=== PATIENT | female | born 1955 | race Caucasian/White ===

== ENCOUNTER 2017-08-28 15:24 | Inpatient (IN) | payer OTHER ==
[~2017-08-28] VITALS: Ht 152.4 cm; Wt 85.5 kg
[~2017-08-28 15:24] MED LIST: ADVIN50/60 INH; ALBUAER19 INH; ALUMSUS2 PO; ATOR-24 PO; B-COTAB83 PO; CALC500C3 PO; CHOLCAP5 PO; CINA60TA PO; DILT120C67 PO; DIPH1TAB87 PO; DOCU100C31 PO; EPP3/2 IM; FLUO40CA8 PO; FLUT0.0529 NAE; IPRASOL4 INH; LCTX PO; METH500T PO; MONT1TAB3 PO; NYST100098 TOP; ONDA4TAB65 PO; OXGN; PANT40TA PO; RANI300T2 PO; SEVE1TAB PO; TRAM-10 PO; VNCS125 PO; WARF5TAB90 PO
[2017-08-28] MEDS ORDERED: NITROGLYCERIN 0.4 MG SL PER TAB CHARGE SL PRN ×2 (16:00→19:00)
[2017-08-28 16:12] LABS: BASO % 0.2 %; BASO ABS # 0.02 K/uL (0-0.2); COMPLETE YES; EOS % 4.4 %; HEMATOCRIT 37.2 % (37-47); IG% 0.2 %; LYMPH % 7.7 %; LYMPH ABS # 0.72 K/uL (1.2-3.4); MEAN CELL VOLUME 97.4 fL (80-100); MEAN CORPUSCULAR HEMOGLOBIN 29.6 pg (25-34); MEAN CORPUSCULAR HGB CONC 30.4 g/dl (32-36); MEAN PLATELET VOLUME 10.3 fL (7.4-10.4); MONO % 6.7 %; NEUT % 80.8 %; PLATELET COUNT 146 K/uL (130-400); RED BLOOD COUNT 3.82 M/uL (4.2-5.4); WHITE BLOOD COUNT 9.37 K/uL (4.8-10.8)
--- NOTE | 2017-08-28 16:19 | DIAGNOSTIC IMAGING REPORT ---
CHEST ONE VIEW PORTABLE CLINICAL HISTORY: 62 years-old Female presenting with cp. TECHNIQUE: Portable upright AP view of the chest was obtained. COMPARISON: 05/25/2015. FINDINGS: Tunneled left internal jugular catheter terminates in the left brachiocephalic vein. A second portion of the catheter projects over the right hemithorax likely with an intervening radiolucent portion. Vascular stent noted in the region of the right brachiocephalic vein best appreciated on CT from 05/20/2015. Additional vascular stent projects over the region of the left brachial vein. Cardiac silhouette enlarged, new from prior. Lungs and pleural spaces clear. Osseous structures normal. Upper abdomen normal. IMPRESSION: 1. Interval development of cardiomegaly. No other evidence of acute cardiopulmonary disease. Electronically signed by: Joshua Kendrick M.D. 08/28/2017 4:17 PM Dictated Date/Time: 08/28/2017 4:14 PM
[2017-08-28] MEDS ORDERED: [UNRECOGNIZED DRUG - CODE] TOP (16:40)
[2017-08-28] MEDS ORDERED: VNTHFA/IN INH (16:40)
[2017-08-28] MEDS ORDERED: FLUT0.15 NAE (16:40)
[2017-08-28] MEDS ORDERED: BCTCR/30 EXT (16:40)
[2017-08-28] MEDS ORDERED: CLOP1TAB15 PO (16:40)
[2017-08-28] MEDS ORDERED: SENN1TAB77 PO (16:40)
[2017-08-28] MEDS ORDERED: CHOL100041 PO (16:40)
[2017-08-28] MEDS ORDERED: POLY335019 PO (16:40)
[2017-08-28] MEDS ORDERED: ACET-1311 PO (16:40)
[2017-08-28] MEDS ORDERED: WARF5TAB90 PO (16:40)
[2017-08-28] MEDS ORDERED: CALC667C4 PO (16:41)
[2017-08-28] MEDS ORDERED: CYCL5TAB PO (16:41)
[2017-08-28] MEDS ORDERED: LANS15CA6 PO (16:41)
[2017-08-28 17:11] LABS: ALKALINE PHOSPHATASE 85 U/L (45-117); ALT/SGPT 15 U/L (12-78); AST/SGOT 15 U/L (15-37); BLOOD UREA NITROGEN 19 mg/dl (7-18); CALCIUM 9.3 mg/dl (8.5-10.1); CARBON DIOXIDE 27 mmol/L (21-32); CHLORIDE 95 mmol/L (98-107); CREATININE 4.76 mg/dl (0.60-1.20); GLUCOSE 107 mg/dl (70-99); POTASSIUM 4.3 mmol/L (3.5-5.1); SODIUM 132 mmol/L (136-145)
[2017-08-28] MEDS ORDERED: CEFTRIAXONE SOD INJ 1 GM ADDVIAL IV STA (18:05)
[2017-08-28 18:16] LABS: PROTHROMBIN TIME (PATIENT) 78.7 SECONDS (9.0-12.0)
[2017-08-28 18:27] LABS: INR 6.8 (0.9-1.1)
[2017-08-28] MEDS ORDERED: ONDANSETRON INJ 2 MG/ML 2 ML VIAL IV PRN (19:00)
[2017-08-28] MEDS ORDERED: LEVALBUTEROL/IPRATROPIUM NEB INH PRN (19:15)
[2017-08-28 20:52] VITALS: BP 165/87; PULSE 78; TEMP 36.8; O2SAT 100; Ht 152.4 cm; Wt 85.5 kg
--- NOTE | 2017-08-28 21:10 | EMERGENCY ROOM VISIT NOTE ---
History Report prepared by Gagan: Hilario Kohler Under the Supervision of: Dr. Andre Porras D.O. First contact with patient: 15:43 Chief Complaint: SHORTNESS OF BREATH Stated Complaint: SOB Nursing Triage Summary: Pt from dialysis (completed treatment) and reports N/V/HINTON that started during. Audible wheezes, cough. Pain all over. History of Present Illness The patient is a 62 year old female who presents to the Emergency Room by EMS with complaints of persistent generalized weakness beginning 1.5 hours ago. She is on dialysis and receives treatment on Thursday, Thursday and Thursday. She finished her dialysis treatment today, and states that her symptoms began shortly afterwards. The patient currently complains of nausea. She states that she has had some left sided chest pain and shortness of breath for the last few days as well. She denies abdominal pain, or headaches. The patient's chest pain and SOB worsened today. She has been on dialysis for 18 years. Source of History: patient Onset: 1.5 hours ago Position: other (generalized) Quality: other (weakness) Timing: other (persistent) Associated Symptoms: + chest pain (beginning a few days ago), + SOB ( beginning a few days ago), + nausea, No headache, No abdominal pain Review of Systems See HPI for pertinent positives & negatives. A total of 10 systems reviewed and were otherwise negative. Past Medical & Surgical Medical Problems: (1) Allergic rhinitis (2) Anemia secondary to renal failure (3) ANTICOAGULANTS,LT,CURRENT USE (4) ANXIETY STATE NOS (5) Asthma (6) Asthma exacerbation (7) Benign hypertension (8) C. difficile diarrhea (9) Chronic constipation (10) Chronic kidney disease (CKD), stage V (11) COPD (chronic obstructive pulmonary disease) (12) Depressive disorder (13) DIVERTICULOSIS COLON (W/O MENT OF HEMORRHAGE) (14) Dyslipidemia (15) ESRD (end stage renal disease) on dialysis (16) Gastroesophageal reflux disease (17) History of atrial fibrillation (18) History of GI bleed (19) History of pancreatitis (20) Obstructive sleep apnea on CPAP (21) Pancreatitis (22) Pulmonary emboli (23) S/p arteriovenous anastomosis (24) Solitary Kidney (25) SUPPLEMENTAL OXYGEN Surgical Problems: (1) Hernia repair (2) History of - section (3) History of appendectomy (4) History of cholecystectomy (5) History of total hysterectomy (6) S/P dialysis catheter insertion (7) Thromboectomy Left Brachiobasilic ateriovenous graft Family History FH: breast cancer MOTHER FH: colon cancer FATHER FH: kidney cancer FATHER FH: lung cancer FATHER Social History Smoking Status: Unknown if Ever Smoked Alcohol Use: none Drug Use: none Marital Status: Housing Status: lives with family Occupation Status: disabled Current/Historical Medications Scheduled Atorvastatin (Lipitor), 40 MG PO DAILY B-Complex W/ C & Folic Acid (Nephro-Jamaal Rx), 1 TAB PO DAILY Calcium Acetate (Phoslo 667 Mg), 3 CAPSULES PO WM Calcium Carbonate (Tums), 500 MG PO AC Cholecalciferol (D 1000), 1,000 UNITS PO DAILY Cinecalcet (Sensipar), 60 MG PO QDD Clopidogrel (Plavix), 75 MG PO DAILY Cyclobenzaprine Hcl (Flexeril), 5 MG PO TID Fluoxetine (Prozac), 40 MG PO DAILY Fluticasone Prop/Salmeterol (Advair Diskus 500/50 60 Dose), 1 PUFF INH BID Fluticasone Propionate (Nasal) (Flonase Allergy Relief), 2 SPRAYS CORTEZ DAILY Home O2 Therapy (Oxygen), 2 LITERS NA HS Lansoprazole (Prevacid), 15 MG PO QAM Montelukast Sodium (Singulair), 10 MG PO DAILY Mupirocin 2% (Bactroban 2%), 1 APPLN EXT TID Polyethylene Glycol 3350 (Miralax), 17 GM PO DAILY Ranitidine (Zantac), 300 MG PO QAM Sennosides (Senokot), 8.6 MG PO DAILY Warfarin Sodium (Coumadin), 10 MG PO 6XWK Warfarin Sodium (Coumadin), 7.5 MG PO DAILY Zinc Oxide (Topical) (Triple Paste), 1 APPLN TOP PRN Scheduled PRN Acetaminophen (Tylenol), 650 MG PO Q4H PRN for Pain or Fever Albuterol Hfa (Ventolin Hfa), 2 PUFFS INH Q4H PRN for SOB/Wheezing Docusate Sodium (Docusate Sodium), 100 MG PO BID PRN for Constipation Epinephrine (Epipen), 0.3 MG IM UD PRN for ALLERGIC REACTION Ipratropium-Albuterol (Duoneb), 1 TREATMENT INH QID PRN for SOB/Wheezing Ondansetron Hcl (Zofran), 4 MG PO TID PRN for Nausea Allergies Coded Allergies: Hydromorphone (Verified Allergy, Intermediate, SHORTNESS OF BREATH, ) Aspirin (Verified Allergy, Mild, BLOODY NOSES, 08/28/17) Ciprofloxacin (Verified Allergy, Mild, HIVES, 08/28/17) Metronidazole (Verified Allergy, Mild, HIVES, 08/28/17) Penicillins (Verified Allergy, Mild, HIVES, 08/28/17) Chocolate (Verified Allergy, Unknown, HIVES, 08/28/17) Peanut Butter Flavor (Verified Allergy, Unknown, HIVES, 08/28/17) Tomato (Verified Allergy, Unknown, HIVES, 08/28/17) White Potato (Verified Allergy, Unknown, HIVES, 08/28/17) Uncoded Allergies: CEREAL COLOR DYES (Allergy, Severe, SOB, THROAT SWELLS, 08/28/17) TRIX CEREAL (Allergy, Unknown, SHORTNESS OF BREATH, SWELLING OF THROAT, ) Physical Exam Vital Signs Date Time Temp Pulse Resp B/P (MAP) Pulse Ox O2 Delivery O2 Flow Rate FiO2 08/28/17 18:00 81 24 137/70 08/28/17 16:38 89 24 114/56 97 Nasal Cannula 08/28/17 16:21 103 08/28/17 15:31 98 Nasal Cannula 3.0 08/28/17 15:31 Nasal Cannula 3.0 98 08/28/17 15:31 37.0 113 23 106/75 97 Nasal Cannula 3.0 Physical Exam GENERAL: Chronically ill appearing, sitting up in bed, non-toxic, lethargic. EYE EXAM: normal conjunctiva. OROPHARYNX: no exudate, no erythema, lips, buccal mucosa, and tongue normal and mucous membranes are moist NECK: supple, no nuchal rigidity, no adenopathy, non-tender LUNGS: Crackles at bilateral bases. Normal chest wall mechanics HEART: no murmurs, S1 normal and S2 normal ABDOMEN: abdomen soft, non-tender, normo-active bowel sounds, no masses, no rebound or guarding. BACK: Back is symmetrical on inspection and there is no deformity, no midline tenderness, no CVA tenderness. Catheter in right lower flank without surrounding erythema. SKIN: no rashes and no bruising UPPER EXTREMITIES: upper extremities are grossly normal. LOWER EXTREMITIES: No pitting edema. Mild erythema on the left proximal thigh. NEURO EXAM: Normal sensorium, cranial nerves II-XII grossly intact, normal speech, no gross weakness of arms, no gross weakness of legs. Medical Decision & Procedures ER Provider Diagnostic Interpretation: Radiology results as stated below per my review and the radiologist's interpretation: CHEST ONE VIEW PORTABLE FINDINGS: Tunneled left internal jugular catheter terminates in the left brachiocephalic vein. A second portion of the catheter projects over the right hemithorax likely with an intervening radiolucent portion. Vascular stent noted in the region of the right brachiocephalic vein best appreciated on CT from 05/20/2015. Additional vascular stent projects over the region of the left brachial vein. Cardiac silhouette enlarged, new from prior. Lungs and pleural spaces clear. Osseous structures normal. Upper abdomen normal. IMPRESSION: 1. Interval development of cardiomegaly. No other evidence of acute cardiopulmonary disease. Electronically signed by: Joshua Kendrick M.D. 08/28/2017 4:17 PM Laboratory Results 08/28/17 16:03 Red Blood Count 3.82, Mean Corpuscular Volume 97.4, Mean Corpuscular Hemoglobin 29.6, Mean Corpuscular Hemoglobin Concent 30.4, Mean Platelet Volume 10.3, Neutrophils (%) (Auto) 80.8, Lymphocytes (%) (Auto) 7.7, Monocytes (%) (Auto) 6.7, Eosinophils (%) (Auto) 4.4, Basophils (%) (Auto) 0.2, Neutrophils # (Auto) 7.57, Lymphocytes # (Auto) 0.72, Monocytes # (Auto) 0.63, Eosinophils # (Auto) 0.41, Basophils # (Auto) 0.02 08/28/17 16:03 Test 08/28/17 16:03 08/28/17 17:35 White Blood Count 9.37 K/uL (4.8-10.8) Red Blood Count 3.82 M/uL (4.2-5.4) Hemoglobin 11.3 g/dL (12.0-16.0) Hematocrit 37.2 % (37-47) Mean Corpuscular Volume 97.4 fL (80-100) Mean Corpuscular Hemoglobin 29.6 pg (25-34) Mean Corpuscular Hemoglobin Concent 30.4 g/dl (32-36) Platelet Count 146 K/uL (130-400) Mean Platelet Volume 10.3 fL (7.4-10.4) Neutrophils (%) (Auto) 80.8 % Lymphocytes (%) (Auto) 7.7 % Monocytes (%) (Auto) 6.7 % Eosinophils (%) (Auto) 4.4 % Basophils (%) (Auto) 0.2 % Neutrophils # (Auto) 7.57 K/uL (1.4-6.5) Lymphocytes # (Auto) 0.72 K/uL (1.2-3.4) Monocytes # (Auto) 0.63 K/uL (0.11-0.59) Eosinophils # (Auto) 0.41 K/uL (0-0.5) Basophils # (Auto) 0.02 K/uL (0-0.2) RDW Standard Deviation 65.6 fL (36.4-46.3) RDW Coefficient of Variation 18.5 % (11.5-14.5) Immature Granulocyte % (Auto) 0.2 % Immature Granulocyte # (Auto) 0.02 K/uL (0.00-0.02) Anion Gap 10.0 mmol/L (3-11) Est Creatinine Clear Calc Drug Dose 11.7 ml/min Estimated GFR () 10.6 Estimated GFR (Non- 9.1 BUN/Creatinine Ratio 4.0 (10-20) Calcium Level 9.3 mg/dl (8.5-10.1) Total Bilirubin 0.3 mg/dl (0.2-1) Direct Bilirubin < 0.1 mg/dl (0-0.2) Aspartate Amino Transf (AST/SGOT) 15 U/L (15-37) Alanine Aminotransferase (ALT/SGPT) 15 U/L (12-78) Alkaline Phosphatase 85 U/L (45-117) Troponin I < 0.015 ng/ml (0-0.045) Pro-B-Type Natriuretic Peptide 10500 pg/ml (0-900) Total Protein 8.2 gm/dl (6.4-8.2) Albumin 3.7 gm/dl (3.4-5.0) Lipase 104 U/L (73-393) Prothrombin Time 78.7 SECONDS (9.0-12.0) Prothromb Time International Ratio 6.8 (0.9-1.1) Laboratory results per my review. Medications Administered Medications (Trade) Dose Ordered Sig/Deidre Route Start Time Stop Time Status Last Admin Dose Admin Nitroglycerin (Nitrostat Tab) 0.4 mg Q5M PRN SL 08/28/17 16:00 09/27/17 15:59 08/28/17 18:59 0.4 MG Ceftriaxone Sodium (Rocephin Inj) 1 gm NOW STAT IV 08/28/17 18:05 08/28/17 18:07 DC 08/28/17 18:59 1 GM ECG Indication: chest pain Rate (beats per minute): 112 Rhythm: sinus tachycardia Findings: ST elevation (V4), other (Poor baseline in the hilateral leads. ) Change: Repeat ECG reveals a sinus tachycardia with a rate of 108 bpm. Normal axis. No ectopy seen. T-wave flattening noted in the hilateral leads. ED Course ED COURSE: Vital signs were reviewed and showed tachycardia The patients medical record was reviewed The above diagnostic studies were performed and reviewed. ED treatments and interventions as stated above. 1547: The patient was evaluated in room A3. A complete history and physical examination was performed. 1600: Ordered Nitrostat Tab 0.4 mg SL. 1805: Ordered Rocephin Inj 1 gm IV. Upon reevaluation, the patient is resting comfortably. I discussed my findings with the patient and she understands and agrees with the treatment plan. Based on the patients age, coexisting illnesses, exam and lab findings the decision to treat as an inpatient was made. The patient remained stable while under my care. The patient will be evaluated for further management. Medical Decision Differential diagnoses includes but is not limited to pneumonia, bronchitis, COPD/Asthma exacerbation, pneumothorax, pulmonary embolism, congestive heart failure, acute coronary syndrome. Patient is a 62-year-old female who presents to ER for chest pain associated with shortness of breath nausea and diffuse weakness. Receives dialysis Thursday. She received 4 hours of dialysis today. She notes 2 hours prior to arrival all these symptoms started. CBC was unremarkable. Creatinine was 4.6 and expected with dialysis. Troponin was negative. BMP was elevated at 20,000. INR was supratherapeutic at 6.8. Chest x-ray shows mild cardiomegaly. Discussed with patient and was given aspirin. She was given Rocephin with cellulitis on her left lower extremity upper extremity. Patient was updated bedside. She was admitted to internal medicine with precordial chest pain and cellulitis. Medication Reconcilliation Current Medication List: was personally reviewed by me Blood Pressure Screening Patient's blood pressure: Normal blood pressure Blood pressure disposition: Did not require urgent referral Consults Time Called: 1800 Consulting Physician: Rafaela Ledesma Returned Call: [phone] I reviewed the patient's case with Rafaela Swanson will evaluate the patient for further management. Impression Primary Impression: Precordial chest pain Additional Impression: Cellulitis Scribe Attestation The scribe's documentation has been prepared under my direction and personally reviewed by me in its entirety. I confirm that the note above accurately reflects all work, treatment, procedures, and medical decision making performed by me. Departure Information Dispostion Being Evaluated By Hospitalist Referrals Alejandra Landeros D.O. (PCP) Patient Instructions My [facility] Problem Qualifiers Additional Impression: Cellulitis Site of cellulitis: unspecified site Qualified Codes: L03.90 - Cellulitis, unspecified
[2017-08-28] MEDS ORDERED: VANCOMYCIN INJ 1,500 MG in SODIUM CHLORIDE 0.9% 500ML 500 ML IV STA (21:47)
[2017-08-28] MEDS ORDERED: VANCOMYCIN CONSULT ACTIVE PRN (22:02)
[2017-08-28] MEDS: OXYCODONE/ACETAMINOPHEN 10/325MG TAB PO PRN (22:25)
[2017-08-28] MEDS: METHYLPREDNISOLONE IV 40 MG in SYRINGE 0 ML IV SCH (22:26)
[2017-08-28] MEDS ORDERED: EPINEPHRINE ADULT AUTO-INJECT 0.3 MG SYR IM PRN (23:15)
[2017-08-28] MEDS ORDERED: DOCUSATE SODIUM 100 MG CAP PO PRN (23:15)
[2017-08-28] MEDS ORDERED: ALBUTEROL HFA 8 GM INHALER INH PRN (23:15)
[2017-08-28 23:23] VITALS: BP 127/74; PULSE 78; TEMP 37; O2SAT 98
[2017-08-28 23:38] VITALS: PULSE 78; O2SAT 96
[2017-08-29] VITALS (23 sets, daily range): BP systolic 82–156; BP diastolic 33–90; PULSE 62–89; TEMP 36.1–37; O2SAT 93–97
--- NOTE | 2017-08-29 01:24 | History and Physical ---
History & Physical Date & Time of Service: Aug 29, 2017 at 1900 Chief Complaint: Asthma Exacerbation; Chest Pain Primary Care Physician: Karlie Mullins D.O. History of Present Illness Source: patient, clinic records, hospital records This is a 62yo F with a PMH of ESRD on HD, atrial fibrillation (on Coumadin), asthma, sleep apnea on CPAP and home oxygen at 2L HS and other medical problems listed below who presents with worsening SOB since dialysis today. Patient has been under a lot of stress this week while moving in with her granddaughter and feels like she "overdid it" with packing. Started to experience a runny nose, subjective fever and chills a few days ago. [place] fatigued and short of breath prior to dialysis today but symptoms worsened afterwards. Associated symptoms include wheezing and pleuritic CP that is worse on the L side. Has a history of asthma and COPD 2/2 secondhand smoke. Is on 2L NC O2 at home. Reports taking all medications, including inhaler and neb treatment. In addition to her SOB, patient has also noticed worsening pain in her L groin near her dialysis fistula site. Patient's current dialysis access is on R flank , but reports that this fistula was placed within the last year with plans to switch to L groin. States that this site has been painful ever since placement, but that pain is getting progressively worse and the overlying area has become red and warm to touch. Has had a historically difficult time with dialysis access sites and has received dialysis for almost 18 years. Denies fever, chills, lightheadedness, palpitations, abdominal pain, nausea/ vomiting, dysuria, diarrhea, LE swelling. Past Medical/Surgical History Medical Problems: (1) Allergic rhinitis Status: Chronic (2) Anemia secondary to renal failure Status: Chronic (3) ANTICOAGULANTS,LT,CURRENT USE Status: Chronic (4) ANXIETY STATE NOS Status: Chronic (5) Asthma Status: Chronic (6) Benign hypertension Status: Chronic (7) C. difficile diarrhea Status: Resolved (8) Chronic constipation Status: Chronic (9) Chronic kidney disease (CKD), stage V Status: Chronic (10) COPD (chronic obstructive pulmonary disease) Permanent Comment: on home O2 Status: Chronic (11) Depressive disorder Status: Chronic (12) DIVERTICULOSIS COLON (W/O MENT OF HEMORRHAGE) Status: Chronic (13) Dyslipidemia Status: Chronic (14) ESRD (end stage renal disease) on dialysis Status: Chronic (15) Gastroesophageal reflux disease Status: Chronic (16) History of atrial fibrillation Permanent Comment: on coumadin Status: Chronic (17) History of GI bleed Status: Chronic (18) History of pancreatitis Permanent Comment: secondary to biliary stenosis, s/p ERCP and biliary sphincterotomy Status: Chronic (19) Obstructive sleep apnea on CPAP Status: Chronic (20) Pancreatitis Status: Chronic (21) Pulmonary emboli Status: Resolved (22) S/p arteriovenous anastomosis Status: Chronic (23) Solitary Kidney Status: Chronic (24) SUPPLEMENTAL OXYGEN Status: Chronic Surgical Problems: (1) Hernia repair Status: Chronic (2) History of - section Status: Chronic (3) History of appendectomy Status: Chronic (4) History of cholecystectomy Status: Chronic (5) History of total hysterectomy Status: Chronic (6) S/P dialysis catheter insertion Status: Chronic (7) Thromboectomy Left Brachiobasilic ateriovenous graft Status: Chronic Family History FH: breast cancer MOTHER FH: colon cancer FATHER FH: kidney cancer FATHER FH: lung cancer FATHER Social History Smoking Status: Never Smoker Drug Use: none Marital Status: Housing status: lives with family Occupational Status: disabled Immunizations History of Influenza Vaccine: Yes Influenza Vaccine Date: Jul 03, 2014 History of Tetanus Vaccine?: Yes History of Pneumococcal: Yes Pneumococcal Date: Jul 18, 2013 History of Hepatitis B Vaccine: Yes Allergies Coded Allergies: Hydromorphone (Verified Allergy, Intermediate, SHORTNESS OF BREATH, ) Aspirin (Verified Allergy, Mild, BLOODY NOSES, 08/28/17) Ciprofloxacin (Verified Allergy, Mild, HIVES, 08/28/17) Metronidazole (Verified Allergy, Mild, HIVES, 08/28/17) Penicillins (Verified Allergy, Mild, HIVES, 08/28/17) Chocolate (Verified Allergy, Unknown, HIVES, 08/28/17) Peanut Butter Flavor (Verified Allergy, Unknown, HIVES, 08/28/17) Tomato (Verified Allergy, Unknown, HIVES, 08/28/17) White Potato (Verified Allergy, Unknown, HIVES, 08/28/17) Uncoded Allergies: CEREAL COLOR DYES (Allergy, Severe, SOB, THROAT SWELLS, 08/28/17) TRIX CEREAL (Allergy, Unknown, SHORTNESS OF BREATH, SWELLING OF THROAT, ) Home Medications Scheduled Atorvastatin (Lipitor), 40 MG PO DAILY B-Complex W/ C & Folic Acid (Nephro-Jamaal Rx), 1 TAB PO DAILY Calcium Acetate (Phoslo 667 Mg), 3 CAPSULES PO WM Calcium Carbonate (Tums), 500 MG PO AC Cholecalciferol (D 1000), 1,000 UNITS PO DAILY Cinecalcet (Sensipar), 60 MG PO QDD Clopidogrel (Plavix), 75 MG PO DAILY Cyclobenzaprine Hcl (Flexeril), 5 MG PO TID Fluoxetine (Prozac), 40 MG PO DAILY Fluticasone Prop/Salmeterol (Advair Diskus 500/50 60 Dose), 1 PUFF INH BID Fluticasone Propionate (Nasal) (Flonase Allergy Relief), 2 SPRAYS CORTEZ DAILY Home O2 Therapy (Oxygen), 2 LITERS NA HS Lansoprazole (Prevacid), 15 MG PO QAM Montelukast Sodium (Singulair), 10 MG PO DAILY Mupirocin 2% (Bactroban 2%), 1 APPLN EXT TID Polyethylene Glycol 3350 (Miralax), 17 GM PO DAILY Ranitidine (Zantac), 300 MG PO QAM Sennosides (Senokot), 8.6 MG PO DAILY Warfarin Sodium (Coumadin), 10 MG PO 6XWK Warfarin Sodium (Coumadin), 7.5 MG PO DAILY Zinc Oxide (Topical) (Triple Paste), 1 APPLN TOP PRN Scheduled PRN Acetaminophen (Tylenol), 650 MG PO Q4H PRN for Pain or Fever Albuterol Hfa (Ventolin Hfa), 2 PUFFS INH Q4H PRN for SOB/Wheezing Docusate Sodium (Docusate Sodium), 100 MG PO BID PRN for Constipation Epinephrine (Epipen), 0.3 MG IM UD PRN for ALLERGIC REACTION Ipratropium-Albuterol (Duoneb), 1 TREATMENT INH QID PRN for SOB/Wheezing Ondansetron Hcl (Zofran), 4 MG PO TID PRN for Nausea Review of Systems Ten systems reviewed and negative except as noted in the HPI. Physical Exam Vital Signs Date Time Temp Pulse Resp B/P (MAP) Pulse Ox O2 Delivery O2 Flow Rate FiO2 08/28/17 23:59 Nasal Cannula 08/28/17 23:38 78 96 3.0 08/28/17 23:23 37.0 78 22 127/74 (91) 98 Nasal Cannula 3.0 08/28/17 20:52 36.8 78 22 165/87 100 Nasal Cannula 3.0 08/28/17 20:49 88 24 110/60 96 08/28/17 20:38 89 20 110/86 96 Nasal Cannula 2.0 08/28/17 19:40 82 23 108/59 98 Nasal Cannula 2.0 08/28/17 19:01 85 24 131/70 98 Nasal Cannula 2.0 08/28/17 18:00 81 24 137/70 08/28/17 16:38 89 24 114/56 97 Nasal Cannula 08/28/17 16:21 103 08/28/17 15:31 98 Nasal Cannula 3.0 08/28/17 15:31 Nasal Cannula 3.0 98 08/28/17 15:31 37.0 113 23 106/75 97 Nasal Cannula 3.0 General Appearance: + mild distress, + pertinent finding (Chronically ill appearing ) Head: normocephalic, atraumatic Eyes: normal inspection, PERRL, sclerae normal (conjunctiva normal ) ENT: normal ENT inspection, hearing grossly normal, pharynx normal, + nasal congestion Neck: supple, thyroid normal, trachea midline Respiratory/Chest: chest non-tender, no respiratory distress, no accessory muscle use, + wheezing (Diffuse wheezing in bilateral lung drew ) Cardiovascular: no murmur, + tachycardia Abdomen/GI: normal bowel sounds, non tender, soft, no organomegaly Back: + pertinent finding (Dialysis access site on R flank. Bandaged. No surrounding erythema. ) Extremities/Musculoskelatal: no calf tenderness, no pedal edema, + pertinent finding (Patent fistula palpated on L proximal thigh/groin. Mild erythema surrounding site. Warm to touch.) Neurologic/Psych: no motor/sensory deficits, alert, normal mood/affect, oriented x 3 Skin: normal color, warm/dry Diagnostics Laboratory Results Results Past 24 Hours Test 08/28/17 16:03 08/28/17 17:35 08/28/17 23:45 Range/Units White Blood Count 9.37 4.8-10.8 K/uL Red Blood Count 3.82 4.2-5.4 M/uL Hemoglobin 11.3 12.0-16.0 g/dL Hematocrit 37.2 37-47 % Mean Corpuscular Volume 97.4 80-100 fL Mean Corpuscular Hemoglobin 29.6 25-34 pg Mean Corpuscular Hemoglobin Concent 30.4 32-36 g/dl Platelet Count 146 130-400 K/uL Mean Platelet Volume 10.3 7.4-10.4 fL Neutrophils (%) (Auto) 80.8 % Lymphocytes (%) (Auto) 7.7 % Monocytes (%) (Auto) 6.7 % Eosinophils (%) (Auto) 4.4 % Basophils (%) (Auto) 0.2 % Neutrophils # (Auto) 7.57 1.4-6.5 K/uL Lymphocytes # (Auto) 0.72 1.2-3.4 K/uL Monocytes # (Auto) 0.63 0.11-0.59 K/uL Eosinophils # (Auto) 0.41 0-0.5 K/uL Basophils # (Auto) 0.02 0-0.2 K/uL RDW Standard Deviation 65.6 36.4-46.3 fL RDW Coefficient of Variation 18.5 11.5-14.5 % Immature Granulocyte % (Auto) 0.2 % Immature Granulocyte # (Auto) 0.02 0.00-0.02 K/uL Sodium Level 132 136-145 mmol/L Potassium Level 4.3 3.5-5.1 mmol/L Chloride Level 95 98-107 mmol/L Carbon Dioxide Level 27 21-32 mmol/L Anion Gap 10.0 3-11 mmol/L Blood Urea Nitrogen 19 7-18 mg/dl Creatinine 4.76 0.60-1.20 mg/dl Est Creatinine Clear Calc Drug Dose 11.7 ml/min Estimated GFR () 10.6 Estimated GFR (Non- 9.1 BUN/Creatinine Ratio 4.0 10-20 Random Glucose 107 70-99 mg/dl Calcium Level 9.3 8.5-10.1 mg/dl Total Bilirubin 0.3 0.2-1 mg/dl Direct Bilirubin < 0.1 0-0.2 mg/dl Aspartate Amino Transf (AST/SGOT) 15 15-37 U/L Alanine Aminotransferase (ALT/SGPT) 15 12-78 U/L Alkaline Phosphatase 85 45-117 U/L Troponin I < 0.015 < 0.015 0-0.045 ng/ml Pro-B-Type Natriuretic Peptide 99010 0-900 pg/ml Total Protein 8.2 6.4-8.2 gm/dl Albumin 3.7 3.4-5.0 gm/dl Lipase 104 73-393 U/L Prothrombin Time 78.7 9.0-12.0 SECONDS Prothromb Time International Ratio 6.8 0.9-1.1 Microbiology Results 08/28/17 MRSA DNA Surveillance Screen - Final, Complete Specimen Negative for MRSA by DNA Probe Diagnostic Radiology CXR: IMPRESSION: 1. Interval development of cardiomegaly. No other evidence of acute cardiopulmonary disease. EKG Sinus tachycardia with PACs at 108 bpm. Impression Assessment and Plan This is a 62yo F with a PMH of ESRD on HD, atrial fibrillation (on Coumadin), asthma, sleep apnea on CPAP and home oxygen at 2L HS and other medical problems listed below who presents with worsening SOB since dialysis today. Asthma exacerbation: -2/2 URI -Solu-medrol 40mg Q8, taper as appropriate -Xopenex/atrovent nebs PRN -Continue supplemental O2. Satting well in high 90s. -Home meds Cellulitis of L groin: -Overlying fistula site -Vanc initiated -Monitor CBC ESRD on HD: -Dialysis MWF -Cr of 4.76, GFR 9.1 -Continue renal vitamins, renal diet -Nephro consult Chest pain: -Pleuritic in nature -EKG without ischemic changes -Initial trop negative -Trend enzymes for completeness Supratherapeutic INR: -INR elevatred to 6.8 -Denies bleeding -Hold warfarin -Recheck INR in AM H/o A Fib: -Currently in a sinus rhythm -Not currently on any medication for rate control -Warfarin held until INR therapeutic Sleep apnea: -CPAP qHS Chronic pain: -Continue home dose flexeril and percocet -Bowel regimen DVT Ppx: On warfarin Code status: DNR PCP: Susanna Dispo: SW consulted to help with discharge placement Patient seen in collaboration with . Please see addendum. This is a 62 year old female with a PMH of second hand tobacco exposure, COPD and asthma, chronic respiratory failure on 2L of O2 at all times, ESRD on HD, A. Fib on Coumadin presented with worsening shortness of breath. EXT: +warm to touch at the L upper thigh/groin; site of fistula CVS: +S1, S2, RRR LUNGS: +wheezing diffusely Plan is to give some solu-medrol, nebs PRN for asthma exacerbation Give antibiotics for possible cellulitis of the LLE hold Coumadin for supratherapeutic INR Level of Care Telemetry Advanced Directives Existing Living Will: No Existing Power of Guard Entrance Registrar: No Resuscitation Status DO NOT RESUSCITATE VTE Prophylaxis VTE Risk Assessment Done? Y/N: Yes Risk Level: Moderate Given or contraindicated: Warfarin (Coumadin)
[2017-08-29] MEDS ORDERED: CALCIUM ACETATE 667MG GELCAP PO PRN (01:45)
[2017-08-29] MEDS: METHYLPREDNISOLONE IV 40 MG in SYRINGE 0 ML IV SCH ×3 (05:32→21:00)
[2017-08-29 05:55] LABS: HEMATOCRIT 37.8 % (37-47); MEAN CELL VOLUME 99.2 fL (80-100); MEAN CORPUSCULAR HEMOGLOBIN 29.1 pg (25-34); MEAN CORPUSCULAR HGB CONC 29.4 g/dl (32-36); MEAN PLATELET VOLUME 11.2 fL (7.4-10.4); PLATELET COUNT 124 K/uL (130-400); RED BLOOD COUNT 3.81 M/uL (4.2-5.4); WHITE BLOOD COUNT 5.52 K/uL (4.8-10.8)
[2017-08-29 06:14] LABS: INR 6.2 (0.9-1.1)
[2017-08-29 06:49] LABS: BLOOD UREA NITROGEN 28 mg/dl (7-18); BUN/CREATININE RATIO 4.5 (10-20); CARBON DIOXIDE 26 mmol/L (21-32); CHLORIDE 99 mmol/L (98-107); CREATININE 6.13 mg/dl (0.60-1.20); GLUCOSE 131 mg/dl (70-99); POTASSIUM 6.7 mmol/L (3.5-5.1); SODIUM 132 mmol/L (136-145)
--- NOTE | 2017-08-29 07:54 | NEPHROLOGY CONSULTATION ---
DATE OF CONSULTATION: 08/29/2017 ATTENDING OF RECORD: Zhang Mackey MD. REASON FOR CONSULTATION: End-stage renal disease . HISTORY OF PRESENT ILLNESS: This is a 62-year-old female with significant history of end-stage renal disease, COPD, anxiety, atrial fibrillation, history of PE in the past who was moving houses for the past couple weeks and on Thursday did not feel well prior to dialysis, had an upset stomach along with nausea and vomiting and after dialysis, became short of breath with worsening wheezing and chest pain and brought in from dialysis to the Emergency Room. The patient also has a fistula in the left groin that did require long-term antibiotics for a superficial cellulitis and has been off the vancomycin now for several weeks. The patient though has noticed that area is more tender now. The patient this morning is starting to feel better, although still has wheezing. The patient admits that she was not eating like she normally does and she came in with an INR of 6.8 and this morning her potassium level was up to 6.7. Troponins are negative x3. ProBNP is 20,000, hemoglobin levels are stable at 11.1. REVIEW OF SYSTEMS: Positive anxiety. Positive shortness of breath. Positive upset stomach. Positive nausea and vomiting yesterday. Positive fevers, chills, a couple of days ago. No headaches. No rash. No itching. All other review of systems otherwise negative. PAST MEDICAL HISTORY: End-stage renal disease, AFib, asthma, COPD, obstructive sleep apnea, hyperlipidemia, hypertension, history of PE in the past. PAST SURGICAL HISTORY: Hysterectomy, cholecystectomy, appendectomy, , multiple dialysis accesses, hernia repair. FAMILY HISTORY: Significant for colon cancer and kidney cancer. CURRENT MEDICATIONS: Lipitor 40 mg daily, Plavix 75 mg daily, Flexeril 5 mg p.o. t.i.d., Prozac 40 mg daily, Advair inhaler twice a day, Flonase daily, Singulair 10 mg daily, Nephrocaps daily, vitamin D 1000 units daily, Prevacid 15 mg daily, Zantac 300 mg daily, PhosLo 3 p.o. t.i.d. with meals, Tums 500 with meals, Solu-Medrol 40 mg IV q 8, did receive 1 loading dose 1,500 mg of vancomycin. PHYSICAL EXAMINATION: VITAL SIGNS: Temperature 36.4, pulse 64, respiratory rate is 23, blood pressure is 123/76, satting 97% on CPAP. GENERAL: Awake, alert, oriented x3. EYES: No scleral icterus. ENT: Moist mucous membranes. NECK: Supple. PULMONARY: Positive end expiratory wheezes. CARDIAC: Regular rate and rhythm. ABDOMEN: Bowel sounds positive, soft, nontender. EXTREMITIES: No significant edema. Does have tenderness over her left leg fistula. NEUROLOGICALLY: Nonfocal. DERM: No rash or ulcers noted. LABORATORIES: White count is 5. H&H 11 and 37, platelet count is 124. INR 6.2. Sodium level is 132, potassium 6.7, chloride is 99, bicarbonate is 26, BUN is 28, creatinine 6.13, glucose 131, calcium is 9. Troponin is negative x3 ProBNP is 20,000. Chest x-ray showed interval development of cardiomegaly, no other evidence of acute cardiopulmonary disease. ASSESSMENT AND PLAN: 1. End-stage renal disease. The patient with significant hyperkalemia that worsened since admission last night. The patient did just finish dialysis. When she came into the Emergency Room potassium level was lower and expected to go up this morning, however Went up higher than expected and now up to 6.7. Labs shows no evidence of hemolysis. Arranging for dialysis now to help lower the potassium levels. Perhaps the Solu-Medrol may have caused the potassium levels to worsen more and will follow the potassium levels and recheck them after dialysis. 2. Anemia of renal failure. Hemoglobin levels are in the 11s so we will hold off on Procrit. 3. Renal osteodystrophy. We will continue patient's phosphate binders and check phosphorus levels throughout the hospitalization. 4. Asthma exacerbation/chronic obstructive pulmonary disease exacerbation with end expiratory wheeze, currently on steroids 5. Infectious disease. The patient was on long-term vancomycin for a superficial cellulitis of the left lower leg. The patient notices more tenderness to that area and has been restarted on the vancomycin, although unclear at this point if that is a true cellulitis or not. Defer to primary hospitalist. JEFFERY
[2017-08-29] MEDS: FLUTICASONE PROPIONATE NA SPR 16 GM BTL NAE SCH (08:10)
[2017-08-29] MEDS: MUPIROCIN 2% OINT 22 GM TUBE EXT SCH ×3 (08:11→21:00)
[2017-08-29] MEDS: CYCLOBENZAPRINE HCL 5 MG TAB PO SCH ×3 (08:11→21:00)
[2017-08-29] MEDS: RANITIDINE HCL 150 MG TAB PO SCH (08:12)
[2017-08-29] MEDS: CHOLECALCIFEROL 1000 INTER.UNIT TAB PO SCH (08:12)
[2017-08-29] MEDS: LANSOPRAZOLE SOLUTAB 15 MG PO SCH (08:12)
[2017-08-29] MEDS: CALCIUM CARBONATE 500 MG CHEWABLE PO SCH ×3 (08:13→16:06)
[2017-08-29] MEDS: NEPHROCAPS PO SCH (08:13)
[2017-08-29] MEDS: FLUOXETINE HCL 20 MG CAP PO SCH (08:15)
[2017-08-29] MEDS: CALCIUM ACETATE 667MG GELCAP PO SCH ×3 (08:15→16:06)
[2017-08-29] MEDS: ATORVASTATIN 40 MG TAB PO SCH (08:15)
[2017-08-29] MEDS: FLUTICASONE/SALMETEROL (ADVAIR) 500/50 INH 14 PUFF INH SCH ×2 (08:16→21:00)
[2017-08-29] MEDS: MONTELUKAST SOD 10 MG TAB PO SCH (08:16)
[2017-08-29] MEDS: POLYETHYLENE (MIRALAX) 17 GM PACK PO PRN (08:29)
[2017-08-29] MEDS: OXYCODONE/ACETAMINOPHEN 10/325MG TAB PO PRN ×3 (08:29→21:07)
[2017-08-29] MEDS: CLOPIDOGREL BISULFATE 75 MG TAB PO SCH (08:29)
[2017-08-29] MEDS: IPRATROPIUM BROMIDE NEB SOLN 0.02% 2.5 ML VIAL INH PRN (08:44)
[2017-08-29] MEDS: LEVALBUTEROL 1.25MG/0.5ML NEB INH PRN (08:44)
[2017-08-29 10:45] LABS: HEPATITIS B AB POS
--- NOTE | 2017-08-29 13:54 | Pharmacy Progress Note ---
Pharmacy Abx Initial Consult Date of Service Aug 29, 2017. Pharmacy Dosing Scope Date of Consult: 08/28/17 Consultation requested by: Rafaela Sanchez PA-C Pharmacy is consulted to initiate Vancomycin IV dosing therapy, order appropriate labs and adjust drug dose/frequency. Subjective The patient is a 62 year old female admitted on Aug 28, 2017 at 18:58 with cellulitis of left groin. Pt on HD MWF x 18 years, Hx CDiff, COPD, and half-way IV Vancomycin for LLL Cellulitis. Objective Height (Feet): 5 Height (Inches): 0.00 Weight (Kilograms): 82.000 Vital Signs (Past 12Hrs) Vital Signs Past 12 Hours Date Time Temp Pulse Resp B/P (MAP) Pulse Ox O2 Delivery O2 Flow Rate FiO2 08/29/17 13:05 36.5 86 117/42 (67) 08/29/17 12:15 69 130/90 08/29/17 12:00 Room Air 08/29/17 12:00 79 106/51 08/29/17 11:45 81 103/34 08/29/17 11:30 89 110/33 08/29/17 11:15 86 127/55 08/29/17 11:00 87 135/46 08/29/17 10:45 79 82/34 08/29/17 10:30 83 96/43 08/29/17 10:15 84 93/49 08/29/17 10:00 83 93/39 08/29/17 09:45 77 96/54 08/29/17 09:30 74 113/42 08/29/17 09:21 36.8 81 117/55 (75) 08/29/17 08:44 75 16 95 Room Air 08/29/17 08:00 Room Air 08/29/17 07:06 36.1 62 18 105/69 (81) 96 BiPAP 08/29/17 04:04 36.4 64 23 123/76 (92) 97 CPAP 08/29/17 04:00 CPAP Lab Results (24Hrs) Test 08/28/17 16:03 08/28/17 17:35 08/28/17 23:45 08/29/17 05:39 White Blood Count 9.37 5.52 Red Blood Count 3.82 3.81 Hemoglobin 11.3 11.1 Hematocrit 37.2 37.8 Mean Corpuscular Volume 97.4 99.2 Mean Corpuscular Hemoglobin 29.6 29.1 Mean Corpuscular Hemoglobin Concent 30.4 29.4 Platelet Count 146 124 Mean Platelet Volume 10.3 11.2 Neutrophils (%) (Auto) 80.8 Lymphocytes (%) (Auto) 7.7 Monocytes (%) (Auto) 6.7 Eosinophils (%) (Auto) 4.4 Basophils (%) (Auto) 0.2 Neutrophils # (Auto) 7.57 Lymphocytes # (Auto) 0.72 Monocytes # (Auto) 0.63 Eosinophils # (Auto) 0.41 Basophils # (Auto) 0.02 RDW Standard Deviation 65.6 66.2 RDW Coefficient of Variation 18.5 18.0 Immature Granulocyte % (Auto) 0.2 Immature Granulocyte # (Auto) 0.02 Sodium Level 132 132 Potassium Level 4.3 6.7 Chloride Level 95 99 Carbon Dioxide Level 27 26 Anion Gap 10.0 8.0 Blood Urea Nitrogen 19 28 Creatinine 4.76 6.13 Est Creatinine Clear Calc Drug Dose 11.7 9.0 Estimated GFR () 10.6 7.8 Estimated GFR (Non- 9.1 6.7 BUN/Creatinine Ratio 4.0 4.5 Random Glucose 107 131 Calcium Level 9.3 9.0 Total Bilirubin 0.3 Direct Bilirubin < 0.1 Aspartate Amino Transferase (AST) 15 Alanine Aminotransferase (ALT) 15 Alkaline Phosphatase 85 Pro-B-Type Natriuretic Peptide 25979 Total Protein 8.2 Albumin 3.7 Lipase 104 Prothrombin Time 78.7 72.0 Prothrombin Time INR 6.8 6.2 Troponin I < 0.015 < 0.015 Hepatitis B Surface Antigen NEG Hepatitis B Surface Antibody POS Hepatitis C Antibody Screen NEG Micro Results Date/Time Source Procedure Growth Status 08/28/17 21:30 Nasal MRSA DNA Surveillance Screen - Final Specimen Negative for MRSA by DNA Probe Complete Risk Factors for Resistance * Antimicrobial use within the last 90 days IV Vancomycin for LLL Cellulitis Assessment & Plan Assessment 62 year old female on HD MWF, admitted with Left groin cellulitis. Patient did receive HD today, x 3 hours, time off HD was 12:29pm. Plan Vancomycin IV for treatment of cellulitis Vancomycin IV * Loading dose: 1500 mg (19 mg/kg) x 1 yesterday at 2225 * Goal trough level for cellulitis ~15mcg/mL * Random level ordered for 08/30/17 with AM labs * Empiric dosing based on levels in patient with CKD on HD Pharmacy will continue to follow and will adjust dose/frequency as necessary. Thank you.
[2017-08-29] MEDS ORDERED: VANCOMYCIN INJ 500 MG in SODIUM CHLORIDE 0.9% 250ML 250 ML IV ONE (14:30)
--- NOTE | 2017-08-29 17:41 | Progress Note ---
Internal Med Progress Note Date of Service: Aug 29, 2017. Provider Documentation: SUBJECTIVE: resting comfortably sob better today was nauseous, sob and chest tight yesterday but better today afebrile having dialysis OBJECTIVE: Vital Signs-as noted below Exam: General-alert and oriented. Not in distress ENT-normal hearing Neck-no neck masses Lungs- cta b/l no wheezing or crackles Heart-s1 and s2 heard regular rate and rhythm no murmurs Abdomen-soft bowel sounds present no tenderness present no distension Extremities- no erythema Neuro-alert and oriented moves extremities Lab data as noted below. ASSESSMENT & PLAN: This is a 62yo F with a PMH of ESRD on HD, atrial fibrillation (on Coumadin), asthma, sleep apnea on CPAP and home oxygen at 2L HS and other medical problems listed below who presents with worsening SOB since dialysis today. Asthma exacerbation: on iv steroids and nebs improving will monitor. Cellulitis of L groin: Overlying fistula site Iv -Vancomycin initiated will monitor ESRD on HD: Dialysis MWF dialysis today for hyperkalemia Hyperkalemia k 6.7 today Nephrology doing dialysis today Chest pain: Pleuritic in nature ekg and serial ce negative no complaints today Supratherapeutic INR: INR elevatred to 6.8 Denies bleeding -Holding warfarin will f/u INR in AM H/o A Fib: Currently in a sinus rhythm Not on any medication for rate control Warfarin held until INR therapeutic Sleep apnea: CPAP qHS Chronic pain: to continue home meds Flexeril and Percocet Bowel regimen DVT Ppx: On warfarin DISPOSITION to be determined Vital Signs: Date Time Temp Pulse Resp B/P (MAP) Pulse Ox O2 Delivery O2 Flow Rate FiO2 08/29/17 16:01 37.0 85 20 118/58 (78) 94 Room Air 08/29/17 16:00 93 Room Air 08/29/17 13:05 36.5 86 117/42 (67) 08/29/17 12:15 69 130/90 08/29/17 12:00 Room Air 08/29/17 12:00 79 106/51 08/29/17 12:00 93 Room Air 08/29/17 11:45 81 103/34 08/29/17 11:30 89 110/33 08/29/17 11:15 86 127/55 08/29/17 11:00 87 135/46 08/29/17 10:45 79 82/34 08/29/17 10:30 83 96/43 08/29/17 10:15 84 93/49 08/29/17 10:00 83 93/39 08/29/17 09:45 77 96/54 08/29/17 09:30 74 113/42 08/29/17 09:21 36.8 81 117/55 (75) 08/29/17 08:44 75 16 95 Room Air 08/29/17 08:00 Room Air 08/29/17 07:06 36.1 62 18 105/69 (81) 96 BiPAP 08/29/17 04:04 36.4 64 23 123/76 (92) 97 CPAP 08/29/17 04:00 CPAP 08/28/17 23:59 Nasal Cannula 08/28/17 23:38 78 96 3.0 08/28/17 23:23 37.0 78 22 127/74 (91) 98 Nasal Cannula 3.0 08/28/17 20:52 36.8 78 22 165/87 100 Nasal Cannula 3.0 08/28/17 20:49 88 24 110/60 96 08/28/17 20:38 89 20 110/86 96 Nasal Cannula 2.0 08/28/17 19:40 82 23 108/59 98 Nasal Cannula 2.0 08/28/17 19:01 85 24 131/70 98 Nasal Cannula 2.0 08/28/17 18:00 81 24 137/70 Lab Results: Results Past 24 Hours Test 08/28/17 17:35 08/28/17 23:45 08/29/17 05:39 Range/Units Prothrombin Time 78.7 72.0 9.0-12.0 SECONDS Prothromb Time International Ratio 6.8 6.2 0.9-1.1 Troponin I < 0.015 < 0.015 0-0.045 ng/ml White Blood Count 5.52 4.8-10.8 K/uL Red Blood Count 3.81 4.2-5.4 M/uL Hemoglobin 11.1 12.0-16.0 g/dL Hematocrit 37.8 37-47 % Mean Corpuscular Volume 99.2 80-100 fL Mean Corpuscular Hemoglobin 29.1 25-34 pg Mean Corpuscular Hemoglobin Concent 29.4 32-36 g/dl RDW Standard Deviation 66.2 36.4-46.3 fL RDW Coefficient of Variation 18.0 11.5-14.5 % Platelet Count 124 130-400 K/uL Mean Platelet Volume 11.2 7.4-10.4 fL Sodium Level 132 136-145 mmol/L Potassium Level 6.7 3.5-5.1 mmol/L Chloride Level 99 98-107 mmol/L Carbon Dioxide Level 26 21-32 mmol/L Anion Gap 8.0 3-11 mmol/L Blood Urea Nitrogen 28 7-18 mg/dl Creatinine 6.13 0.60-1.20 mg/dl Est Creatinine Clear Calc Drug Dose 9.0 ml/min Estimated GFR () 7.8 Estimated GFR (Non- 6.7 BUN/Creatinine Ratio 4.5 10-20 Random Glucose 131 70-99 mg/dl Calcium Level 9.0 8.5-10.1 mg/dl Hepatitis B Surface Antigen NEG NEG Hepatitis B Surface Antibody POS Hepatitis C Antibody Screen NEG NEG Microbiology Results 08/28/17 MRSA DNA Surveillance Screen - Final, Complete Specimen Negative for MRSA by DNA Probe
[2017-08-30] VITALS (24 sets, daily range): BP systolic 96–150; BP diastolic 34–84; PULSE 65–81; TEMP 35.9–37.1; O2SAT 91–96
[2017-08-30] MEDS: OXYCODONE/ACETAMINOPHEN 10/325MG TAB PO PRN ×2 (02:10→20:30)
[2017-08-30] MEDS: METHYLPREDNISOLONE IV 40 MG in SYRINGE 0 ML IV SCH ×3 (06:02→22:14)
[2017-08-30] MEDS: MONTELUKAST SOD 10 MG TAB PO SCH (07:42)
[2017-08-30] MEDS: RANITIDINE HCL 150 MG TAB PO SCH (07:42)
[2017-08-30] MEDS: FLUOXETINE HCL 20 MG CAP PO SCH (07:42)
[2017-08-30] MEDS: CALCIUM ACETATE 667MG GELCAP PO SCH ×3 (07:43→18:33)
[2017-08-30] MEDS: FLUTICASONE/SALMETEROL (ADVAIR) 500/50 INH 14 PUFF INH SCH ×2 (07:43→20:11)
[2017-08-30] MEDS: NEPHROCAPS PO SCH (07:43)
[2017-08-30] MEDS: ATORVASTATIN 40 MG TAB PO SCH (07:43)
[2017-08-30] MEDS: FLUTICASONE PROPIONATE NA SPR 16 GM BTL NAE SCH (07:43)
[2017-08-30] MEDS: CLOPIDOGREL BISULFATE 75 MG TAB PO SCH (07:43)
[2017-08-30] MEDS: LANSOPRAZOLE SOLUTAB 15 MG PO SCH (07:43)
[2017-08-30] MEDS: CYCLOBENZAPRINE HCL 5 MG TAB PO SCH ×3 (07:43→20:11)
[2017-08-30] MEDS: CALCIUM CARBONATE 500 MG CHEWABLE PO SCH ×3 (07:43→18:33)
[2017-08-30] MEDS: CHOLECALCIFEROL 1000 INTER.UNIT TAB PO SCH (07:43)
[2017-08-30] MEDS: MUPIROCIN 2% OINT 22 GM TUBE EXT SCH ×3 (07:44→20:10)
[2017-08-30] MEDS: POLYETHYLENE (MIRALAX) 17 GM PACK PO PRN (07:46)
[2017-08-30 08:30] LABS: CALCIUM 9.9 mg/dl (8.5-10.1); CREATININE 4.8 mg/dl (0.60-1.20); POTASSIUM 5.5 mmol/L (3.5-5.1)
--- NOTE | 2017-08-30 11:45 | Nephrology Progress Note ---
Nephrology Progress Note Date of Service: Aug 30, 2017. Subjective 62 yo female with ESRD with hyperkalemia and elevated inr. had dialysis on thursday and thursday. pt breathing much better and overall much more comfortable. Objective Date Time Temp Pulse Resp B/P (MAP) Pulse Ox O2 Delivery O2 Flow Rate FiO2 08/30/17 09:00 Room Air 08/30/17 07:46 36.7 75 20 129/76 (93) 94 Room Air 08/30/17 04:00 94 CPAP 08/30/17 03:35 35.9 71 18 134/76 (95) 94 Mask 1.0 08/30/17 00:00 96 Room Air 08/29/17 23:52 36.6 72 17 129/76 (93) 96 Mask 1.0 08/29/17 22:29 77 95 3.0 08/29/17 20:00 94 Room Air 08/29/17 19:48 36.5 79 20 156/72 (100) 94 Room Air 08/29/17 16:01 37.0 85 20 118/58 (78) 94 Room Air 08/29/17 16:00 93 Room Air 08/29/17 13:05 36.5 86 117/42 (67) 08/29/17 12:15 69 130/90 08/29/17 12:00 Room Air 08/29/17 12:00 79 106/51 08/29/17 12:00 93 Room Air 08/29/17 11:45 81 103/34 Physical Exam: General-aaox3 Eyes-no scleral icterus ENT-mmm Neck-supple Lungs-cta Heart-regular with ectopy Abdomen-bs+ s/nt/nd Extremities-no c/c/e, mild tenderness over the fistula Neuro-nonfocal Current Inpatient Medications Medications (Trade) Dose Ordered Sig/Deidre Route Start Time Stop Time Status Last Admin Dose Admin Ondansetron HCl (Zofran Inj) 4 mg Q6H PRN IV 08/28/17 19:00 09/27/17 18:59 Nitroglycerin (Nitrostat Tab) 0.4 mg UD PRN SL 08/28/17 19:00 09/27/17 18:59 Methylprednisolone Sodium Succinate 40 mg/Syringe 0.64 ml @ 1.5 mls/min Q8 IV 08/28/17 22:00 09/27/17 21:59 08/30/17 06:02 1.5 MLS/MIN Vancomycin HCl (Consult) 1 ea UD PRN N/A 08/28/17 22:02 09/27/17 22:01 Oxycodone/ Acetaminophen (Percocet 10-325MG Tab) 1 tab Q4H PRN PO 08/28/17 21:45 09/11/17 21:44 08/30/17 02:10 1 TAB Ipratropium [place] (Atrovent 0.02% 0.5MG/2.5ML Neb) 0.5 mg Q4H PRN INH 08/28/17 22:15 09/27/17 22:14 08/29/17 08:44 0.5 MG Levalbuterol (Xopenex 1.25MG/ 0.5ML Neb) 1.25 mg Q4H PRN INH 08/28/17 22:15 09/27/17 22:14 08/29/17 08:44 1.25 MG Albuterol (Ventolin Hfa Inhaler) 2 puffs Q4H PRN INH 08/28/17 23:15 09/27/17 23:14 Atorvastatin Calcium (Lipitor Tab) 40 mg DAILY PO 08/29/17 09:00 09/28/17 08:59 08/30/17 07:43 40 MG Calcium Acetate (Phoslo Cap) 2,001 mg TIDM PO 08/29/17 07:30 09/28/17 07:29 08/30/17 07:43 2,001 MG Calcium Carbonate (Tums Chew Tab) 500 mg AC PO 08/29/17 07:00 09/28/17 06:59 08/30/17 07:43 500 MG Clopidogrel Bisulfate (plAVix TAB) 75 mg DAILY PO 08/29/17 09:00 09/28/17 08:59 08/30/17 07:43 75 MG Cyclobenzaprine HCl (Flexeril Tab) 5 mg TID PO 08/29/17 09:00 09/28/17 08:59 08/30/17 07:43 5 MG Docusate Sodium (coLACE CAP) 100 mg BID PRN PO 08/28/17 23:15 09/27/17 23:14 Epinephrine (Epipen) 0.3 mg UD PRN IM 08/28/17 23:15 09/27/17 23:14 Fluoxetine HCl (Prozac Cap) 40 mg DAILY PO 08/29/17 09:00 09/28/17 08:59 08/30/17 07:42 40 MG Salmeterol Xinafoate/ Fluticasone (Advair Diskus 500/50 Inh) 1 puff BID INH 08/29/17 09:00 09/28/17 08:59 08/30/17 07:43 1 PUFF Fluticasone Propionate (Flonase Nasal [place]) 2 sprays DAILY CORTEZ 08/29/17 09:00 09/28/17 08:59 08/30/17 07:43 2 SPRAYS Montelukast Sodium (Singulair Tab) 10 mg DAILY PO 08/29/17 09:00 09/28/17 08:59 08/30/17 07:42 10 MG Vitamin B Complex/ Vit C/Folic Acid (Nephrocaps) 1 cap DAILY PO 08/29/17 09:00 09/28/17 08:59 08/30/17 07:43 1 CAP Cholecalciferol (Vitamin D Tab) 1,000 inter.unit DAILY PO 08/29/17 09:00 09/28/17 08:59 08/30/17 07:43 1,000 INTER.UNIT Miscellaneous Information (Order Awaiting Action) 1 ea QS N/A 08/29/17 08:00 09/28/17 07:59 Lansoprazole (Prevacid Solutab) 15 mg QAM PO 08/29/17 09:00 09/28/17 08:59 08/30/17 07:43 15 MG Mupirocin (Bactroban 2% Oint) 1 appln TID EXT 08/29/17 09:00 09/28/17 08:59 08/30/17 07:44 1 APPLN Ranitidine HCl (zANTac TAB) 300 mg QAM PO 08/29/17 09:00 09/28/17 08:59 08/30/17 07:42 300 MG Calcium Acetate (Phoslo Cap) 1,334 mg UD PRN PO 08/29/17 01:45 09/28/17 01:44 Polyethylene (Miralax Powder Packet) 17 gm DAILY PRN PO 08/29/17 01:45 09/28/17 01:44 08/30/17 07:46 17 GM Last 24 Hours Test 08/30/17 06:02 Sodium Level 133 mmol/L Potassium Level 5.5 mmol/L Chloride Level 98 mmol/L Carbon Dioxide Level 27 mmol/L Anion Gap 8.0 mmol/L Blood Urea Nitrogen 38 mg/dl Creatinine 4.80 mg/dl Est Creatinine Clear Calc Drug Dose 11.6 ml/min Estimated GFR () 10.5 Estimated GFR (Non- 9.1 BUN/Creatinine Ratio 8.0 Random Glucose 157 mg/dl Calcium Level 9.9 mg/dl Random Vancomycin Level 23.6 mcg/ml Assessment & Plan ESRD-volume status much improved. k though still elevated at 5.5. will discuss further with dialysis nurse about doing another treatment today possibly. otherwise, plan on dialysis again tomorrow. Anemia of Renal Failure-hg in the and will hold procrit for now. IVA-on binders and to recheck phos levels today. elevated inr-to repeat inr again today to see if its improved. ID: pt started on vancomycin again for possible cellulitis above the fistula. cultures not done. pt symptomatically improving. unclear if there is a cellulitis. may not necessarily need the antibiotic as an outpt. will draw cultures on dialysis.
--- NOTE | 2017-08-30 11:56 | Pharmacy Progress Note ---
Pharmacy Abx Dose Short Note Date of Service Aug 30, 2017. Assessment & Plan Item Value Date Time Random Vancomycin Level 23.6 mcg/ml 08/30/17 0602 Date/Time Source Procedure Growth Status 08/30/17 11:46 Blood Blood Culture Pending Ordered 08/30/17 11:46 Blood Blood Culture Pending Ordered 08/28/17 21:30 Nasal MRSA DNA Surveillance Screen - Final Specimen Negative for MRSA by DNA Probe Complete Assessment 62 year old female receiving IV Vancomycin for treatment of Cellulitis of L groin. Day # 3 of antimicrobial therapy. Pt also on HD for ESRD, next session tomorrow. Dr Mackey aware MRSA swab negative for MRSA, blood cultures drawn today. Plan Vancomycin * Random level of 23.6 mcg/mL is supratherapeutic. * No further dosing until patient after has another HD session tomorrow * Goal trough level for cellulitis ~15 mcg/mL Pharmacy will continue to follow and will adjust dose/frequency as necessary. Thank you.
[2017-08-30 12:31] LABS: INR 3.9 (0.9-1.1); PROTHROMBIN TIME (PATIENT) 43.6 SECONDS (9.0-12.0)
--- NOTE | 2017-08-30 17:46 | Progress Note ---
Internal Med Progress Note Date of Service: Aug 30, 2017. Provider Documentation: SUBJECTIVE: resting comfortably feeling better no chest pain or sob has some cough afebrile likes to go home tomorrow if possible OBJECTIVE: Vital Signs-as noted below Exam: General-alert and oriented. Not in distress ENT-normal hearing Neck-no neck masses Lungs- cta b/l no wheezing or crackles Heart-s1 and s2 heard regular rate and rhythm no murmurs Abdomen-soft bowel sounds present no tenderness present no distension Extremities- no erythema Neuro-alert and oriented moves extremities Lab data as noted below. ASSESSMENT & PLAN: This is a 62yo F with a PMH of ESRD on HD, atrial fibrillation (on Coumadin), asthma, sleep apnea on CPAP and home oxygen at 2L HS and other medical problems listed below who presents with worsening SOB since dialysis today.admitted for asthma exacerbation. Improving. Also had hyperkalemia and s/p dialysis on Thursday. possible d/c in 1-2 days Asthma exacerbation: on iv steroids and nebs improving will taper steroid to po in am will monitor. Cellulitis of L groin: Overlying fistula site Iv -Vancomycin initiated will d/c on po abx will monitor ESRD on HD: Dialysis MWF dialysis today for hyperkalemia Hyperkalemia k 6.7 08/29/17 and had dialysis K 5.5 today dialysis as per nephrology Chest pain: Pleuritic in nature ekg and serial ce negative no complaints today Supratherapeutic INR: presented with INR elevated to 6.8 Denies bleeding -Holding warfarin inr 3.9 today f/u inr in am H/o A Fib: Currently in a sinus rhythm Not on any medication for rate control Warfarin held until INR therapeutic Sleep apnea: CPAP qHS Chronic pain: to continue home meds Flexeril and Percocet Bowel regimen DVT Ppx: On warfarin DISPOSITION pt/ot possible d/c in 1-2 days Vital Signs: Date Time Temp Pulse Resp B/P (MAP) Pulse Ox O2 Delivery O2 Flow Rate FiO2 08/30/17 18:13 76 16 94 Room Air 08/30/17 17:58 36.6 72 121/49 (73) 08/30/17 17:30 65 115/35 08/30/17 17:15 69 116/46 08/30/17 17:00 73 121/40 08/30/17 16:45 71 135/54 08/30/17 16:30 76 113/41 08/30/17 16:15 76 133/54 08/30/17 16:00 Room Air 08/30/17 16:00 76 118/56 08/30/17 15:45 69 119/48 08/30/17 15:30 70 96/38 08/30/17 15:15 72 112/44 08/30/17 15:00 81 124/34 08/30/17 15:00 72 112/44 08/30/17 14:45 75 129/34 08/30/17 14:34 65 111/36 08/30/17 14:24 37.1 81 134/50 (78) 08/30/17 12:00 Room Air 08/30/17 10:58 36.9 78 20 150/81 (104) 94 Room Air 08/30/17 09:00 Room Air 08/30/17 07:46 36.7 75 20 129/76 (93) 94 Room Air 08/30/17 04:00 94 CPAP 08/30/17 03:35 35.9 71 18 134/76 (95) 94 Mask 1.0 08/30/17 00:00 96 Room Air 08/29/17 23:52 36.6 72 17 129/76 (93) 96 Mask 1.0 08/29/17 22:29 77 95 3.0 08/29/17 20:00 94 Room Air 08/29/17 19:48 36.5 79 20 156/72 (100) 94 Room Air Lab Results: Results Past 24 Hours Test 08/30/17 06:02 08/30/17 11:46 Range/Units Sodium Level 133 136-145 mmol/L Potassium Level 5.5 3.5-5.1 mmol/L Chloride Level 98 98-107 mmol/L Carbon Dioxide Level 27 21-32 mmol/L Anion Gap 8.0 3-11 mmol/L Blood Urea Nitrogen 38 7-18 mg/dl Creatinine 4.80 0.60-1.20 mg/dl Est Creatinine Clear Calc Drug Dose 11.6 ml/min Estimated GFR () 10.5 Estimated GFR (Non- 9.1 BUN/Creatinine Ratio 8.0 10-20 Random Glucose 157 70-99 mg/dl Calcium Level 9.9 8.5-10.1 mg/dl Random Vancomycin Level 23.6 mcg/ml Prothrombin Time 43.6 9.0-12.0 SECONDS Prothromb Time International Ratio 3.9 0.9-1.1 Phosphorus Level 4.9 2.5-4.9 mg/dl Microbiology Results 08/30/17 Blood Culture, Received Pending 08/30/17 Blood Culture, Received Pending
[2017-08-30] MEDS: IPRATROPIUM BROMIDE NEB SOLN 0.02% 2.5 ML VIAL INH PRN (18:12)
[2017-08-30] MEDS: LEVALBUTEROL 1.25MG/0.5ML NEB INH PRN (18:13)
[2017-08-31] VITALS (21 sets, daily range): BP systolic 102–172; BP diastolic 30–83; PULSE 65–87; TEMP 36.4–37.2; O2SAT 92–98
[2017-08-31 06:23] LABS: COMPLETE YES; HEMATOCRIT 34.1 % (37-47); IG% 0.4 %; LYMPH ABS # 0.62 K/uL (1.2-3.4); MEAN CELL VOLUME 98.8 fL (80-100); MEAN CORPUSCULAR HEMOGLOBIN 28.7 pg (25-34); MEAN PLATELET VOLUME 11.4 fL (7.4-10.4); MONO % 3.9 %; NEUT % 86.7 %; PLATELET COUNT 154 K/uL (130-400); RED BLOOD COUNT 3.45 M/uL (4.2-5.4); WHITE BLOOD COUNT 6.91 K/uL (4.8-10.8)
[2017-08-31 06:28] LABS: INR 2.5 (0.9-1.1); PROTHROMBIN TIME (PATIENT) 27.5 SECONDS (9.0-12.0)
--- NOTE | 2017-08-31 06:46 | Nephrology Progress Note ---
Nephrology Progress Note Date of Service: Aug 31, 2017. Subjective 62 yo female with ESRD with hyperkalemia and elevated inr. pt underwent dialysis both thursday and thursday with elevated potassium levels. took off about 600 cc on each dialysis treatment and pt feels much better. inr is trending down nicely. Objective Date Time Temp Pulse Resp B/P (MAP) Pulse Ox O2 Delivery O2 Flow Rate FiO2 08/31/17 04:19 36.5 65 17 111/54 (73) 95 CPAP 2.0 23 08/31/17 04:00 Room Air 08/31/17 00:18 36.4 65 18 121/67 (85) 96 CPAP 2.0 29 08/31/17 00:01 Room Air 08/30/17 22:11 75 96 2.0 08/30/17 20:07 36.6 78 16 123/56 (78) 91 Room Air 08/30/17 20:00 Room Air 08/30/17 18:13 76 16 94 Room Air 08/30/17 17:58 36.6 72 121/49 (73) 08/30/17 17:30 65 115/35 08/30/17 17:15 69 116/46 08/30/17 17:00 73 121/40 08/30/17 16:45 71 135/54 08/30/17 16:30 76 113/41 08/30/17 16:15 76 133/54 08/30/17 16:00 Room Air 08/30/17 16:00 76 118/56 08/30/17 15:45 69 119/48 08/30/17 15:30 70 96/38 08/30/17 15:15 72 112/44 08/30/17 15:00 81 124/34 08/30/17 15:00 72 112/44 08/30/17 14:45 75 129/34 08/30/17 14:34 65 111/36 08/30/17 14:24 37.1 81 134/50 (78) 08/30/17 12:00 Room Air 08/30/17 10:58 36.9 78 20 150/81 (104) 94 Room Air 08/30/17 09:00 Room Air 08/30/17 07:46 36.7 75 20 129/76 (93) 94 Room Air Physical Exam: General-aaox3 Eyes-no scleral icterus ENT-mmm Neck-supple Lungs-clear Heart-regular with ectopy Abdomen-bs+ s/nt/nd Extremities-no c/c/e, mild tenderness over the fistula Neuro-nonfocal Current Inpatient Medications Medications (Trade) Dose Ordered Sig/Deidre Route Start Time Stop Time Status Last Admin Dose Admin Ondansetron HCl (Zofran Inj) 4 mg Q6H PRN IV 08/28/17 19:00 09/27/17 18:59 Nitroglycerin (Nitrostat Tab) 0.4 mg UD PRN SL 08/28/17 19:00 09/27/17 18:59 Vancomycin HCl (Consult) 1 ea UD PRN N/A 08/28/17 22:02 09/27/17 22:01 Oxycodone/ Acetaminophen (Percocet 10-325MG Tab) 1 tab Q4H PRN PO 08/28/17 21:45 09/11/17 21:44 08/30/17 20:30 1 TAB Ipratropium [place] (Atrovent 0.02% 0.5MG/2.5ML Neb) 0.5 mg Q4H PRN INH 08/28/17 22:15 09/27/17 22:14 08/30/17 18:12 0.5 MG Levalbuterol (Xopenex 1.25MG/ 0.5ML Neb) 1.25 mg Q4H PRN INH 08/28/17 22:15 09/27/17 22:14 08/30/17 18:13 1.25 MG Albuterol (Ventolin Hfa Inhaler) 2 puffs Q4H PRN INH 08/28/17 23:15 09/27/17 23:14 Atorvastatin Calcium (Lipitor Tab) 40 mg DAILY PO 08/29/17 09:00 09/28/17 08:59 08/30/17 07:43 40 MG Calcium Acetate (Phoslo Cap) 2,001 mg TIDM PO 08/29/17 07:30 09/28/17 07:29 08/30/17 18:33 2,001 MG Calcium Carbonate (Tums Chew Tab) 500 mg AC PO 08/29/17 07:00 09/28/17 06:59 08/30/17 18:33 500 MG Clopidogrel Bisulfate (plAVix TAB) 75 mg DAILY PO 08/29/17 09:00 09/28/17 08:59 08/30/17 07:43 75 MG Cyclobenzaprine HCl (Flexeril Tab) 5 mg TID PO 08/29/17 09:00 09/28/17 08:59 08/30/17 20:11 5 MG Docusate Sodium (coLACE CAP) 100 mg BID PRN PO 08/28/17 23:15 09/27/17 23:14 Epinephrine (Epipen) 0.3 mg UD PRN IM 08/28/17 23:15 09/27/17 23:14 Fluoxetine HCl (Prozac Cap) 40 mg DAILY PO 08/29/17 09:00 09/28/17 08:59 08/30/17 07:42 40 MG Salmeterol Xinafoate/ Fluticasone (Advair Diskus 500/50 Inh) 1 puff BID INH 08/29/17 09:00 09/28/17 08:59 08/30/17 20:11 1 PUFF Fluticasone Propionate (Flonase Nasal [place]) 2 sprays DAILY CORTEZ 08/29/17 09:00 09/28/17 08:59 08/30/17 07:43 2 SPRAYS Montelukast Sodium (Singulair Tab) 10 mg DAILY PO 08/29/17 09:00 09/28/17 08:59 08/30/17 07:42 10 MG Vitamin B Complex/ Vit C/Folic Acid (Nephrocaps) 1 cap DAILY PO 08/29/17 09:00 09/28/17 08:59 08/30/17 07:43 1 CAP Cholecalciferol (Vitamin D Tab) 1,000 inter.unit DAILY PO 08/29/17 09:00 09/28/17 08:59 08/30/17 07:43 1,000 INTER.UNIT Miscellaneous Information (Order Awaiting Action) 1 ea QS N/A 08/29/17 08:00 09/28/17 07:59 Lansoprazole (Prevacid Solutab) 15 mg QAM PO 08/29/17 09:00 09/28/17 08:59 08/30/17 07:43 15 MG Mupirocin (Bactroban 2% Oint) 1 appln TID EXT 08/29/17 09:00 09/28/17 08:59 08/30/17 20:10 1 APPLN Ranitidine HCl (zANTac TAB) 300 mg QAM PO 08/29/17 09:00 09/28/17 08:59 08/30/17 07:42 300 MG Calcium Acetate (Phoslo Cap) 1,334 mg UD PRN PO 08/29/17 01:45 09/28/17 01:44 Polyethylene (Miralax Powder Packet) 17 gm DAILY PRN PO 08/29/17 01:45 09/28/17 01:44 08/30/17 07:46 17 GM Prednisone (PredniSONE TAB) 40 mg DAILY PO 08/31/17 09:00 09/30/17 08:59 Last 24 Hours Test 08/30/17 11:46 08/31/17 06:02 Prothrombin Time 43.6 SECONDS 27.5 SECONDS Prothromb Time International Ratio 3.9 2.5 Phosphorus Level 4.9 mg/dl White Blood Count 6.91 K/uL Red Blood Count 3.45 M/uL Hemoglobin 9.9 g/dL Hematocrit 34.1 % Mean Corpuscular Volume 98.8 fL Mean Corpuscular Hemoglobin 28.7 pg Mean Corpuscular Hemoglobin Concent 29.0 g/dl Platelet Count 154 K/uL Mean Platelet Volume 11.4 fL Neutrophils (%) (Auto) 86.7 % Lymphocytes (%) (Auto) 9.0 % Monocytes (%) (Auto) 3.9 % Eosinophils (%) (Auto) 0.0 % Basophils (%) (Auto) 0.0 % Neutrophils # (Auto) 5.99 K/uL Lymphocytes # (Auto) 0.62 K/uL Monocytes # (Auto) 0.27 K/uL Eosinophils # (Auto) 0.00 K/uL Basophils # (Auto) 0.00 K/uL RDW Standard Deviation 64.0 fL RDW Coefficient of Variation 17.7 % Immature Granulocyte % (Auto) 0.4 % Immature Granulocyte # (Auto) 0.03 K/uL Date/Time Source Procedure Growth Status 08/30/17 14:30 Blood Blood Culture Pending Received 08/30/17 14:26 Blood Blood Culture Pending Received Assessment & Plan ESRD-had dialysis on thursday and thursday to help with potassium elevation and to do dialysis again today since today is her regular day. Anemia of Renal Failure-hg trending down and will redose procrit today. IVA-on binders and phos is good at 4.9. ID: has some mild tenderness over fistula. on vancomycin. blood cultures drawn yesterday. would not continue the vancomycin unless cultures turn positive.
[2017-08-31 06:54] LABS: BUN/CREATININE RATIO 8.8 (10-20); CALCIUM 9.7 mg/dl (8.5-10.1); CREATININE 4.03 mg/dl (0.60-1.20); MAGNESIUM 2.3 mg/dl (1.8-2.4); POTASSIUM 4.7 mmol/L (3.5-5.1)
[2017-08-31] MEDS ORDERED: EPOETIN ALFA 10,000 UNITS/ML VIAL IV. ONE (07:00)
[2017-08-31] MEDS: POLYETHYLENE (MIRALAX) 17 GM PACK PO PRN (07:29)
[2017-08-31] MEDS: FLUTICASONE/SALMETEROL (ADVAIR) 500/50 INH 14 PUFF INH SCH ×2 (07:32→20:29)
[2017-08-31] MEDS: CYCLOBENZAPRINE HCL 5 MG TAB PO SCH ×3 (07:33→20:28)
[2017-08-31] MEDS: FLUTICASONE PROPIONATE NA SPR 16 GM BTL NAE SCH (07:33)
[2017-08-31] MEDS: FLUOXETINE HCL 20 MG CAP PO SCH (07:33)
[2017-08-31] MEDS: CALCIUM ACETATE 667MG GELCAP PO SCH ×3 (07:34→16:05)
[2017-08-31] MEDS: CALCIUM CARBONATE 500 MG CHEWABLE PO SCH ×3 (07:35→16:05)
[2017-08-31] MEDS: RANITIDINE HCL 150 MG TAB PO SCH (07:35)
[2017-08-31] MEDS: LANSOPRAZOLE SOLUTAB 15 MG PO SCH (07:35)
[2017-08-31] MEDS: ATORVASTATIN 40 MG TAB PO SCH (07:36)
[2017-08-31] MEDS: NEPHROCAPS PO SCH (07:36)
[2017-08-31] MEDS: MONTELUKAST SOD 10 MG TAB PO SCH (07:36)
[2017-08-31] MEDS: CHOLECALCIFEROL 1000 INTER.UNIT TAB PO SCH (07:36)
[2017-08-31] MEDS: CLOPIDOGREL BISULFATE 75 MG TAB PO SCH (07:36)
[2017-08-31] MEDS: MUPIROCIN 2% OINT 22 GM TUBE EXT SCH ×3 (07:39→20:29)
[2017-08-31] MEDS: OXYCODONE/ACETAMINOPHEN 10/325MG TAB PO PRN ×2 (07:44→20:29)
--- NOTE | 2017-08-31 18:29 | Progress Note ---
Internal Med Progress Note Date of Service: Aug 31, 2017. Provider Documentation: SUBJECTIVE: sitting up on chair , family visiting was up earlier walked around the unit twice with walker mentions she would get SOB , but she walked slowly not to tire her self no complain of SOB at present , has non productive cough ,feels something stuck on the back of her throat no fever or chills hoping to go home tomorrow OBJECTIVE: Vital Signs-as noted below Exam: General-pleasant, no apparent distress , conversing Eyes-sclera non icteric , PERRLA/EOMI ENT-normal exam Neck-no thyromegaly , trachea midline Lungs-no rales, or wheeze , good air entry Heart-regular S1/S2 Abdomen-soft non tender Extremities-has mild erythema on left groin and skin folds area, appears to be erasto/fungal infection no evidence of cellulitis Neuro-AAO x3, no focal neurological deficit noted Lab data as noted below. ASSESSMENT & PLAN: Asthma exacerbation: clinically improving ; respiratory status stable started on PO steroid taper no audible wheeze , feels fine , on PRN Neb tx cont home INH LEFT GROIN /SKIN FOLD AREA ERASTO/FUNGAL INFECTION Ordered for Desenex powder no evidence of cellulitis was empirically started on IV Vancomycin blood culture ordered on 08/30/17 -report pending per Nephrology -Vancomycin can be d/alethea if blood culture negative ESRD on HD: Dialysis MWF had Dialysis on Thu and Thursday for hyperkalemia Nephrology following Hyperkalemia K level normalized pt underwent dialysis both Thursday and Thursday for elevated potassium levels. took off about 600 cc on each dialysis treatment and pt feels much better. pt will continue to have scheduled dialysis X3 week ( MWF ) , nephrology following Chest pain: resolved -no discomfort Pleuritic in nature ekg and serial ce negative no complaints today Supratherapeutic INR: -Holding warfarin INR improved to 2.5 today follow daily INR H/o A Fib: Currently in a sinus rhythm Not on any medication for rate control Warfarin held until INR therapeutic Sleep apnea: CPAP qHS Chronic pain: to continue home meds Flexeril and Percocet Bowel regimen DVT Ppx: On warfarin /INR elevated DISPOSITION lives at home with Grand Daughter appreciate PT/OT eval recommend return home -pt is planning to move to her son's house will benefit with home health /home PT possible discharge home tomorrow Vital Signs: Date Time Temp Pulse Resp B/P (MAP) Pulse Ox O2 Delivery O2 Flow Rate FiO2 08/31/17 16:26 79 92 08/31/17 16:00 95 Room Air 08/31/17 15:36 36.9 74 18 130/70 (90) 93 Room Air 08/31/17 12:28 36.5 81 102/39 (60) 08/31/17 12:28 37.2 83 20 125/74 (91) 93 Room Air 08/31/17 12:00 Room Air 08/31/17 11:45 72 113/42 08/31/17 11:30 71 115/40 08/31/17 11:15 75 103/30 08/31/17 11:00 75 136/81 08/31/17 10:45 73 113/46 08/31/17 10:30 74 112/43 08/31/17 10:15 75 111/42 08/31/17 10:00 76 108/41 08/31/17 09:45 80 113/42 08/31/17 09:30 80 117/39 08/31/17 09:15 69 125/40 08/31/17 08:51 37.0 69 126/58 (80) 08/31/17 08:00 Room Air 08/31/17 07:48 36.8 78 18 122/76 (91) 93 Room Air 08/31/17 04:19 36.5 65 17 111/54 (73) 95 CPAP 2.0 23 08/31/17 04:00 Room Air 08/31/17 00:18 36.4 65 18 121/67 (85) 96 CPAP 2.0 29 08/31/17 00:01 Room Air 08/30/17 22:11 75 96 2.0 08/30/17 20:07 36.6 78 16 123/56 (78) 91 Room Air 08/30/17 20:00 Room Air Lab Results: Results Past 24 Hours Test 08/31/17 06:02 Range/Units White Blood Count 6.91 4.8-10.8 K/uL Red Blood Count 3.45 4.2-5.4 M/uL Hemoglobin 9.9 12.0-16.0 g/dL Hematocrit 34.1 37-47 % Mean Corpuscular Volume 98.8 80-100 fL Mean Corpuscular Hemoglobin 28.7 25-34 pg Mean Corpuscular Hemoglobin Concent 29.0 32-36 g/dl Platelet Count 154 130-400 K/uL Mean Platelet Volume 11.4 7.4-10.4 fL Neutrophils (%) (Auto) 86.7 % Lymphocytes (%) (Auto) 9.0 % Monocytes (%) (Auto) 3.9 % Eosinophils (%) (Auto) 0.0 % Basophils (%) (Auto) 0.0 % Neutrophils # (Auto) 5.99 1.4-6.5 K/uL Lymphocytes # (Auto) 0.62 1.2-3.4 K/uL Monocytes # (Auto) 0.27 0.11-0.59 K/uL Eosinophils # (Auto) 0.00 0-0.5 K/uL Basophils # (Auto) 0.00 0-0.2 K/uL RDW Standard Deviation 64.0 36.4-46.3 fL RDW Coefficient of Variation 17.7 11.5-14.5 % Immature Granulocyte % (Auto) 0.4 % Immature Granulocyte # (Auto) 0.03 0.00-0.02 K/uL Prothrombin Time 27.5 9.0-12.0 SECONDS Prothromb Time International Ratio 2.5 0.9-1.1 Sodium Level 136 136-145 mmol/L Potassium Level 4.7 3.5-5.1 mmol/L Chloride Level 98 98-107 mmol/L Carbon Dioxide Level 28 21-32 mmol/L Anion Gap 10.0 3-11 mmol/L Blood Urea Nitrogen 35 7-18 mg/dl Creatinine 4.03 0.60-1.20 mg/dl Est Creatinine Clear Calc Drug Dose 14.1 ml/min Estimated GFR () 13.0 Estimated GFR (Non- 11.2 BUN/Creatinine Ratio 8.8 10-20 Random Glucose 138 70-99 mg/dl Calcium Level 9.7 8.5-10.1 mg/dl Magnesium Level 2.3 1.8-2.4 mg/dl
[2017-08-31] MEDS ORDERED: WARF5TAB90 PO (18:37)
--- NOTE | 2017-08-31 18:39 | Discharge Instructions ---
Discharge Instructions Date of Service Aug 31, 2017. Admission Reason for Admission: Asthma Exacerbation; Chest Pain Discharge Discharge Diagnosis / Problem: HYPERKALEMIA /ASTHMA EXACERBATION /ELEVATED INR Discharge Goals Goal(s): Decrease discomfort, Improve function, Increase independence, Improve disease control, Diagnostic testing, Therapeutic intervention Activity Recommendations Activity Limitations: as noted below ( TOLERATED ) . Instructions / Follow-Up Instructions / Follow-Up HOSPITAL FOLLOW UP 09/07/2017 11:00 AM Karlie Mullins DO General Internal Medicine [facility] LAB WORK : BASIC METABOLIC PANEL AND INR ON Thursday09/03/17 COUMADIN DOSE REDUCED TO 5 MG DAILY NEED CLOSE FOLLOW UP WITH [facility]ATION [facility]IC FOR MONITORING OF PT /INR Current Hospital Diet Patient's current hospital diet: Renal Diet Discharge Diet Recommended Diet: Renal Diet Pending Studies Studies pending at discharge: no Medical Emergencies . Who to Call and When: Medical Emergencies: If at any time you feel your situation is an emergency, please call 911 immediately. . Non-Emergent Contact Non-Emergency issues call your: Primary Care Provider . . "Provider Documentation" section prepared by Tamara Latham. . VTE Core Measure Inpt VTE Proph given/why not?: Warfarin (Coumadin)
[2017-08-31] MEDS: MICONAZOLE NITRATE POWDER 43 GM EXT SCH ×2 (21:52→23:35)
[2017-09-01 00:25] VITALS: BP 152/79; PULSE 71; TEMP 36.9; O2SAT 96
[2017-09-01 03:38] VITALS: BP 112/72; PULSE 65; TEMP 36.4; O2SAT 95
[2017-09-01 06:58] LABS: BASO % 0.1 %; BASO ABS # 0.01 K/uL (0-0.2); COMPLETE YES; HEMATOCRIT 36.7 % (37-47); IG% 0.9 %; LYMPH % 12.7 %; MEAN CORPUSCULAR HEMOGLOBIN 29.4 pg (25-34); MEAN CORPUSCULAR HGB CONC 29.4 g/dl (32-36); MEAN PLATELET VOLUME 9.9 fL (7.4-10.4); MONO % 5.9 %; NEUT % 80.4 %; PLATELET COUNT 144 K/uL (130-400); RED BLOOD COUNT 3.67 M/uL (4.2-5.4); WHITE BLOOD COUNT 9.48 K/uL (4.8-10.8)
[2017-09-01 07:15] LABS: INR 1.5 (0.9-1.1); PROTHROMBIN TIME (PATIENT) 15.9 SECONDS (9.0-12.0)
[2017-09-01 07:31] LABS: BUN/CREATININE RATIO 10.6 (10-20); CALCIUM 9.3 mg/dl (8.5-10.1); CREATININE 3.88 mg/dl (0.60-1.20); MAGNESIUM 2.1 mg/dl (1.8-2.4); POTASSIUM 4.4 mmol/L (3.5-5.1)
[2017-09-01 08:02] VITALS: BP 130/72; PULSE 66; TEMP 36.5; O2SAT 98
--- NOTE | 2017-09-01 08:02 | Nephrology Progress Note ---
Nephrology Progress Note Date of Service: Sep 01, 2017. Subjective 62 yo female with ESRD who underwent daily dialysis thursday through thursday. labs are much better and pt is feeling much better as well. breathing well. good appetite. no more tenderness over the fistula site in her leg. Objective Date Time Temp Pulse Resp B/P (MAP) Pulse Ox O2 Delivery O2 Flow Rate FiO2 09/01/17 04:00 Room Air CPAP 09/01/17 03:38 36.4 65 17 112/72 (85) 95 CPAP 2.0 27 09/01/17 00:25 36.9 71 19 152/79 (103) 96 CPAP 2.0 27 09/01/17 00:01 Room Air 08/31/17 22:43 78 98 2.0 08/31/17 20:04 37.0 87 20 172/83 (112) 92 Room Air 08/31/17 20:00 Room Air 08/31/17 16:26 79 92 08/31/17 16:00 95 Room Air 08/31/17 15:36 36.9 74 18 130/70 (90) 93 Room Air 08/31/17 12:28 36.5 81 102/39 (60) 08/31/17 12:28 37.2 83 20 125/74 (91) 93 Room Air 08/31/17 12:00 Room Air 08/31/17 11:45 72 113/42 08/31/17 11:30 71 115/40 08/31/17 11:15 75 103/30 08/31/17 11:00 75 136/81 08/31/17 10:45 73 113/46 08/31/17 10:30 74 112/43 08/31/17 10:15 75 111/42 08/31/17 10:00 76 108/41 08/31/17 09:45 80 113/42 08/31/17 09:30 80 117/39 08/31/17 09:15 69 125/40 08/31/17 08:51 37.0 69 126/58 (80) 08/31/17 08:00 Room Air Physical Exam: General-aaox3 Eyes-no scleral icterus ENT-mmm Neck-supple Lungs-cta Heart-regular Abdomen-bs+ s/nt/nd Extremities-no c/c/e Neuro-nonfocal Current Inpatient Medications Medications (Trade) Dose Ordered Sig/Deidre Route Start Time Stop Time Status Last Admin Dose Admin Ondansetron HCl (Zofran Inj) 4 mg Q6H PRN IV 08/28/17 19:00 09/27/17 18:59 Nitroglycerin (Nitrostat Tab) 0.4 mg UD PRN SL 08/28/17 19:00 09/27/17 18:59 Vancomycin HCl (Consult) 1 ea UD PRN N/A 08/28/17 22:02 09/27/17 22:01 Oxycodone/ Acetaminophen (Percocet 10-325MG Tab) 1 tab Q4H PRN PO 08/28/17 21:45 09/11/17 21:44 08/31/17 20:29 1 TAB Ipratropium [place] (Atrovent 0.02% 0.5MG/2.5ML Neb) 0.5 mg Q4H PRN INH 08/28/17 22:15 09/27/17 22:14 08/30/17 18:12 0.5 MG Levalbuterol (Xopenex 1.25MG/ 0.5ML Neb) 1.25 mg Q4H PRN INH 08/28/17 22:15 09/27/17 22:14 08/30/17 18:13 1.25 MG Albuterol (Ventolin Hfa Inhaler) 2 puffs Q4H PRN INH 08/28/17 23:15 09/27/17 23:14 Atorvastatin Calcium (Lipitor Tab) 40 mg DAILY PO 08/29/17 09:00 09/28/17 08:59 08/31/17 07:36 40 MG Calcium Acetate (Phoslo Cap) 2,001 mg TIDM PO 08/29/17 07:30 09/28/17 07:29 08/31/17 16:05 2,001 MG Calcium Carbonate (Tums Chew Tab) 500 mg AC PO 08/29/17 07:00 09/28/17 06:59 08/31/17 16:05 500 MG Clopidogrel Bisulfate (plAVix TAB) 75 mg DAILY PO 08/29/17 09:00 09/28/17 08:59 08/31/17 07:36 75 MG Cyclobenzaprine HCl (Flexeril Tab) 5 mg TID PO 08/29/17 09:00 09/28/17 08:59 08/31/17 20:28 5 MG Docusate Sodium (coLACE CAP) 100 mg BID PRN PO 08/28/17 23:15 09/27/17 23:14 08/31/17 14:38 100 MG Epinephrine (Epipen) 0.3 mg UD PRN IM 08/28/17 23:15 09/27/17 23:14 Fluoxetine HCl (Prozac Cap) 40 mg DAILY PO 08/29/17 09:00 09/28/17 08:59 08/31/17 07:33 40 MG Salmeterol Xinafoate/ Fluticasone (Advair Diskus 500/50 Inh) 1 puff BID INH 08/29/17 09:00 09/28/17 08:59 08/31/17 20:29 1 PUFF Fluticasone Propionate (Flonase Nasal [place]) 2 sprays DAILY CORTEZ 08/29/17 09:00 09/28/17 08:59 08/31/17 07:33 2 SPRAYS Montelukast Sodium (Singulair Tab) 10 mg DAILY PO 08/29/17 09:00 09/28/17 08:59 08/31/17 07:36 10 MG Vitamin B Complex/ Vit C/Folic Acid (Nephrocaps) 1 cap DAILY PO 08/29/17 09:00 09/28/17 08:59 08/31/17 07:36 1 CAP Cholecalciferol (Vitamin D Tab) 1,000 inter.unit DAILY PO 08/29/17 09:00 09/28/17 08:59 08/31/17 07:36 1,000 INTER.UNIT Miscellaneous Information (Order Awaiting Action) 1 ea QS N/A 08/29/17 08:00 09/28/17 07:59 Lansoprazole (Prevacid Solutab) 15 mg QAM PO 08/29/17 09:00 09/28/17 08:59 08/31/17 07:35 15 MG Mupirocin (Bactroban 2% Oint) 1 appln TID EXT 08/29/17 09:00 09/28/17 08:59 08/31/17 14:37 1 APPLN Ranitidine HCl (zANTac TAB) 300 mg QAM PO 08/29/17 09:00 09/28/17 08:59 08/31/17 07:35 300 MG Calcium Acetate (Phoslo Cap) 1,334 mg UD PRN PO 08/29/17 01:45 09/28/17 01:44 Polyethylene (Miralax Powder Packet) 17 gm DAILY PRN PO 08/29/17 01:45 09/28/17 01:44 08/31/17 07:29 17 GM Prednisone (PredniSONE TAB) 40 mg DAILY PO 08/31/17 09:00 09/30/17 08:59 08/31/17 07:34 40 MG Miconazole Nitrate (Desenex Powder) 1 appln QID EXT 08/31/17 19:15 09/30/17 19:14 08/31/17 23:35 1 APPLN Last 24 Hours Test 09/01/17 06:14 White Blood Count 9.48 K/uL Red Blood Count 3.67 M/uL Hemoglobin 10.8 g/dL Hematocrit 36.7 % Mean Corpuscular Volume 100.0 fL Mean Corpuscular Hemoglobin 29.4 pg Mean Corpuscular Hemoglobin Concent 29.4 g/dl Platelet Count 144 K/uL Mean Platelet Volume 9.9 fL Neutrophils (%) (Auto) 80.4 % Lymphocytes (%) (Auto) 12.7 % Monocytes (%) (Auto) 5.9 % Eosinophils (%) (Auto) 0.0 % Basophils (%) (Auto) 0.1 % Neutrophils # (Auto) 7.62 K/uL Lymphocytes # (Auto) 1.20 K/uL Monocytes # (Auto) 0.56 K/uL Eosinophils # (Auto) 0.00 K/uL Basophils # (Auto) 0.01 K/uL RDW Standard Deviation 67.1 fL RDW Coefficient of Variation 18.2 % Immature Granulocyte % (Auto) 0.9 % Immature Granulocyte # (Auto) 0.09 K/uL Nucleated RBC Absolute Count (auto) 0.05 K/uL Nucleated Red Blood Cells % 0.5 % Prothrombin Time 15.9 SECONDS Prothromb Time International Ratio 1.5 Sodium Level 137 mmol/L Potassium Level 4.4 mmol/L Chloride Level 100 mmol/L Carbon Dioxide Level 27 mmol/L Anion Gap 10.0 mmol/L Blood Urea Nitrogen 41 mg/dl Creatinine 3.88 mg/dl Est Creatinine Clear Calc Drug Dose 14.6 ml/min Estimated GFR () 13.6 Estimated GFR (Non- 11.7 BUN/Creatinine Ratio 10.6 Random Glucose 80 mg/dl Calcium Level 9.3 mg/dl Magnesium Level 2.1 mg/dl Random Vancomycin Level 12.4 mcg/ml Assessment & Plan ESRD-continue -w- dialysis as an outpt. my recommendation is to hold vancomycin and will follow her as an outpatient. blood cultures negative. Anemia of Renal Failure-hg levels are stable and will continue procrit as an outpatient. Hyperkalemia-required daily dialysis however k is much better now. may have been from the steroids and currently on a prednisone taper. ok from renal perspective to go home today.
[2017-09-01] MEDS: MUPIROCIN 2% OINT 22 GM TUBE EXT SCH ×2 (08:22→12:51)
[2017-09-01] MEDS: POLYETHYLENE (MIRALAX) 17 GM PACK PO PRN (08:32)
[2017-09-01] MEDS: CLOPIDOGREL BISULFATE 75 MG TAB PO SCH (08:33)
[2017-09-01] MEDS: FLUTICASONE PROPIONATE NA SPR 16 GM BTL NAE SCH (08:33)
[2017-09-01] MEDS: LANSOPRAZOLE SOLUTAB 15 MG PO SCH (08:33)
[2017-09-01] MEDS: CHOLECALCIFEROL 1000 INTER.UNIT TAB PO SCH (08:33)
[2017-09-01] MEDS: FLUOXETINE HCL 20 MG CAP PO SCH (08:33)
[2017-09-01] MEDS: MONTELUKAST SOD 10 MG TAB PO SCH (08:33)
[2017-09-01] MEDS: RANITIDINE HCL 150 MG TAB PO SCH (08:33)
[2017-09-01] MEDS: FLUTICASONE/SALMETEROL (ADVAIR) 500/50 INH 14 PUFF INH SCH (08:33)
[2017-09-01] MEDS: NEPHROCAPS PO SCH (08:33)
[2017-09-01] MEDS: CALCIUM CARBONATE 500 MG CHEWABLE PO SCH ×3 (08:34→16:07)
[2017-09-01] MEDS: ATORVASTATIN 40 MG TAB PO SCH (08:34)
[2017-09-01] MEDS: CYCLOBENZAPRINE HCL 5 MG TAB PO SCH ×2 (08:34→13:42)
[2017-09-01] MEDS: MICONAZOLE NITRATE POWDER 43 GM EXT SCH ×2 (08:34→13:41)
[2017-09-01] MEDS: CALCIUM ACETATE 667MG GELCAP PO SCH ×2 (08:34→11:40)
[2017-09-01 11:06] VITALS: BP 144/73; PULSE 68; TEMP 36.6; O2SAT 94
[2017-09-01] MEDS ORDERED: WARFARIN SOD 5 MG TAB PO ONE (12:15)
--- NOTE | 2017-09-01 13:15 | Progress Note ---
Internal Med Progress Note Date of Service: Sep 01, 2017. Provider Documentation: SUBJECTIVE: feeling fine , no complain of SOB or any other discomfort K level wnl ready to be discharged home today OBJECTIVE: Vital Signs-as noted below Exam: General-pleasant, no apparent distress , conversing Eyes-sclera non icteric , PERRLA/EOMI ENT-normal exam Neck-no thyromegaly , trachea midline Lungs-no rales, or wheeze , good air entry Heart-regular S1/S2 Abdomen-soft non tender Extremities-improved erythema on left groin and skin folds area, appears to be erasto/fungal infection no evidence of cellulitis Neuro-AAO x3, no focal neurological deficit noted Lab data as noted below. ASSESSMENT & PLAN: Asthma exacerbation: resolved , no complain of SOB or wheeze no hypoxia , no TRAORE stable to be discharged home LEFT GROIN /SKIN FOLD AREA ERASTO/FUNGAL INFECTION symptom improved after Desenex powder no evidence of cellulitis D/c IV Vancomycin blood culture ordered on 08/30/17 negative growth ESRD on HD: Dialysis MWF had Dialysis on Thu and Thursday for hyperkalemia Nephrology following stable to be discharged home today will continue scheduled dialysis on Thursday /Thursday /Thursday Hyperkalemia K level normalized pt underwent dialysis both Thursday and Thursday for elevated potassium levels. took off about 600 cc on each dialysis treatment and pt feels much better. pt will continue to have scheduled dialysis X3 week ( MWF ) , nephrology following K level wnl today discharged home repeat BMP in next 1-2 days Supratherapeutic INR: Coumadin was on hold INR 1.5 today started on Coumadin 5 mg daily pt will be discharged on Coumadin 5 mg daily will be [facility] closely for monitoring of PT/INR Afib : Currently in a sinus rhythm Not on any medication for rate control on Coumadin for anticoagulation Sleep apnea: CPAP qHS Chronic pain: to continue home meds Flexeril and Percocet Bowel regimen DVT Ppx: Coumadin DISPOSITION Stable to be discharged home today Vital Signs: Date Time Temp Pulse Resp B/P (MAP) Pulse Ox O2 Delivery O2 Flow Rate FiO2 09/01/17 12:24 36.6 68 20 94 Room Air 09/01/17 12:00 Room Air 09/01/17 11:06 36.6 68 20 144/73 (96) 94 Room Air 09/01/17 08:02 36.5 66 18 130/72 (91) 98 66 09/01/17 08:00 Room Air 09/01/17 04:00 Room Air CPAP 09/01/17 03:38 36.4 65 17 112/72 (85) 95 CPAP 2.0 27 09/01/17 00:25 36.9 71 19 152/79 (103) 96 CPAP 2.0 27 09/01/17 00:01 Room Air 08/31/17 22:43 78 98 2.0 08/31/17 20:04 37.0 87 20 172/83 (112) 92 Room Air 08/31/17 20:00 Room Air 08/31/17 16:26 79 92 08/31/17 16:00 95 Room Air 08/31/17 15:36 36.9 74 18 130/70 (90) 93 Room Air Lab Results: Results Past 24 Hours Test 09/01/17 06:14 Range/Units White Blood Count 9.48 4.8-10.8 K/uL Red Blood Count 3.67 4.2-5.4 M/uL Hemoglobin 10.8 12.0-16.0 g/dL Hematocrit 36.7 37-47 % Mean Corpuscular Volume 100.0 80-100 fL Mean Corpuscular Hemoglobin 29.4 25-34 pg Mean Corpuscular Hemoglobin Concent 29.4 32-36 g/dl Platelet Count 144 130-400 K/uL Mean Platelet Volume 9.9 7.4-10.4 fL Neutrophils (%) (Auto) 80.4 % Lymphocytes (%) (Auto) 12.7 % Monocytes (%) (Auto) 5.9 % Eosinophils (%) (Auto) 0.0 % Basophils (%) (Auto) 0.1 % Neutrophils # (Auto) 7.62 1.4-6.5 K/uL Lymphocytes # (Auto) 1.20 1.2-3.4 K/uL Monocytes # (Auto) 0.56 0.11-0.59 K/uL Eosinophils # (Auto) 0.00 0-0.5 K/uL Basophils # (Auto) 0.01 0-0.2 K/uL RDW Standard Deviation 67.1 36.4-46.3 fL RDW Coefficient of Variation 18.2 11.5-14.5 % Immature Granulocyte % (Auto) 0.9 % Immature Granulocyte # (Auto) 0.09 0.00-0.02 K/uL Nucleated RBC Absolute Count (auto) 0.05 0-0 K/uL Nucleated Red Blood Cells % 0.5 % Prothrombin Time 15.9 9.0-12.0 SECONDS Prothromb Time International Ratio 1.5 0.9-1.1 Sodium Level 137 136-145 mmol/L Potassium Level 4.4 3.5-5.1 mmol/L Chloride Level 100 98-107 mmol/L Carbon Dioxide Level 27 21-32 mmol/L Anion Gap 10.0 3-11 mmol/L Blood Urea Nitrogen 41 7-18 mg/dl Creatinine 3.88 0.60-1.20 mg/dl Est Creatinine Clear Calc Drug Dose 14.6 ml/min Estimated GFR () 13.6 Estimated GFR (Non- 11.7 BUN/Creatinine Ratio 10.6 10-20 Random Glucose 80 70-99 mg/dl Calcium Level 9.3 8.5-10.1 mg/dl Magnesium Level 2.1 1.8-2.4 mg/dl Random Vancomycin Level 12.4 mcg/ml
--- NOTE | 2017-09-01 13:18 | Discharge Summary ---
Discharge Summary Date of Service Sep 01, 2017. Discharge Summary Admission Date: Aug 28, 2017 at 18:58 Discharge Date: Sep 01, 2017 Discharge Disposition: Home Principal Diagnosis: HYPERKALEMIA /ASTHMA EXACERBATION /ELEVATED INR Procedures: DIALYSIS Consultations: NEPHROLOGY DR WERNER Medication Reconciliation New Medications: Miconazole Nitrate (Desenex Shake Powder) 43 Appln/43 Gm Powd 1 APPLN EX TID for 30 Days, #1 BTL Warfarin Sodium (Coumadin) 5 Mg Tab 1 TAB PO DAILY for 90 Days, #90 TAB 1 Refill Continued Medications: Acetaminophen (Tylenol) 325 Mg Tab 650 MG PO Q4H PRN for Pain or Fever, TAB Albuterol Hfa (Ventolin Hfa) 200 Puffs/34043 Mcg Aers 2 PUFFS INH Q4H PRN for SOB/Wheezing, #1 INHALER Atorvastatin (Lipitor) 40 Mg Tab 40 MG PO DAILY, TAB B-Complex W/ C & Folic Acid (Nephro-Jamaal Rx) 1 Tab Tab 1 TAB PO DAILY Calcium Acetate (Phoslo 667 Mg) 667 Mg Cap 3 CAPSULES PO WM, CAP 2 CAPS WITH SNACKS. Calcium Carbonate (Tums) 500 Mg Chew 500 MG PO AC 2 TABS WITH MEALS, 1 TAB WITH SNACKS Cholecalciferol (D 1000) 1,000 Unit Cap 1000 UNITS PO DAILY Cinecalcet (Sensipar) 60 Mg Tab 60 MG PO QDD, TAB TAKE THIS MEDICATION DAILY WITH EVENING MEAL. Clopidogrel (Plavix) 75 Mg Tab 75 MG PO DAILY, TAB Cyclobenzaprine Hcl (Flexeril) 5 Mg Tab 5 MG PO TID, TAB Docusate Sodium (Docusate Sodium) 100 Mg Cap 100 MG PO BID PRN for Constipation Epinephrine (Epipen) 0.3 Mg/0.3 Ml Inj 0.3 MG IM UD PRN for ALLERGIC REACTION Fluoxetine (Prozac) 40 Mg Cap 40 MG PO DAILY, 0 Refills Fluticasone Prop/Salmeterol (Advair Diskus 500/50 60 Dose) 1 Ea Aerp 1 PUFF INH BID, INHALER Fluticasone Propionate (Nasal) (Flonase Allergy Relief) 50 Mcg/Act Spr 2 SPRAYS CORTEZ DAILY Home O2 Therapy (Oxygen) Gas 2 LITERS NA HS Ipratropium-Albuterol (Duoneb) 3 Ml Nebu 1 TREATMENT INH QID PRN for SOB/Wheezing, INHA Lansoprazole (Prevacid) 15 Mg Capcr 15 MG PO QAM, CAP 30 MINUTES PRIOR TO BREAKFAST. Montelukast Sodium (Singulair) 10 Mg Tab 10 MG PO DAILY, TAB Mupirocin 2% (Bactroban 2%) 30 Gm Cr 1 APPLN EXT TID, TUBE APPLY TO LEFT THIGH Ondansetron Hcl (Zofran) 4 Mg Tab 4 MG PO TID PRN for Nausea, TAB Polyethylene Glycol 3350 (Miralax) 1 Pow Pow 17 GM PO DAILY, #527 GM Ranitidine (Zantac) 300 Mg Tab 300 MG PO QAM, TAB Sennosides (Senokot) 8.6 Mg Tab 8.6 MG PO DAILY, TAB Zinc Oxide (Topical) (Triple Paste) 12.8 % Oin 1 APPLN TOP PRN KEEP A LAYER ON ERODED AREA UNDER PANNUS. Discontinued Medications: Warfarin Sodium (Coumadin) 5 Mg Tab 10 MG PO 6XWK, TAB TAKES EVERY DAY EXCEPT MONDAYS. Warfarin Sodium (Coumadin) 5 Mg Tab 7.5 MG PO DAILY, TAB TAKES MONDAYS ONLY. Referrals At Discharge Follow up Referrals: Physician Referral - 09/07/17 with Karlie Mullins D.O. Admission Information HPI (per Admitting provider): This is a 62yo F with a PMH of ESRD on HD, atrial fibrillation (on Coumadin), asthma, sleep apnea on CPAP and home oxygen at 2L HS and other medical problems listed below who presents with worsening SOB since dialysis today. Patient has been under a lot of stress this week while moving in with her granddaughter and feels like she "overdid it" with packing. Started to experience a runny nose, subjective fever and chills a few days ago. Yancey fatigued and short of breath prior to dialysis today but symptoms worsened afterwards. Associated symptoms include wheezing and pleuritic CP that is worse on the L side. Has a history of asthma and COPD 2/2 secondhand smoke. Is on 2L [place] O2 at home. Reports taking all medications, including inhaler and neb treatment. In addition to her SOB, patient has also noticed worsening pain in her L groin near her dialysis fistula site. Patient's current dialysis access is on R flank , but reports that this fistula was placed within the last year with plans to switch to L groin. States that this site has been painful ever since placement, but that pain is getting progressively worse and the overlying area has become red and warm to touch. Has had a historically difficult time with dialysis access sites and has received dialysis for almost 18 years. Denies fever, chills, lightheadedness, palpitations, abdominal pain, nausea/ vomiting, dysuria, diarrhea, LE swelling. Physical Exam (per Admitting): General Appearance: + mild distress, + pertinent finding (Chronically ill appearing ) Head: normocephalic, atraumatic Eyes: normal inspection, PERRL, sclerae normal (conjunctiva normal ) ENT: normal ENT inspection, hearing grossly normal, pharynx normal, + nasal congestion Neck: supple, thyroid normal, trachea midline Respiratory/Chest: chest non-tender, no respiratory distress, no accessory muscle use, + wheezing (Diffuse wheezing in bilateral lung drew ) Cardiovascular: no murmur, + tachycardia Abdomen/GI: normal bowel sounds, non tender, soft, no organomegaly Back: + pertinent finding (Dialysis access site on R flank. Bandaged. No surrounding erythema. ) Extremities/Musculoskelatal: no calf tenderness, no pedal edema, + pertinent finding (Patent fistula palpated on L proximal thigh/groin. Mild erythema surrounding site. Warm to touch.) Neurologic/Psych: no motor/sensory deficits, alert, normal mood/affect, oriented x 3 Skin: normal color, warm/dry Hospital Course Asthma exacerbation: resolved , no complain of SOB or wheeze no hypoxia , no TRAORE stable to be discharged home LEFT GROIN /SKIN FOLD AREA ERASTO/FUNGAL INFECTION symptom improved after Desenex powder no evidence of cellulitis D/c IV Vancomycin blood culture ordered on 08/30/17 negative growth ESRD on HD: Dialysis MWF had Dialysis on Thu and Thursday for hyperkalemia Nephrology following stable to be discharged home today will continue scheduled dialysis on Thursday /Thursday /Thursday Hyperkalemia K level normalized pt underwent dialysis both Thursday and Thursday for elevated potassium levels. took off about 600 cc on each dialysis treatment and pt feels much better. pt will continue to have scheduled dialysis X3 week ( MWF ) , nephrology following K level wnl today discharged home repeat BMP in next 1-2 days Supratherapeutic INR: Coumadin was on hold INR 1.5 today started on Coumadin 5 mg daily pt will be discharged on Coumadin 5 mg daily will be followed at [facility] closely for monitoring of PT/INR Afib : Currently in a sinus rhythm Not on any medication for rate control on Coumadin for anticoagulation Sleep apnea: CPAP qHS Chronic pain: to continue home meds Flexeril and Percocet Bowel regimen DVT Ppx: Coumadin DISPOSITION Stable to be discharged home today Total time spent on discharge = 40 mins This includes examination of the patient, discharge planning, medication reconciliation, and communication with other providers. Discharge Instructions Discharge Instructions Date of Service Aug 31, 2017. Admission Reason for Admission: Asthma Exacerbation; Chest Pain Discharge Discharge Diagnosis / Problem: HYPERKALEMIA /ASTHMA EXACERBATION /ELEVATED INR Discharge Goals Goal(s): Decrease discomfort, Improve function, Increase independence, Improve disease control, Diagnostic testing, Therapeutic intervention Activity Recommendations Activity Limitations: as noted below ( TOLERATED ) . Instructions / Follow-Up Instructions / Follow-Up HOSPITAL FOLLOW UP 09/07/2017 11:00 AM Karlie Mullins DO General Internal Medicine [facility] LAB WORK : BASIC METABOLIC PANEL AND INR ON Thursday09/03/17 COUMADIN DOSE REDUCED TO 5 MG DAILY NEED CLOSE FOLLOW UP WITH [facility]IC FOR MONITORING OF PT /INR Current Hospital Diet Patient's current hospital diet: Renal Diet Discharge Diet Recommended Diet: Renal Diet Pending Studies Studies pending at discharge: no Medical Emergencies . Who to Call and When: Medical Emergencies: If at any time you feel your situation is an emergency, please call 911 immediately. . Non-Emergent Contact Non-Emergency issues call your: Primary Care Provider . . "Provider Documentation" section prepared by Tamara Latham. . VTE Core Measure Inpt VTE Proph given/why not?: Warfarin (Coumadin) Additional Copies To Karlie Mullins D.O. Oncu, Kerim I., DO
[2017-09-01] MEDS ORDERED: MCTP EX (13:20)
[2017-09-01 15:42] VITALS: BP 150/84; PULSE 72; TEMP 36.8; O2SAT 98
== END 2017-09-01 17:00 | disposition home health service (06) | DRG 202 ==
LOC: EDBD 15:24 → C.EDA 15:25 → C.2T 18:58 → CANRESERV 19:24 → ENRESERV 19:24 → EDBEDREQ 20:05 → ENRESERV 20:07
PROVIDERS: ADMIT Family Medicine; ATTEND Hospitalist
DX: J45.901 Unspecified asthma with (acute) exacerbation (principal); N18.6 End stage renal disease; J44.1 Chronic obstructive pulmonary disease with (acute) exacerbation; L03.90 Cellulitis, unspecified; I12.0 Hypertensive chronic kidney disease with stage 5 chronic kidney disease or end stage renal disease; Z66 Do not resuscitate; J06.9 Acute upper respiratory infection, unspecified; F41.9 Anxiety disorder, unspecified; K59.09 Other constipation; E87.5 Hyperkalemia; G89.29 Other chronic pain; N25.0 Renal osteodystrophy; F32.9 Major depressive disorder, single episode, unspecified; D63.1 Anemia in chronic kidney disease; K21.9 Gastro-esophageal reflux disease without esophagitis; G47.33 Obstructive sleep apnea (adult) (pediatric); Z86.711 Personal history of pulmonary embolism; Z99.2 Dependence on renal dialysis; Z99.81 Dependence on supplemental oxygen; Z88.0 Allergy status to penicillin; Z90.49 Acquired absence of other specified parts of digestive tract; Z90.710 Acquired absence of both cervix and uterus; Z79.01 Long term (current) use of anticoagulants; Z80.3 Family history of malignant neoplasm of breast; Z80.51 Family history of malignant neoplasm of kidney; Z80.1 Family history of malignant neoplasm of trachea, bronchus and lung

== ENCOUNTER 2017-10-22 20:56 | Emergency (ER) | payer OTHER ==
[~2017-10-22] VITALS: Ht 147.3 cm; Wt 85.6 kg
[~2017-10-22 20:56] MED LIST changes: +ACET-1311 PO; -ALBUAER19 INH; -ALUMSUS2 PO; +BCTCR/30 EXT; +CALC667C4 PO; +CHOL100041 PO; -CHOLCAP5 PO; +CLOP1TAB15 PO; +CYCL5TAB PO; -DILT120C67 PO; -DIPH1TAB87 PO; -FLUT0.0529 NAE; +FLUT0.15 NAE; +LANS15CA6 PO; -LCTX PO; +MCTP EX; -METH500T PO; -NYST100098 TOP; -PANT40TA PO; +POLY335019 PO; +SENN1TAB77 PO; -SEVE1TAB PO; -TRAM-10 PO; -VNCS125 PO; +VNTHFA/IN INH; +[UNRECOGNIZED DRUG - CODE] TOP
[2017-10-22 21:04] VITALS: TEMP 37.3; Ht 147.3 cm; Wt 85.6 kg
--- NOTE | 2017-10-22 21:05 | EMERGENCY ROOM VISIT NOTE ---
History Report prepared by Gagan: Félix Sweeney Under the Supervision of: Dr. Víctor Barnes M.D. First contact with patient: 21:00 Stated Complaint: L GROIN AND LEG PAIN History of Present Illness The patient is a 62 year old female who presents to the Emergency Room with complaints of worsening left groin and leg pain that began a couple days ago. Patient states the pain radiates down to her left ankle. Patient states she had dialysis done yesterday. She adds that she was unable to get her whole dialysis treatment yesterday. She states she gets her dialysis done on Thursday, Thursday , and Thursday. She states she takes Coumadin and Septra. She denies taking any pain medication. Patient states that she walks with a cane. Source of History: patient Onset: Couple days ago Position: pelvis (Left), leg (left) Timing: worsening Note: Patient has ankle pain. Review of Systems See HPI for pertinent positives & negatives. A total of 10 systems reviewed and were otherwise negative. Past Medical & Surgical Medical Problems: (1) Allergic rhinitis (2) Anemia secondary to renal failure (3) ANTICOAGULANTS,LT,CURRENT USE (4) ANXIETY STATE NOS (5) Asthma (6) Asthma exacerbation (7) Benign hypertension (8) C. difficile diarrhea (9) Chronic constipation (10) Chronic kidney disease (CKD), stage V (11) COPD (chronic obstructive pulmonary disease) (12) Depressive disorder (13) DIVERTICULOSIS COLON (W/O MENT OF HEMORRHAGE) (14) Dyslipidemia (15) ESRD (end stage renal disease) on dialysis (16) Gastroesophageal reflux disease (17) History of atrial fibrillation (18) History of GI bleed (19) History of pancreatitis (20) Obstructive sleep apnea on CPAP (21) Pancreatitis (22) Pulmonary emboli (23) S/p arteriovenous anastomosis (24) Solitary Kidney (25) SUPPLEMENTAL OXYGEN Surgical Problems: (1) Hernia repair (2) History of - section (3) History of appendectomy (4) History of cholecystectomy (5) History of total hysterectomy (6) S/P dialysis catheter insertion (7) Thromboectomy Left Brachiobasilic ateriovenous graft Family History FH: breast cancer MOTHER FH: colon cancer FATHER FH: kidney cancer FATHER FH: lung cancer FATHER Social History Smoking Status: Never Smoker Alcohol Use: none Drug Use: none Marital Status: Housing Status: lives with family Occupation Status: disabled Current/Historical Medications Scheduled Atorvastatin (Lipitor), 40 MG PO DAILY B-Complex W/ C & Folic Acid (Nephro-Jamaal Rx), 1 TAB PO DAILY Calcium Acetate (Phoslo 667 Mg), 3 CAPSULES PO WM Calcium Carbonate (Tums), 500 MG PO AC Cholecalciferol (D 1000), 1,000 UNITS PO DAILY Cinecalcet (Sensipar), 60 MG PO QDD Clopidogrel (Plavix), 75 MG PO DAILY Cyclobenzaprine Hcl (Flexeril), 5 MG PO TID Docusate Sodium (Colace), 1 CAP PO BID Fluoxetine (Prozac), 40 MG PO DAILY Fluticasone Prop/Salmeterol (Advair Diskus 500/50 60 Dose), 1 PUFF INH BID Fluticasone Propionate (Nasal) (Flonase Allergy Relief), 2 SPRAYS CORTEZ DAILY Home O2 Therapy (Oxygen), 2 LITERS NA HS Lansoprazole (Prevacid), 15 MG PO QAM Miconazole Nitrate (Desenex Shake Powder), 1 APPLN EX TID Montelukast Sodium (Singulair), 10 MG PO DAILY Mupirocin 2% (Bactroban 2%), 1 APPLN EXT TID Polyethylene Glycol 3350 (Miralax), 17 GM PO DAILY Ranitidine (Zantac), 300 MG PO QAM Sennosides (Senokot), 8.6 MG PO DAILY Sennosides (Senokot), 8.6 MG PO HS Warfarin Sodium (Coumadin), 1 TAB PO DAILY Zinc Oxide (Topical) (Triple Paste), 1 APPLN TOP PRN Scheduled PRN Acetaminophen (Tylenol), 650 MG PO Q4H PRN for Pain or Fever Albuterol Hfa (Ventolin Hfa), 2 PUFFS INH Q4H PRN for SOB/Wheezing Docusate Sodium (Docusate Sodium), 100 MG PO BID PRN for Constipation Epinephrine (Epipen), 0.3 MG IM UD PRN for ALLERGIC REACTION Ipratropium-Albuterol (Duoneb), 1 TREATMENT INH QID PRN for SOB/Wheezing Ondansetron Hcl (Zofran), 4 MG PO TID PRN for Nausea Oxycodone/Acetaminophen 5MG/325MG (Percocet 5MG/325MG), 1-2 TAB PO Q4H PRN for Pain Allergies Coded Allergies: Hydromorphone (Verified Allergy, Intermediate, SHORTNESS OF BREATH, 10/22/17 ) Aspirin (Verified Allergy, Mild, BLOODY NOSES, 10/22/17) Ciprofloxacin (Verified Allergy, Mild, HIVES, 10/22/17) Metronidazole (Verified Allergy, Mild, HIVES, 10/22/17) Penicillins (Verified Allergy, Mild, HIVES, 10/22/17) Chocolate (Verified Allergy, Unknown, HIVES, 10/22/17) Peanut Butter Flavor (Verified Allergy, Unknown, HIVES, 10/22/17) Tomato (Verified Allergy, Unknown, HIVES, 10/22/17) White Potato (Verified Allergy, Unknown, HIVES, 10/22/17) Uncoded Allergies: CEREAL COLOR DYES (Allergy, Severe, SOB, THROAT SWELLS, 08/28/17) TRIX CEREAL (Allergy, Unknown, SHORTNESS OF BREATH, SWELLING OF THROAT, ) Physical Exam Vital Signs Date Time Temp Pulse Resp B/P (MAP) Pulse Ox O2 Delivery O2 Flow Rate FiO2 10/22/17 23:09 90 20 125/67 94 Room Air 10/22/17 22:57 91 18 144/78 97 Room Air 10/22/17 22:25 96 Nasal Cannula 2.0 10/22/17 21:39 85 10/22/17 21:04 37.3 84 20 132/57 96 Room Air Physical Exam GENERAL: Patient is a healthy-appearing well-nourished female HEAD: Normocephalic atraumatic EYES: Ocular movements intact pupils equal and react to light OROPHARYNX mucous membranes are moist no exudates present no erythema or edema present NECK: Supple no nuchal rigidity CHEST: Good equal expansion LUNGS: Clear and equal to auscultation CARDIAC: Normal S1 and S2 ABDOMEN: Soft nontender no guarding BACK: No CVA tenderness SKIN: 2 by 6 hematoma. Superficial to skin. Compartments are intact. EXTREMITIES: Fistula in place. Good bruit. Good range of motion in knee and ankle. No pain upon palpation normal muscle strength in all groups no clubbing cyanosis or edema NEURO: Neurovascularly intact. Patient is following commands and answering questions appropriately. Alert and oriented x3 Cranial Nerves 2-12 grossly intact Medical Decision & Procedures ER Provider Diagnostic Interpretation: Radiology results as stated below per my review and radiologist interpretation: CT L LOWER EXTREMITY WITHOUT CT DOSE: 944.13 mGy.cm CLINICAL HISTORY: Left hip pain TECHNIQUE: Unenhanced images were obtained through the left hip and mid femur. A dose lowering technique was utilized adhering to the principles of ALARA. COMPARISON STUDY: None. FINDINGS: There are no acute fractures. No destructive lesions are visualized. There is anterior soft tissue edema. There are partially visualized anterior subcutaneous masses/hyperdense fluid collections. Vascular grafts are visualized within the anterior soft tissues. There are minor osteoarthritic changes. There is extensive diverticulosis. IMPRESSION: 1. No acute fractures. 2. Mild degenerative change 3. Anterior soft tissue edema, and partially visualized anterior subcutaneous masses/hyperdense fluid collections in the upper thigh region. Electronically signed by: Giacomo Rose M.D. 10/22/2017 10:08 PM Laboratory Results Test 10/22/17 21:45 Prothrombin Time 14.0 SECONDS (9.0-12.0) Prothromb Time International Ratio 1.3 (0.9-1.1) Labs reviewed by ED physician. Medications Administered Medications (Trade) Dose Ordered Sig/Deidre Route Start Time Stop Time Status Last Admin Dose Admin Morphine Sulfate (MoRPHine SULFATE INJ) 10 mg NOW STAT IM 10/22/17 21:06 10/22/17 21:09 DC 10/22/17 21:25 10 MG Promethazine HCl (Phenergan Inj) 25 mg NOW STAT IM 10/22/17 21:06 10/22/17 21:09 DC 10/22/17 21:25 25 MG Oxycodone/ Acetaminophen (Percocet 5/ 325MG Home Pack) 1 homepack UD ONCE PO 10/22/17 23:00 10/22/17 23:01 DC 10/22/17 23:10 1 HOMEPACK ED Course 2104: Past medical records reviewed. The patient was evaluated in room A10. A complete history and physical examination was performed. 2105: Phenergan Inj 25mg IM, Morphine Sulfate 10mg IM 0: Oxycodone/Acetaminophen 1 homepack PO 2330: Upon reexamination the patient is resting comfortably. I discussed results and treatment plan with the patient. She verbalizes agreement and understanding. The patient is ready for discharge. Medical Decision Differential diagnosis: Etiologies such as fracture, dislocation, neurovascular compromise, compartment syndrome, soft tissue injury, as well as others were entertained. This is a 62-year-old female who presents emergency department complaining of hematoma to her left thigh area. I will note that the hematoma does not extend the patient's abdomen and is generally limited around her fistula. Her compartment is soft and there is no evidence of compartment syndrome. She is neurovascularly intact distally. she was sent for a CT of the extremity however the hematoma does not extend far. She was given morphine as well as ice packs for the pain. Repeat examination revealed much improvement the patient's symptoms. I do feel the patient can be safely discharged home for follow-up with her vascular surgeon. Patient was in agreement with the treatment plan. Medication Reconcilliation Current Medication List: was personally reviewed by me Blood Pressure Screening Patient's blood pressure: Normal blood pressure Blood pressure disposition: Did not require urgent referral Impression Primary Impression: Hematoma Scribe Attestation The scribe's documentation has been prepared under my direction and personally reviewed by me in its entirety. I confirm that the note above accurately reflects all work, treatment, procedures, and medical decision making performed by me. Departure Information Dispostion Home / Self-Care Prescriptions Docusate Sodium (COLACE) 100 Mg Cap 1 CAP PO BID for 30 Days, #60 CAP Prov: Víctor Barnes MD 10/22/17 Sennosides (SENOKOT) 8.6 Mg Tab 8.6 MG PO HS for 30 Days, #30 TAB Prov: Víctor Barnes MD 10/22/17 Oxycodone/Acetaminophen 5MG/325MG (PERCOCET 5MG/325MG) Tab 1-2 TAB PO Q4H Y for Pain, #14 TAB Prov: Víctor Barnes MD 10/22/17 Referrals Karlie Mullins D.OYinka (PCP) Forms HOME CARE DOCUMENTATION FORM, IMPORTANT VISIT INFORMATION Patient Instructions ED Hematoma, ED RICE, My [facility] Additional Instructions Apply ice to area You received narcotic or benzodiazepene medication while in the emergency room today. This is an addictive medication that may cause drowziness as well as constipation. Do not drive, operate heavy machinery, or drink alcohol under the influence of this medication. You have been examined and treated today on an emergency basis only. This is not a substitute for, or an effort to provide, complete comprehensive medical care. It is impossible to recognize and treat all injuries or illnesses in a single emergency department visit. It is therefore important that you follow up closely with Dr Torres. Call as soon as possible for an appointment. Thank you for your time and consideration. I look forward to speaking with you again soon. Please don't hesitate to call us if you have any questions.
[2017-10-22] MEDS ORDERED: PROMETHAZINE HCL INJ 25 MG/ML 1 ML VIAL IM STA (21:06)
[2017-10-22] MEDS ORDERED: MoRPHine SULFATE 10 MG/ML CARP/VIAL IM STA (21:06)
--- NOTE | 2017-10-22 22:09 | DIAGNOSTIC IMAGING REPORT ---
CT L LOWER EXTREMITY WITHOUT CT DOSE: 944.13 mGy.cm CLINICAL HISTORY: Left hip pain TECHNIQUE: Unenhanced images were obtained through the left hip and mid femur. A dose lowering technique was utilized adhering to the principles of ALARA. COMPARISON STUDY: None. FINDINGS: There are no acute fractures. No destructive lesions are visualized. There is anterior soft tissue edema. There are partially visualized anterior subcutaneous masses/hyperdense fluid collections. Vascular grafts are visualized within the anterior soft tissues. There are minor osteoarthritic changes. There is extensive diverticulosis. IMPRESSION: 1. No acute fractures. 2. Mild degenerative change 3. Anterior soft tissue edema, and partially visualized anterior subcutaneous masses/hyperdense fluid collections in the upper thigh region. Electronically signed by: Giacomo Rose M.D. 10/22/2017 10:08 PM Dictated Date/Time: 10/22/2017 10:03 PM
[2017-10-22 22:14] LABS: INR 1.3 (0.9-1.1)
[2017-10-22 22:25] VITALS: O2SAT 96
[2017-10-22] MEDS ORDERED: DOCU-94 PO (22:51)
[2017-10-22] MEDS ORDERED: OXYC-57 PO (22:51)
[2017-10-22] MEDS ORDERED: SENN1TAB77 PO (22:51)
[2017-10-22] MEDS ORDERED: PERCOCET HOME PACK PO ONE (23:00)
[2017-10-22 23:09] VITALS: BP 125/67; PULSE 90; O2SAT 94
== END 2017-10-22 23:15 | disposition home or self-care (01) ==
LOC: EDBD 20:56 → C.EDA 20:57
DX: S80.12XA Contusion of left lower leg, initial encounter (principal); X58.XXXA Exposure to other specified factors, initial encounter; I48.91 Unspecified atrial fibrillation; I12.0 Hypertensive chronic kidney disease with stage 5 chronic kidney disease or end stage renal disease; N18.6 End stage renal disease; E78.5 Hyperlipidemia, unspecified; J44.9 Chronic obstructive pulmonary disease, unspecified; G47.33 Obstructive sleep apnea (adult) (pediatric); K86.1 Other chronic pancreatitis; J45.909 Unspecified asthma, uncomplicated; F41.9 Anxiety disorder, unspecified; K57.30 Diverticulosis of large intestine without perforation or abscess without bleeding; K21.9 Gastro-esophageal reflux disease without esophagitis; Z86.711 Personal history of pulmonary embolism; Z87.19 Personal history of other diseases of the digestive system; Z86.19 Personal history of other infectious and parasitic diseases; Z99.81 Dependence on supplemental oxygen; Z79.01 Long term (current) use of anticoagulants; Z79.899 Other long term (current) drug therapy; Z90.710 Acquired absence of both cervix and uterus; Z90.49 Acquired absence of other specified parts of digestive tract; Z88.0 Allergy status to penicillin; Z88.2 Allergy status to sulfonamides; Z88.5 Allergy status to narcotic agent; Z88.6 Allergy status to analgesic agent; Z91.018 Allergy to other foods; Z80.3 Family history of malignant neoplasm of breast; Z80.0 Family history of malignant neoplasm of digestive organs

== ENCOUNTER → 2017-10-23 | Outpatient (CLI) | payer OTHER ==
[~2017-10-23] MED LIST changes: +DOCU-94 PO; +OXYC-57 PO
--- NOTE | 2017-10-23 17:46 | DIAGNOSTIC IMAGING REPORT ---
LEFT LOWER EXTREMITY VENOUS DOPPLER CLINICAL HISTORY: Left leg swelling and pain. History of deep venous thrombus. COMPARISON STUDY: CT of the left lower extremity October 22, 2017. TECHNIQUE: Sonography of the deep venous system of the left lower extremity was performed. Compression and augmentation were evaluated. FINDINGS: Note is made of a patent left groin AV graft. There is no deep venous thrombus within the left lower extremity. Note is made of a complex subcutaneous fluid collection within the anterior left thigh, located inferior and lateral to the graft that measures 10 x 1.4 x 7.7 cm. This collection corresponds to the collection shown on CT of October 22, 2017. IMPRESSION: 1. No evidence of deep venous thrombus within the left lower extremity. 2. Patent left groin AV graft. 3. 10 x 1.4 x 7.7 cm complex subcutaneous fluid collection of the anterolateral left thigh which corresponds to the collection shown on CT of October 22, 2017. This favors a hematoma. Electronically signed by: Rory Pacheco M.D. 10/23/2017 5:45 PM Dictated Date/Time: 10/23/2017 5:36 PM
== END | disposition home or self-care (01) ==
LOC: C.ULTR 16:43
PROVIDERS: ATTEND Internal Medicine
DX: M79.89 Other specified soft tissue disorders (principal)

== ENCOUNTER 2018-01-22 11:23 | Emergency (ER) | payer OTHER ==
[~2018-01-22] VITALS: Ht 144.8 cm; Wt 115.0 kg
[~2018-01-22 11:23] MED LIST changes: -DOCU-94 PO
[2018-01-22 11:32] VITALS: TEMP 37; Ht 144.8 cm; Wt 115.0 kg
[2018-01-22] MEDS ORDERED: SODIUM CHLORIDE 0.9% 500ML 500 ML IV STA (11:40)
[2018-01-22] MEDS ORDERED: ONDANSETRON INJ 2 MG/ML 2 ML VIAL IV STA ×2 (11:40→17:00)
--- NOTE | 2018-01-22 12:05 | EMERGENCY ROOM VISIT NOTE ---
History Report prepared by Gagan: Anupam Son Under the Supervision of: Dr. Servando Padron D.O. First contact with patient: 11:37 Chief Complaint: ILLNESS Stated Complaint: ILLNESS History of Present Illness The patient is a 62 year old female who presents to the Emergency Room with complaints of abdominal pain. The patient was finishing up dialysis. She had approximately 30 minutes left when she started noticing abdominal distention nausea vomiting and diarrhea. She has had multiple episodes of diarrhea. She also has nausea and dry heaves. The patient initially did not wish to come to the emergency department. The patient at this time states her symptoms are mildly improved. She states pain is worsened with any movement. She denies having any rectal bleeding or hematemesis. The patient states that she has had similar episodes in the past. She denies having any fever. She did not see her primary care physician for this. She was brought to the emergency department immediately by ambulance from [facility]. Source of History: patient Onset: Earlier today Position: abdomen Symptom Intensity: with distension Quality: other (pain) Timing: other (persistent) Modifying Factors (Worsening): movement Associated Symptoms: + nausea, + vomiting, + diarrhea, No fevers Note: Denies rectal bleeding or hematemesis. Review of Systems See HPI for pertinent positives & negatives. A total of 10 systems reviewed and were otherwise negative. Past Medical & Surgical Medical Problems: (1) Allergic rhinitis (2) Anemia secondary to renal failure (3) ANTICOAGULANTS,LT,CURRENT USE (4) ANXIETY STATE NOS (5) Asthma (6) Asthma exacerbation (7) Benign hypertension (8) C. difficile diarrhea (9) Chronic constipation (10) Chronic kidney disease (CKD), stage V (11) COPD (chronic obstructive pulmonary disease) (12) Depressive disorder (13) DIVERTICULOSIS COLON (W/O MENT OF HEMORRHAGE) (14) Dyslipidemia (15) ESRD (end stage renal disease) on dialysis (16) Gastroesophageal reflux disease (17) History of atrial fibrillation (18) History of GI bleed (19) History of pancreatitis (20) Obstructive sleep apnea on CPAP (21) Pancreatitis (22) Pulmonary emboli (23) S/p arteriovenous anastomosis (24) Solitary Kidney (25) SUPPLEMENTAL OXYGEN Surgical Problems: (1) Hernia repair (2) History of - section (3) History of appendectomy (4) History of cholecystectomy (5) History of total hysterectomy (6) S/P dialysis catheter insertion (7) Thromboectomy Left Brachiobasilic ateriovenous graft Family History FH: breast cancer MOTHER FH: colon cancer FATHER FH: kidney cancer FATHER FH: lung cancer FATHER Social History Smoking Status: Never Smoker Alcohol Use: none Drug Use: none Marital Status: Housing Status: lives with family Occupation Status: disabled Current/Historical Medications Scheduled Atorvastatin (Lipitor), 40 MG PO DAILY B-Complex W/ C & Folic Acid (Nephro-Jamaal Rx), 1 TAB PO DAILY Calcium Carbonate (Tums), 500 MG PO AC Cholecalciferol (D 1000), 1,000 UNITS PO DAILY Cinecalcet (Sensipar), 60 MG PO QDD Clopidogrel (Plavix), 75 MG PO DAILY Cyclobenzaprine Hcl (Flexeril), 5 MG PO TID Fluticasone Prop/Salmeterol (Advair Diskus 500/50 60 Dose), 1 PUFF INH BID Fluticasone Propionate (Nasal) (Flonase Allergy Relief), 2 SPRAYS CORTEZ DAILY Home O2 Therapy (Oxygen), 2 LITERS NA HS Mirtazapine (Remeron), 15 MG PO HS Montelukast Sodium (Singulair), 10 MG PO DAILY Pantoprazole (Protonix), 40 MG PO DAILY Polyethylene Glycol 3350 (Miralax), 17 GM PO DAILY Ranitidine (Zantac), 300 MG PO QAM Sennosides (Senokot), 8.6 MG PO DAILY Sevelamer Carbonate (Renvela), 2,400 MG PO TIDM Sevelamer Carbonate (Renvela), 800 MG PO snacks Warfarin Sod (Jantoven), 7.5 MG PO MWF Warfarin Sod (Jantoven), 10 MG PO 4XWK Scheduled PRN Acetaminophen (Tylenol), 650 MG PO Q4H PRN for Pain or Fever Albuterol Hfa (Ventolin Hfa), 2 PUFFS INH Q4H PRN for SOB/Wheezing Docusate Sodium (Docusate Sodium), 100 MG PO BID PRN for Constipation Epinephrine (Epipen), 0.3 MG IM UD PRN for ALLERGIC REACTION Ipratropium-Albuterol (Duoneb), 1 TREATMENT INH QID PRN for SOB/Wheezing Ondansetron Hcl (Zofran), 4 MG PO TID PRN for Nausea Oxycodone Ir (Roxicodone Ir), 5 MG PO Q8H PRN for Pain Allergies Coded Allergies: Hydromorphone (Verified Allergy, Intermediate, SHORTNESS OF BREATH, 01/22/18 ) Aspirin (Verified Allergy, Mild, BLOODY NOSES, 01/22/18) Ciprofloxacin (Verified Allergy, Mild, HIVES, 01/22/18) Metronidazole (Verified Allergy, Mild, HIVES, 01/22/18) Penicillins (Verified Allergy, Mild, HIVES, 01/22/18) Chocolate (Verified Allergy, Unknown, HIVES, 01/22/18) Peanut Butter Flavor (Verified Allergy, Unknown, HIVES, 01/22/18) Tomato (Verified Allergy, Unknown, HIVES, 01/22/18) White Potato (Verified Allergy, Unknown, HIVES, 01/22/18) Uncoded Allergies: CEREAL COLOR DYES (Allergy, Severe, SOB, THROAT SWELLS, 08/28/17) TRIX CEREAL (Allergy, Unknown, SHORTNESS OF BREATH, SWELLING OF THROAT, ) Physical Exam Vital Signs Date Time Temp Pulse Resp B/P (MAP) Pulse Ox O2 Delivery O2 Flow Rate FiO2 01/22/18 13:53 76 17 96 01/22/18 13:52 123/63 01/22/18 11:43 77 18 98 01/22/18 11:38 76 15 97 01/22/18 11:32 37.0 77 20 109/74 97 Room Air 01/22/18 11:28 109/74 Physical Exam GENERAL: Patient is awake alert in no acute distress patient is resting comfortably and showing no signs of anxiety EYES: The conjunctivae are clear. The pupils are round and reactive. EARS, NOSE, MOUTH AND THROAT: Mucous members are dry. NECK: The neck is nontender and supple. RESPIRATORY: There are rales at both bases. There is no tachypnea or conversational dyspnea appreciated. CARDIOVASCULAR: Regular rate and rhythm noted there no murmurs rubs or gallops normal S1 normal S2 GASTROINTESTINAL: Abdomen was moderately distended and diffusely tender. There is no guarding or rigidity noted. MUSCULOSKELETAL/EXTREMITIES: There is no evidence of gross deformity full range of motion is noted in the hips and shoulders SKIN: There is no obvious evidence of any rash. Trace pedal edema was noted bilaterally. NEUROLOGIC: Patient is awake alert and oriented x3. Medical Decision & Procedures ER Provider Diagnostic Interpretation: Radiology results as stated below per my review and radiologist interpretation: SINGLE VIEW CHEST CLINICAL HISTORY: Generalized abdominal pain. Vomiting. FINDINGS: An AP, portable, upright chest radiograph is compared to study dated 08/28/2017. The examination is degraded by portable technique and apical lordotic positioning. A left internal jugular central venous catheter is unchanged in position. Stent material projects over the right upper chest and the left upper extremity. The heart is enlarged and there is atherosclerotic calcification of the thoracic aorta. The pulmonary vasculature is noncongested. Chronic interstitial thickening is similar to previous. There is bibasilar atelectasis. No airspace consolidation is seen typical for pneumonia and there is no large pleural effusion. No pneumothorax is seen. The skeletal structures are osteopenic. The bony thorax is grossly intact. Surgical clips are noted in the right upper quadrant. IMPRESSION: Cardiomegaly with no acute cardiopulmonary abnormality. Electronically signed by: Be Rivas M.D. 01/22/2018 12:03 PM Dictated Date/Time: 01/22/2018 12:[address] SCAN OF THE ABDOMEN AND PELVIS WITHOUT IV CONTRAST CLINICAL HISTORY: Vomiting. COMPARISON STUDY: Abdominal CT dated 05/17/2015. TECHNIQUE: CT scan of the abdomen and pelvis is performed from the lung bases to the proximal femora. Images are reviewed in the axial, sagittal, and coronal planes. IV contrast was not administered for this examination as per the referring clinician. Note that the examination was performed in suboptimal fashion without oral and IV contrast. A dose lowering technique was utilized adhering to the principles of ALARA. CT DOSE: 955.17 mGycm FINDINGS: Lung bases: The heart is enlarged and without pericardial effusion. There are coronary artery calcifications. There is elevation of left hemidiaphragm. Foci of scarring/atelectasis are present at both lung bases. A small fat-containing Bochdalek hernia is noted at the right lung base. No airspace consolidation or pleural effusion is identified. There is a small hiatal hernia. Liver: The unenhanced liver is normal in size, contour, and attenuation. There is minimal central intrahepatic biliary ductal dilatation. Gallbladder: Surgically absent noting clips in the gallbladder fossa. Spleen: The spleen is enlarged, measuring 14.7 cm in length. Pancreas: The unenhanced pancreas demonstrates mild glandular atrophy. A coarse calcification is noted in the uncinate process. Adrenal glands: Unremarkable. Kidneys: The kidneys are markedly atrophic, left greater than right. No hydronephrosis is seen. 1.4 cm cyst is noted in the interpolar right kidney. This contains tiny calcifications are seen on September 18 156. Additional nonobstructing calculi are present the lower pole the right kidney and measure up to 4 mm. No left renal calculi are identified. There are renovascular calcifications. A 2.8 cm cystic structure superior to the right kidney is unchanged from previous. A subcentimeter cyst is noted in the upper pole of the left kidney. Abdominal vasculature: The abdominal aorta is normal in course and caliber noting advanced atherosclerotic calcification. Postoperative change with evidence of previous bypass graft is present in left groin. Bowel: There is advanced colonic diverticulosis without CT evidence of acute diverticulitis. No bowel obstruction is identified. The appendix is not identified and reported surgically absent. Peritoneum: There is no intraperitoneal free air or abdominal ascites. There is a fat-containing ventral hernia in the pelvis with evidence of previous mesh repair. Lymphadenopathy: None. Pelvic viscera: The bladder is decompressed and not well evaluated. The uterus is surgically absent. No adnexal lesion is seen. Skeletal structures: The skeletal structures demonstrate heterogeneous patchy sclerosis, likely resenting renal osteodystrophy. Moderate spondylotic changes observed. No lytic or blastic lesions are seen. Soft tissues: There is induration within the ventral abdominal pannus with dermal thickening. Calcified granulomas are noted in the left gluteal fat. IMPRESSION: 1. Suboptimal examination without oral and IV contrast. 2. No acute infectious or inflammatory findings are identified in the abdomen or pelvis. 3. There is induration throughout the ventral abdominal pannus with associated dermal thickening. Correlate clinically for evidence of cellulitis. 4. Nonobstructing right renal calculi. 5. Advanced colonic diverticulosis without CT evidence of acute diverticulitis. 6. Mild splenomegaly. 7. Cardiomegaly and hiatal hernia. 8. The kidneys are markedly atrophic, asymmetrically greater on the left. 9. Additional findings as above. Electronically signed by: Be Rivas M.D. 01/22/2018 2:19 PM Dictated Date/Time: 01/22/2018 2:03 PM Laboratory Results 01/22/18 12:40 Red Blood Count 3.75, Mean Corpuscular Volume 98.7, Mean Corpuscular Hemoglobin 29.3, Mean Corpuscular Hemoglobin Concent 29.7, Mean Platelet Volume 9.7, Neutrophils (%) (Auto) 83.2, Lymphocytes (%) (Auto) 6.1, Monocytes (%) (Auto) 7.1, Eosinophils (%) (Auto) 3.3, Basophils (%) (Auto) 0.1, Neutrophils # (Auto) 7.06, Lymphocytes # (Auto) 0.52, Monocytes # (Auto) 0.60, Eosinophils # (Auto) 0.28, Basophils # (Auto) 0.01 01/22/18 12:40 Test 01/22/18 12:40 White Blood Count 8.49 K/uL (4.8-10.8) Red Blood Count 3.75 M/uL (4.2-5.4) Hemoglobin 11.0 g/dL (12.0-16.0) Hematocrit 37.0 % (37-47) Mean Corpuscular Volume 98.7 fL (80-100) Mean Corpuscular Hemoglobin 29.3 pg (25-34) Mean Corpuscular Hemoglobin Concent 29.7 g/dl (32-36) Platelet Count 116 K/uL (130-400) Mean Platelet Volume 9.7 fL (7.4-10.4) Neutrophils (%) (Auto) 83.2 % Lymphocytes (%) (Auto) 6.1 % Monocytes (%) (Auto) 7.1 % Eosinophils (%) (Auto) 3.3 % Basophils (%) (Auto) 0.1 % Neutrophils # (Auto) 7.06 K/uL (1.4-6.5) Lymphocytes # (Auto) 0.52 K/uL (1.2-3.4) Monocytes # (Auto) 0.60 K/uL (0.11-0.59) Eosinophils # (Auto) 0.28 K/uL (0-0.5) Basophils # (Auto) 0.01 K/uL (0-0.2) RDW Standard Deviation 67.5 fL (36.4-46.3) RDW Coefficient of Variation 18.6 % (11.5-14.5) Immature Granulocyte % (Auto) 0.2 % Immature Granulocyte # (Auto) 0.02 K/uL (0.00-0.02) Prothrombin Time 25.3 SECONDS (9.0-12.0) Prothromb Time International Ratio 2.5 (0.9-1.1) Activated Partial Thromboplast Time 42.2 SECONDS (21.0-31.0) Partial Thromboplastin Ratio 1.6 Anion Gap 4.0 mmol/L (3-11) Est Creatinine Clear Calc Drug Dose 17.2 ml/min Estimated GFR () 14.3 Estimated GFR (Non- 12.4 BUN/Creatinine Ratio 3.2 (10-20) Calcium Level 9.5 mg/dl (8.5-10.1) Total Bilirubin 0.6 mg/dl (0.2-1) Direct Bilirubin 0.1 mg/dl (0-0.2) Aspartate Amino Transf (AST/SGOT) 17 U/L (15-37) Alanine Aminotransferase (ALT/SGPT) 18 U/L (12-78) Alkaline Phosphatase 91 U/L (45-117) Total Protein 7.5 gm/dl (6.4-8.2) Albumin 3.4 gm/dl (3.4-5.0) Lipase 86 U/L (73-393) Laboratory results per my review. Medications Administered Medications (Trade) Dose Ordered Sig/Deidre Route Start Time Stop Time Status Last Admin Dose Admin Ondansetron HCl (Zofran Inj) 4 mg NOW STAT IV 01/22/18 11:40 01/22/18 11:41 DC 01/22/18 13:24 4 MG Sodium Chloride 500 ml @ 999 mls/hr Q31M STAT IV 01/22/18 11:40 01/22/18 12:10 DC 01/22/18 13:20 999 MLS/HR ECG Per My Interpretation Indication: nausea Rate (beats per minute): 75 Rhythm: normal sinus Findings: no ectopy, other (no acute ST segment abnormalities) Change: no significant change (from 08/29/17) ED Course 1138: The patient was evaluated in room C3. A complete history and physical examination were performed. 1140: NSS 500 ml @ 999 mls/hr IV, Zofran Inj 4 mg IV. 1453: Upon reevaluation, the patient is resting comfortably. I discussed the results and treatment plan with her. She verbalized agreement of the treatment plan. She was discharged home. Medical Decision Prior records/ancillary studies reviewed. Triage Nursing notes reviewed. The patient's history was concerning for abdominal pain. Differential diagnosis: Etiologies such as appendicitis, diverticulitis, PUD, biliary pathology, UTI, pancreatitis, obstruction, mesenteric ischemia, aortic pathology, infections, inflammatory bowel disease, renal colic, as well as others were entertained. Medication Reconcilliation Current Medication List: was personally reviewed by me Blood Pressure Screening Patient's blood pressure: Normal blood pressure Impression Primary Impression: Abdominal pain Additional Impression: Nausea vomiting and diarrhea Scribe Attestation The scribe's documentation has been prepared under my direction and personally reviewed by me in its entirety. I confirm that the note above accurately reflects all work, treatment, procedures, and medical decision making performed by me. Departure Information Dispostion Home / Self-Care Referrals Luz Torres M.D. (PCP) Patient Instructions My [facility], Nausea Vomit Control Additional Instructions Continue all medications as prescribed. Drink plenty clear liquids. Continue using Tylenol as directed for pain. Follow-up with your family doctor soon as possible. Return to the emergency department if symptoms change worsen or the need arises. Problem Qualifiers
[2018-01-22 12:50] LABS: MEAN CELL VOLUME 98.7 fL (80-100); MEAN CORPUSCULAR HEMOGLOBIN 29.3 pg (25-34); MEAN CORPUSCULAR HGB CONC 29.7 g/dl (32-36); MEAN PLATELET VOLUME 9.7 fL (7.4-10.4); PLATELET COUNT 116 K/uL (130-400); RED CELL DISTRIBUTION WIDTH CV 18.6 % (11.5-14.5); RED CELL DISTRIBUTION WIDTH SD 67.5 fL (36.4-46.3); WHITE BLOOD COUNT 8.49 K/uL (4.8-10.8)
[2018-01-22 12:59] LABS: INR 2.5 (0.9-1.1); PTT PATIENT 42.2 SECONDS (21.0-31.0)
[2018-01-22 13:06] LABS: ALBUMIN 3.4 gm/dl (3.4-5.0); CALCIUM 9.5 mg/dl (8.5-10.1); CREATININE 3.71 mg/dl (0.60-1.20); POTASSIUM 3.9 mmol/L (3.5-5.1)
[2018-01-22 13:19] LABS: TOTAL PROTEIN 7.5 gm/dl (6.4-8.2)
[2018-01-22 14:15] LABS: BASO % 0.1 %; BASO ABS # 0.01 K/uL (0-0.2); EOS % 3.3 %; EOS ABS # 0.28 K/uL (0-0.5); IG# 0.02 K/uL (0.00-0.02); LYMPH % 6.1 %; LYMPH ABS # 0.52 K/uL (1.2-3.4); MONO % 7.1 %; NEUT % 83.2 %; NEUT ABS # 7.06 K/uL (1.4-6.5)
--- NOTE | 2018-01-22 14:20 | DIAGNOSTIC IMAGING REPORT ---
CT SCAN OF THE ABDOMEN AND PELVIS WITHOUT IV CONTRAST CLINICAL HISTORY: Vomiting. COMPARISON STUDY: Abdominal CT dated 05/17/2015. TECHNIQUE: CT scan of the abdomen and pelvis is performed from the lung bases to the proximal femora. Images are reviewed in the axial, sagittal, and coronal planes. IV contrast was not administered for this examination as per the referring clinician. Note that the examination was performed in suboptimal fashion without oral and IV contrast. A dose lowering technique was utilized adhering to the principles of ALARA. CT DOSE: 955.17 mGycm FINDINGS: Lung bases: The heart is enlarged and without pericardial effusion. There are coronary artery calcifications. There is elevation of left hemidiaphragm. Foci of scarring/atelectasis are present at both lung bases. A small fat-containing Bochdalek hernia is noted at the right lung base. No airspace consolidation or pleural effusion is identified. There is a small hiatal hernia. Liver: The unenhanced liver is normal in size, contour, and attenuation. There is minimal central intrahepatic biliary ductal dilatation. Gallbladder: Surgically absent noting clips in the gallbladder fossa. Spleen: The spleen is enlarged, measuring 14.7 cm in length. Pancreas: The unenhanced pancreas demonstrates mild glandular atrophy. A coarse calcification is noted in the uncinate process. Adrenal glands: Unremarkable. Kidneys: The kidneys are markedly atrophic, left greater than right. No hydronephrosis is seen. 1.4 cm cyst is noted in the interpolar right kidney. This contains tiny calcifications are seen on September 18. Additional nonobstructing calculi are present the lower pole the right kidney and measure up to 4 mm. No left renal calculi are identified. There are renovascular calcifications. A 2.8 cm cystic structure superior to the right kidney is unchanged from previous. A subcentimeter cyst is noted in the upper pole of the left kidney. Abdominal vasculature: The abdominal aorta is normal in course and caliber noting advanced atherosclerotic calcification. Postoperative change with evidence of previous bypass graft is present in left groin. Bowel: There is advanced colonic diverticulosis without CT evidence of acute diverticulitis. No bowel obstruction is identified. The appendix is not identified and reported surgically absent. Peritoneum: There is no intraperitoneal free air or abdominal ascites. There is a fat-containing ventral hernia in the pelvis with evidence of previous mesh repair. Lymphadenopathy: None. Pelvic viscera: The bladder is decompressed and not well evaluated. The uterus is surgically absent. No adnexal lesion is seen. Skeletal structures: The skeletal structures demonstrate heterogeneous patchy sclerosis, likely resenting renal osteodystrophy. Moderate spondylotic changes observed. No lytic or blastic lesions are seen. Soft tissues: There is induration within the ventral abdominal pannus with dermal thickening. Calcified granulomas are noted in the left gluteal fat. IMPRESSION: 1. Suboptimal examination without oral and IV contrast. 2. No acute infectious or inflammatory findings are identified in the abdomen or pelvis. 3. There is induration throughout the ventral abdominal pannus with associated dermal thickening. Correlate clinically for evidence of cellulitis. 4. Nonobstructing right renal calculi. 5. Advanced colonic diverticulosis without CT evidence of acute diverticulitis. 6. Mild splenomegaly. 7. Cardiomegaly and hiatal hernia. 8. The kidneys are markedly atrophic, asymmetrically greater on the left. 9. Additional findings as above. Electronically signed by: Be Rivas M.D. 01/22/2018 2:19 PM Dictated Date/Time: 01/22/2018 2:03 PM
[2018-01-22] MEDS ORDERED: SEVE800T7 PO ×2 (14:22)
[2018-01-22] MEDS ORDERED: WARF5TAB7 PO ×2 (14:22)
[2018-01-22] MEDS ORDERED: MIRT15TA PO (14:23)
[2018-01-22] MEDS ORDERED: OXYC1TAB3 PO (14:23)
[2018-01-22] MEDS ORDERED: PANT40TA PO (14:24)
[2018-01-22 17:11] VITALS: BP 133/86; PULSE 71; O2SAT 96
== END 2018-01-22 17:25 | disposition home or self-care (01) ==
LOC: EDBD 11:23 → C.EDC 11:24
DX: R10.84 Generalized abdominal pain (principal); R11.2 Nausea with vomiting, unspecified; R19.7 Diarrhea, unspecified; I12.9 Hypertensive chronic kidney disease with stage 1 through stage 4 chronic kidney disease, or unspecified chronic kidney disease; N18.4 Chronic kidney disease, stage 4 (severe); J44.9 Chronic obstructive pulmonary disease, unspecified; K21.9 Gastro-esophageal reflux disease without esophagitis; F41.8 Other specified anxiety disorders; E78.5 Hyperlipidemia, unspecified; Z99.2 Dependence on renal dialysis; Z99.81 Dependence on supplemental oxygen; Z79.01 Long term (current) use of anticoagulants; Z86.711 Personal history of pulmonary embolism; Z90.49 Acquired absence of other specified parts of digestive tract; Z88.6 Allergy status to analgesic agent; Z88.0 Allergy status to penicillin; Z88.1 Allergy status to other antibiotic agents; Z91.048 Other nonmedicinal substance allergy status; Z91.018 Allergy to other foods; Z80.3 Family history of malignant neoplasm of breast; Z80.0 Family history of malignant neoplasm of digestive organs; Z80.51 Family history of malignant neoplasm of kidney; Z80.1 Family history of malignant neoplasm of trachea, bronchus and lung

== ENCOUNTER 2018-05-03 06:45 | Inpatient (IN) | payer OTHER ==
[2018-05-03] VITALS (23 sets, daily range): BP systolic 83–145; BP diastolic 48–84; PULSE 69–85; TEMP 36.3–36.9; O2SAT 90–98; BMI 34.9
[~2018-05-03] VITALS: Ht 149.9 cm; Wt 75.5 kg
[~2018-05-03 06:45] MED LIST changes: -BCTCR/30 EXT; -CALC667C4 PO; +CEPH500C PO; +CMD5 PO; +CYM/30 PO; +IPRA-64 INH; -IPRASOL4 INH; -LANS15CA6 PO; -MCTP EX; +MIRT15TA PO; -OXYC-57 PO; +OXYC-737 PO; +OXYC-90 PO; +PANT40TA PO; +SEVE800T7 PO; +WARF5TAB7 PO; -WARF5TAB90 PO; -[UNRECOGNIZED DRUG - CODE] TOP
[2018-05-03] MEDS ORDERED: ONDANSETRON INJ 2 MG/ML 2 ML VIAL ONE (06:50)
[2018-05-03] MEDS ORDERED: FAMOTIDINE 20MG/5ML IV PUSH IV STA (07:00)
[2018-05-03] MEDS ORDERED: METOCLOPRAMIDE HCL INJ 5 MG/ML 2 ML VIAL IV STA (07:00)
--- NOTE | 2018-05-03 07:06 | EMERGENCY ROOM VISIT NOTE ---
History Report prepared by Ysabelibe: Rosetta Hawk Under the Supervision of: Dr. Ray Rangel M.D. First contact with patient: 06:57 Chief Complaint: NAUSEA Stated Complaint: NAUSEA History of Present Illness The patient is a 62 year old female who presents to the Emergency Room with complaints of persistent nausea that started earlier this morning. She states the nausea started while she was waiting for a ride to dialysis, which she gets every Thursday, Thursday and Thursday. She has not actually vomited but has been "spitting up" all morning. 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 She was unable to be dialyzed today because she "felt like I was going to pass out" once she got into the appointment. She notes she was released from [facility] in [place] for "3 hematomas in my stomach" 3 days ago as well. She states she experienced similar symptoms while she was in the hospital last week as well. Her last bowel movement was last night and normal. The patient no longer makes urine. She states she no longer has her gallbladder. She also complains of some chest pain and shortness of breath. She denies any history of previous TX's. She does take daily Coumadin for a history of blood clots. She states shortness of breath is not uncommon for her as she has a history of COPD. The patient denies any alcohol use and states she is a nonsmoker, but there are smokers in her home. 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 A total of ten systems were reviewed and were otherwise negative. Past Medical & Surgical Medical Problems: (1) Allergic rhinitis (2) Anemia secondary to renal failure (3) ANTICOAGULANTS,LT,CURRENT USE (4) ANXIETY STATE NOS (5) Asthma (6) Benign hypertension (7) C. difficile diarrhea (8) Chronic constipation (9) Chronic kidney disease (CKD), stage V (10) Chronic pancreatitis (11) COPD (chronic obstructive pulmonary disease) (12) Depressive disorder (13) DIVERTICULOSIS COLON (W/O MENT OF HEMORRHAGE) (14) Dyslipidemia (15) ESRD (end stage renal disease) on dialysis (16) Gastroesophageal reflux disease (17) History of atrial fibrillation (18) History of GI bleed (19) History of pancreatitis (20) Obstructive sleep apnea on CPAP (21) Pancreatitis (22) Pulmonary emboli (23) S/p arteriovenous anastomosis (24) Solitary Kidney (25) SUPPLEMENTAL OXYGEN Surgical Problems: (1) Hernia repair (2) History of - section (3) History of appendectomy (4) History of cholecystectomy (5) History of total hysterectomy (6) S/P dialysis catheter insertion (7) Thromboectomy Left Brachiobasilic ateriovenous graft Family History FH: breast cancer MOTHER FH: colon cancer FATHER FH: kidney cancer FATHER FH: lung cancer FATHER Social History Smoking Status: Never Smoker Alcohol Use: none Drug Use: none Marital Status: Housing Status: lives with family Occupation Status: disabled Current/Historical Medications Scheduled Atorvastatin (Lipitor), 40 MG PO DAILY B-Complex W/ C & Folic Acid (P[place]estone Caps), 1 CAP PO DAILY Calcium Carbonate (Tums), 750 MG PO AC Cholecalciferol (D 1000), 1,000 UNITS PO DAILY Cinecalcet (Sensipar), 60 MG PO QPM Clopidogrel (Plavix), 75 MG PO DAILY Docusate Sodium (Docusate Sodium), 100 MG PO BID Duloxetine HCl (Duloxetine HCl), 1 TAB PO DAILY Fluticasone Prop/Salmeterol (Advair Diskus 500/50 60 Dose), 1 PUFF INH BID Fluticasone Propionate (Nasal) (Flonase Allergy Relief), 2 SPRAYS CORTEZ DAILY Ipratropium-Albuterol (Duoneb), 1 TREATMENT INH QID Mirtazapine (Remeron), 7.5 MG PO HS Montelukast Sodium (Singulair), 10 MG PO DAILY Pantoprazole (Protonix), 40 MG PO BID Polyethylene Glycol 3350 (Miralax), 17 GM PO DAILY Ranitidine (Zantac), 300 MG PO HS Sennosides (Senokot), 8.6 MG PO UD Sevelamer Carbonate (Renvela), 2,400 MG PO TIDM Sevelamer Carbonate (Renvela), 800 MG PO snacks Tiotropium [place] (Spiriva Handihaler), 1 CAP INH DAILY Warfarin Sod (Coumadin), 2 TABS PO DAILY@1600 Scheduled PRN Acetaminophen (Tylenol), 650 MG PO Q4H PRN for Pain or Fever Albuterol Hfa (Ventolin Hfa), 2 PUFFS INH Q4H PRN for SOB/Wheezing Alum & Mag Hydrox-Simethicone (Maalox Max Susp), 30 ML PO UD PRN for Indigestion Cyclobenzaprine Hcl (Flexeril), 5 MG PO BID PRN for Muscle Spasms Epinephrine (Epipen), 0.3 MG IM UD PRN for ALLERGIC REACTION Guaifenesin/Codeine (Robitussin-Ac Syrup), 5 ML PO Q4 PRN for Cough Ondansetron Hcl (Zofran), 4 MG PO Q8 PRN for Nausea Oxycodone Hcl (Oxycodone Hcl), 1 TAB PO Q6H PRN for Pain Allergies Coded Allergies: Hydromorphone (Verified Allergy, Intermediate, SHORTNESS OF BREATH, ) Aspirin (Verified Allergy, Mild, BLOODY NOSES, 05/03/18) Ciprofloxacin (Verified Allergy, Mild, HIVES, 05/03/18) Metronidazole (Verified Allergy, Mild, HIVES, 05/03/18) Penicillins (Verified Allergy, Mild, HIVES, 05/03/18) Chocolate (Verified Allergy, Unknown, HIVES, 01/22/18) Peanut Butter Flavor (Verified Allergy, Unknown, HIVES, 01/22/18) Tomato (Verified Allergy, Unknown, HIVES, 01/22/18) White Potato (Verified Allergy, Unknown, HIVES, 01/22/18) Uncoded Allergies: CEREAL COLOR DYES (Allergy, Severe, SOB, THROAT SWELLS, 08/28/17) ENVIRONMENTAL (Allergy, Intermediate, ., 05/03/18) TRIX CEREAL (Allergy, Unknown, SHORTNESS OF BREATH, SWELLING OF THROAT, ) Physical Exam Vital Signs Date Time Temp Pulse Resp B/P (MAP) Pulse Ox O2 Delivery O2 Flow Rate FiO2 05/03/18 10:07 95 Room Air 05/03/18 09:45 82 20 157/94 98 Room Air 05/03/18 07:13 87 05/03/18 07:00 96 18 161/102 95 Room Air Physical Exam GENERAL: Awake, alert, uncomfortable-appearing, in no distress HENT: Normocephalic, atraumatic. Oropharynx unremarkable. Dry MM. EYES: Normal conjunctiva. Sclera non-icteric. NECK: Supple. No nuchal rigidity. FROM. No JVD. RESPIRATORY: Diminished breath sounds at the bases with scant intermittent wheezes. CARDIAC: Regular rate, normal rhythm. Extremities warm and well perfused. Pulses equal. Left femoral HD AV fistula site with palpable thrill. ABDOMEN: Soft, non-distended. Mild epigastric discomfort, no discrete tenderness to palpation. No rebound or guarding. No masses. Left lower abdominal wall wound vac in place, no surrounding erythema, warmth or tenderness , minor superficial skin excoriation medial to vac site. RECTAL: Deferred. MUSCULOSKELETAL: Chest examination reveals no tenderness. The back is symmetrical on inspection without obvious abnormality. There is no CVA tenderness to palpation. No joint edema. LOWER EXTREMITIES: Calves are equal size bilaterally and non-tender. No edema. No discoloration. NEURO: Normal sensorium. No sensory or motor deficits noted. SKIN: No rash or jaundice noted. Medical Decision & Procedures ER Provider Diagnostic Interpretation: Radiology results as stated below per my review and radiologist interpretation: ABDOMEN AND PELVIS CT WITHOUT CONTRAST CT DOSE: 575.83 mGy.cm HISTORY: Acute generalized abdominal pain with nausea and vomiting abdominal pain, n/v TECHNIQUE: Multiaxial CT images of the abdomen and pelvis were performed without contrast. A dose lowering technique was utilized adhering to the principles of ALARA. COMPARISON STUDY: CT 01/22/2018. FINDINGS: Linear subsegmental pleural based consolidative and groundglass densities about the lung bases suggest atelectasis/scarring. No pneumatosis or pneumoperitoneum. Imaged inferior cardiac chambers are mildly enlarged. Prior cholecystectomy. Liver appears to be unremarkable. No intrahepatic biliary ductal dilation. The spleen is enlarged, 14 cm. Calcifications are seen near the uncinate process pancreas which otherwise appears unremarkable. Nodular thickening of the left adrenal gland, stable. The right adrenal gland is unremarkable. 2.8 cm cyst of the superior pole right kidney. Markedly atrophic morphology of the bilateral kidneys, left greater than right. Nonobstructing calculi of the inferior pole right kidney measuring up to 4 mm. No ureteral calculi or obstructive uropathy. Urinary bladder is partially decompressed. Uterus is surgically absent. No adnexal mass lesions. Moderate calcification of the aorta without aneurysm. No pathologically enlarged lymph nodes identified. Small sliding-type hiatal hernia. There is no bowel obstruction or focal bowel wall thickening. Colonic diverticulosis without diverticulitis. Mild to moderate volume of formed stool throughout the colon. Appendix is surgically absent. No ascites or mesenteric inflammatory changes. Skin thickening with subcutaneous edema about the lower anterior abdominal wall and subcutaneous pelvis. Prior lower ventral abdominal wall herniorrhaphy with recurrent fat containing anterior abdominal wall hernia, left paracentral with diastases of 1.9 cm. Subcutaneous soft tissue nodularity with scattered foci of subcutaneous emphysema noted anterolateral to the left hip with ill-defined fluid measuring up to 4.8 cm within this distribution. No discrete romero. Heterogeneous patchy sclerosis throughout the bony structures redemonstrated suggesting renal osteodystrophy. Multilevel discogenic degenerative changes and facet arthrosis. Mild levoscoliosis of the lumbar spine. IMPRESSION: 1. No acute intra-abdominal or intrapelvic abnormality identified. 2. Colonic diverticulosis without diverticulitis. 3. Prior cholecystectomy, hysterectomy and appendectomy. 4. Small sliding-type hiatal hernia. 5. Marked atrophy about the bilateral kidneys, left greater than right with suggested renal osteodystrophy. 6. 4 mm nonobstructing calculus of the inferior pole right kidney. 7. Suggested cellulitis of the lower anterior abdominal wall with probable phlegmonous change anterolateral to the left hip with the subcutaneous tissues. Subcutaneous emphysema within this distribution suggest gas-forming organism or recent instrumentation. Correlate with clinical exam. Electronically signed by: Nathan Dubois M.D. 05/03/2018 9:00 AM CHEST ONE VIEW PORTABLE HISTORY: Generalized abdominal pain. COMPARISON: Chest 01/22/2018. FINDINGS: Progressive patchy bibasilar airspace opacities. The upper lung zones are clear. No pneumothorax. No pleural effusions. The heart remains borderline enlarged. Left jugular catheter terminates at the proximal SVC. This remains unchanged. There is a vascular stent in the region of the proximal right subclavian artery. This is also unchanged. IMPRESSION: Interval progression of the bibasilar airspace opacities. This likely represents a pneumonia. Recommend one month follow-up to ensure resolution. Electronically signed by: Florian Kaiser M.D. 05/03/2018 7:26 AM Laboratory Results 05/03/18 08:14 Red Blood Count 3.07, Mean Corpuscular Volume 102.9, Mean Corpuscular Hemoglobin 30.0, Mean Corpuscular Hemoglobin Concent 29.1, Mean Platelet Volume 10.2, Neutrophils (%) (Auto) 69.7, Lymphocytes (%) (Auto) 15.5, Monocytes (%) ( Auto) 8.5, Eosinophils (%) (Auto) 5.6, Basophils (%) (Auto) 0.5, Neutrophils # ( Auto) 4.52, Lymphocytes # (Auto) 1.00, Monocytes # (Auto) 0.55, Eosinophils # ( Auto) 0.36, Basophils # (Auto) 0.03 05/03/18 08:14 Test 05/03/18 08:14 05/03/18 08:19 05/03/18 10:30 White Blood Count 6.47 K/uL (4.8-10.8) Red Blood Count 3.07 M/uL (4.2-5.4) Hemoglobin 9.2 g/dL (12.0-16.0) Hematocrit 31.6 % (37-47) Mean Corpuscular Volume 102.9 fL (80-100) Mean Corpuscular Hemoglobin 30.0 pg (25-34) Mean Corpuscular Hemoglobin Concent 29.1 g/dl (32-36) Platelet Count 174 K/uL (130-400) Mean Platelet Volume 10.2 fL (7.4-10.4) Neutrophils (%) (Auto) 69.7 % Lymphocytes (%) (Auto) 15.5 % Monocytes (%) (Auto) 8.5 % Eosinophils (%) (Auto) 5.6 % Basophils (%) (Auto) 0.5 % Neutrophils # (Auto) 4.52 K/uL (1.4-6.5) Lymphocytes # (Auto) 1.00 K/uL (1.2-3.4) Monocytes # (Auto) 0.55 K/uL (0.11-0.59) Eosinophils # (Auto) 0.36 K/uL (0-0.5) Basophils # (Auto) 0.03 K/uL (0-0.2) RDW Standard Deviation 70.8 fL (36.4-46.3) RDW Coefficient of Variation 18.7 % (11.5-14.5) Immature Granulocyte % (Auto) 0.2 % Immature Granulocyte # (Auto) 0.01 K/uL (0.00-0.02) Prothrombin Time 20.8 SECONDS (9.0-12.0) Prothromb Time International Ratio 2.0 (0.9-1.1) Venous Blood pH 7.26 (7.36-7.41) Venous Blood Partial Pressure CO2 50 mmHg (38.0-50.0) Venous Blood Partial Pressure O2 49 mmHg Venous Blood HCO3 22 mmol/L Venous Blood Oxygen Saturation 77.4 % Venous Blood Base Excess -5.1 mEq/L Estimated GFR () 5.7 Estimated GFR (Non- 4.9 BUN/Creatinine Ratio 5.3 (10-20) Calcium Level 9.2 mg/dl (8.5-10.1) Phosphorus Level 4.9 mg/dl (2.5-4.9) Magnesium Level 2.4 mg/dl (1.8-2.4) Total Bilirubin 0.3 mg/dl (0.2-1) Direct Bilirubin 0.1 mg/dl (0-0.2) Aspartate Amino Transf (AST/SGOT) 15 U/L (15-37) Alanine Aminotransferase (ALT/SGPT) 7 U/L (12-78) Alkaline Phosphatase 118 U/L (45-117) Troponin I 0.050 ng/ml (0-0.045) Total Protein 7.4 gm/dl (6.4-8.2) Albumin 3.6 gm/dl (3.4-5.0) Lipase 81 U/L (73-393) Bedside Hemoglobin 9.9 g/dl (12.0-16.0) Bedside Hematocrit 29 % (37-47) Bedside Sodium 138 mEq/L (135-144) Bedside Potassium 5.7 mEq/L (3.3-5.0) Bedside Chloride 108 mEq/L (101-112) Bedside Total CO2 22 mEq/l (24-31) Anion Gap 14.0 mmol/L (16-25) Bedside Blood Urea Nitrogen 38 mg/dl (7-18) Bedside Creatinine 8.4 mg/dl (0.6-1.3) Bedside Glucose (other) 100 mg/dl (70-99) Bedside Ionized Calcium (Lemuel) 1.16 mmol/l (1.12-1.32) Lactic Acid Level 1.3 mmol/L (0.4-2.0) Laboratory results reviewed by me Medications Administered Medications (Trade) Dose Ordered Sig/Deidre Route Start Time Stop Time Status Last Admin Dose Admin Ondansetron HCl (Zofran Inj) 4 mg STK-MED ONCE .ROUTE 05/03/18 06:50 05/03/18 06:51 DC 05/03/18 06:55 4 MG Metoclopramide HCl (Reglan Inj) 10 mg NOW STAT IV 05/03/18 07:00 05/03/18 07:07 DC 05/03/18 07:22 10 MG Famotidine (Pepcid 20mg Iv Push) 20 mg ONE STAT IV 05/03/18 07:00 05/03/18 07:07 DC 05/03/18 07:22 20 MG Ondansetron HCl (Zofran Inj) 4 mg NOW STAT IV 05/03/18 09:22 05/03/18 09:27 DC 05/03/18 10:39 4 MG Sucralfate (Carafate Susp) 1 gm NOW STAT PO 05/03/18 09:22 05/03/18 09:27 DC 05/03/18 11:17 1 GM Sodium Chloride 250 ml @ 999 mls/hr Q16M STAT IV 05/03/18 09:22 05/03/18 09:37 DC 05/03/18 09:22 999 MLS/HR Vancomycin HCl 1500 mg/Sodium Chloride 530 ml @ 200 mls/hr ONE STAT IV 05/03/18 09:22 05/03/18 12:00 DC 05/03/18 10:38 200 MLS/HR Cefepime HCl 1000 mg/Dextrose 111 ml @ 200 mls/hr NOW STAT IV 05/03/18 09:22 05/03/18 09:55 DC 05/03/18 10:39 200 MLS/HR Methylprednisolone Sodium Succinate (Solu-Medrol IV) 125 mg NOW STAT IV 05/03/18 09:22 05/03/18 09:27 DC 05/03/18 10:39 125 MG Levalbuterol (Xopenex 1.25MG/ 3ML Neb) 1.25 mg NOW STAT INH 05/03/18 09:22 05/03/18 09:27 DC 05/03/18 09:22 1.25 MG ECG Per My Interpretation Indication: nausea Rate (beats per minute): 88 Rhythm: normal sinus Findings: no acute ischemic change, other (normal axis) ED Course 0658: The patient was evaluated in room B4. A complete history and physical exam was performed. 0855: Nursing informed me the patient would like more medication for nausea as she just vomited a large amount. 0914: Nursing informed me the patients Troponin is 0.050. 0930: I reevaluated the patient. She is resting comfortably. I discussed my recommendation she remain in the hospital for further evaluation and management and she verbalized complete understanding and agreement. 0934: I discussed the patients case with Rafaela Sanchez PA-C, [facility]. The patient will be further evaluated. Medical Decision I reviewed the patient's past medical history, medications, and the nursing notes as described above. The patient's presentation and history were concerning for nausea and vomiting. Differential diagnosis: Etiologies such as gastroenteritis, food borne illness, infections, appendicitis , diverticulitis, inflammatory bowel disease, obstruction, GI bleed, biliary pathology, as well as others were entertained. The patient is a 62-year-old woman with a past medical history of end-stage renal disease on HD, MWF, and uric, status post hematoma evacuation her left lower quadrant discharge from [place] on Thursday presents emergency department with persistent nausea/vomiting since this morning on her way to dialysis which she did not begin because of her symptoms. On arrival patient is uncomfortable with persistent retching, AFVSS. EKG unremarkable. WBC within normal limits. Troponin slightly elevated 0.05 which is new. Chest x-ray with question bilateral basilar opacities. CT abdomen pelvis demonstrates question cellulitis /gas however also consistent with recent instrumentation. Considering the patient's recent hematoma evacuation and wound VAC, most likely the latter. However, given the patient's persistent symptoms in the setting of her acidosis with a pH of 7.25 we will treat empirically for pneumonia with cefepime and vancomycin. Given partial respiratory component with PCO2 50, patient was given Solu-Medrol and Xopenex. This was discussed with [facility] Harkins PA-C will evaluate the patient for admission. Medication Reconcilliation Current Medication List: was personally reviewed by me Blood Pressure Screening Patient's blood pressure: Elevated blood pressure Blood pressure disposition: Referred to PCP (The patients elevated blood pressure will be further managed by the inpatient hospital medicine team) Consults Time Called: 930 Consulting Physician: Rafael[facility]-C, [facility] Returned Call: [phone] I discussed the patients case with Rafaela Sanchez PA-C, [facility]. The patient will be further evaluated. Impression Primary Impression: Pneumonia Additional Impressions: Elevated troponin Nausea and vomiting Scribe Attestation The scribe's documentation has been prepared under my direction and personally reviewed by me in its entirety. I confirm that the note above accurately reflects all work, treatment, procedures, and medical decision making performed by me. Departure Information Dispostion Being Evaluated By Hospitalist Referrals Luz Torres M.D. (PCP) Patient Instructions My [facility] Problem Qualifiers
[2018-05-03] MEDS ORDERED: B-COCAP21 PO (07:14)
[2018-05-03] MEDS ORDERED: GUAISYP4 PO (07:14)
[2018-05-03] MEDS ORDERED: SPRIN/30 INH (07:14)
[2018-05-03] MEDS ORDERED: ALUMSUS2 PO (07:15)
--- NOTE | 2018-05-03 07:27 | DIAGNOSTIC IMAGING REPORT ---
CHEST ONE VIEW PORTABLE HISTORY: Generalized abdominal pain. COMPARISON: Chest 01/22/2018. FINDINGS: Progressive patchy bibasilar airspace opacities. The upper lung zones are clear. No pneumothorax. No pleural effusions. The heart remains borderline enlarged. Left jugular catheter terminates at the proximal SVC. This remains unchanged. There is a vascular stent in the region of the proximal right subclavian artery. This is also unchanged. IMPRESSION: Interval progression of the bibasilar airspace opacities. This likely represents a pneumonia. Recommend one month follow-up to ensure resolution. Electronically signed by: Florian Kaiser M.D. 05/03/2018 7:26 AM Dictated Date/Time: 05/03/2018 7:23 AM
[2018-05-03 08:33] LABS: ISTAT CREATININE 8.4 mg/dl (0.6-1.3); ISTAT IONIZED CALCIUM 1.16 mmol/l (1.12-1.32); ISTAT POTASSIUM 5.7 mEq/L (3.3-5.0)
[2018-05-03 08:37] LABS: BASO % 0.5 %; BASO ABS # 0.03 K/uL (0-0.2); EOS % 5.6 %; EOS ABS # 0.36 K/uL (0-0.5); HEMATOCRIT 31.6 % (37-47); HEMOGLOBIN 9.2 g/dL (12.0-16.0); IG# 0.01 K/uL (0.00-0.02); LYMPH % 15.5 %; MEAN CELL VOLUME 102.9 fL (80-100); MEAN CORPUSCULAR HGB CONC 29.1 g/dl (32-36); MEAN PLATELET VOLUME 10.2 fL (7.4-10.4); MONO % 8.5 %; MONO ABS # 0.55 K/uL (0.11-0.59); NEUT % 69.7 %; NEUT ABS # 4.52 K/uL (1.4-6.5); PLATELET COUNT 174 K/uL (130-400); RED CELL DISTRIBUTION WIDTH CV 18.7 % (11.5-14.5); RED CELL DISTRIBUTION WIDTH SD 70.8 fL (36.4-46.3); WHITE BLOOD COUNT 6.47 K/uL (4.8-10.8)
--- NOTE | 2018-05-03 09:01 | DIAGNOSTIC IMAGING REPORT ---
ABDOMEN AND PELVIS CT WITHOUT CONTRAST CT DOSE: 575.83 mGy.cm HISTORY: Acute generalized abdominal pain with nausea and vomiting abdominal pain, n/v TECHNIQUE: Multiaxial CT images of the abdomen and pelvis were performed without contrast. A dose lowering technique was utilized adhering to the principles of ALARA. COMPARISON STUDY: CT 01/22/2018. FINDINGS: Linear subsegmental pleural based consolidative and groundglass densities about the lung bases suggest atelectasis/scarring. No pneumatosis or pneumoperitoneum. Imaged inferior cardiac chambers are mildly enlarged. Prior cholecystectomy. Liver appears to be unremarkable. No intrahepatic biliary ductal dilation. The spleen is enlarged, 14 cm. Calcifications are seen near the uncinate process pancreas which otherwise appears unremarkable. Nodular thickening of the left adrenal gland, stable. The right adrenal gland is unremarkable. 2.8 cm cyst of the superior pole right kidney. Markedly atrophic morphology of the bilateral kidneys, left greater than right. Nonobstructing calculi of the inferior pole right kidney measuring up to 4 mm. No ureteral calculi or obstructive uropathy. Urinary bladder is partially decompressed. Uterus is surgically absent. No adnexal mass lesions. Moderate calcification of the aorta without aneurysm. No pathologically enlarged lymph nodes identified. Small sliding-type hiatal hernia. There is no bowel obstruction or focal bowel wall thickening. Colonic diverticulosis without diverticulitis. Mild to moderate volume of formed stool throughout the colon. Appendix is surgically absent. No ascites or mesenteric inflammatory changes. Skin thickening with subcutaneous edema about the lower anterior abdominal wall and subcutaneous pelvis. Prior lower ventral abdominal wall herniorrhaphy with recurrent fat containing anterior abdominal wall hernia, left paracentral with diastases of 1.9 cm. Subcutaneous soft tissue nodularity with scattered foci of subcutaneous emphysema noted anterolateral to the left hip with ill-defined fluid measuring up to 4.8 cm within this distribution. No discrete romero. Heterogeneous patchy sclerosis throughout the bony structures redemonstrated suggesting renal osteodystrophy. Multilevel discogenic degenerative changes and facet arthrosis. Mild levoscoliosis of the lumbar spine. IMPRESSION: 1. No acute intra-abdominal or intrapelvic abnormality identified. 2. Colonic diverticulosis without diverticulitis. 3. Prior cholecystectomy, hysterectomy and appendectomy. 4. Small sliding-type hiatal hernia. 5. Marked atrophy about the bilateral kidneys, left greater than right with suggested renal osteodystrophy. 6. 4 mm nonobstructing calculus of the inferior pole right kidney. 7. Suggested cellulitis of the lower anterior abdominal wall with probable phlegmonous change anterolateral to the left hip with the subcutaneous tissues. Subcutaneous emphysema within this distribution suggest gas-forming organism or recent instrumentation. Correlate with clinical exam. Electronically signed by: Nathan Dubois M.D. 05/03/2018 9:00 AM Dictated Date/Time: 05/03/2018 8:51 AM
[2018-05-03 09:12] LABS: ALBUMIN 3.6 gm/dl (3.4-5.0); ALKALINE PHOSPHATASE 118 U/L (45-117); ALT/SGPT 7 U/L (12-78); AST/SGOT 15 U/L (15-37); BLOOD UREA NITROGEN 43 mg/dl (7-18); CALCIUM 9.2 mg/dl (8.5-10.1); CARBON DIOXIDE 21 mmol/L (21-32); CREATININE 8.01 mg/dl (0.60-1.20); GLUCOSE 103 mg/dl (70-99); LIPASE 81 U/L (73-393); PHOSPHORUS 4.9 mg/dl (2.5-4.9); POTASSIUM 5.7 mmol/L (3.5-5.1); SODIUM 138 mmol/L (136-145); TOTAL PROTEIN 7.4 gm/dl (6.4-8.2)
[2018-05-03] MEDS ORDERED: LEVALBUTEROL 1.25MG/3ML NEB INH STA (09:22)
[2018-05-03] MEDS ORDERED: ONDANSETRON INJ 2 MG/ML 2 ML VIAL IV STA (09:22)
[2018-05-03] MEDS ORDERED: CEFEPIME IV 1,000 MG in DEXTROSE 5% 100ML 100 ML IV STA (09:22)
[2018-05-03] MEDS ORDERED: METHYLPREDNISOLONE 125 MG VIAL IV STA (09:22)
[2018-05-03] MEDS ORDERED: VANCOMYCIN IV 1,500 MG in SODIUM CHLORIDE 0.9% 500ML 500 ML IV STA (09:22)
[2018-05-03] MEDS ORDERED: SUCRALFATE 1 GM/10 ML UDC PO STA (09:22)
[2018-05-03] MEDS ORDERED: SODIUM CHLORIDE 0.9% 250ML 250 ML IV STA (09:22)
[2018-05-03] MEDS ORDERED: VANCOMYCIN CONSULT ACTIVE PRN (09:30)
[2018-05-03] MEDS ORDERED: ONDANSETRON INJ 2 MG/ML 2 ML VIAL IV PRN (11:15)
[2018-05-03] MEDS ORDERED: CEFEPIME CONSULT ACTIVE PRN (11:34)
--- NOTE | 2018-05-03 12:12 | History and Physical ---
History & Physical Date & Time of Service: May 03, 2018 at 12:12 Chief Complaint: Elevated Troponin, Nausea And Vomiting,Pneumonia Primary Care Physician: Luz Torres M.D. History of Present Illness Source: patient, clinic records, hospital records This is a 62yo F with a PMH of ESRD (on HD MWF), atrial fibrillation (on coumadin), chronic respiratory failure (on 2L home oxygen) 2/2 asthma/COPD and other medical problems listed below who presents with persistent nausea and vomiting beginning this morning. States that she felt fine when she went to bed last night but woke up feeling nauseous and immediately had an episode of green bilious vomiting. Was waiting on porch for ride to dialysis when she vomited again. Grethel weak, lightheaded, itchy and "like I was going to pass out" and came to ED for further evaluation. [place] [facility] for worsening swelling over L thigh vascular access. CT scan of pelvis revealed left anterior thigh hematomas and was taken to OR by vascular surgery where hematoma was evacuated and a wound VAC was placed. Wound cultures were negative for infection. Was discharged home from [facility] on 04/30 with home health nursing, PT and OT services. In addition to nausea, vomiting and fatigue, patient endorses chronic shortness of breath (requires 2L NC at home) for a history of asthma/COPD in setting of second hand smoke. Also endorses diffuse abdominal discomfort, but thinks it may just be from vomiting this morning. Left thigh is tender (area with dialysis access) but states this is chronic. Has had a historically difficult time with dialysis access sites and has received dialysis for almost 18 years. Did not take any medication yesterday, including coumadin. Denies any fever, chills, lightheadedness, cough, wheezing, chest pain, diarrhea, constipation, LE swelling or confusion. The patient no longer makes urine. Is a DNR. Past Medical/Surgical History Medical Problems: (1) Allergic rhinitis Status: Chronic (2) Anemia secondary to renal failure Status: Chronic (3) ANTICOAGULANTS,LT,CURRENT USE Status: Chronic (4) ANXIETY STATE NOS Status: Chronic (5) Asthma Status: Chronic (6) Benign hypertension Status: Chronic (7) C. difficile diarrhea Status: Resolved (8) Chronic constipation Status: Chronic (9) Chronic kidney disease (CKD), stage V Status: Chronic (10) Chronic pancreatitis Status: Chronic (11) COPD (chronic obstructive pulmonary disease) Permanent Comment: on home O2 Status: Chronic (12) Depressive disorder Status: Chronic (13) DIVERTICULOSIS COLON (W/O MENT OF HEMORRHAGE) Status: Chronic (14) Dyslipidemia Status: Chronic (15) ESRD (end stage renal disease) on dialysis Status: Chronic (16) Gastroesophageal reflux disease Status: Chronic (17) History of atrial fibrillation Permanent Comment: on coumadin Status: Chronic (18) History of GI bleed Status: Chronic (19) History of pancreatitis Permanent Comment: secondary to biliary stenosis, s/p ERCP and biliary sphincterotomy Status: Chronic (20) Obstructive sleep apnea on CPAP Status: Chronic (21) Pancreatitis Status: Chronic (22) Pulmonary emboli Status: Resolved (23) S/p arteriovenous anastomosis Status: Chronic (24) Solitary Kidney Status: Chronic (25) SUPPLEMENTAL OXYGEN Status: Chronic Surgical Problems: (1) Hernia repair Status: Chronic (2) History of - section Status: Chronic (3) History of appendectomy Status: Chronic (4) History of cholecystectomy Status: Chronic (5) History of total hysterectomy Status: Chronic (6) S/P dialysis catheter insertion Status: Chronic (7) Thromboectomy Left Brachiobasilic ateriovenous graft Status: Chronic Family History FH: breast cancer MOTHER FH: colon cancer FATHER FH: kidney cancer FATHER FH: lung cancer FATHER Social History Smoking Status: Never Smoker Drug Use: none Marital Status: Housing status: lives with family Occupational Status: disabled Immunizations History of Influenza Vaccine: Yes Influenza Vaccine Date: Jul 03, 2014 History of Tetanus Vaccine?: Yes History of Pneumococcal: Yes Pneumococcal Date: Jul 18, 2013 History of Hepatitis B Vaccine: Yes Allergies Coded Allergies: Hydromorphone (Verified Allergy, Intermediate, SHORTNESS OF BREATH, ) Aspirin (Verified Allergy, Mild, BLOODY NOSES, 05/03/18) Ciprofloxacin (Verified Allergy, Mild, HIVES, 05/03/18) Metronidazole (Verified Allergy, Mild, HIVES, 05/03/18) Penicillins (Verified Allergy, Mild, HIVES, 05/03/18) Chocolate (Verified Allergy, Unknown, HIVES, 01/22/18) Peanut Butter Flavor (Verified Allergy, Unknown, HIVES, 01/22/18) Tomato (Verified Allergy, Unknown, HIVES, 01/22/18) White Potato (Verified Allergy, Unknown, HIVES, 01/22/18) Uncoded Allergies: CEREAL COLOR DYES (Allergy, Severe, SOB, THROAT SWELLS, 08/28/17) ENVIRONMENTAL (Allergy, Intermediate, ., 05/03/18) TRIX CEREAL (Allergy, Unknown, SHORTNESS OF BREATH, SWELLING OF THROAT, ) Home Medications Scheduled Atorvastatin (Lipitor), 40 MG PO DAILY B-Complex W/ C & Folic Acid (Marcell Caps), 1 CAP PO DAILY Calcium Carbonate (Tums), 750 MG PO AC Cholecalciferol (D 1000), 1,000 UNITS PO DAILY Cinecalcet (Sensipar), 60 MG PO QPM Clopidogrel (Plavix), 75 MG PO DAILY Docusate Sodium (Docusate Sodium), 100 MG PO BID Duloxetine HCl (Duloxetine HCl), 1 TAB PO DAILY Fluticasone Prop/Salmeterol (Advair Diskus 500/50 60 Dose), 1 PUFF INH BID Fluticasone Propionate (Nasal) (Flonase Allergy Relief), 2 SPRAYS CORTEZ DAILY Ipratropium-Albuterol (Duoneb), 1 TREATMENT INH QID Mirtazapine (Remeron), 7.5 MG PO HS Montelukast Sodium (Singulair), 10 MG PO DAILY Pantoprazole (Protonix), 40 MG PO BID Polyethylene Glycol 3350 (Miralax), 17 GM PO DAILY Ranitidine (Zantac), 300 MG PO HS Sennosides (Senokot), 8.6 MG PO UD Sevelamer Carbonate (Renvela), 2,400 MG PO TIDM Sevelamer Carbonate (Renvela), 800 MG PO snacks Tiotropium [place] (Spiriva Handihaler), 1 CAP INH DAILY Warfarin Sod (Coumadin), 2 TABS PO DAILY@1600 Scheduled PRN Acetaminophen (Tylenol), 650 MG PO Q4H PRN for Pain or Fever Albuterol Hfa (Ventolin Hfa), 2 PUFFS INH Q4H PRN for SOB/Wheezing Alum & Mag Hydrox-Simethicone (Maalox Max Susp), 30 ML PO UD PRN for Indigestion Cyclobenzaprine Hcl (Flexeril), 5 MG PO BID PRN for Muscle Spasms Epinephrine (Epipen), 0.3 MG IM UD PRN for ALLERGIC REACTION Guaifenesin/Codeine (Robitussin-Ac Syrup), 5 ML PO Q4 PRN for Cough Ondansetron Hcl (Zofran), 4 MG PO Q8 PRN for Nausea Oxycodone Hcl (Oxycodone Hcl), 1 TAB PO Q6H PRN for Pain Review of Systems Ten systems reviewed and negative except as noted in the HPI. Physical Exam Vital Signs Date Time Temp Pulse Resp B/P (MAP) Pulse Ox O2 Delivery O2 Flow Rate FiO2 05/03/18 11:39 82 139/74 100 05/03/18 11:32 83 16 92 Room Air 05/03/18 11:04 86 05/03/18 10:07 95 Room Air 05/03/18 09:45 82 20 157/94 98 Room Air 05/03/18 07:13 87 05/03/18 07:00 96 18 161/102 95 Room Air General Appearance: + mild distress, + pertinent finding (Chronically ill appearing, vomited during exam ) Head: normocephalic, atraumatic Eyes: normal inspection, PERRL, sclerae normal ENT: normal ENT inspection, hearing grossly normal, pharynx normal (dry mucous membranes ) Neck: supple, thyroid normal, no carotid bruits Respiratory/Chest: chest non-tender, no respiratory distress, no accessory muscle use, + wheezing (Scattered inspiratory wheezes bilaterally. No crackles noted. ) Cardiovascular: regular rate, rhythm, normal peripheral pulses Abdomen/GI: soft, no organomegaly, + tenderness (Diffusely TTP. No guarding ) Back: normal inspection Extremities/Musculoskelatal: normal inspection, no calf tenderness, + pertinent finding (L thigh with wound vac in place. Surrounding area tender but no erythema. Left thigh fistula palpated ) Neurologic/Psych: no motor/sensory deficits, alert, normal mood/affect, oriented x 3 Skin: normal color, warm/dry Diagnostics Laboratory Results Results Past 24 Hours Test 05/03/18 08:14 05/03/18 08:19 05/03/18 10:30 Range/Units White Blood Count 6.47 4.8-10.8 K/uL Red Blood Count 3.07 4.2-5.4 M/uL Hemoglobin 9.2 12.0-16.0 g/dL Hematocrit 31.6 37-47 % Mean Corpuscular Volume 102.9 80-100 fL Mean Corpuscular Hemoglobin 30.0 25-34 pg Mean Corpuscular Hemoglobin Concent 29.1 32-36 g/dl Platelet Count 174 130-400 K/uL Mean Platelet Volume 10.2 7.4-10.4 fL Neutrophils (%) (Auto) 69.7 % Lymphocytes (%) (Auto) 15.5 % Monocytes (%) (Auto) 8.5 % Eosinophils (%) (Auto) 5.6 % Basophils (%) (Auto) 0.5 % Neutrophils # (Auto) 4.52 1.4-6.5 K/uL Lymphocytes # (Auto) 1.00 1.2-3.4 K/uL Monocytes # (Auto) 0.55 0.11-0.59 K/uL Eosinophils # (Auto) 0.36 0-0.5 K/uL Basophils # (Auto) 0.03 0-0.2 K/uL RDW Standard Deviation 70.8 36.4-46.3 fL RDW Coefficient of Variation 18.7 11.5-14.5 % Immature Granulocyte % (Auto) 0.2 % Immature Granulocyte # (Auto) 0.01 0.00-0.02 K/uL Prothrombin Time 20.8 9.0-12.0 SECONDS Prothromb Time International Ratio 2.0 0.9-1.1 Venous Blood pH 7.26 7.36-7.41 Venous Blood Partial Pressure CO2 50 38.0-50.0 mmHg Venous Blood Partial Pressure O2 49 mmHg Venous Blood HCO3 22 mmol/L Venous Blood Oxygen Saturation 77.4 % Venous Blood Base Excess -5.1 mEq/L Sodium Level 138 136-145 mmol/L Potassium Level 5.7 3.5-5.1 mmol/L Chloride Level 108 98-107 mmol/L Carbon Dioxide Level 21 21-32 mmol/L Anion Gap 9.0 14.0 16-25 mmol/L Blood Urea Nitrogen 43 7-18 mg/dl Creatinine 8.01 0.60-1.20 mg/dl Estimated GFR () 5.7 Estimated GFR (Non- 4.9 BUN/Creatinine Ratio 5.3 10-20 Random Glucose 103 70-99 mg/dl Calcium Level 9.2 8.5-10.1 mg/dl Phosphorus Level 4.9 2.5-4.9 mg/dl Magnesium Level 2.4 1.8-2.4 mg/dl Total Bilirubin 0.3 0.2-1 mg/dl Direct Bilirubin 0.1 0-0.2 mg/dl Aspartate Amino Transf (AST/SGOT) 15 15-37 U/L Alanine Aminotransferase (ALT/SGPT) 7 12-78 U/L Alkaline Phosphatase 118 45-117 U/L Troponin I 0.050 0-0.045 ng/ml Total Protein 7.4 6.4-8.2 gm/dl Albumin 3.6 3.4-5.0 gm/dl Lipase 81 73-393 U/L Bedside Hemoglobin 9.9 12.0-16.0 g/dl Bedside Hematocrit 29 37-47 % Bedside Sodium 138 135-144 mEq/L Bedside Potassium 5.7 3.3-5.0 mEq/L Bedside Chloride 108 101-112 mEq/L Bedside Total CO2 22 24-31 mEq/l Bedside Blood Urea Nitrogen 38 7-18 mg/dl Bedside Creatinine 8.4 0.6-1.3 mg/dl Bedside Glucose (other) 100 70-99 mg/dl Bedside Ionized Calcium (Lemuel) 1.16 1.12-1.32 mmol/l Lactic Acid Level 1.3 0.4-2.0 mmol/L Microbiology Results 05/03/18 Blood Culture, Received Pending 05/03/18 Blood Culture, Received Pending Diagnostic Radiology CXR: IMPRESSION: Interval progression of the bibasilar airspace opacities. This likely represents a pneumonia. Recommend one month follow-up to ensure resolution. CT abd/pelvis: IMPRESSION: 1. No acute intra-abdominal or intrapelvic abnormality identified. 2. Colonic diverticulosis without diverticulitis. 3. Prior cholecystectomy, hysterectomy and appendectomy. 4. Small sliding-type hiatal hernia. 5. Marked atrophy about the bilateral kidneys, left greater than right with suggested renal osteodystrophy. 6. 4 mm nonobstructing calculus of the inferior pole right kidney. 7. Suggested cellulitis of the lower anterior abdominal wall with probable phlegmonous change anterolateral to the left hip with the subcutaneous tissues. Subcutaneous emphysema within this distribution suggest gas-forming organism or recent instrumentation. Correlate with clinical exam. Impression Assessment and Plan This is a 62yo F with a PMH of ESRD (on HD MWF), atrial fibrillation (on coumadin), chronic respiratory failure (on 2L home oxygen) 2/2 asthma/COPD and other medical problems listed below who presents with persistent nausea and vomiting beginning this morning. Nausea, vomiting -In setting of ESRD on dialysis -Due for treatment today -Likely uremic symptoms, should improve with HD -Antiemetics Hospital acquired PNA -CXR with interval progression of the bibasilar airspace opacities that likely represents a pneumonia -In setting of asthma, COPD -[place] [facility] [place]Denies fever, cough, wheezing -Possible aspiration this AM -Cover with vanc (renally dosed) and cefepime for now -Aspiration precautions -Supplemental O2 -Xopenex neb treatment -Cont home inhalers, Singulair ESRD on HD -Dialysis MWF -Cr of 8.4, potassium of 5.7 -Continue renal vitamins, renal diet -Nephro consult for HD -Plan to dialyze today Elevated troponin -Initially elevated to 0.05 -Denies chest pain, acutely worsened SOB -In setting of ESRD -EKG without ischemic changes -Monitor on telemetry Left thigh hematoma s/p evacuation -[place] [facility] [place] vac -Due to be changed today -Site is tender but no overlying erythema -Wound care consulted H/o A Fib -Currently in sinus rhythm -Continue Coumadin -INR of 2 today -- has been receiving 10mg daily [place] [facility] [place] since discharge but missed yesterday's dose -Giving 10mg today and assessing INR tomorrow for further dosing Sleep apnea -CPAP HS with 2L NS Mood disorder -Cont Cymbalta, Remeron Chronic pain -Continue home dose Flexeril and Percocet -Bowel regimen DVT Ppx: On warfarin Code status: DNR PCP: Melissa Dispo: Admitted to telemetry. Discharge planning ordered. Attending addendum: The patient was seen and examined Was admitted with increasing weakness associated with nausea and vomiting, secondary to chronic renal disease on hemodialysis Has been feeling drowsy and goes to sleep easily On examination Drowsy with weakness Falls asleep easily No apparent distress at rest Chest-decreased breath sounds both sides Heart-regular Abdomen-soft, nontender, bowel sounds present Examination of the local area of left groin and upper thigh-wound VAC is in place No evidence of spreading cellulitis locally Admission labs and imaging studies reviewed End-stage renal disease on hemodialysis She was evaluated by cartography technician and will have hemodialysis as planned Agree with assessment and plan as outlined above Dr. Camacho Moyer Advanced Directives Existing Living Will: No Existing Power of Mason Tender: No Resuscitation Status VTE Prophylaxis Will order VTE Prophylaxis: Yes
[2018-05-03] MEDS ORDERED: CYM30 PO (12:54)
[2018-05-03] MEDS ORDERED: RANI300T2 PO (12:54)
[2018-05-03] MEDS ORDERED: OXYC-164 PO (12:54)
[2018-05-03] MEDS ORDERED: CYCL5TAB PO (12:54)
[2018-05-03] MEDS ORDERED: OXYCODONE HCL IR 5 MG TAB (IMMEDIATE RELEASE) PO PRN (13:00)
[2018-05-03] MEDS ORDERED: GUAIFENESIN/CODEINE 200MG/20MG 10ML UDC PO PRN (13:00)
[2018-05-03] MEDS ORDERED: ALBUTEROL HFA 8 GM INHALER INH PRN (13:00)
[2018-05-03] MEDS ORDERED: EPINEPHRINE ADULT AUTO-INJECT 0.3 MG SYR IM PRN (13:00)
[2018-05-03] MEDS ORDERED: METOCLOPRAMIDE HCL INJ 5 MG/ML 2 ML VIAL IV. PRN (13:00)
[2018-05-03] MEDS ORDERED: ACETAMINOPHEN 325 MG TAB PO PRN (13:00)
[2018-05-03] MEDS ORDERED: ALUMINUM/MAGNESIUM/SIMETH (MAALOX MAX) 30 ML UDC PO PRN (13:00)
[2018-05-03] MEDS ORDERED: CYCLOBENZAPRINE HCL 5 MG TAB PO PRN (13:00)
[2018-05-03] MEDS ORDERED: CMD5 PO (13:52)
[2018-05-03] MEDS: LEVALBUTEROL 1.25MG/3ML NEB INH SCH ×2 (14:20→19:34)
[2018-05-03] MEDS ORDERED: SEVELAMER HYDROCH 800 MG TAB PO PRN (14:30)
--- NOTE | 2018-05-03 14:35 | Pharmacy Progress Note ---
Pharmacy Abx Initial Consult Date of Service May 03, 2018. Pharmacy Dosing Scope Date of Consult: 05/03/18 Consultation requested by: Rafaela Sanchez PA-C Pharmacy is consulted to initiate cefepime and vancomycin IV dosing therapy, order appropriate labs and adjust drug dose/frequency. Subjective The patient is a 62 year old female admitted on May 03, 2018 at 11:01. Objective Height (Feet): 4 Height (Inches): 11.00 Weight (Kilograms): 78.400 Vital Signs (Past 12Hrs) Vital Signs Past 12 Hours Date Time Temp Pulse Resp B/P (MAP) Pulse Ox O2 Delivery O2 Flow Rate FiO2 05/03/18 14:21 71 16 92 Room Air 05/03/18 12:15 36.9 80 16 139/84 (102) 98 Room Air 05/03/18 11:39 82 139/74 100 05/03/18 11:32 83 16 92 Room Air 05/03/18 11:04 86 05/03/18 10:07 95 Room Air 05/03/18 09:45 82 20 157/94 98 Room Air 05/03/18 07:13 87 05/03/18 07:00 96 18 161/102 95 Room Air Lab Results (24Hrs) Laboratory Tests (24 Hours) Test 05/03/18 08:14 05/03/18 10:30 White Blood Count 6.47 K/uL (4.8-10.8) Red Blood Count 3.07 M/uL (4.2-5.4) L Hemoglobin 9.2 g/dL (12.0-16.0) L Hematocrit 31.6 % (37-47) L Mean Corpuscular Volume 102.9 fL (80-100) H Mean Corpuscular Hemoglobin 30.0 pg (25-34) Mean Corpuscular Hemoglobin Concent 29.1 g/dl (32-36) L Platelet Count 174 K/uL (130-400) Mean Platelet Volume 10.2 fL (7.4-10.4) Neutrophils (%) (Auto) 69.7 % Lymphocytes (%) (Auto) 15.5 % Monocytes (%) (Auto) 8.5 % Eosinophils (%) (Auto) 5.6 % Basophils (%) (Auto) 0.5 % Neutrophils # (Auto) 4.52 K/uL (1.4-6.5) Lymphocytes # (Auto) 1.00 K/uL (1.2-3.4) L Monocytes # (Auto) 0.55 K/uL (0.11-0.59) Eosinophils # (Auto) 0.36 K/uL (0-0.5) Basophils # (Auto) 0.03 K/uL (0-0.2) Lactic Acid Level 1.3 mmol/L (0.4-2.0) Micro Results Date/Time Source Procedure Growth Status 05/03/18 10:27 Blood Blood Culture Pending Received 05/03/18 08:22 Blood Blood Culture Pending Received Risk Factors for Resistance * Chronic dialysis within the past 30 days * Hospitalization over 48 hours in the past 90 [place] [facility] Assessment & Plan Assessment 62 year old female admitted with possible pneumonia. Per the patient, she has had n/v since this morning. She also notes that she had SOB (patient has COPD plus asthma). The patient has not had dialysis today. Plan vancomycin/cefepime for treatment of possible pneumonia Vancomycin IV * Loading dose: 1500 mg (19 mg/kg) * Goal trough level for pulmonary indications : 15 to 20 mcg/mL * Random level ordered for tomorrow morning. * if patient receives hemodialysis today, recommend obtaining random level approximately 6 hours after hemodialysis and giving dose of vancomycin based upon this level (see policy) * A less than traditional dose and extended dosing interval has been selected due to likelihood of drug accumulation in patient on hemodialysis. Cefepime * in hemodialysis patients, The recommended dose is 1 g IV/ on day 1 followed by 500 mg IV every 24 hours for the treatment of all infections except febrile neutropenia give dose after hemodialysis. * Patient received 1 gm today already, give 500 mg IV daily starting tomorrow and shift times to evening so that dose is after hemodialysis. Pharmacy will continue to follow and will adjust dose/frequency as necessary. Thank you.
--- NOTE | 2018-05-03 16:52 | Nephrology Consultation ---
Nephrology Consultation Date of Consultation: May 03, 2018. Requesting Physician: Dr. Sanchez Reason for Consultation: ESRD complicated by Pneumonia History of Present Illness Patient is a 62 year old female with history of end-stage renal disease on hemodialysis Thursday using left femoral AV graft. Her last dialysis was on Thursday. Today patient presented to the dialysis unit but was unable to do dialysis due to nausea and vomiting. She was sent to the emergency room for evaluation. In the ER workup was shown possible pneumonia and she is being started on antibiotics. Patient was recently hospitalized at [facility] with left thigh hematoma. She is status post drainage and now has a wound VAC. Patient still complains of nausea and weakness. She has mild shortness of breath. We have been asked to evaluate her for dialysis support. Past Medical/Surgical History Medical Problems: (1) Anemia Status: Acute (2) Cellulitis Status: Acute (3) Elevated troponin Status: Acute (4) Groin hematoma Status: Acute (5) Hematoma Status: Acute (6) Nausea and vomiting Status: Acute (7) Nausea vomiting and diarrhea Status: Acute (8) Pneumonia Status: Acute (9) Precordial chest pain Status: Acute Past medical history includes ESRD on dialysis Thursday, asthma, hypertension, anemia due to renal failure, hyperlipidemia, gastroesophageal reflux disease, COPD, obstructive sleep apnea on CPAP, A. fib. Family History FH: breast cancer MOTHER FH: colon cancer FATHER FH: kidney cancer FATHER FH: lung cancer FATHER Social History Smoking Status: Never Smoker Alcohol Use: none Drug Use: none Marital Status: Housing Status: lives with family Occupation Status: disabled Allergies Coded Allergies: Hydromorphone (Verified Allergy, Intermediate, SHORTNESS OF BREATH, ) Aspirin (Verified Allergy, Mild, BLOODY NOSES, 05/03/18) Ciprofloxacin (Verified Allergy, Mild, HIVES, 05/03/18) Metronidazole (Verified Allergy, Mild, HIVES, 05/03/18) Penicillins (Verified Allergy, Mild, HIVES, 05/03/18) Chocolate (Verified Allergy, Unknown, HIVES, 01/22/18) Peanut Butter Flavor (Verified Allergy, Unknown, HIVES, 01/22/18) Tomato (Verified Allergy, Unknown, HIVES, 01/22/18) White Potato (Verified Allergy, Unknown, HIVES, 01/22/18) Uncoded Allergies: CEREAL COLOR DYES (Allergy, Severe, SOB, THROAT SWELLS, 08/28/17) ENVIRONMENTAL (Allergy, Intermediate, ., 05/03/18) TRIX CEREAL (Allergy, Unknown, SHORTNESS OF BREATH, SWELLING OF THROAT, ) Medications Current Inpatient Medications Medications (Trade) Dose Ordered Sig/Deidre Route Start Time Stop Time Status Last Admin Dose Admin Vancomycin HCl (Consult) 1 ea UD PRN N/A 05/03/18 09:30 06/02/18 09:29 Ondansetron HCl (Zofran Inj) 4 mg Q6H PRN IV 05/03/18 11:15 06/02/18 11:14 Cefepime HCl (Consult) 1 ea UD PRN N/A 05/03/18 11:34 06/02/18 11:33 Levalbuterol (Xopenex 1.25MG/ 3ML Neb) 1.25 mg Q6R INH 05/03/18 15:00 06/02/18 14:59 05/03/18 14:20 1.25 MG Metoclopramide HCl (Reglan Inj) 10 mg Q6H PRN IV. 05/03/18 13:00 06/02/18 12:59 Albuterol (Ventolin Hfa Inhaler) 2 puffs Q4H PRN INH 05/03/18 13:00 06/02/18 12:59 Al Hydrox/Mg Hydrox/Simethicone (Maalox Max Susp) 30 ml UD PRN PO 05/03/18 13:00 06/02/18 12:59 Atorvastatin Calcium (Lipitor Tab) 40 mg DAILY PO 05/04/18 09:00 06/03/18 08:59 Vitamin B Complex/ Vit C/Folic Acid (Nephrocaps) 1 cap DAILY PO 05/04/18 09:00 06/03/18 08:59 Calcium Carbonate (Tums Chew Tab) 750 mg AC PO 05/03/18 16:30 06/02/18 16:29 Clopidogrel Bisulfate (plAVix TAB) 75 mg DAILY PO 05/04/18 09:00 06/03/18 08:59 Cyclobenzaprine HCl (Flexeril Tab) 5 mg BID PRN PO 05/03/18 13:00 06/02/18 12:59 Docusate Sodium (coLACE CAP) 100 mg BID PO 05/03/18 21:00 06/02/18 20:59 Epinephrine (Epipen) 0.3 mg UD PRN IM 05/03/18 13:00 06/02/18 12:59 Salmeterol Xinafoate/ Fluticasone (Advair Diskus 500/50 Inh) 1 puff BID INH 05/03/18 21:00 06/02/18 20:59 Fluticasone Propionate (Flonase Nasal [place]) 2 sprays DAILY CORTEZ 05/04/18 09:00 06/03/18 08:59 Codeine Phosphate/ Guaifenesin (Robitussin-AC Sugar Free Syrup) 5 ml Q4 PRN PO 05/03/18 13:00 06/02/18 12:59 Montelukast Sodium (Singulair Tab) 10 mg DAILY PO 05/04/18 09:00 06/03/18 08:59 Pantoprazole Sodium (Protonix Tab) 40 mg BID PO 05/03/18 21:00 06/02/18 20:59 Senna (Senokot Tab) 8.6 mg BID PO 05/03/18 21:00 06/02/18 20:59 Tiotropium [place] (Spiriva Handihaler Inhaler) 1 puff DAILY INH 05/04/18 09:00 06/03/18 08:59 Cholecalciferol (Vitamin D Tab) 1,000 inter.unit DAILY PO 05/04/18 09:00 06/03/18 08:59 Miscellaneous Information (Order Awaiting Action) 1 ea QS N/A 05/03/18 16:00 06/02/18 15:59 Oxycodone HCl (Roxicodone Immediate Rel Tab) 10 mg Q6H PRN PO 05/03/18 13:00 06/02/18 12:59 05/03/18 14:06 10 MG Polyethylene (Miralax Powder Packet) 17 gm DAILY PO 05/04/18 09:00 06/03/18 08:59 Ranitidine HCl (zANTac TAB) 300 mg HS PO 05/03/18 21:00 06/02/18 20:59 Sevelamer HCl (Renagel Tab) 2,400 mg TIDM PO 05/03/18 17:00 06/02/18 16:59 Sevelamer HCl (Renagel Tab) 800 mg UD PRN PO 05/03/18 14:30 06/02/18 14:29 Duloxetine HCl (Cymbalta Cap) 30 mg DAILY PO 05/04/18 09:00 06/03/18 08:59 Mirtazapine (Remeron Tab) 7.5 mg HS PO 05/03/18 21:00 06/02/18 20:59 Warfarin Sodium (Coumadin Tab) 10 mg DAILY@1600 PO 05/03/18 16:00 06/02/18 15:59 Cefepime HCl 500 mg/Syringe 5.5 ml @ 5.5 mls/min DAILY@1800 IV 05/04/18 14:00 05/09/18 18:00 Acetaminophen (Tylenol Tab) 650 mg Q4H PRN PO 05/03/18 16:00 06/02/18 15:59 Home Meds and Scripts Medications Dose Route/Sig Max Daily Dose Days Date Category Dose Instructions Coumadin (Warfarin Sod) 5 Mg Tab 2 Tabs PO DAILY@1600 05/03/18 Reported Flexeril (Cyclobenzaprine Hcl) 5 Mg Tab 5 Mg PO BID PRN 05/03/18 Reported PRN Duloxetine HCl 30 Mg Cap 1 Tab PO DAILY 05/03/18 Reported Oxycodone Hcl 10 Mg Tab 1 Tab PO Q6H PRN 30 05/03/18 Reported Zantac (Ranitidine HCl) 300 Mg Tab 300 Mg PO HS 05/03/18 Reported Maalox Max Susp (Alum & Mag Hydrox-Simethicone) 1 [place] 30 Ml PO UD PRN 05/03/18 Reported Marcell Caps (B-Complex W/ C & Folic Acid) 1 Cap Cap 1 Cap PO DAILY 05/03/18 Reported Spiriva Handihaler (Tiotropium [place]) 30 Puff/540 Mcg Aerp 1 Cap INH DAILY 05/03/18 Reported Robitussin-Ac Syrup (Codeine Phosphate/Guaifenesin) Syrp 5 Ml PO Q4 PRN 05/03/18 Reported Protonix (Pantoprazole Sodium) 40 Mg Tab 40 Mg PO BID 01/22/18 Reported Remeron (Mirtazapine) 15 Mg Tab 7.5 Mg PO HS 01/22/18 Reported Renvela (Sevelamer Carbonate) 800 Mg Tab 800 Mg PO SNACKS 90 01/22/18 Reported Renvela (Sevelamer Carbonate) 800 Mg Tab 2,400 Mg PO TIDM 90 01/22/18 Reported Plavix (Clopidogrel Bisulfate) 75 Mg Tab 75 Mg PO DAILY 08/28/17 Reported Senokot (Sennosides) 8.6 Mg Tab 8.6 Mg PO UD 08/28/17 Reported TAKE 1 TABLET BY MOUTH TWICE DAILY. CHANGE TO ONCE DAILY IF HAVING DIARRHEA. Miralax (Polyethylene Glycol 3350) 1 Pow Pow 17 Gm PO DAILY 08/28/17 Reported Tylenol (Acetaminophen) 325 Mg Tab 650 Mg PO Q4H PRN 08/28/17 Reported D 1000 (Cholecalciferol) 1,000 Unit Cap 1,000 Units PO DAILY 08/28/17 Reported Flonase Allergy Relief (Fluticasone Propionate (Nasal)) 50 Mcg/Act Spr 2 Sprays CORTEZ DAILY 08/28/17 Reported Ventolin Hfa (Albuterol) 200 Puffs/31599 Mcg Aers 2 Puffs INH Q4H PRN 08/28/17 Reported Zofran (Ondansetron Hcl) 4 Mg Tab 4 Mg PO Q8 PRN 05/25/15 Reported Epipen (Epinephrine) 0.3 Mg/0.3 Ml Inj 0.3 Mg IM UD PRN 05/25/15 Reported Lipitor (Atorvastatin Calcium) 40 Mg Tab 40 Mg PO DAILY 04/23/15 Reported Tums (Calcium Carbonate) 500 Mg Chew 750 Mg PO AC 03/07/15 Reported 2 TABS WITH MEALS, 1 TAB WITH SNACKS Duoneb (Ipratropium-Albuterol) 3 Ml Nebu 1 Treatment INH QID 02/01/15 Reported Docusate Sodium 100 Mg Cap 100 Mg PO BID 02/01/15 Reported Singulair (Montelukast Sodium) 10 Mg Tab 10 Mg PO DAILY 02/01/15 Reported Advair Diskus 500/50 60 Dose (Fluticasone Prop/Salmeterol) 1 Ea Aerp 1 Puff INH BID 02/01/15 Reported Sensipar (Cinecalcet) 60 Mg Tab 60 Mg PO QPM 01/18/15 Reported Review of Systems Constitutional: + weakness, + fatigue, No fever Eyes: No eye pain, No discharge ENT: No sore throat Respiratory: + shortness of breath, No cough Cardiac: + chest pain Abdomen: + pain, + nausea, + vomiting, No diarrhea Musculoskeletal: + swelling Neuro: No memory loss Psych: No depression symptoms Heme: No abnormal bleeding/bruising Endo: No excessive thirst, No excessive urination Skin: No rash Physical Exam Date Time Temp Pulse Resp B/P (MAP) Pulse Ox O2 Delivery O2 Flow Rate FiO2 05/03/18 15:17 36.5 73 16 106/68 (81) 90 Room Air 05/03/18 14:21 71 16 92 Room Air 05/03/18 12:15 36.9 80 16 139/84 (102) 98 Room Air 05/03/18 11:39 82 139/74 100 05/03/18 11:32 83 16 92 Room Air 05/03/18 11:04 86 05/03/18 10:07 95 Room Air 05/03/18 09:45 82 20 157/94 98 Room Air 05/03/18 07:13 87 05/03/18 07:00 96 18 161/102 95 Room Air 24-Hour Column 05/04/18 08:00 Intake Total 396 ml Balance 396 ml General Appearance: no apparent distress Eyes: PERRL ENT: normal ENT inspection Neck: supple, no adenopathy, no JVD Respiratory/Chest: lungs clear Cardiovascular: regular rate, rhythm, no JVD Extremities: + pedal edema (left thigh swelling, AVG with good thrill and bruit ) 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, oriented x 3 Skin: normal color, no rash Diagnostics Last 24 Hours Test 05/03/18 08:14 05/03/18 08:19 05/03/18 10:30 White Blood Count 6.47 K/uL Red Blood Count 3.07 M/uL Hemoglobin 9.2 g/dL Hematocrit 31.6 % Mean Corpuscular Volume 102.9 fL Mean Corpuscular Hemoglobin 30.0 pg Mean Corpuscular Hemoglobin Concent 29.1 g/dl Platelet Count 174 K/uL Mean Platelet Volume 10.2 fL Neutrophils (%) (Auto) 69.7 % Lymphocytes (%) (Auto) 15.5 % Monocytes (%) (Auto) 8.5 % Eosinophils (%) (Auto) 5.6 % Basophils (%) (Auto) 0.5 % Neutrophils # (Auto) 4.52 K/uL Lymphocytes # (Auto) 1.00 K/uL Monocytes # (Auto) 0.55 K/uL Eosinophils # (Auto) 0.36 K/uL Basophils # (Auto) 0.03 K/uL RDW Standard Deviation 70.8 fL RDW Coefficient of Variation 18.7 % Immature Granulocyte % (Auto) 0.2 % Immature Granulocyte # (Auto) 0.01 K/uL Prothrombin Time 20.8 SECONDS Prothromb Time International Ratio 2.0 Venous Blood pH 7.26 Venous Blood Partial Pressure CO2 50 mmHg Venous Blood Partial Pressure O2 49 mmHg Venous Blood HCO3 22 mmol/L Venous Blood Oxygen Saturation 77.4 % Venous Blood Base Excess -5.1 mEq/L Sodium Level 138 mmol/L Potassium Level 5.7 mmol/L Chloride Level 108 mmol/L Carbon Dioxide Level 21 mmol/L Anion Gap 9.0 mmol/L 14.0 mmol/L Blood Urea Nitrogen 43 mg/dl Creatinine 8.01 mg/dl Estimated GFR () 5.7 Estimated GFR (Non- 4.9 BUN/Creatinine Ratio 5.3 Random Glucose 103 mg/dl Calcium Level 9.2 mg/dl Phosphorus Level 4.9 mg/dl Magnesium Level 2.4 mg/dl Total Bilirubin 0.3 mg/dl Direct Bilirubin 0.1 mg/dl Aspartate Amino Transf (AST/SGOT) 15 U/L Alanine Aminotransferase (ALT/SGPT) 7 U/L Alkaline Phosphatase 118 U/L Troponin I 0.050 ng/ml Total Protein 7.4 gm/dl Albumin 3.6 gm/dl Lipase 81 U/L Bedside Hemoglobin 9.9 g/dl Bedside Hematocrit 29 % Bedside Sodium 138 mEq/L Bedside Potassium 5.7 mEq/L Bedside Chloride 108 mEq/L Bedside Total CO2 22 mEq/l Bedside Blood Urea Nitrogen 38 mg/dl Bedside Creatinine 8.4 mg/dl Bedside Glucose (other) 100 mg/dl Bedside Ionized Calcium ([place]) 1.16 mmol/l Lactic Acid Level 1.3 mmol/L Radiology Interpretation: CXR NORMAL (suggestive of PNA) Assessment & Plan This is a 63-year-old female with history of hypertension, A. fib, and end- stage renal disease on hemodialysis Thursday at [facility] who was admitted with the nausea and vomiting found to have pneumonia. 1. ESRD on hemodialysis Thursday. Patient's last dialysis was on Thursday. She is dialyzed for 3-1/2 hours on a 2K bath. Patient did not have dialysis today due to nausea and vomiting. She is being admitted for antibiotics. We will dialyze her today for 3-1/2 hours or not to [place], blood flow 400, dialysate flow of 800 using 1 8 dialyzer. Target UF 1.5 L. 2. Hypertension her blood pressure is above target likely due to pain and volume overload. Anticipate improvement with dialysis and ultrafiltration. Would resume her home antihypertensives tomorrow. 3. Secondary hyperparathyroidism. Check phosphorus at least once weekly. Resume home phosphorus binders. 4. Anemia due to renal disease. Her hemoglobin today is 9.2 which is close to target. She will continue BRISEIDA at the outpatient dialysis. Thank you for the consultation renal follow with you
[2018-05-03] MEDS: CALCIUM CARBONATE 500 MG CHEWABLE PO SCH (22:31)
[2018-05-03] MEDS: MIRTAZAPINE TAB 15 MG TAB PO SCH (22:32)
[2018-05-03] MEDS: DOCUSATE SODIUM 100 MG CAP PO SCH (22:32)
[2018-05-03] MEDS: PANTOprazole SOD 40 MG TAB PO SCH (22:32)
[2018-05-03] MEDS: SEVELAMER HYDROCH 800 MG TAB PO SCH (22:33)
[2018-05-03] MEDS: SENNA 8.6 MG TAB PO SCH (22:34)
[2018-05-03] MEDS: FLUTICASONE/SALMETEROL (ADVAIR) 500/50 INH 14 PUFF INH SCH (22:35)
[2018-05-03] MEDS: RANITIDINE HCL 150 MG TAB PO SCH (22:36)
[2018-05-03] MEDS: WARFARIN SOD 10 MG TAB PO SCH (22:36)
[2018-05-04] VITALS (10 sets, daily range): BP systolic 92–115; BP diastolic 46–71; PULSE 58–81; TEMP 35.7–37.1; O2SAT 92–98; Ht 149.9 cm; Wt 75.5 kg
[2018-05-04] MEDS: LEVALBUTEROL 1.25MG/3ML NEB INH SCH ×4 (02:45→20:19)
[2018-05-04 05:57] LABS: HEMATOCRIT 29.6 % (37-47); HEMOGLOBIN 8.7 g/dL (12.0-16.0); MEAN CELL VOLUME 100.7 fL (80-100); MEAN CORPUSCULAR HEMOGLOBIN 29.6 pg (25-34); MEAN CORPUSCULAR HGB CONC 29.4 g/dl (32-36); MEAN PLATELET VOLUME 10.9 fL (7.4-10.4); PLATELET COUNT 161 K/uL (130-400); RED CELL DISTRIBUTION WIDTH CV 18.6 % (11.5-14.5); WHITE BLOOD COUNT 4.53 K/uL (4.8-10.8)
[2018-05-04 06:09] LABS: INR 2.1 (0.9-1.1)
[2018-05-04 06:39] LABS: CALCIUM 8.2 mg/dl (8.5-10.1); CREATININE 4.6 mg/dl (0.60-1.20); POTASSIUM 4.3 mmol/L (3.5-5.1); TOTAL PROTEIN 6.7 gm/dl (6.4-8.2)
[2018-05-04] MEDS: DOCUSATE SODIUM 100 MG CAP PO SCH ×2 (07:48→20:06)
[2018-05-04] MEDS: ACETAMINOPHEN 325 MG TAB PO PRN ×2 (07:48→16:16)
[2018-05-04] MEDS: CALCIUM CARBONATE 500 MG CHEWABLE PO SCH ×3 (07:48→16:15)
[2018-05-04] MEDS: SENNA 8.6 MG TAB PO SCH ×2 (07:49→20:09)
[2018-05-04] MEDS: CHOLECALCIFEROL 1000 INTER.UNIT TAB PO SCH (07:50)
[2018-05-04] MEDS: PANTOprazole SOD 40 MG TAB PO SCH ×2 (07:50→20:08)
[2018-05-04] MEDS: FLUTICASONE/SALMETEROL (ADVAIR) 500/50 INH 14 PUFF INH SCH ×2 (07:50→20:06)
[2018-05-04] MEDS: DULOXETINE (CYMBALTA) 30 MG CAP PO SCH (07:51)
[2018-05-04] MEDS: MONTELUKAST SOD 10 MG TAB PO SCH (07:51)
[2018-05-04] MEDS: CLOPIDOGREL BISULFATE 75 MG TAB PO SCH (07:51)
[2018-05-04] MEDS: NEPHROCAPS PO SCH (07:51)
[2018-05-04] MEDS: TIOTROPIUM BROMIDE 5 PUFF/90 MCG INH INH SCH (07:52)
[2018-05-04] MEDS: POLYETHYLENE (MIRALAX) 17 GM PACK PO SCH (07:53)
[2018-05-04] MEDS: FLUTICASONE PROPIONATE NA SPR 16 GM BTL NAE SCH (07:54)
[2018-05-04] MEDS: ATORVASTATIN 40 MG TAB PO SCH (08:31)
[2018-05-04] MEDS: SEVELAMER HYDROCH 800 MG TAB PO SCH ×3 (08:32→16:59)
--- NOTE | 2018-05-04 13:25 | Progress Note ---
Internal Med Progress Note Date of Service: May 04, 2018. Provider Documentation: SUBJECTIVE: The patient was seen and examined in telemetry floor She has end-stage renal disease on hemodialysis Admitted with the nausea and vomiting and weakness Feeling a lot better following dialysis Denies any significant symptoms associated with wound VAC and cellulitis involving the left upper thigh area OBJECTIVE: Vital Signs-as noted below Exam: General-no apparent distress Eyes-normal ENT-normal Neck-supple Lungs-decreased breath sounds bilaterally with minimal crackles at the bases Heart-regular, no murmur appreciated Abdomen-benign, soft, mildly tender left lower quadrant near the wound VAC placement site No evidence of spreading cellulitis Extremities-no edema, chronic skin changes Neuro-alert, awake and oriented Generally weak Lab data as noted below. ASSESSMENT & PLAN: This is a 62yo F with a PMH of ESRD (on HD MWF), atrial fibrillation (on coumadin), chronic respiratory failure (on 2L home oxygen) 2/2 asthma/COPD and other medical problems listed below who presents with persistent nausea and vomiting beginning this morning. Nausea, vomiting -In setting of ESRD on dialysis -Due for treatment today -Likely uremic symptoms, should improve with HD -Antiemetics -No more nausea and/or vomiting -Tolerating regular diet Hospital acquired PNA -CXR with interval progression of the bibasilar airspace opacities that likely represents a pneumonia -In setting of asthma, COPD -Recently hospitalized at [facility] -Denies fever, cough, wheezing -Possible aspiration this AM -Cover with vanc (renally dosed) and cefepime for now -Aspiration precautions -Supplemental O2 -Xopenex neb treatment -Cont home inhalers, Singulair -Start oral antibiotic from today and continue for 7-10 days as an outpatient ESRD on HD -Dialysis MWF -Cr of 8.4, potassium of 5.7 -Continue renal vitamins, renal diet -Nephro consult for HD -Plan to dialyze today -Like to go home following dialysis tomorrow Elevated troponin -Initially elevated to 0.05 -Denies chest pain, acutely worsened SOB -In setting of ESRD -EKG without ischemic changes -Monitor on telemetry -Doubt any ACS and/or cardiac issues during this admission Left thigh hematoma s/p evacuation -Discharged from [facility] on 04/30 with wound vac -Due to be changed today -Site is tender but no overlying erythema -Wound care informed and she will have outpatient follow-up following discharge H/o A Fib -Currently in sinus rhythm -Continue Coumadin -INR of 2 today -- has been receiving 10mg daily at [facility] and since discharge but missed yesterday's dose -Giving 10mg today and assessing INR tomorrow for further dosing -INR is only 2.1 today -We will continue Coumadin as an outpatient dose Sleep apnea -CPAP HS with 2L NS Mood disorder -Cont Cymbalta, Remeron Chronic pain -Continue home dose Flexeril and Percocet -Bowel regimen DVT Ppx: On warfarin Code status: DNR PCP: Mainali Dispo: Admitted to telemetry. Discharge planning ordered. Likely discharge tomorrow Vital Signs: Date Time Temp Pulse Resp B/P (MAP) Pulse Ox O2 Delivery O2 Flow Rate FiO2 05/04/18 08:00 Room Air 05/04/18 07:17 35.7 67 16 115/71 (86) 95 BiPAP 05/04/18 07:09 58 16 92 BiPAP/CPAP 2.0 05/04/18 03:59 36.1 71 18 92/46 (61) 98 BiPAP 05/04/18 02:45 71 16 97 BiPAP/CPAP 2.0 05/04/18 02:45 71 97 2.0 05/04/18 00:10 77 94 2.0 05/04/18 00:00 BiPAP 2.0 05/03/18 23:22 36.3 69 16 83/48 (60) 98 Room Air 05/03/18 22:01 36.3 85 132/74 (93) 05/03/18 22:00 72 132/74 05/03/18 21:45 72 112/58 05/03/18 21:30 77 106/52 05/03/18 21:15 79 117/67 05/03/18 21:00 75 105/55 05/03/18 20:45 75 106/54 05/03/18 20:30 76 115/58 05/03/18 20:15 77 131/62 05/03/18 20:00 76 123/63 05/03/18 19:45 78 126/66 05/03/18 19:30 82 141/72 05/03/18 19:15 79 137/75 05/03/18 19:00 78 131/70 05/03/18 18:45 75 132/73 05/03/18 18:37 76 145/76 05/03/18 18:30 36.5 73 135/70 (91) 05/03/18 16:00 Room Air 05/03/18 15:17 36.5 73 16 106/68 (81) 90 Room Air 05/03/18 14:21 71 16 92 Room Air Lab Results: Results Past 24 Hours Test 05/03/18 23:03 05/04/18 05:42 Range/Units Hepatitis B Surface Antigen NEG NEG White Blood Count 4.53 4.8-10.8 K/uL Red Blood Count 2.94 4.2-5.4 M/uL Hemoglobin 8.7 12.0-16.0 g/dL Hematocrit 29.6 37-47 % Mean Corpuscular Volume 100.7 80-100 fL Mean Corpuscular Hemoglobin 29.6 25-34 pg Mean Corpuscular Hemoglobin Concent 29.4 32-36 g/dl RDW Standard Deviation 69.0 36.4-46.3 fL RDW Coefficient of Variation 18.6 11.5-14.5 % Platelet Count 161 130-400 K/uL Mean Platelet Volume 10.9 7.4-10.4 fL Prothrombin Time 21.7 9.0-12.0 SECONDS Prothromb Time International Ratio 2.1 0.9-1.1 Sodium Level 136 136-145 mmol/L Potassium Level 4.3 3.5-5.1 mmol/L Chloride Level 98 98-107 mmol/L Carbon Dioxide Level 29 21-32 mmol/L Anion Gap 9.0 3-11 mmol/L Blood Urea Nitrogen 21 7-18 mg/dl Creatinine 4.60 0.60-1.20 mg/dl Est Creatinine Clear Calc Drug Dose 11.3 ml/min Estimated GFR () 11.0 Estimated GFR (Non- 9.5 BUN/Creatinine Ratio 4.6 10-20 Random Glucose 91 70-99 mg/dl Calcium Level 8.2 8.5-10.1 mg/dl Total Bilirubin 0.3 0.2-1 mg/dl Aspartate Amino Transf (AST/SGOT) 16 15-37 U/L Alanine Aminotransferase (ALT/SGPT) 7 12-78 U/L Alkaline Phosphatase 108 45-117 U/L Total Protein 6.7 6.4-8.2 gm/dl Albumin 3.0 3.4-5.0 gm/dl Globulin 3.7 2.5-4.0 gm/dl Albumin/Globulin Ratio 0.8 0.9-2 Random Vancomycin Level 21.7 mcg/ml
[2018-05-04] MEDS ORDERED: CEFEPIME IV 500 MG in SYRINGE 0 ML IV SCH (14:00)
[2018-05-04] MEDS: WARFARIN SOD 10 MG TAB PO SCH (16:18)
--- NOTE | 2018-05-04 17:14 | Nephrology Progress Note ---
Nephrology Progress Note Date of Service: May 04, 2018. Subjective Patient had HD last night. She feels well today. Still mild abdominal discomfort Objective Date Time Temp Pulse Resp B/P (MAP) Pulse Ox O2 Delivery O2 Flow Rate FiO2 05/04/18 15:57 36.8 70 20 98/49 (65) 93 Room Air 05/04/18 14:07 77 16 94 Room Air 05/04/18 08:00 Room Air 05/04/18 07:17 35.7 67 16 115/71 (86) 95 BiPAP 05/04/18 07:09 58 16 92 BiPAP/CPAP 2.0 05/04/18 03:59 36.1 71 18 92/46 (61) 98 BiPAP 05/04/18 02:45 71 16 97 BiPAP/CPAP 2.0 05/04/18 02:45 71 97 2.0 05/04/18 00:10 77 94 2.0 05/04/18 00:00 BiPAP 2.0 05/03/18 23:22 36.3 69 16 83/48 (60) 98 Room Air 05/03/18 22:01 36.3 85 132/74 (93) 05/03/18 22:00 72 132/74 05/03/18 21:45 72 112/58 05/03/18 21:30 77 106/52 05/03/18 21:15 79 117/67 05/03/18 21:00 75 105/55 05/03/18 20:45 75 106/54 05/03/18 20:30 76 115/58 05/03/18 20:15 77 131/62 05/03/18 20:00 76 123/63 05/03/18 19:45 78 126/66 05/03/18 19:30 82 141/72 05/03/18 19:15 79 137/75 05/03/18 19:00 78 131/70 05/03/18 18:45 75 132/73 05/03/18 18:37 76 145/76 05/03/18 18:30 36.5 73 135/70 (91) Physical Exam: [id number], no acute distress Eyes-pupils are equal and reactive to light ENT-throat is normal on inspection Neck-neck is supple, no JVD Lungs-lungs are clear to auscultation bilaterally Heart-normal heart sounds S1 and 2, no murmurs Abdomen-soft nondistended bowel sounds are present Extremities-1+ edema, wound VAC on the left lateral thigh Neuro-oriented 3, no focal deficits Vascular access: Via graft in the left thigh with good bruit Current Inpatient Medications Medications (Trade) Dose Ordered Sig/Deidre Route Start Time Stop Time Status Last Admin Dose Admin Vancomycin HCl (Consult) 1 ea UD PRN N/A 05/03/18 09:30 06/02/18 09:29 Ondansetron HCl (Zofran Inj) 4 mg Q6H PRN IV 05/03/18 11:15 06/02/18 11:14 Cefepime HCl (Consult) 1 ea UD PRN N/A 05/03/18 11:34 06/02/18 11:33 Levalbuterol (Xopenex 1.25MG/ 3ML Neb) 1.25 mg Q6R INH 05/03/18 15:00 06/02/18 14:59 05/04/18 14:07 1.25 MG Metoclopramide HCl (Reglan Inj) 10 mg Q6H PRN IV. 05/03/18 13:00 06/02/18 12:59 Albuterol (Ventolin Hfa Inhaler) 2 puffs Q4H PRN INH 05/03/18 13:00 06/02/18 12:59 Al Hydrox/Mg Hydrox/Simethicone (Maalox Max Susp) 30 ml UD PRN PO 05/03/18 13:00 06/02/18 12:59 Atorvastatin Calcium (Lipitor Tab) 40 mg DAILY PO 05/04/18 09:00 06/03/18 08:59 05/04/18 08:31 40 MG Vitamin B Complex/ Vit C/Folic Acid (Nephrocaps) 1 cap DAILY PO 05/04/18 09:00 06/03/18 08:59 05/04/18 07:51 1 CAP Calcium Carbonate (Tums Chew Tab) 750 mg AC PO 05/03/18 16:30 06/02/18 16:29 05/04/18 16:15 750 MG Clopidogrel Bisulfate (plAVix TAB) 75 mg DAILY PO 05/04/18 09:00 06/03/18 08:59 05/04/18 07:51 75 MG Cyclobenzaprine HCl (Flexeril Tab) 5 mg BID PRN PO 05/03/18 13:00 06/02/18 12:59 Docusate Sodium (coLACE CAP) 100 mg BID PO 05/03/18 21:00 06/02/18 20:59 05/04/18 07:48 100 MG Epinephrine (Epipen) 0.3 mg UD PRN IM 05/03/18 13:00 06/02/18 12:59 Salmeterol Xinafoate/ Fluticasone (Advair Diskus 500/50 Inh) 1 puff BID INH 05/03/18 21:00 06/02/18 20:59 05/04/18 07:50 1 PUFF Fluticasone Propionate (Flonase Nasal [place]) 2 sprays DAILY CORTEZ 05/04/18 09:00 06/03/18 08:59 05/04/18 07:54 2 SPRAYS Codeine Phosphate/ Guaifenesin (Robitussin-AC Sugar Free Syrup) 5 ml Q4 PRN PO 05/03/18 13:00 06/02/18 12:59 Montelukast Sodium (Singulair Tab) 10 mg DAILY PO 05/04/18 09:00 06/03/18 08:59 05/04/18 07:51 10 MG Pantoprazole Sodium (Protonix Tab) 40 mg BID PO 05/03/18 21:00 06/02/18 20:59 05/04/18 07:50 40 MG Senna (Senokot Tab) 8.6 mg BID PO 05/03/18 21:00 06/02/18 20:59 05/04/18 07:49 8.6 MG Tiotropium [place] (Spiriva Handihaler Inhaler) 1 puff DAILY INH 05/04/18 09:00 06/03/18 08:59 05/04/18 07:52 1 PUFF Cholecalciferol (Vitamin D Tab) 1,000 inter.unit DAILY PO 05/04/18 09:00 06/03/18 08:59 05/04/18 07:50 1,000 INTER.UNIT Miscellaneous Information (Order Awaiting Action) 1 ea QS N/A 05/03/18 16:00 06/02/18 15:59 Oxycodone HCl (Roxicodone Immediate Rel Tab) 10 mg Q6H PRN PO 05/03/18 13:00 06/02/18 12:59 05/03/18 14:06 10 MG Polyethylene (Miralax Powder Packet) 17 gm DAILY PO 05/04/18 09:00 06/03/18 08:59 05/04/18 07:53 17 GM Ranitidine HCl (zANTac TAB) 300 mg HS PO 05/03/18 21:00 06/02/18 20:59 05/03/18 22:36 300 MG Sevelamer HCl (Renagel Tab) 2,400 mg TIDM PO 05/03/18 17:00 06/02/18 16:59 05/04/18 16:59 2,400 MG Sevelamer HCl (Renagel Tab) 800 mg UD PRN PO 05/03/18 14:30 06/02/18 14:29 Duloxetine HCl (Cymbalta Cap) 30 mg DAILY PO 05/04/18 09:00 06/03/18 08:59 05/04/18 07:51 30 MG Mirtazapine (Remeron Tab) 7.5 mg HS PO 05/03/18 21:00 06/02/18 20:59 05/03/18 22:32 7.5 MG Warfarin Sodium (Coumadin Tab) 10 mg DAILY@1600 PO 05/03/18 16:00 06/02/18 15:59 05/04/18 16:18 10 MG Cefepime HCl 500 mg/Syringe 5.5 ml @ 5.5 mls/min DAILY@1800 IV 05/04/18 14:00 05/09/18 18:00 05/04/18 14:00 5.5 MLS/MIN Acetaminophen (Tylenol Tab) 650 mg Q4H PRN PO 05/03/18 16:00 06/02/18 15:59 05/04/18 16:16 650 MG Enteral Nutritional Formula (Prosource No Carb) 30 ml BID PO 05/04/18 21:00 06/03/18 20:59 Last 24 Hours Test 05/03/18 23:03 05/04/18 05:42 Hepatitis B Surface Antigen NEG White Blood Count 4.53 K/uL Red Blood Count 2.94 M/uL Hemoglobin 8.7 g/dL Hematocrit 29.6 % Mean Corpuscular Volume 100.7 fL Mean Corpuscular Hemoglobin 29.6 pg Mean Corpuscular Hemoglobin Concent 29.4 g/dl RDW Standard Deviation 69.0 fL RDW Coefficient of Variation 18.6 % Platelet Count 161 K/uL Mean Platelet Volume 10.9 fL Prothrombin Time 21.7 SECONDS Prothromb Time International Ratio 2.1 Sodium Level 136 mmol/L Potassium Level 4.3 mmol/L Chloride Level 98 mmol/L Carbon Dioxide Level 29 mmol/L Anion Gap 9.0 mmol/L Blood Urea Nitrogen 21 mg/dl Creatinine 4.60 mg/dl Est Creatinine Clear Calc Drug Dose 11.3 ml/min Estimated GFR () 11.0 Estimated GFR (Non- 9.5 BUN/Creatinine Ratio 4.6 Random Glucose 91 mg/dl Calcium Level 8.2 mg/dl Total Bilirubin 0.3 mg/dl Aspartate Amino Transf (AST/SGOT) 16 U/L Alanine Aminotransferase (ALT/SGPT) 7 U/L Alkaline Phosphatase 108 U/L Total Protein 6.7 gm/dl Albumin 3.0 gm/dl Globulin 3.7 gm/dl Albumin/Globulin Ratio 0.8 Random Vancomycin Level 21.7 mcg/ml Date/Time Source Procedure Growth Status 05/04/18 15:15 Nasal MRSA DNA Surveillance Screen - Final Specimen Negative for MRSA by DNA Probe Complete Assessment & Plan This is a 63-year-old female with history of hypertension, A. fib, and end- stage renal disease on hemodialysis Thursday at [facility] who was admitted with the nausea and vomiting found to have pneumonia. 1. ESRD on hemodialysis Thursday. Patient's last dialysis was on Thursday. Patient was dialyzed last night for 3-1/2 hours on a 2K bath. She was relatively hypotensive which limited ultrafiltration. Next dialysis will be tomorrow for 3-1/2 hours, uf 1 L 2. Hypertension her blood pressure is controlled on current regimen. Hold blood pressure medications on the morning of dialysis. 3. Secondary hyperparathyroidism. Check phosphorus at least once weekly. Resume home phosphorus binders. 4. Anemia due to renal disease. Her recent hemoglobin is 9.2 which is close to target. She will continue BRISEIDA at the outpatient dialysis. Thank you for the consultation renal follow with you
[2018-05-04] MEDS: PROSOURCE NOCARB 30ML/PKT PO SCH (20:08)
[2018-05-04] MEDS: MIRTAZAPINE TAB 15 MG TAB PO SCH (20:09)
[2018-05-04] MEDS: RANITIDINE HCL 150 MG TAB PO SCH (20:10)
[2018-05-05] VITALS (27 sets, daily range): BP systolic 85–115; BP diastolic 34–67; PULSE 62–77; TEMP 36.4–36.9; O2SAT 91–100
[2018-05-05] MEDS: LEVALBUTEROL 1.25MG/3ML NEB INH SCH ×4 (02:23→18:49)
[2018-05-05] MEDS: CALCIUM CARBONATE 500 MG CHEWABLE PO SCH ×3 (05:56→16:46)
[2018-05-05 07:26] LABS: HEMATOCRIT 27.2 % (37-47); HEMOGLOBIN 8.1 g/dL (12.0-16.0); MEAN CORPUSCULAR HEMOGLOBIN 29.8 pg (25-34); MEAN CORPUSCULAR HGB CONC 29.8 g/dl (32-36); MEAN PLATELET VOLUME 10.3 fL (7.4-10.4); PLATELET COUNT 139 K/uL (130-400); RED CELL DISTRIBUTION WIDTH CV 18.8 % (11.5-14.5); RED CELL DISTRIBUTION WIDTH SD 68.7 fL (36.4-46.3); WHITE BLOOD COUNT 4.01 K/uL (4.8-10.8)
[2018-05-05] MEDS: SEVELAMER HYDROCH 800 MG TAB PO SCH ×3 (07:36→16:46)
[2018-05-05] MEDS: TIOTROPIUM BROMIDE 5 PUFF/90 MCG INH INH SCH (07:36)
[2018-05-05] MEDS: FLUTICASONE/SALMETEROL (ADVAIR) 500/50 INH 14 PUFF INH SCH ×2 (07:36→20:48)
[2018-05-05] MEDS: FLUTICASONE PROPIONATE NA SPR 16 GM BTL NAE SCH (07:37)
[2018-05-05] MEDS: PANTOprazole SOD 40 MG TAB PO SCH ×2 (07:37→20:51)
[2018-05-05] MEDS: CHOLECALCIFEROL 1000 INTER.UNIT TAB PO SCH (07:37)
[2018-05-05] MEDS: DOCUSATE SODIUM 100 MG CAP PO SCH ×2 (07:37→20:51)
[2018-05-05] MEDS: ATORVASTATIN 40 MG TAB PO SCH (07:37)
[2018-05-05] MEDS: DULOXETINE (CYMBALTA) 30 MG CAP PO SCH (07:37)
[2018-05-05] MEDS: MONTELUKAST SOD 10 MG TAB PO SCH (07:38)
[2018-05-05] MEDS: NEPHROCAPS PO SCH (07:38)
[2018-05-05] MEDS: SENNA 8.6 MG TAB PO SCH ×2 (07:38→20:49)
[2018-05-05] MEDS: PROSOURCE NOCARB 30ML/PKT PO SCH ×3 (07:39→20:45)
[2018-05-05] MEDS: POLYETHYLENE (MIRALAX) 17 GM PACK PO SCH (07:39)
[2018-05-05] MEDS: CLOPIDOGREL BISULFATE 75 MG TAB PO SCH (07:39)
[2018-05-05 08:05] LABS: CREATININE 6.43 mg/dl (0.60-1.20); PHOSPHORUS 6.4 mg/dl (2.5-4.9); POTASSIUM 5.1 mmol/L (3.5-5.1)
[2018-05-05 08:08] LABS: BASO % 0.2 %; BASO ABS # 0.01 K/uL (0-0.2); EOS % 3.7 %; EOS ABS # 0.15 K/uL (0-0.5); LYMPH % 27.9 %; LYMPH ABS # 1.12 K/uL (1.2-3.4); MONO ABS # 0.24 K/uL (0.11-0.59); NEUT % 62.2 %; NEUT ABS # 2.49 K/uL (1.4-6.5)
--- NOTE | 2018-05-05 09:35 | Nephrology Progress Note ---
Nephrology Progress Note Date of Service: May 05, 2018. Subjective Patient had HD last night. She feels well today. Still denies abdominal pain. She is going for HD this morning Objective Date Time Temp Pulse Resp B/P (MAP) Pulse Ox O2 Delivery O2 Flow Rate FiO2 05/05/18 08:00 Room Air 05/05/18 07:42 68 16 98 Nasal Cannula 2.0 05/05/18 07:24 36.6 65 18 97/63 (74) 94 Room Air 05/05/18 03:45 36.7 62 18 107/56 (73) 100 CPAP 05/05/18 02:24 72 16 96 BiPAP/CPAP 2.0 05/05/18 00:12 36.4 71 19 112/56 (74) 97 CPAP 05/04/18 22:11 77 98 2.0 05/04/18 20:20 81 15 96 Room Air 05/04/18 20:00 Room Air Nasal Cannula 05/04/18 18:46 37.1 73 20 99/49 (66) 93 Room Air 05/04/18 15:57 36.8 70 20 98/49 (65) 93 Room Air 05/04/18 14:07 77 16 94 Room Air Physical Exam: [id number], no acute distress Eyes-pupils are equal and reactive to light ENT-throat is normal on inspection Neck-neck is supple, no JVD Lungs-lungs are clear to auscultation bilaterally Heart-normal heart sounds S1 and 2, no murmurs Abdomen-soft nondistended bowel sounds are present Extremities-1+ edema, wound VAC on the left lateral thigh Neuro-oriented 3, no focal deficits Vascular access: AV graft in the left thigh with good bruit Current Inpatient Medications Medications (Trade) Dose Ordered Sig/Deidre Route Start Time Stop Time Status Last Admin Dose Admin Vancomycin HCl (Consult) 1 ea UD PRN N/A 05/03/18 09:30 06/02/18 09:29 Ondansetron HCl (Zofran Inj) 4 mg Q6H PRN IV 05/03/18 11:15 06/02/18 11:14 Cefepime HCl (Consult) 1 ea UD PRN N/A 05/03/18 11:34 06/02/18 11:33 Levalbuterol (Xopenex 1.25MG/ 3ML Neb) 1.25 mg Q6R INH 05/03/18 15:00 06/02/18 14:59 05/05/18 07:42 1.25 MG Metoclopramide HCl (Reglan Inj) 10 mg Q6H PRN IV. 05/03/18 13:00 06/02/18 12:59 Albuterol (Ventolin Hfa Inhaler) 2 puffs Q4H PRN INH 05/03/18 13:00 06/02/18 12:59 Al Hydrox/Mg Hydrox/Simethicone (Maalox Max Susp) 30 ml UD PRN PO 05/03/18 13:00 06/02/18 12:59 Atorvastatin Calcium (Lipitor Tab) 40 mg DAILY PO 05/04/18 09:00 06/03/18 08:59 05/05/18 07:37 40 MG Vitamin B Complex/ Vit C/Folic Acid (Nephrocaps) 1 cap DAILY PO 05/04/18 09:00 06/03/18 08:59 05/05/18 07:38 1 CAP Calcium Carbonate (Tums Chew Tab) 750 mg AC PO 05/03/18 16:30 06/02/18 16:29 05/05/18 05:56 750 MG Clopidogrel Bisulfate (plAVix TAB) 75 mg DAILY PO 05/04/18 09:00 06/03/18 08:59 05/05/18 07:39 75 MG Cyclobenzaprine HCl (Flexeril Tab) 5 mg BID PRN PO 05/03/18 13:00 06/02/18 12:59 Docusate Sodium (coLACE CAP) 100 mg BID PO 05/03/18 21:00 06/02/18 20:59 05/05/18 07:37 100 MG Epinephrine (Epipen) 0.3 mg UD PRN IM 05/03/18 13:00 06/02/18 12:59 Salmeterol Xinafoate/ Fluticasone (Advair Diskus 500/50 Inh) 1 puff BID INH 05/03/18 21:00 06/02/18 20:59 05/05/18 07:36 1 PUFF Fluticasone Propionate (Flonase Nasal [place]) 2 sprays DAILY CORTEZ 05/04/18 09:00 06/03/18 08:59 05/05/18 07:37 2 SPRAYS Codeine Phosphate/ Guaifenesin (Robitussin-AC Sugar Free Syrup) 5 ml Q4 PRN PO 05/03/18 13:00 06/02/18 12:59 Montelukast Sodium (Singulair Tab) 10 mg DAILY PO 05/04/18 09:00 06/03/18 08:59 05/05/18 07:38 10 MG Pantoprazole Sodium (Protonix Tab) 40 mg BID PO 05/03/18 21:00 06/02/18 20:59 05/05/18 07:37 40 MG Senna (Senokot Tab) 8.6 mg BID PO 05/03/18 21:00 06/02/18 20:59 05/05/18 07:38 8.6 MG Tiotropium [place] (Spiriva Handihaler Inhaler) 1 puff DAILY INH 05/04/18 09:00 06/03/18 08:59 05/05/18 07:36 1 PUFF Cholecalciferol (Vitamin D Tab) 1,000 inter.unit DAILY PO 05/04/18 09:00 06/03/18 08:59 05/05/18 07:37 1,000 INTER.UNIT Miscellaneous Information (Order Awaiting Action) 1 ea QS N/A 05/03/18 16:00 06/02/18 15:59 Oxycodone HCl (Roxicodone Immediate Rel Tab) 10 mg Q6H PRN PO 05/03/18 13:00 06/02/18 12:59 05/03/18 14:06 10 MG Polyethylene (Miralax Powder Packet) 17 gm DAILY PO 05/04/18 09:00 06/03/18 08:59 05/05/18 07:39 17 GM Ranitidine HCl (zANTac TAB) 300 mg HS PO 05/03/18 21:00 06/02/18 20:59 05/04/18 20:10 300 MG Sevelamer HCl (Renagel Tab) 2,400 mg TIDM PO 05/03/18 17:00 06/02/18 16:59 05/05/18 07:36 2,400 MG Sevelamer HCl (Renagel Tab) 800 mg UD PRN PO 05/03/18 14:30 06/02/18 14:29 Duloxetine HCl (Cymbalta Cap) 30 mg DAILY PO 05/04/18 09:00 06/03/18 08:59 05/05/18 07:37 30 MG Mirtazapine (Remeron Tab) 7.5 mg HS PO 05/03/18 21:00 06/02/18 20:59 05/04/18 20:09 7.5 MG Warfarin Sodium (Coumadin Tab) 10 mg DAILY@1600 PO 05/03/18 16:00 06/02/18 15:59 05/04/18 16:18 10 MG Cefepime HCl 500 mg/Syringe 5.5 ml @ 5.5 mls/min DAILY@1800 IV 05/04/18 14:00 05/09/18 18:00 05/04/18 14:00 5.5 MLS/MIN Acetaminophen (Tylenol Tab) 650 mg Q4H PRN PO 05/03/18 16:00 06/02/18 15:59 05/04/18 16:16 650 MG Enteral Nutritional Formula (Prosource No Carb) 30 ml BID PO 05/04/18 21:00 06/03/18 20:59 05/04/18 20:08 30 ML Last 24 Hours Test 05/05/18 06:54 White Blood Count 4.01 K/uL Red Blood Count 2.72 M/uL Hemoglobin 8.1 g/dL Hematocrit 27.2 % Mean Corpuscular Volume 100.0 fL Mean Corpuscular Hemoglobin 29.8 pg Mean Corpuscular Hemoglobin Concent 29.8 g/dl Platelet Count 139 K/uL Mean Platelet Volume 10.3 fL Neutrophils (%) (Auto) 62.2 % Lymphocytes (%) (Auto) 27.9 % Monocytes (%) (Auto) 6.0 % Eosinophils (%) (Auto) 3.7 % Basophils (%) (Auto) 0.2 % Neutrophils # (Auto) 2.49 K/uL Lymphocytes # (Auto) 1.12 K/uL Monocytes # (Auto) 0.24 K/uL Eosinophils # (Auto) 0.15 K/uL Basophils # (Auto) 0.01 K/uL RDW Standard Deviation 68.7 fL RDW Coefficient of Variation 18.8 % Immature Granulocyte % (Auto) 0.0 % Immature Granulocyte # (Auto) 0.00 K/uL Basophilic Stippling 1+ Anisocytosis PRESENT Sodium Level 134 mmol/L Potassium Level 5.1 mmol/L Chloride Level 98 mmol/L Carbon Dioxide Level 27 mmol/L Anion Gap 9.0 mmol/L Blood Urea Nitrogen 50 mg/dl Creatinine 6.43 mg/dl Est Creatinine Clear Calc Drug Dose 8.1 ml/min Estimated GFR () 7.4 Estimated GFR (Non- 6.4 BUN/Creatinine Ratio 7.9 Random Glucose 76 mg/dl Calcium Level 8.0 mg/dl Phosphorus Level 6.4 mg/dl Magnesium Level 2.2 mg/dl Random Vancomycin Level 19.0 mcg/ml Date/Time Source Procedure Growth Status 05/04/18 15:15 Nasal MRSA DNA Surveillance Screen - Final Specimen Negative for MRSA by DNA Probe Complete Assessment & Plan This is a 63-year-old female with history of hypertension, A. fib, and end- stage renal disease on hemodialysis Thursday at [facility] who was admitted with the nausea and vomiting found to have pneumonia. 1. ESRD on hemodialysis Thursday. Patient is being dialysed this morning for 3-1/2 hours, 2k bath and uf 1 L 2. Hypertension: her blood pressure is on the lower side. Hold blood pressure medications on the morning of dialysis. 3. Secondary hyperparathyroidism. Check phosphorus at least once weekly. Resume home phosphorus binders. 4. Anemia due to renal disease. Her recent hemoglobin is 8.1 which is below target. She will continue BRISEIDA at the outpatient dialysis. Thank you for the consultation renal follow with you
--- NOTE | 2018-05-05 10:09 | Progress Note ---
Internal Med Progress Note Date of Service: May 05, 2018. Provider Documentation: SUBJECTIVE: The patient was seen and examined in telemetry floor She has end-stage renal disease on hemodialysis Admitted with the nausea and vomiting and weakness Feeling a lot better following dialysis Denies any significant symptoms associated with wound VAC and cellulitis involving the left upper thigh area 05/05 Feels a lot better today Denies any more nausea and/or vomiting Denies any cough or shortness of breath The wound VAC site has been stable OBJECTIVE: Vital Signs-as noted below Exam: General-no apparent distress Has chronic skin changes likely secondary to end-stage renal disease Eyes-normal ENT-normal Neck-supple Lungs-decreased breath sounds bilaterally ,minimal crackles over left base Heart-regular, no murmur appreciated Abdomen-benign, soft, mildly tender left lower quadrant near the wound VAC placement site No evidence of spreading cellulitis,wound VAC in situ Extremities-no edema, chronic skin changes Neuro-alert, awake and oriented Generally weak Lab data as noted below. ASSESSMENT & PLAN: This is a 62yo F with a PMH of ESRD (on HD MWF), atrial fibrillation (on coumadin), chronic respiratory failure (on 2L home oxygen) 2/2 asthma/COPD and other medical problems listed below who presents with persistent nausea and vomiting beginning this morning. Nausea, vomiting-resolved -In setting of ESRD on dialysis -Due for treatment today -Likely uremic symptoms, should improve with HD -Antiemetics -No more nausea and/or vomiting -Tolerating regular diet -diacharge home today Hospital acquired PNA -CXR with interval progression of the bibasilar airspace opacities that likely represents a pneumonia -In setting of asthma, COPD -[place] [facility] [place]Denies fever, cough, wheezing -Possible aspiration this AM -Cover with vanc (renally dosed) and cefepime for now -Aspiration precautions -Supplemental O2 -Xopenex neb treatment -Cont home inhalers, Singulair -Start oral antibiotic from today and continue for 7-10 days as an outpatient -Doxycycline 100mg BID for 5 days ESRD on HD -Dialysis MWF -Cr of 8.4, potassium of 5.7 -Continue renal vitamins, renal diet -Nephro consult for HD -Plan to dialyze today -Like to go home following dialysis tomorrow -Continue HD as an OP Elevated troponin -Initially elevated to 0.05 -Denies chest pain, acutely worsened SOB -In setting of ESRD -EKG without ischemic changes -Monitor on telemetry -Doubt any ACS and/or cardiac issues during this admission Left thigh hematoma s/p evacuation -Dis[place] [facility] [place] with wound vac -Due to be changed today -Site is tender but no overlying erythema -Wound care informed and she will have outpatient follow-up following discharge H/o A Fib -Currently in sinus rhythm -Continue Coumadin -INR of 2 today -- has been receiving 10mg daily at [facility] and since discharge but missed yesterday's dose -Giving 10mg today and assessing INR tomorrow for further dosing -INR is only 2.1 today -We will continue Coumadin as an outpatient dose Sleep apnea -CPAP HS with 2L NS Mood disorder -Cont Cymbalta, Remeron Chronic pain -Continue home dose Flexeril and Percocet -Bowel regimen DVT Ppx: On warfarin Code status: DNR PCP: Melissa Dispo: Admitted to telemetry. Discharge home today after dialysis Vital Signs: Date Time Temp Pulse Resp B/P (MAP) Pulse Ox O2 Delivery O2 Flow Rate FiO2 05/05/18 08:00 Room Air 05/05/18 07:42 68 16 98 Nasal Cannula 2.0 05/05/18 07:24 36.6 65 18 97/63 (74) 94 Room Air 05/05/18 03:45 36.7 62 18 107/56 (73) 100 CPAP 05/05/18 02:24 72 16 96 BiPAP/CPAP 2.0 05/05/18 00:12 36.4 71 19 112/56 (74) 97 CPAP 05/04/18 22:11 77 98 2.0 05/04/18 20:20 81 15 96 Room Air 05/04/18 20:00 Room Air Nasal Cannula 05/04/18 18:46 37.1 73 20 99/49 (66) 93 Room Air 05/04/18 15:57 36.8 70 20 98/49 (65) 93 Room Air 05/04/18 14:07 77 16 94 Room Air Lab Results: Results Past 24 Hours Test 05/05/18 06:54 05/05/18 09:50 Range/Units White Blood Count 4.01 4.8-10.8 K/uL Red Blood Count 2.72 4.2-5.4 M/uL Hemoglobin 8.1 12.0-16.0 g/dL Hematocrit 27.2 37-47 % Mean Corpuscular Volume 100.0 80-100 fL Mean Corpuscular Hemoglobin 29.8 25-34 pg Mean Corpuscular Hemoglobin Concent 29.8 32-36 g/dl Platelet Count 139 130-400 K/uL Mean Platelet Volume 10.3 7.4-10.4 fL Neutrophils (%) (Auto) 62.2 % Lymphocytes (%) (Auto) 27.9 % Monocytes (%) (Auto) 6.0 % Eosinophils (%) (Auto) 3.7 % Basophils (%) (Auto) 0.2 % Neutrophils # (Auto) 2.49 1.4-6.5 K/uL Lymphocytes # (Auto) 1.12 1.2-3.4 K/uL Monocytes # (Auto) 0.24 0.11-0.59 K/uL Eosinophils # (Auto) 0.15 0-0.5 K/uL Basophils # (Auto) 0.01 0-0.2 K/uL RDW Standard Deviation 68.7 36.4-46.3 fL RDW Coefficient of Variation 18.8 11.5-14.5 % Immature Granulocyte % (Auto) 0.0 % Immature Granulocyte # (Auto) 0.00 0.00-0.02 K/uL Basophilic Stippling 1+ Anisocytosis PRESENT Sodium Level 134 136-145 mmol/L Potassium Level 5.1 3.5-5.1 mmol/L Chloride Level 98 98-107 mmol/L Carbon Dioxide Level 27 21-32 mmol/L Anion Gap 9.0 3-11 mmol/L Blood Urea Nitrogen 50 7-18 mg/dl Creatinine 6.43 0.60-1.20 mg/dl Est Creatinine Clear Calc Drug Dose 8.1 ml/min Estimated GFR () 7.4 Estimated GFR (Non- 6.4 BUN/Creatinine Ratio 7.9 10-20 Random Glucose 76 70-99 mg/dl Calcium Level 8.0 8.5-10.1 mg/dl Phosphorus Level 6.4 2.5-4.9 mg/dl Magnesium Level 2.2 1.8-2.4 mg/dl Random Vancomycin Level 19.0 mcg/ml Microbiology Results 05/04/18 MRSA DNA Surveillance Screen - Final, Complete Specimen Negative for MRSA by DNA Probe
[2018-05-05] MEDS ORDERED: DOXYCYCLINE HYCLATE 100 MG CAP PO ONE (10:30)
[2018-05-05] MEDS ORDERED: DXY100 PO (10:48)
--- NOTE | 2018-05-05 10:53 | Discharge Instructions ---
Discharge Instructions Date of Service May 05, 2018. Admission Reason for Admission: Elevated Troponin, Nausea And Vomiting,Pneumonia Discharge Discharge Diagnosis / Problem: Nausea ,Vomting-resolved,LLL infiltration,ESRD on HD Discharge Goals Goal(s): Prevent Disease Progression Activity Recommendations Activity Limitations: resume your previous activity . Instructions / Follow-Up Instructions / Follow-Up Dr Torres on 05/07/18 at 12:45 PM,Wound Care will call for Appointment.Keep Regular Follow up with the Coagulation clinic Current Hospital Diet Patient's current hospital diet: AHA Diet (Heart Healthy), Renal Diet Discharge Diet Recommended Diet: AHA Diet (Heart Healthy), Renal Diet Pending Studies Studies pending at discharge: no Medical Emergencies . Who to Call and When: Medical Emergencies: If at any time you feel your situation is an emergency, please call 911 immediately. . Non-Emergent Contact Non-Emergency issues call your: Primary Care Provider . Past History Medical & Surgical History: (1) Open wound of left thigh (2) Anemia secondary to renal failure (3) ESRD (end stage renal disease) on dialysis (4) Nausea and vomiting (5) Pneumonia (6) ANXIETY STATE NOS (7) ANTICOAGULANTS,LT,CURRENT USE (8) History of atrial fibrillation (9) Obstructive sleep apnea on CPAP (10) Thromboectomy Left Brachiobasilic ateriovenous graft (11) S/P dialysis catheter insertion (12) History of total hysterectomy (13) History of cholecystectomy . "Provider Documentation" section prepared by Stacie Moyer. .
[2018-05-05 14:52] LABS: INR 4.2 (0.9-1.1)
[2018-05-05] MEDS: WARFARIN SOD 10 MG TAB PO SCH (16:44)
[2018-05-05] MEDS: MIRTAZAPINE TAB 15 MG TAB PO SCH (20:50)
[2018-05-05] MEDS: RANITIDINE HCL 150 MG TAB PO SCH (20:52)
[2018-05-05] MEDS: DOXYCYCLINE HYCLATE 100 MG CAP PO SCH (20:52)
[2018-05-05] MEDS ORDERED: NURSING DECISION MEDICATION ORDER SCH (23:00)
[2018-05-05] MEDS ORDERED: MICONAZOLE NITRATE POWDER 43 GM EXT PRN (23:00)
[2018-05-06 00:27] VITALS: BP 110/68; PULSE 79; TEMP 36.8; O2SAT 94
[2018-05-06] MEDS: LEVALBUTEROL 1.25MG/3ML NEB INH SCH ×2 (02:03→06:55)
[2018-05-06 02:04] VITALS: PULSE 59; O2SAT 96
[2018-05-06 04:59] VITALS: BP 128/68; PULSE 75; TEMP 36.5; O2SAT 95
[2018-05-06] MEDS: CALCIUM CARBONATE 500 MG CHEWABLE PO SCH (06:45)
[2018-05-06 06:56] VITALS: PULSE 63; O2SAT 98
[2018-05-06 08:32] LABS: INR 2.2 (0.9-1.1)
[2018-05-06 08:40] LABS: HEMATOCRIT 30.1 % (37-47); HEMOGLOBIN 8.8 g/dL (12.0-16.0); MEAN CORPUSCULAR HEMOGLOBIN 29.5 pg (25-34); MEAN CORPUSCULAR HGB CONC 29.2 g/dl (32-36); MEAN PLATELET VOLUME 10.4 fL (7.4-10.4); PLATELET COUNT 159 K/uL (130-400); RED CELL DISTRIBUTION WIDTH CV 18.5 % (11.5-14.5); RED CELL DISTRIBUTION WIDTH SD 68.8 fL (36.4-46.3); WHITE BLOOD COUNT 4.07 K/uL (4.8-10.8)
[2018-05-06] MEDS: FLUTICASONE PROPIONATE NA SPR 16 GM BTL NAE SCH (08:40)
[2018-05-06] MEDS: TIOTROPIUM BROMIDE 5 PUFF/90 MCG INH INH SCH (08:40)
[2018-05-06] MEDS: SENNA 8.6 MG TAB PO SCH (08:42)
[2018-05-06] MEDS: FLUTICASONE/SALMETEROL (ADVAIR) 500/50 INH 14 PUFF INH SCH (08:42)
[2018-05-06] MEDS: DOXYCYCLINE HYCLATE 100 MG CAP PO SCH (08:42)
[2018-05-06] MEDS: DOCUSATE SODIUM 100 MG CAP PO SCH (08:43)
[2018-05-06] MEDS: CLOPIDOGREL BISULFATE 75 MG TAB PO SCH (08:43)
[2018-05-06] MEDS: DULOXETINE (CYMBALTA) 30 MG CAP PO SCH (08:43)
[2018-05-06] MEDS: NEPHROCAPS PO SCH (08:43)
[2018-05-06] MEDS: CHOLECALCIFEROL 1000 INTER.UNIT TAB PO SCH (08:43)
[2018-05-06] MEDS: ATORVASTATIN 40 MG TAB PO SCH (08:43)
[2018-05-06] MEDS: MONTELUKAST SOD 10 MG TAB PO SCH (08:44)
[2018-05-06] MEDS: PANTOprazole SOD 40 MG TAB PO SCH (08:44)
[2018-05-06] MEDS: SEVELAMER HYDROCH 800 MG TAB PO SCH (08:44)
[2018-05-06] MEDS: POLYETHYLENE (MIRALAX) 17 GM PACK PO SCH (08:45)
[2018-05-06] MEDS: PROSOURCE NOCARB 30ML/PKT PO SCH (08:47)
[2018-05-06 09:01] LABS: CALCIUM 8.6 mg/dl (8.5-10.1); CREATININE 4.36 mg/dl (0.60-1.20); POTASSIUM 4.3 mmol/L (3.5-5.1)
--- NOTE | 2018-05-06 11:10 | Progress Note ---
Progress Note Date of Service May 06, 2018. Progress Note Pt was seen and examined Lying in bed with no distress Pt was discharged yesterday, but was not able to find a ride to transport her home Today she has family member at bedside and ready to take her home She said that she feels fine Denies any chest pain, palpitation, dizziness, fever and SOB Exam General- No acute distress Head- atraumatic Eyes- PERRL, EOMI ENT- oropharynx clear Neck- supple, no JVD Lungs- No wheezing Heart- regular rhythm Abdomen- normal bowel sounds, wound vac in Left lower quadrant place Extremities-no calf tenderness Neuro- alert, oriented, PERRL, EOMI Skin- warm & dry A/P Nausea/Vomiting In setting of ESRD on dialysis Antiemetics Tolerating regular diet Resolved Hospital acquired PNA CXR with interval progression of the bibasilar airspace opacities that likely represents a pneumonia Denies fever, cough, wheezing Doxycycline 100mg BID for 5 days ESRD on HD Dialysis MWF last HD yesterday Next HD tomorrow H/o A Fib Rate control INR 2.2 Continue Coumadin Follow up with the coag clinic Disposition Will discharge home today
--- NOTE | 2018-05-06 18:18 | Nephrology Progress Note ---
Nephrology Progress Note Date of Service: May 06, 2018. Subjective Patient had HD yesterday which she tolerated well. She feels well today. She denies abdominal pain. Objective Date Time Temp Pulse Resp B/P (MAP) Pulse Ox O2 Delivery O2 Flow Rate FiO2 05/06/18 08:30 Room Air 05/06/18 06:56 63 16 98 Room Air 05/06/18 04:59 36.5 75 18 128/68 (88) 95 CPAP 05/06/18 02:04 59 16 96 BiPAP/CPAP 21 05/06/18 02:04 59 96 21 05/06/18 00:27 36.8 79 19 110/68 (82) 94 CPAP 05/06/18 00:00 Room Air CPAP 05/05/18 22:26 76 96 21 05/05/18 19:36 36.9 70 18 107/67 (80) 95 Room Air 05/05/18 18:50 65 16 96 Room Air Physical Exam: [id number], no acute distress Eyes-pupils are equal and reactive to light ENT-throat is normal on inspection Neck-neck is supple, no JVD Lungs-lungs are clear to auscultation bilaterally Heart-normal heart sounds S1 and 2, no murmurs Abdomen-soft nondistended bowel sounds are present Extremities-1+ edema, wound VAC on the left lateral thigh Neuro-oriented 3, no focal deficits Vascular access: AV graft in the left thigh with good bruit Last 24 Hours Test 05/06/18 07:51 White Blood Count 4.07 K/uL Red Blood Count 2.98 M/uL Hemoglobin 8.8 g/dL Hematocrit 30.1 % Mean Corpuscular Volume 101.0 fL Mean Corpuscular Hemoglobin 29.5 pg Mean Corpuscular Hemoglobin Concent 29.2 g/dl RDW Standard Deviation 68.8 fL RDW Coefficient of Variation 18.5 % Platelet Count 159 K/uL Mean Platelet Volume 10.4 fL Prothrombin Time 23.1 SECONDS Prothromb Time International Ratio 2.2 Sodium Level 131 mmol/L Potassium Level 4.3 mmol/L Chloride Level 96 mmol/L Carbon Dioxide Level 28 mmol/L Anion Gap 7.0 mmol/L Blood Urea Nitrogen 27 mg/dl Creatinine 4.36 mg/dl Est Creatinine Clear Calc Drug Dose 11.9 ml/min Estimated GFR () 11.8 Estimated GFR (Non- 10.2 BUN/Creatinine Ratio 6.2 Random Glucose 68 mg/dl Calcium Level 8.6 mg/dl Assessment & Plan This is a 63-year-old female with history of hypertension, A. fib, and end- stage renal disease on hemodialysis Thursday at [facility] who was admitted with the nausea and vomiting found to have pneumonia. 1. ESRD on hemodialysis Thursday. Patient tolerated HD well yesterday for 3-1/2 hours, 2k bath. Next HD is thursday. Will notify her outpatient dialysis unit as she is being discharged. 2. Hypertension: her blood pressure is Controlled. Hold blood pressure medications on the morning of dialysis. 3. Secondary hyperparathyroidism. Check phosphorus at least once weekly. 4. Anemia due to renal disease. Her recent hemoglobin is 8.0 which is below target. She will continue BRISEIDA at the outpatient dialysis. Hoa Caballero MD
--- NOTE | 2018-05-14 11:09 | Discharge Summary ---
Discharge Summary Date of Service May 14, 2018. Discharge Summary Admission Date: May 03, 2018 at 11:01 Discharge Date: May 05, 2018 Discharge Disposition: Home with services Principal Diagnosis: Nausea,/Vomiting Secondary Diagnoses/Problems: Hospital acquired PNA Left thigh hematoma s/p evacuation ESRD ON HD Elevated troponin Chronic pain SLEEP APNEA HX AFIB Procedures: ABDOMEN AND PELVIS CT WITHOUT CONTRAST CT DOSE: 575.83 mGy.cm HISTORY: Acute generalized abdominal pain with nausea and vomiting abdominal pain, n/v TECHNIQUE: Multiaxial CT images of the abdomen and pelvis were performed without contrast. A dose lowering technique was utilized adhering to the principles of ALARA. COMPARISON STUDY: CT 01/22/2018. FINDINGS: Linear subsegmental pleural based consolidative and groundglass densities about the lung bases suggest atelectasis/scarring. No pneumatosis or pneumoperitoneum. Imaged inferior cardiac chambers are mildly enlarged. Prior cholecystectomy. Liver appears to be unremarkable. No intrahepatic biliary ductal dilation. The spleen is enlarged, 14 cm. Calcifications are seen near the uncinate process pancreas which otherwise appears unremarkable. Nodular thickening of the left adrenal gland, stable. The right adrenal gland is unremarkable. 2.8 cm cyst of the superior pole right kidney. Markedly atrophic morphology of the bilateral kidneys, left greater than right. Nonobstructing calculi of the inferior pole right kidney measuring up to 4 mm. No ureteral calculi or obstructive uropathy. Urinary bladder is partially decompressed. Uterus is surgically absent. No adnexal mass lesions. Moderate calcification of the aorta without aneurysm. No pathologically enlarged lymph nodes identified. Small sliding-type hiatal hernia. There is no bowel obstruction or focal bowel wall thickening. Colonic diverticulosis without diverticulitis. Mild to moderate volume of formed stool throughout the colon. Appendix is surgically absent. No ascites or mesenteric inflammatory changes. Skin thickening with subcutaneous edema about the lower anterior abdominal wall and subcutaneous pelvis. Prior lower ventral abdominal wall herniorrhaphy with recurrent fat containing anterior abdominal wall hernia, left paracentral with diastases of 1.9 cm. Subcutaneous soft tissue nodularity with scattered foci of subcutaneous emphysema noted anterolateral to the left hip with ill-defined fluid measuring up to 4.8 cm within this distribution. No discrete romero. Heterogeneous patchy sclerosis throughout the bony structures redemonstrated suggesting renal osteodystrophy. Multilevel discogenic degenerative changes and facet arthrosis. Mild levoscoliosis of the lumbar spine. IMPRESSION: 1. No acute intra-abdominal or intrapelvic abnormality identified. 2. Colonic diverticulosis without diverticulitis. 3. Prior cholecystectomy, hysterectomy and appendectomy. 4. Small sliding-type hiatal hernia. 5. Marked atrophy about the bilateral kidneys, left greater than right with suggested renal osteodystrophy. 6. 4 mm nonobstructing calculus of the inferior pole right kidney. 7. Suggested cellulitis of the lower anterior abdominal wall with probable phlegmonous change anterolateral to the left hip with the subcutaneous tissues. Subcutaneous emphysema within this distribution suggest gas-forming organism or recent instrumentation. Correlate with clinical exam. Electronically signed by: Nathan Dubois M.D. 05/03/2018 9:00 AM Dictated Date/Time: 05/03/2018 8:51 AM CHEST ONE VIEW PORTABLE HISTORY: Generalized abdominal pain. COMPARISON: Chest 01/22/2018. FINDINGS: Progressive patchy bibasilar airspace opacities. The upper lung zones are clear. No pneumothorax. No pleural effusions. The heart remains borderline enlarged. Left jugular catheter terminates at the proximal SVC. This remains unchanged. There is a vascular stent in the region of the proximal right subclavian artery. This is also unchanged. IMPRESSION: Interval progression of the bibasilar airspace opacities. This likely represents a pneumonia. Recommend one month follow-up to ensure resolution. Electronically signed by: Florian Kaiser M.D. 05/03/2018 7:26 AM Dictated Date/Time: 05/03/2018 7:23 AM Medication Reconciliation New Medications: Doxycycline Hyclate (Doxycycline Hyclate) 100 Mg Cap 100 MG PO BID for 5 Days, #10 CAP Continued Medications: Acetaminophen (Tylenol) 325 Mg Tab 650 MG PO Q4H PRN for Pain or Fever, TAB Albuterol Hfa (Ventolin Hfa) 200 Puffs/04092 Mcg Aers 2 PUFFS INH Q4H PRN for SOB/Wheezing, #1 INHALER Alum & Mag Hydrox-Simethicone (Maalox Max Susp) 1 Payton Payton 30 ML PO UD PRN for Indigestion Atorvastatin (Lipitor) 40 Mg Tab 40 MG PO DAILY, TAB B-Complex W/ C & Folic Acid (Marcell Caps) 1 Cap Cap 1 CAP PO DAILY Calcium Carbonate (Tums) 500 Mg Chew 750 MG PO AC 2 TABS WITH MEALS, 1 TAB WITH SNACKS Cholecalciferol (D 1000) 1,000 Unit Cap 1000 UNITS PO DAILY Cinecalcet (Sensipar) 60 Mg Tab 60 MG PO QPM Clopidogrel (Plavix) 75 Mg Tab 75 MG PO DAILY, TAB Cyclobenzaprine Hcl (Flexeril) 5 Mg Tab 5 MG PO BID PRN for Muscle Spasms, TAB PRN Docusate Sodium (Docusate Sodium) 100 Mg Cap 100 MG PO BID Duloxetine HCl (Duloxetine HCl) 30 Mg Cap 1 TAB PO DAILY Epinephrine (Epipen) 0.3 Mg/0.3 Ml Inj 0.3 MG IM UD PRN for ALLERGIC REACTION Fluticasone Prop/Salmeterol (Advair Diskus 500/50 60 Dose) 1 Ea Aerp 1 PUFF INH BID, INHALER Fluticasone Propionate (Nasal) (Flonase Allergy Relief) 50 Mcg/Act Spr 2 SPRAYS CORTEZ DAILY Guaifenesin/Codeine (Robitussin-Ac Syrup) Syrp 5 ML PO Q4 PRN for Cough Ipratropium-Albuterol (Duoneb) 3 Ml Nebu 1 TREATMENT INH QID Mirtazapine (Remeron) 15 Mg Tab 7.5 MG PO HS Montelukast Sodium (Singulair) 10 Mg Tab 10 MG PO DAILY, TAB Ondansetron Hcl (Zofran) 4 Mg Tab 4 MG PO Q8 PRN for Nausea Oxycodone Hcl (Oxycodone Hcl) 10 Mg Tab 1 TAB PO Q6H PRN for Pain for 30 Days, #120 TAB Pantoprazole (Protonix) 40 Mg Tab 40 MG PO BID Polyethylene Glycol 3350 (Miralax) 1 Pow Pow 17 GM PO DAILY, #527 GM Ranitidine (Zantac) 300 Mg Tab 300 MG PO HS, TAB Sennosides (Senokot) 8.6 Mg Tab 8.6 MG PO UD TAKE 1 TABLET BY MOUTH TWICE DAILY. CHANGE TO ONCE DAILY IF HAVING DIARRHEA. Sevelamer Carbonate (Renvela) 800 Mg Tab 2400 MG PO TIDM for 90 Days, TAB 3 Refills Sevelamer Carbonate (Renvela) 800 Mg Tab 800 MG PO snacks for 90 Days, TAB 3 Refills Tiotropium [place] (Spiriva Handihaler) 30 Puff/540 Mcg Aerp 1 CAP INH DAILY Warfarin Sod (Coumadin) 5 Mg Tab 2 TABS PO DAILY@1600 Admission Information HPI (per Admitting provider): This is a 62yo F with a PMH of ESRD (on HD MWF), atrial fibrillation (on coumadin), chronic respiratory failure (on 2L home oxygen) 2/2 asthma/COPD and other medical problems listed below who presents with persistent nausea and vomiting beginning this morning. States that she felt fine when she went to bed last night but woke up feeling nauseous and immediately had an episode of green bilious vomiting. Was waiting on porch for ride to dialysis when she vomited again. [place] weak, lightheaded, itchy and "like I was going to pass out" and came to ED for further evaluation. Was recently admitted to [facility] [place] 04[place]25-04[place]30 for worsening swelling over L thigh vascular access. CT scan of pelvis revealed left anterior thigh hematomas and was taken to OR by vascular surgery where hematoma was evacuated and a wound VAC was placed. Wound cultures were negative for infection. Was discharged home from [facility] on 04/30 with home health nursing, PT and OT services. In addition to nausea, vomiting and fatigue, patient endorses chronic shortness of breath (requires 2L NC at home) for a history of asthma/COPD in setting of second hand smoke. Also endorses diffuse abdominal discomfort, but thinks it may just be from vomiting this morning. Left thigh is tender (area with dialysis access) but states this is chronic. Has had a historically difficult time with dialysis access sites and has received dialysis for almost 18 years. Did not take any medication yesterday, including coumadin. Denies any fever, chills, lightheadedness, cough, wheezing, chest pain, diarrhea, constipation, LE swelling or confusion. The patient no longer makes urine. Is a DNR. Physical Exam (per Admitting): General Appearance: + mild distress, + pertinent finding (Chronically ill appearing, vomited during exam ) Head: normocephalic, atraumatic Eyes: normal inspection, PERRL, sclerae normal ENT: normal ENT inspection, hearing grossly normal, pharynx normal (dry mucous membranes ) Neck: supple, thyroid normal, no carotid bruits Respiratory/Chest: chest non-tender, no respiratory distress, no accessory muscle use, + wheezing (Scattered inspiratory wheezes bilaterally. No crackles noted. ) Cardiovascular: regular rate, rhythm, normal peripheral pulses Abdomen/GI: soft, no organomegaly, + tenderness (Diffusely TTP. No guarding ) Back: normal inspection Extremities/Musculoskelatal: normal inspection, no calf tenderness, + pertinent finding (L thigh with wound vac in place. Surrounding area tender but no erythema. Left thigh fistula palpated ) Neurologic/Psych: no motor/sensory deficits, alert, normal mood/affect, oriented x 3 Skin: normal color, warm/dry Hospital Course This is a 62yo F with a PMH of ESRD (on HD MWF), atrial fibrillation (on coumadin), chronic respiratory failure (on 2L home oxygen) 2/2 asthma/COPD and other medical problems listed below who presents with persistent nausea and vomiting beginning this morning. Nausea, vomiting-resolved -In setting of ESRD on dialysis -Due for treatment today -Likely uremic symptoms, should improve with HD -Antiemetics -No more nausea and/or vomiting -Tolerating regular diet -diacharge home today Hospital acquired PNA -CXR with interval progression of the bibasilar airspace opacities that likely represents a pneumonia -In setting of asthma, COPD -Recently hospitalized at [facility] -Denies fever, cough, wheezing -Possible aspiration this AM -Cover with vanc (renally dosed) and cefepime for now -Aspiration precautions -Supplemental O2 -Xopenex neb treatment -Cont home inhalers, Singulair -Start oral antibiotic from today and continue for 7-10 days as an outpatient -Doxycycline 100mg BID for 5 days ESRD on HD -Dialysis MWF -Cr of 8.4, potassium of 5.7 -Continue renal vitamins, renal diet -Nephro consult for HD -Plan to dialyze today -Like to go home following dialysis tomorrow -Continue HD as an OP Elevated troponin -Initially elevated to 0.05 -Denies chest pain, acutely worsened SOB -In setting of ESRD -EKG without ischemic changes -Monitor on telemetry -Doubt any ACS and/or cardiac issues during this admission Left thigh hematoma s/p evacuation -Discharged from [facility] on 04/30 with wound vac -Due to be changed today -Site is tender but no overlying erythema -Wound care informed and she will have outpatient follow-up following discharge H/o A Fib -Currently in sinus rhythm -Continue Coumadin -INR of 2 today -- has been receiving 10mg daily at [facility] and since discharge but missed yesterday's dose -Giving 10mg today and assessing INR tomorrow for further dosing -INR is only 2.1 today -We will continue Coumadin as an outpatient dose Sleep apnea -CPAP HS with 2L NS Mood disorder -Cont Cymbalta, Remeron Chronic pain -Continue home dose Flexeril and Percocet -Bowel regimen DVT Ppx: On warfarin Code status: DNR PCP: Melissa Dispo: Admitted to telemetry. Discharge home today after dialysis Total time spent on discharge = 25 MINUTES This includes examination of the patient, discharge planning, medication reconciliation, and communication with other providers. Discharge Instructions Discharge Instructions Date of Service May 05, 2018. Admission Reason for Admission: Elevated Troponin, Nausea And Vomiting,Pneumonia Discharge Discharge Diagnosis / Problem: Nausea ,Vomting-resolved,LLL infiltration,ESRD on HD Discharge Goals Goal(s): Prevent Disease Progression Activity Recommendations Activity Limitations: resume your previous activity . Instructions / Follow-Up Instructions / Follow-Up Dr Torres on 05/07/18 at 12:45 PM,Wound Care will call for Appointment.Keep Regular Follow up with the Coagulation clinic Current Hospital Diet Patient's current hospital diet: AHA Diet (Heart Healthy), Renal Diet Discharge Diet Recommended Diet: AHA Diet (Heart Healthy), Renal Diet Pending Studies Studies pending at discharge: no Medical Emergencies . Who to Call and When: Medical Emergencies: If at any time you feel your situation is an emergency, please call 911 immediately. . Non-Emergent Contact Non-Emergency issues call your: Primary Care Provider . Past History Medical & Surgical History: (1) Open wound of left thigh (2) Anemia secondary to renal failure (3) ESRD (end stage renal disease) on dialysis (4) Nausea and vomiting (5) Pneumonia (6) ANXIETY STATE NOS (7) ANTICOAGULANTS,LT,CURRENT USE (8) History of atrial fibrillation (9) Obstructive sleep apnea on CPAP (10) Thromboectomy Left Brachiobasilic ateriovenous graft (11) S/P dialysis catheter insertion (12) History of total hysterectomy (13) History of cholecystectomy . "Provider Documentation" section prepared by Stacie Moyer. . Additional Copies To Luz Torres M.D.
--- NOTE | 2018-05-21 07:09 | EDITING REQUIRED CODING QUERY ---
CODING QUERY To promote full compliance with coding requirements relating to patient care, provider participation is requested in all cases of larder cook uncertainty. Please assist us with the question(s) below: Coding Question(s): There is documentation on H&P, Progress Notes and on the Discharge Summary under the Hospital acquired PNA of -Possible aspiration this AM. Please clarify below, regarding the Pneumonia. ( x ) There was Possible Aspiration Pneumonia ( ) No Aspiration Pneumonia Physician's Response(s): Thank you Cindy Singh Principal Diagnosis: "_that condition established after study, to be chiefly responsible for occasioning the admission of the patient to the hospital for care." Co-Existing Principal Diagnosis: "_when two or more diagnoses equally meet the criteria for principal diagnosis as determined by the circumstances of admission, diagnostic work up, and/or therapy provided, and the Alphabetic Index, Tabular List, or another coding guideline does not provide sequencing direction, any one of the diagnoses may be sequenced first." "When the physician has documented what appears to be a current diagnosis in the body of the record, but has not included the diagnosis in the final diagnostic statement, the physician should be asked whether the diagnosis should be added." (Source Coding Clinic 2 QTR90. p3-4)
== END 2018-05-06 11:22 | disposition home health service (06) | DRG 177 ==
LOC: EDBD 06:45 → C.EDB 06:46 → C.MED 11:01 → ENRESERV 11:26
PROVIDERS: ADMIT Internal Medicine; ATTEND Internal Medicine
DX: J69.0 Pneumonitis due to inhalation of food and vomit (principal); N18.6 End stage renal disease; I13.11 Hypertensive heart and chronic kidney disease without heart failure, with stage 5 chronic kidney disease, or end stage renal disease; J96.10 Chronic respiratory failure, unspecified whether with hypoxia or hypercapnia; N25.81 Secondary hyperparathyroidism of renal origin; J44.9 Chronic obstructive pulmonary disease, unspecified; S70.12XD Contusion of left thigh, subsequent encounter; R78.89 Finding of other specified substances, not normally found in blood; E78.5 Hyperlipidemia, unspecified; G47.33 Obstructive sleep apnea (adult) (pediatric); K21.9 Gastro-esophageal reflux disease without esophagitis; F41.9 Anxiety disorder, unspecified; I48.91 Unspecified atrial fibrillation; F32.9 Major depressive disorder, single episode, unspecified; K59.09 Other constipation; D63.1 Anemia in chronic kidney disease; G89.29 Other chronic pain; Z99.2 Dependence on renal dialysis; Z51.81 Encounter for therapeutic drug level monitoring; Z79.899 Other long term (current) drug therapy; Z79.01 Long term (current) use of anticoagulants; Z79.02 Long term (current) use of antithrombotics/antiplatelets; Z99.81 Dependence on supplemental oxygen; Z66 Do not resuscitate; Z86.711 Personal history of pulmonary embolism; Z77.22 Contact with and (suspected) exposure to environmental tobacco smoke (acute) (chronic); Z88.5 Allergy status to narcotic agent; Z88.6 Allergy status to analgesic agent; Z91.018 Allergy to other foods; Z88.1 Allergy status to other antibiotic agents; Z88.0 Allergy status to penicillin; Z88.3 Allergy status to other anti-infective agents; Z85.3 Personal history of malignant neoplasm of breast; Z80.0 Family history of malignant neoplasm of digestive organs; Z80.1 Family history of malignant neoplasm of trachea, bronchus and lung; Z80.51 Family history of malignant neoplasm of kidney; X58.XXXD Exposure to other specified factors, subsequent encounter

== ENCOUNTER 2018-06-06 01:39 | Observation (INO) | payer OTHER ==
[~2018-06-06] VITALS: Ht 149.9 cm; Wt 75.1 kg
[~2018-06-06 01:39] MED LIST changes: +ALUMSUS2 PO; +B-COCAP21 PO; -B-COTAB83 PO; -CEPH500C PO; -CYM/30 PO; +CYM30 PO; -FLUO40CA8 PO; +GUAISYP4 PO; -OXGN; +OXYC-164 PO; -OXYC-737 PO; -OXYC-90 PO; +SPRIN/30 INH; -WARF5TAB7 PO
--- NOTE | 2018-06-06 02:32 | EMERGENCY ROOM VISIT NOTE ---
History Report prepared by Gagan: Félix Sweeney Under the Supervision of: Dr. Sharon Penn D.O. First contact with patient: 01:47 Chief Complaint: CHEST PAIN Stated Complaint: CHEST PAIN/SHORTNESS OF BREATH History of Present Illness The patient is a 62 year old female who presents to the Emergency Room via EMS with complaints of waxing and waning chest pain that began 15 hours ago. Patient describes the chest pain as a "heavy sensation". She states an hour after getting the chest pain she began to have right arm pain. Patient states her pain then worsened this evening causing her to come to the ER. Patient was given 2 sprays of nitroglycerin via EMS which brought her pain from a "5/10 to 3 /10" and finally to a "0/10". Patient adds she has also had intermittent SOB throughout the day. Patient states she has a history of similar symptoms but thought they were due to her history of arthritis and anxiety attacks. Patient adds she is on dialysis. Patient states she has a wound vac that she changes daily. She denies it being "green" over the past week. She states she was seen at the wound clinic about a week ago. Patient states her PCP is Sky at [facility]. Past medical history includes hypertension, atrial fibrillation which she takes Coumadin for, and kidney failure. 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 She adds she had leg swelling/cramping yesterday but it has resolved. Patient is present with her daughter. Source of History: patient Onset: 15 hours ago Position: chest, arm (right) Quality: other ("heaviness") Timing: waxes/wanes Modifying Factors (Relieving): other (Nitroglycerin) Associated Symptoms: + SOB Note: Negative leg swelling/cramping. Review of Systems See HPI for pertinent positives & negatives. A total of 10 systems reviewed and were otherwise negative. Past Medical & Surgical Medical Problems: (1) Allergic rhinitis (2) Anemia secondary to renal failure (3) ANTICOAGULANTS,LT,CURRENT USE (4) ANXIETY STATE NOS (5) Asthma (6) Benign hypertension (7) C. difficile diarrhea (8) Chest pain (9) Chronic constipation (10) Chronic kidney disease (CKD), stage V (11) Chronic pancreatitis (12) COPD (chronic obstructive pulmonary disease) (13) Depressive disorder (14) DIVERTICULOSIS COLON (W/O MENT OF HEMORRHAGE) (15) Dyslipidemia (16) ESRD (end stage renal disease) on dialysis (17) Gastroesophageal reflux disease (18) History of atrial fibrillation (19) History of GI bleed (20) History of pancreatitis (21) Obstructive sleep apnea on CPAP (22) Open wound of left thigh (23) Pancreatitis (24) Pulmonary emboli (25) S/p arteriovenous anastomosis (26) Solitary Kidney (27) SUPPLEMENTAL OXYGEN Surgical Problems: (1) Hernia repair (2) History of - section (3) History of appendectomy (4) History of cholecystectomy (5) History of total hysterectomy (6) S/P dialysis catheter insertion (7) Thromboectomy Left Brachiobasilic ateriovenous graft Family History FH: breast cancer MOTHER FH: colon cancer FATHER FH: kidney cancer FATHER FH: lung cancer FATHER Social History Smoking Status: Never Smoker Alcohol Use: none Drug Use: none Marital Status: single, Housing Status: lives with family Occupation Status: disabled Current/Historical Medications Scheduled Atorvastatin (Lipitor), 40 MG PO DAILY B-Complex W/ C & Folic Acid (Marcell Caps), 1 CAP PO DAILY Calcium Carbonate (Tums), 750 MG PO AC Cholecalciferol (D 1000), 1,000 UNITS PO DAILY Cinecalcet (Sensipar), 60 MG PO QPM Clopidogrel (Plavix), 75 MG PO DAILY Diltiazem HCl (Diltiazem Cd), 120 MG PO QAM Docusate Sodium (Docusate Sodium), 100 MG PO BID Duloxetine HCl (Duloxetine HCl), 1 TAB PO DAILY Fluticasone Prop/Salmeterol (Advair Diskus 500/50 60 Dose), 1 PUFF INH BID Fluticasone Propionate (Nasal) (Flonase Allergy Relief), 2 SPRAYS CORTEZ DAILY Ipratropium-Albuterol (Duoneb), 1 TREATMENT INH QID Mirtazapine (Remeron), 7.5 MG PO HS Montelukast Sodium (Singulair), 10 MG PO DAILY Pantoprazole (Protonix), 40 MG PO BID Polyethylene Glycol 3350 (Miralax), 17 GM PO DAILY Ranitidine (Zantac), 300 MG PO HS Sennosides (Senokot), 8.6 MG PO UD Sevelamer Carbonate (Renvela), 2,400 MG PO TIDM Sevelamer Carbonate (Renvela), 800 MG PO snacks Tiotropium Bixby (Spiriva Handihaler), 1 CAP INH DAILY Warfarin Sod (Coumadin), 2 TABS PO DAILY@1600 Scheduled PRN Acetaminophen (Tylenol), 650 MG PO Q4H PRN for Pain or Fever Albuterol Hfa (Ventolin Hfa), 2 PUFFS INH Q4H PRN for SOB/Wheezing Alum & Mag Hydrox-Simethicone (Maalox Max Susp), 30 ML PO UD PRN for Indigestion Cyclobenzaprine Hcl (Flexeril), 5 MG PO BID PRN for Muscle Spasms Epinephrine (Epipen), 0.3 MG IM UD PRN for ALLERGIC REACTION Guaifenesin/Codeine (Robitussin-Ac Syrup), 5 ML PO Q4 PRN for Cough Ondansetron Hcl (Zofran), 4 MG PO Q8 PRN for Nausea Oxycodone Hcl (Oxycodone Hcl), 1 TAB PO Q6H PRN for Pain Allergies Coded Allergies: Hydromorphone (Verified Allergy, Intermediate, SHORTNESS OF BREATH, ) Aspirin (Verified Allergy, Mild, BLOODY NOSES, 06/06/18) Ciprofloxacin (Verified Allergy, Mild, HIVES, 06/06/18) Metronidazole (Verified Allergy, Mild, HIVES, 06/06/18) Penicillins (Verified Allergy, Mild, HIVES, 06/06/18) Chocolate (Verified Allergy, Unknown, HIVES, 06/06/18) Peanut Butter Flavor (Verified Allergy, Unknown, HIVES, 06/06/18) Tomato (Verified Allergy, Unknown, HIVES, 06/06/18) White Potato (Verified Allergy, Unknown, HIVES, 06/06/18) Uncoded Allergies: CEREAL COLOR DYES (Allergy, Severe, SOB, THROAT SWELLS, 08/28/17) ENVIRONMENTAL (Allergy, Intermediate, ., 05/03/18) TRIX CEREAL (Allergy, Unknown, SHORTNESS OF BREATH, SWELLING OF THROAT, ) Physical Exam Vital Signs Date Time Temp Pulse Resp B/P (MAP) Pulse Ox O2 Delivery O2 Flow Rate FiO2 06/06/18 04:03 86 17 163/78 94 Room Air 06/06/18 02:00 37.0 82 16 162/79 94 Room Air 06/06/18 02:00 94 Room Air 06/06/18 01:55 79 Physical Exam General: Patient is a dialysis patient and is chest pain free at time of exam. HEENT: Head - normocephalic and atraumatic Pupils are equal, round, and reactive to light. Extraocular eye muscles are intact, and sclera are anicteric. Nose - moist nasal mucosa without discharge. Mouth - moist buccal mucosa. Oropharynx is nonerythematous and there is no tonsillar exudate or edema noted. Neck: Supple; there is palpable enlargement of the right parotid gland. This is tender to touch. Heart: Regular rate and rhythm. There is a normal S1 and S2 with no murmurs, clicks, or gallops appreciated. Lungs: Clear to auscultation bilaterally with no wheezes, rales, or rhonchi. Abdomen: Soft, completely nontender, nondistended, with good bowel sounds. There are no palpable pulsatile masses or hepatosplenomegaly. There is no guarding, rigidity, or rebound noted. Left lower quadrant surgical wound: Green drainage, does not appear to be infected, no odor, wound was redressed. Extremities: No evidence of cyanosis, clubbing, or edema. There are easily palpable peripheral pulses. Skin: Dark in color, warm, and dry with good turgor and no rashes. Medical Decision & Procedures ER Provider Diagnostic Interpretation: Radiology results as stated below per my review and the interpretation: CHEST X-RAY: X-ray shows cardiomegaly and compared to the x-ray from April 2018 bibasilar opacities appear to be resolving. Laboratory Results 06/06/18 02:34 Red Blood Count 3.61, Mean Corpuscular Volume 103.0, Mean Corpuscular Hemoglobin 30.2, Mean Corpuscular Hemoglobin Concent 29.3, Mean Platelet Volume 10.6, Neutrophils (%) (Auto) 64.9, Lymphocytes (%) (Auto) 23.0, Monocytes (%) ( Auto) 6.8, Eosinophils (%) (Auto) 4.9, Basophils (%) (Auto) 0.2, Neutrophils # ( Auto) 4.10, Lymphocytes # (Auto) 1.45, Monocytes # (Auto) 0.43, Eosinophils # ( Auto) 0.31, Basophils # (Auto) 0.01 06/06/18 02:34 06/06/18 03:30 Test 06/06/18 02:34 06/06/18 03:30 White Blood Count 6.31 K/uL (4.8-10.8) Red Blood Count 3.61 M/uL (4.2-5.4) Hemoglobin 10.9 g/dL (12.0-16.0) Hematocrit 37.2 % (37-47) Mean Corpuscular Volume 103.0 fL (80-100) Mean Corpuscular Hemoglobin 30.2 pg (25-34) Mean Corpuscular Hemoglobin Concent 29.3 g/dl (32-36) Platelet Count 132 K/uL (130-400) Mean Platelet Volume 10.6 fL (7.4-10.4) Neutrophils (%) (Auto) 64.9 % Lymphocytes (%) (Auto) 23.0 % Monocytes (%) (Auto) 6.8 % Eosinophils (%) (Auto) 4.9 % Basophils (%) (Auto) 0.2 % Neutrophils # (Auto) 4.10 K/uL (1.4-6.5) Lymphocytes # (Auto) 1.45 K/uL (1.2-3.4) Monocytes # (Auto) 0.43 K/uL (0.11-0.59) Eosinophils # (Auto) 0.31 K/uL (0-0.5) Basophils # (Auto) 0.01 K/uL (0-0.2) RDW Standard Deviation 67.6 fL (36.4-46.3) RDW Coefficient of Variation 18.0 % (11.5-14.5) Immature Granulocyte % (Auto) 0.2 % Immature Granulocyte # (Auto) 0.01 K/uL (0.00-0.02) Prothrombin Time 12.7 SECONDS (9.0-12.0) Prothromb Time International Ratio 1.2 (0.9-1.1) Anion Gap 12.0 mmol/L (3-11) Est Creatinine Clear Calc Drug Dose 6.4 ml/min Estimated GFR () 6.0 Estimated GFR (Non- 5.2 BUN/Creatinine Ratio 5.0 (10-20) Calcium Level 9.4 mg/dl (8.5-10.1) Total Bilirubin 0.4 mg/dl (0.2-1) Alanine Aminotransferase (ALT/SGPT) 13 U/L (12-78) Alkaline Phosphatase 101 U/L (45-117) Total Protein 7.4 gm/dl (6.4-8.2) Albumin 3.7 gm/dl (3.4-5.0) Globulin 3.7 gm/dl (2.5-4.0) Albumin/Globulin Ratio 1.0 (0.9-2) Magnesium Level 2.3 mg/dl (1.8-2.4) Aspartate Amino Transf (AST/SGOT) 8 U/L (15-37) Lipase 161 U/L (73-393) Laboratory results per my review. ECG Per My Interpretation Indication: chest pain Rate (beats per minute): 78 Rhythm: normal sinus Findings: no acute ischemic change, no ectopy, other (No ST segment changes) ED Course 0154: Past medical records reviewed. The patient was evaluated in room B9. A complete history and physical exam was performed. A 12-lead EKG was obtained. An IV lock was initiated and labs are drawn as above. 0336: I reevaluated the patient. She states her chest pain has not come back. She had a chest x-ray as described above. 0407: Upon reevaluation, I discussed findings and results with her. She verbalized agreement of the treatment plan. I spoke with Dr. Espinosa of the [facility]. The patient will be evaluated for further management and care. 0429: Patient is now refusing to stay inpatient. AMA paperwork will be arranged. I spent some time trying to convince the patient of admission. 0434: Patient has now changed her mind again and wants to stay as an inpatient. The patient will be evaluated for further management and care. Medical Decision The patient is a 62 year old female who presents to the ED with waxing and waning chest pain. Differential diagnosis includes acute coronary syndrome, cardiac ischemia, angina, GERD, and anxiety. Lab results show no leukocytosis, hemoglobin = 10.9, normal platelet count, negative troponin, normal LFTs and glucose, and creatinine = 7.6. This is a 62-year-old female who presents to the emergency department with a substernal chest heaviness throughout the day today with radiation into the right arm. She has a normal-appearing EKG and negative cardiac enzymes. However, the patient has a significant past medical history and her heart score is 5. I discussed the case with the [facility] Hospitalist and originally the patient was refusing admission and was agreeable to sign out AMA. She then changed her mind and was willing to stay. I think this is in her best interest given her past medical history. Medication Reconcilliation Current Medication List: was personally reviewed by me Blood Pressure Screening Patient's blood pressure: Elevated blood pressure Referred to hospitalist. Consults Time Called: [phone] Consulting Physician: Dr. Espinosa - [facility] Hospitalist Returned Call: [phone] Discussed the patient's case. The patient will be evaluated for further management. Impression Primary Impression: Substernal chest pain Additional Impression: SOB (shortness of breath) Scribe Attestation The scribe's documentation has been prepared under my direction and personally reviewed by me in its entirety. I confirm that the note above accurately reflects all work, treatment, procedures, and medical decision making performed by me. Departure Information Dispostion Being Evaluated By Hospitalist Prescriptions Diltiazem HCl (Diltiazem Cd) 120 Mg Capcr 120 MG PO QAM for 30 Days Prov: Ramya Nino M.D. 06/06/18 Referrals Luz Torres M.D. (PCP) Forms Call Back Authorization, HOME CARE DOCUMENTATION FORM, IMPORTANT VISIT INFORMATION Patient Instructions My [facility] Health Problem Qualifiers
[2018-06-06 03:11] LABS: BASO % 0.2 %; BASO ABS # 0.01 K/uL (0-0.2); EOS % 4.9 %; EOS ABS # 0.31 K/uL (0-0.5); HEMATOCRIT 37.2 % (37-47); HEMOGLOBIN 10.9 g/dL (12.0-16.0); IG# 0.01 K/uL (0.00-0.02); LYMPH ABS # 1.45 K/uL (1.2-3.4); MEAN CORPUSCULAR HEMOGLOBIN 30.2 pg (25-34); MEAN CORPUSCULAR HGB CONC 29.3 g/dl (32-36); MEAN PLATELET VOLUME 10.6 fL (7.4-10.4); MONO % 6.8 %; MONO ABS # 0.43 K/uL (0.11-0.59); NEUT % 64.9 %; PLATELET COUNT 132 K/uL (130-400); RED CELL DISTRIBUTION WIDTH SD 67.6 fL (36.4-46.3); WHITE BLOOD COUNT 6.31 K/uL (4.8-10.8)
[2018-06-06 03:14] LABS: ALBUMIN 3.7 gm/dl (3.4-5.0); ALKALINE PHOSPHATASE 101 U/L (45-117); ALT/SGPT 13 U/L (12-78); BLOOD UREA NITROGEN 39 mg/dl (7-18); CALCIUM 9.4 mg/dl (8.5-10.1); CARBON DIOXIDE 25 mmol/L (21-32); CREATININE 7.63 mg/dl (0.60-1.20); GLUCOSE 82 mg/dl (70-99); SODIUM 138 mmol/L (136-145); TOTAL PROTEIN 7.4 gm/dl (6.4-8.2)
[2018-06-06 04:06] LABS: POTASSIUM 4.6 mmol/L (3.5-5.1)
[2018-06-06 04:09] LABS: INR 1.2 (0.9-1.1); PTT PATIENT 27.5 SECONDS (21.0-31.0)
[2018-06-06 05:00] VITALS: BP 160/82; PULSE 88; TEMP 36.6; O2SAT 98; BMI 33.4
[2018-06-06 05:05] VITALS: O2SAT 95
[2018-06-06] MEDS ORDERED: MoRPHine SULFATE 2 MG/ML CARP IV PRN (05:15)
[2018-06-06] MEDS ORDERED: ACETAMINOPHEN 325 MG TAB PO PRN (05:15)
[2018-06-06] MEDS ORDERED: LORAZEPAM 2 MG/ML 1 ML VIAL IV PRN (05:15)
[2018-06-06] MEDS ORDERED: PROCHLORPERAZINE INJ 5 MG in SYRINGE 4 ML IV PRN (05:15)
[2018-06-06] MEDS ORDERED: IV FLUIDS COMPLETED PRN ×2 (05:15→05:30)
[2018-06-06] MEDS ORDERED: NITROGLYCERIN 0.4 MG SL PER TAB CHARGE SL PRN (05:15)
[2018-06-06] MEDS ORDERED: OXYCODONE HCL IR 5 MG TAB (IMMEDIATE RELEASE) PO PRN (05:15)
[2018-06-06] MEDS ORDERED: SEVELAMER HYDROCH 800 MG TAB PO PRN (05:15)
[2018-06-06] MEDS ORDERED: LEVALBUTEROL/IPRATROPIUM NEB INH PRN (05:30)
[2018-06-06] MEDS ORDERED: DILTIAZEM HCL 120 MG CAPCR PO ONE (06:00)
[2018-06-06] MEDS ORDERED: WARFARIN SOD 5 MG TAB PO STA (06:00)
[2018-06-06] MEDS ORDERED: LORAZEPAM INJ 0.5 MG in SYRINGE 0.75 ML IV PRN (06:15)
[2018-06-06] MEDS: HEPARIN 25,000 UNIT/500ML D5W 500 ML IV SCH ×3 (06:31→14:11)
[2018-06-06] MEDS ORDERED: HEPARIN IV LOW DOSE NO BOLUS STA (06:47)
[2018-06-06 07:02] VITALS: BP 113/68; PULSE 65; TEMP 36.6; O2SAT 94
--- NOTE | 2018-06-06 07:27 | DIAGNOSTIC IMAGING REPORT ---
R SHOULDER MIN 2 VIEWS ROUTINE CLINICAL HISTORY: Right shoulder pain COMPARISON: None FINDINGS: Multiple vascular stents are incidentally noted. No acute fracture within the right shoulder is noted. Alignment is anatomic. There is moderate osteoarthritis of the right acromioclavicular joint and mild osteoarthritis of the right glenohumeral joint. IMPRESSION: 1. No acute fracture or dislocation within the right shoulder. 2. Moderate osteoarthritis of the right acromioclavicular joint. Electronically signed by: Rory Pacheco M.D. 06/06/2018 7:26 AM Dictated Date/Time: 06/06/2018 7:24 AM
--- NOTE | 2018-06-06 07:43 | DIAGNOSTIC IMAGING REPORT ---
CHEST ONE VIEW PORTABLE CLINICAL HISTORY: Chest pain. Shortness of breath. COMPARISON STUDY: Chest radiograph May 03, 2018. FINDINGS: Multiple vascular stents are noted. Linear left midlung opacity suggest atelectasis or scarring. There is no consolidation to suggest pneumonia. There is no evidence for pulmonary edema. Mild cardiomegaly is unchanged. Bilateral airspace opacities shown on exam of May 03, 2018 have improved. IMPRESSION: No acute cardiopulmonary findings. Electronically signed by: Rory Pacheco M.D. 06/06/2018 7:42 AM Dictated Date/Time: 06/06/2018 7:39 AM
--- NOTE | 2018-06-06 07:51 | HISTORY & PHYSICAL EXAMINATION ---
DATE OF ADMISSION: 06/06/2018 PRIMARY CARE PHYSICIAN: Dr. Torres. CHIEF COMPLAINT: Chest pain. HISTORY OF PRESENT ILLNESS: \ History obtained from patient and records. Medical history is significant for hypertension not on meds since 2014, history of COPD, sleep apnea, end-stage renal disease, on hemodialysis, paroxysmal atrial fibrillation/recurrent PE on Coumadin, chronic anemia (baseline hemoglobin of 8-9), history of C. difficile. Recent confinement last in 04/2018 for pneumonia. Patient also found to have left thigh hematoma, status post evacuation. Yesterday around noon time while camping at the [facility], patient noted substernal discomfort and heaviness, non-pleuritic, going to her right arm, right shoulder hurts to motion, no trauma. Accompanying SOB. Patient attributed chest pain to anxiety. No abdominal pain. Loose stools. Legs a little sore. SBP noted to be as high as 180s during the patient dialysis as per patient. Relief with nitroglycerin given by EMS. MEDICAL HISTORY: As above. Hemodialysis on Thursday, Thursday, Thursday. Cardizem stopped in 2014 as per the outpatient notes. Possibly low blood pressure at that time as per patient. SURGICAL HISTORY: She has had vascular procedures, hematoma drainage, total abdominal hysterectomy, cholecystectomy, hernia repair, thrombectomy. MEDICATIONS: Home medications include Advair Diskus, Flonase, promethazine, Dolomed, Remeron, Singulair, Zofran, oxycodone, MiraLax, Protonix, Zantac, Senokot, Renvela, Spiriva, Coumadin, Flexeril, calcium carbonate, Sensipar, Plavix, docusate sodium, duloxetine, EpiPen, Ventolin, Maalox, Lipitor, Tylenol, renal caps, cholecalciferol. ALLERGIES: ASPIRIN, HYDROMORPHONE, FLAGYL, CIPRO, CHOCOLATE, TOMATO, PENICILLIN, PEANUT BUTTER, WHITE POTATO. FAMILY HISTORY: Hypertension, breast cancer, colon cancer, lung cancer. PERSONAL AND SOCIAL HISTORY: Nonsmoker. No chronic intake of alcohol. Disabled. REVIEW OF SYSTEMS: As per HPI, all 10 systems reviewed, all other ROS negative. PHYSICAL EXAMINATION: VITAL SIGNS: Blood pressure was noted to be 163/78, pulse rate 86, respiratory rate 17, temperature 37, O2 saturations 94% on room air. GENERAL: Noted to be obese. Anxious but pleasant SKIN: Sallow, warm. HEENT: pale palpebral conjunctivae. No ptosis. Dry oral mucosa. NECK: Short, supple. CHEST: CTA, no tenderness. HEART: Regular rate and rhythm, no murmur. ABDOMEN: Some distention, nontender. MUSCULOSKELETAL: Tenderness on the right upper arm. Some discomfort on rotation of right shoulder. Minimal lower extremity tenderness. NE : Coherent, no facial asymmetry, no gross focality. LABORATORY DATA: Hemoglobin was noted to be 10.9, hematocrit was 31.2, white cell count 6.31, platelets 132. Serum crea 7.3 troponin negative. INR 1.2 Chest x-ray as per my interpretation, atelectasis and hilar fullness, right. EKG: As per my interpretation, rate 70, NSR, no ischemia. ASSESSMENT: 1. Chest pain Relief with nitroglycerin possibly from elevated blood pressure Outpatient CCB stopped in 2014 possibly from low blood pressure. 2. Right shoulder pain contributory to elevated blood pressure. Rule out bony pathology. 3. Paroxysmal atrial fibrillation/recurrent pulmonary embolism on Coumadin NSR, INR subtherapeutic. 4. Hyperlipidemia as per records. 5. End-stage renal disease, on hemodialysis. 6. COPD/MARY, pulmonary status at baseline 7. chronic anemia 2 to ESRD, hemoglobin at baseline. 8. Diarrhea secondary to home laxatives rule out recurrent Clostridium difficile. 9. Bilateral LE pain rule out DVT PLAN: Observation PCU. Resume previous low dose Cardizem for BP control. Follow troponin. 2D echo. RE cp Right shoulder x-ray. RE R shoulder/RUE pain DVT prophylaxis, IV IV Heparin -Coumadin bridge. Nephrology consult for dialysis management if patient still admitted by Thursday. 06/07. (Patient noted to [facility].) Stool C. difficile. Hold home laxatives for now. LE venous Dopplers rule out DVT DVT prophylaxis. IV heparin Coumadin bridge tx DNR. MTDD
[2018-06-06] MEDS ORDERED: IPRATROPIUM BROMIDE NEB SOLN 0.02% 2.5 ML VIAL INH PRN (08:30)
[2018-06-06] MEDS ORDERED: LEVALBUTEROL 1.25MG/0.5ML NEB INH PRN (08:30)
[2018-06-06] MEDS: SEVELAMER HYDROCH 800 MG TAB PO SCH ×3 (08:55→17:58)
[2018-06-06] MEDS ORDERED: NEPHROCAPS PO SCH (09:00)
[2018-06-06] MEDS ORDERED: ATORVASTATIN 40 MG TAB PO SCH (09:00)
[2018-06-06] MEDS ORDERED: FLUTICASONE/SALMETEROL (ADVAIR) 500/50 INH 14 PUFF INH SCH (09:00)
[2018-06-06] MEDS ORDERED: FLUTICASONE PROPIONATE NA SPR 16 GM BTL NAE SCH (09:00)
[2018-06-06] MEDS ORDERED: TIOTROPIUM BROMIDE 5 PUFF/90 MCG INH INH SCH (09:00)
[2018-06-06] MEDS ORDERED: DULOXETINE (CYMBALTA) 30 MG CAP PO SCH (09:00)
[2018-06-06] MEDS ORDERED: CLOPIDOGREL BISULFATE 75 MG TAB PO SCH (09:00)
[2018-06-06] MEDS ORDERED: CHOLECALCIFEROL 1000 INTER.UNIT TAB PO SCH (09:00)
[2018-06-06] MEDS ORDERED: PANTOprazole SOD 40 MG TAB PO SCH (09:00)
[2018-06-06] MEDS ORDERED: MONTELUKAST SOD 10 MG TAB PO SCH (09:00)
--- NOTE | 2018-06-06 09:28 | ECHOCARDIOGRAM REPORT ---
*NOTICE TO RECEIVING REPUBLICAN AGENCY This information is strictly Confidential and protected under [place] law. [place] law prohibits you from making any further disclosure of this information unless further disclosure is expressly permitted by the written consent of the person to whom it pertains or is authorized by law. A general authorization for the release of medical or other information is not sufficient for this purpose. Hospital accepts no responsibility if the information is made available to any other person, INCLUDING THE PATIENT. Interpretation Summary * Name: EMANUEL PEREIRA Study Date: 06/06/2018 08:06 AM BP: 139/72 mmHg * Patient Location: [facility]\S\N279\S\1 HR: 88 * : 1955 (M/d/yyyy) Gender: Female Height: 56 in * Age: 62 yrs Ethnicity: [place] Weight: 172 lb * Ordering Physician: Maged Espinosa * Referring Physician: Self, Referred * Performed By: Ana Maria Hedrick RCS * * Reason For Study: CHEST PAIN * BSA: 1.7 m2 * -- Conclusions -- * Normal LV chamber size with mild concentric LVH. * Normal LV systolic function, EF 60-65%. * No segmental left ventricular wall motion abnormalities are noted. * Grade I diastolic dysfunction. * No significant valvular pathology. Procedure Details * A complete two-dimensional transthoracic echocardiogram was performed (2D, M-mode, Doppler and color flow Doppler). Left Ventricle * The left ventricle is normal in size. * There is mild concentric left ventricular hypertrophy. * Left ventricular systolic function is normal. * No segmental left ventricular wall motion abnormalities are noted. * Ejection Fraction = 60-65%. * The left ventricular wall motion is normal. Right Ventricle * The right ventricular cavity size is normal (basal dimension <4.2 cm in right ventricular apical 4-chamber view). * The right ventricular systolic function is normal as assessed by tricuspid annular plane systolic excursion (TAPSE) (normal >1.5 cm). Atria * The left atrium is mildly dilated. * Right atrial size is normal. Mitral Valve * The mitral valve is normal in structure and function. Tricuspid Valve * The tricuspid valve is normal in structure and function. Aortic Valve * The aortic valve is not well visualized. * No hemodynamically significant valvular aortic stenosis. * There is no significant aortic regurgitation. Pulmonic Valve * The pulmonary valve is not well seen, but the Doppler examination is normal without significant regurgitation or stenosis. Great Vessels * The aortic root is normal size. Pericardium/Pleural * There is no pericardial effusion. Left Ventricular Diastolic Function * Grade I diastolic dysfunction, (abnormal relaxation pattern). MMode 2D Measurements and Calculations IVSd 1.2 cm IVSs 1.4 cm LVIDd 4.8 cm LVIDs 4.2 cm LVPWd 1.0 cm LVPWs 1.4 cm IVS/LVPW 1.2 FS 12.9 % EDV(Teich) 106.9 ml ESV(Teich) 77.2 ml EF(Teich) 27.8 % EDV(cubed) 109.8 ml ESV(cubed) 72.4 ml EF(cubed) 34.0 % % IVS thick 12.8 % % LVPW thick 37.5 % LV mass(C)d 201.7 grams LV mass(C)dI 121.1 grams/m\S\2 LV mass(C)s 223.6 grams LV mass(C)sI 134.3 grams/m\S\2 SV(Teich) 29.7 ml SI(Teich) 17.8 ml/m\S\2 SV(cubed) 37.4 ml SI(cubed) 22.4 ml/m\S\2 Ao root diam 2.5 cm Ao root area 5.0 cm\S\2 LA dimension 4.1 cm LA/Ao 1.6 LVOT diam 1.9 cm LVOT area 3.0 cm\S\2 LVAd ap4 28.8 cm\S\2 LVLd ap4 7.9 cm EDV(MOD-sp4) 85.8 ml EDV(sp4-el) 89.2 ml LVAs ap4 14.8 cm\S\2 LVLs ap4 6.0 cm ESV(MOD-sp4) 32.0 ml ESV(sp4-el) 30.8 ml EF(MOD-sp4) 62.8 % EF(sp4-el) 65.5 % LVAd ap2 32.0 cm\S\2 LVLd ap2 8.8 cm EDV(MOD-sp2) 94.5 ml EDV(sp2-el) 99.1 ml LVAs ap2 21.3 cm\S\2 LVLs ap2 7.4 cm ESV(MOD-sp2) 51.6 ml ESV(sp2-el) 51.6 ml EF(MOD-sp2) 45.4 % EF(sp2-el) 47.9 % LVLd %diff 10.0 % EDV(MOD-bp) 95.2 ml LVLs %diff 18.9 % ESV(MOD-bp) 44.1 ml EF(MOD-bp) 53.6 % SV(MOD-sp4) 53.9 ml SI(MOD-sp4) 32.4 ml/m\S\2 SV(MOD-sp2) 42.9 ml SI(MOD-sp2) 25.8 ml/m\S\2 SV(MOD-bp) 51.0 ml SI(MOD-bp) 30.6 ml/m\S\2 SV(sp4-el) 58.4 ml SI(sp4-el) 35.1 ml/m\S\2 SV(sp2-el) 47.5 ml SI(sp2-el) 28.5 ml/m\S\2 Doppler Measurements and Calculations MV E max parminder 88.4 cm/sec MV A max parminder 107.3 cm/sec MV E/A 0.82 MV P1/2t max parminder 94.9 cm/sec MV P1/2t 55.2 msec MVA(P1/2t) 4.0 cm\S\2 MV dec slope 503.2 cm/sec\S\2 MV dec time 0.17 sec Ao V2 max 104.4 cm/sec Ao max PG 4.4 mmHg Ao max PG (full) 0.42 mmHg ALVARADO(V,A) 2.8 cm\S\2 ALVARADO(V,D) 2.8 cm\S\2 LV V1 max PG 3.9 mmHg LV V1 max 99.2 cm/sec PA V2 max 105.3 cm/sec PA max PG 4.4 mmHg TR max parminder 286.4 cm/sec
--- NOTE | 2018-06-06 10:49 | DIAGNOSTIC IMAGING REPORT ---
BILATERAL LOWER EXTREMITY VENOUS DOPPLER CLINICAL HISTORY: Leg pain. COMPARISON STUDY: CT of the left thigh April 19, 2018 and left lower extremity venous Doppler October 23, 2017. TECHNIQUE: Sonography of the deep venous system of the bilateral lower extremities was performed. Compression and augmentation were evaluated. FINDINGS: The bilateral common femoral, superficial femoral and popliteal veins were compressible. Augmentation was normal. Flow was shown within the deep calf vessels. A left groin AV graft is noted. A 3.2 x 2.1 x 2.9 cm adjacent fluid collection has decreased in size since CT of April 19, 2018. This suggests a resolving hematoma. IMPRESSION: 1. No evidence of deep venous thrombus within the bilateral lower extremities. 2. 3.2 x 2.1 x 2.9 cm left groin fluid collection which has decreased in size since CT of April 19, 2018. This suggests a resolving hematoma. Electronically signed by: Rory Pacheco M.D. 06/06/2018 10:47 AM Dictated Date/Time: 06/06/2018 10:44 AM
[2018-06-06 11:33] VITALS: BP 160/82; PULSE 78; TEMP 36.9; O2SAT 95
[2018-06-06 12:43] LABS: PTT PATIENT 32.4 SECONDS (21.0-31.0)
--- NOTE | 2018-06-06 13:12 | Progress Note ---
Progress Note Date of Service Jun 06, 2018. Progress Note Pt was seen and examined Sitting in bed with no distress eating lunch Pt said that she feels tired She said that she did not sleep last night She said that her right shoulder is al little tender She said that she has been doing quite a lot at the [facility] She said that she might have had some anxiety yesterday She said that she does not have any chest pain and SOB at this time She said that she might have missed one or 2 days of coumadin in the last few days, but not sure Pt would like to be discharged today. She is going to be at the [facility] with her family Denies any chest pain, palpitation, dizziness and SOB General- No acute distress Head- atraumatic Eyes- PERRL, EOMI ENT- oropharynx clear Neck- no JVD Lungs- No wheezing, No Crackle and rales Heart- regular rhythm Abdomen- soft, nontender, no masses Extremities- no calf tenderness, No edema Neuro- alert, oriented, PERRL, EOMI Skin- warm & dry A/P Chest pain possible related to anxiety vs pain related from the right shoulder EKG showed no ischemic changes Troponin x2 negative Asymptomatic currently ECHO showed * Normal LV chamber size with mild concentric LVH. * Normal LV systolic function, EF 60-65%. * No segmental left ventricular wall motion abnormalities are noted. * Grade I diastolic dysfunction. * No significant valvular pathology. Right shoulder pain Chronic pain syndrome Mostly related to arthritis Right shoulder xray showed no acute fracture or dislocation within the right shoulder. Moderate osteoarthritis of the right acromioclavicular joint. Continue Tylenol and oxycodone for pain Paroxysmal atrial fibrillation Rate control on NSR INR 1.2 Has not been compliant with coumadin (Missed 1 to 2 days as per pt) Continue coumadin and heparin drip while in the hospital Continue monitor PT/INR Hx Pulmonary embolism on Coumadin INR subtherapeutic at 1.2 Advised pt to take her coumadin daily Check INR on Thursday or Thursday [facility] HTN BP fluctuates Continue Cardizem po Monitor BP ESRD on HD HD on Thursday, Thursday, Thursday Next HD tomorrow Pt said that her ride will pick her up a the [facility] to go for HD Continue monitor electrolytes Left thigh hematoma S/P evacuation Doppler u/s showed no evidence of deep venous thrombus within the bilateral lower extremities. a 3.2 x 2.1 x 2.9 cm left groin fluid collection which has decreased in size since CT of April 19, 2018. This suggests a resolving hematoma. Continue follow up with wound care clinic She has appointment tomorrow for dressing change DVT px On heparin drip while in the hospital Continue coumadin INR 1.2 CODE STATUS DNR Disposition Possible discharge home today
[2018-06-06 14:43] VITALS: Ht 149.9 cm; Wt 75.1 kg
[2018-06-06] MEDS ORDERED: HEPARIN IV BOLUS 4,000 UNIT in SYRINGE 0 ML IV SCH (14:45)
[2018-06-06 15:00] VITALS: BP 111/63; PULSE 73; TEMP 36.8; O2SAT 93
[2018-06-06] MEDS ORDERED: DILT-202 PO (17:40)
--- NOTE | 2018-06-06 17:49 | Discharge Instructions ---
Discharge Instructions Date of Service Jun 06, 2018. Admission Reason for Admission: Chest Pain Discharge Discharge Diagnosis / Problem: Chest Pain, Right shoulder pain Discharge Goals Goal(s): Decrease discomfort, Improve function, Improve disease control Activity Recommendations Activity Limitations: resume your previous activity (as tolerated) . Instructions / Follow-Up Instructions / Follow-Up Follow up with your primary care provider Dr. Torres on 06/14 @ 10:45 AM Follow up with the Coumadin clinic for your INR Continue Coumadin daily (Do not miss any day unless instructing by the coumadin clinic to hold it) Follow up with the dialysis center (Your next dialysis day is tomorrow) Fall precaution Continue daily wound care Follow up with wound care clinic Next dialysis day is tomorrow Seek medical attention if your symptoms reoccur Monitor your blood pressure Current Hospital Diet Patient's current hospital diet: AHA Diet (Heart Healthy), Renal Diet, Low Lactose Diet Discharge Diet Recommended Diet: Renal Diet Pending Studies Studies pending at discharge: no Medical Emergencies . Who to Call and When: Medical Emergencies: If at any time you feel your situation is an emergency, please call 911 immediately. . Non-Emergent Contact Non-Emergency issues call your: Primary Care Provider Call Non-Emergent contact if: you have any medication questions . . "Provider Documentation" section prepared by Ramya Nino. .
[2018-06-06 18:02] VITALS: BP 111/63; PULSE 73; TEMP 36.8; O2SAT 93
[2018-06-06] MEDS ORDERED: RANITIDINE HCL 150 MG TAB PO SCH (21:00)
[2018-06-06] MEDS ORDERED: MIRTAZAPINE TAB 15 MG TAB PO SCH (21:00)
--- NOTE | 2018-06-06 22:52 | Discharge Summary ---
Discharge Summary Date of Service Jun 06, 2018. Discharge Summary Admission Date: Jun 06, 2018 at 04:36 Discharge Date: Jun 06, 2018 Discharge Disposition: Home with services Principal Diagnosis: Chest Pain Secondary Diagnoses/Problems: HTN ESRD ON HD LEFT TIGHT HEMATOMA P. AFIB Right shoulder pain PE Procedures: BILATERAL LOWER EXTREMITY VENOUS DOPPLER CLINICAL HISTORY: Leg pain. COMPARISON STUDY: CT of the left thigh April 19, 2018 and left lower extremity venous Doppler October 23, 2017. TECHNIQUE: Sonography of the deep venous system of the bilateral lower extremities was performed. Compression and augmentation were evaluated. FINDINGS: The bilateral common femoral, superficial femoral and popliteal veins were compressible. Augmentation was normal. Flow was shown within the deep calf vessels. A left groin AV graft is noted. A 3.2 x 2.1 x 2.9 cm adjacent fluid collection has decreased in size since CT of April 19, 2018. This suggests a resolving hematoma. IMPRESSION: 1. No evidence of deep venous thrombus within the bilateral lower extremities. 2. 3.2 x 2.1 x 2.9 cm left groin fluid collection which has decreased in size since CT of April 19, 2018. This suggests a resolving hematoma. Electronically signed by: Rory Pacheco M.D. 06/06/2018 10:47 AM Dictated Date/Time: 06/06/2018 10:44 AM ECHO Interpretation Summary * Name: EMANUEL PEREIRA Study Date: 06/06/2018 08:06 AM BP: 139/72 mmHg * Patient Location: [facility]\\\\1 HR: 88 * : 1955 (M/d/yyyy) Gender: Female Height: 56 in * Age: 62 yrs Ethnicity: [place] Weight: 172 lb * Ordering Physician: Maged Espinosa * Referring Physician: Self, Referred * Performed By: Ana Maria Hedrick RCS * * Reason For Study: CHEST PAIN * BSA: 1.7 m2 * -- Conclusions -- * Normal LV chamber size with mild concentric LVH. * Normal LV systolic function, EF 60-65%. * No segmental left ventricular wall motion abnormalities are noted. * Grade I diastolic dysfunction. * No significant valvular pathology. Procedure Details * A complete two-dimensional transthoracic echocardiogram was performed (2D, M-mode, Doppler and color flow Doppler). Left Ventricle * The left ventricle is normal in size. * There is mild concentric left ventricular hypertrophy. * Left ventricular systolic function is normal. * No segmental left ventricular wall motion abnormalities are noted. * Ejection Fraction = 60-65%. * The left ventricular wall motion is normal. Right Ventricle * The right ventricular cavity size is normal (basal dimension <4.2 cm in right ventricular apical 4-chamber view). * The right ventricular systolic function is normal as assessed by tricuspid annular plane systolic excursion (TAPSE) (normal >1.5 cm). Atria * The left atrium is mildly dilated. * Right atrial size is normal. Mitral Valve * The mitral valve is normal in structure and function. Tricuspid Valve * The tricuspid valve is normal in structure and function. Aortic Valve * The aortic valve is not well visualized. * No hemodynamically significant valvular aortic stenosis. * There is no significant aortic regurgitation. Pulmonic Valve * The pulmonary valve is not well seen, but the Doppler examination is normal without significant regurgitation or stenosis. Great Vessels * The aortic root is normal size. Pericardium/Pleural * There is no pericardial effusion. Left Ventricular Diastolic Function * Grade I diastolic dysfunction, (abnormal relaxation pattern). R SHOULDER MIN 2 VIEWS ROUTINE CLINICAL HISTORY: Right shoulder pain COMPARISON: None FINDINGS: Multiple vascular stents are incidentally noted. No acute fracture within the right shoulder is noted. Alignment is anatomic. There is moderate osteoarthritis of the right acromioclavicular joint and mild osteoarthritis of the right glenohumeral joint. IMPRESSION: 1. No acute fracture or dislocation within the right shoulder. 2. Moderate osteoarthritis of the right acromioclavicular joint. Electronically signed by: Rory Pacheco M.D. 06/06/2018 7:26 AM Dictated Date/Time: 06/06/2018 7:24 AM CHEST ONE VIEW PORTABLE CLINICAL HISTORY: Chest pain. Shortness of breath. COMPARISON STUDY: Chest radiograph May 03, 2018. FINDINGS: Multiple vascular stents are noted. Linear left midlung opacity suggest atelectasis or scarring. There is no consolidation to suggest pneumonia. There is no evidence for pulmonary edema. Mild cardiomegaly is unchanged. Bilateral airspace opacities shown on exam of May 03, 2018 have improved. IMPRESSION: No acute cardiopulmonary findings. Electronically signed by: Rory Pacheco M.D. 06/06/2018 7:42 AM Dictated Date/Time: 06/06/2018 7:39 AM Medication Reconciliation New Medications: Diltiazem HCl (Diltiazem Cd) 120 Mg Capcr 120 MG PO QAM for 30 Days Continued Medications: Acetaminophen (Tylenol) 325 Mg Tab 650 MG PO Q4H PRN for Pain or Fever, TAB Albuterol Hfa (Ventolin Hfa) 200 Puffs/88236 Mcg Aers 2 PUFFS INH Q4H PRN for SOB/Wheezing, #1 INHALER Alum & Mag Hydrox-Simethicone (Maalox Max Susp) 1 Payton Payton 30 ML PO UD PRN for Indigestion Atorvastatin (Lipitor) 40 Mg Tab 40 MG PO DAILY, TAB B-Complex W/ C & Folic Acid (Marcell Caps) 1 Cap Cap 1 CAP PO DAILY Calcium Carbonate (Tums) 500 Mg Chew 750 MG PO AC 2 TABS WITH MEALS, 1 TAB WITH SNACKS Cholecalciferol (D 1000) 1,000 Unit Cap 1000 UNITS PO DAILY Cinecalcet (Sensipar) 60 Mg Tab 60 MG PO QPM Clopidogrel (Plavix) 75 Mg Tab 75 MG PO DAILY, TAB Cyclobenzaprine Hcl (Flexeril) 5 Mg Tab 5 MG PO BID PRN for Muscle Spasms, TAB PRN Docusate Sodium (Docusate Sodium) 100 Mg Cap 100 MG PO BID Duloxetine HCl (Duloxetine HCl) 30 Mg Cap 1 TAB PO DAILY Epinephrine (Epipen) 0.3 Mg/0.3 Ml Inj 0.3 MG IM UD PRN for ALLERGIC REACTION Fluticasone Prop/Salmeterol (Advair Diskus 500/50 60 Dose) 1 Ea Aerp 1 PUFF INH BID, INHALER Fluticasone Propionate (Nasal) (Flonase Allergy Relief) 50 Mcg/Act Spr 2 SPRAYS CORTEZ DAILY Guaifenesin/Codeine (Robitussin-Ac Syrup) Syrp 5 ML PO Q4 PRN for Cough Ipratropium-Albuterol (Duoneb) 3 Ml Nebu 1 TREATMENT INH QID Mirtazapine (Remeron) 15 Mg Tab 7.5 MG PO HS Montelukast Sodium (Singulair) 10 Mg Tab 10 MG PO DAILY, TAB Ondansetron Hcl (Zofran) 4 Mg Tab 4 MG PO Q8 PRN for Nausea Oxycodone Hcl (Oxycodone Hcl) 10 Mg Tab 1 TAB PO Q6H PRN for Pain for 30 Days, #120 TAB Pantoprazole (Protonix) 40 Mg Tab 40 MG PO BID Polyethylene Glycol 3350 (Miralax) 1 Pow Pow 17 GM PO DAILY, #527 GM Ranitidine (Zantac) 300 Mg Tab 300 MG PO HS, TAB Sennosides (Senokot) 8.6 Mg Tab 8.6 MG PO UD TAKE 1 TABLET BY MOUTH TWICE DAILY. CHANGE TO ONCE DAILY IF HAVING DIARRHEA. Sevelamer Carbonate (Renvela) 800 Mg Tab 2400 MG PO TIDM for 90 Days, TAB 3 Refills Sevelamer Carbonate (Renvela) 800 Mg Tab 800 MG PO snacks for 90 Days, TAB 3 Refills Tiotropium [place] (Spiriva Handihaler) 30 Puff/540 Mcg Aerp 1 CAP INH DAILY Warfarin Sod (Coumadin) 5 Mg Tab 2 TABS PO DAILY@1600 Admission Information HPI (per Admitting provider): CHIEF COMPLAINT: Chest pain. HISTORY OF PRESENT ILLNESS: \\ History obtained from patient and records. Medical history is significant for hypertension not on meds since 2014, history of COPD, sleep apnea, end-stage renal disease, on hemodialysis, paroxysmal atrial fibrillation/recurrent PE on Coumadin, chronic anemia (baseline hemoglobin of 8-9), history of C. difficile. Recent confinement last in 04/2018 for pneumonia. Patient also found to have left thigh hematoma, status post evacuation. Yesterday around noon time while camping at the [facility], patient noted substernal discomfort and heaviness, non-pleuritic, going to her right arm, right shoulder hurts to motion, no trauma. Accompanying SOB. Patient attributed chest pain to anxiety. No abdominal pain. Loose stools. Legs a little sore. SBP noted to be as high as 180s during the patient dialysis as per patient. Relief with nitroglycerin given by EMS. Physical Exam (per Admitting): PHYSICAL EXAMINATION: VITAL SIGNS: Blood pressure was noted to be 163/78, pulse rate 86, respiratory rate 17, temperature 37, O2 saturations 94% on room air. GENERAL: Noted to be obese. Anxious but pleasant SKIN: Sallow, warm. HEENT: pale palpebral conjunctivae. No ptosis. Dry oral mucosa. NECK: Short, supple. CHEST: CTA, no tenderness. HEART: Regular rate and rhythm, no murmur. ABDOMEN: Some distention, nontender. MUSCULOSKELETAL: Tenderness on the right upper arm. Some discomfort on rotation of right shoulder. Minimal lower extremity tenderness. NE : Coherent, no facial asymmetry, no gross focality. Hospital Course Chest pain possible related to anxiety vs pain related from the right shoulder EKG showed no ischemic changes Troponin x2 negative Asymptomatic currently ECHO showed * Normal LV chamber size with mild concentric LVH. * Normal LV systolic function, EF 60-65%. * No segmental left ventricular wall motion abnormalities are noted. * Grade I diastolic dysfunction. * No significant valvular pathology. Right shoulder pain Chronic pain syndrome Mostly related to arthritis Right shoulder xray showed no acute fracture or dislocation within the right shoulder. Moderate osteoarthritis of the right acromioclavicular joint. Continue Tylenol and oxycodone for pain Paroxysmal atrial fibrillation Rate control on NSR INR 1.2 Has not been compliant with coumadin (Missed 1 to 2 days as per pt) Continue coumadin and heparin drip while in the hospital Continue monitor PT/INR Hx Pulmonary embolism on Coumadin INR subtherapeutic at 1.2 Advised pt to take her coumadin daily Check INR on Thursday or Thursday [facility] with [facility] HTN BP fluctuates Continue Cardizem po Monitor BP ESRD on HD HD on Thursday, Thursday, Thursday Next HD tomorrow Pt said that her ride will pick her up a the [facility] [facility] to go for HD Continue monitor electrolytes Left thigh hematoma S/P evacuation Doppler u/s showed no evidence of deep venous thrombus within the bilateral lower extremities. a 3.2 x 2.1 x 2.9 cm left groin fluid collection which has decreased in size since CT of April 19, 2018. This suggests a resolving hematoma. Continue follow up with wound care clinic She has appointment tomorrow for dressing change DVT px On heparin drip while in the hospital Continue coumadin INR 1.2 CODE STATUS DNR Disposition Possible discharge home today Signed: Signed: The status of this report is Draft * If report status is Draft, the document has not been finalized by the responsible provider. Total time spent on discharge = 35 minutes This includes examination of the patient, discharge planning, medication reconciliation, and communication with other providers. Discharge Instructions Discharge Instructions Date of Service Jun 06, 2018. Admission Reason for Admission: Chest Pain Discharge Discharge Diagnosis / Problem: Chest Pain, Right shoulder pain Discharge Goals Goal(s): Decrease discomfort, Improve function, Improve disease control Activity Recommendations Activity Limitations: resume your previous activity (as tolerated) . Instructions / Follow-Up Instructions / Follow-Up Follow up with your primary care provider Dr. Torres on 06/14 @ 10:45 AM Follow up with the Coumadin clinic for your INR Continue Coumadin daily (Do not miss any day unless instructing by the coumadin clinic to hold it) Follow up with the dialysis center (Your next dialysis day is tomorrow) Fall precaution Continue daily wound care Follow up with wound care clinic Next dialysis day is tomorrow Seek medical attention if your symptoms reoccur Monitor your blood pressure Current Hospital Diet Patient's current hospital diet: AHA Diet (Heart Healthy), Renal Diet, Low Lactose Diet Discharge Diet Recommended Diet: Renal Diet Pending Studies Studies pending at discharge: no Medical Emergencies . Who to Call and When: Medical Emergencies: If at any time you feel your situation is an emergency, please call 911 immediately. . Non-Emergent Contact Non-Emergency issues call your: Primary Care Provider Call Non-Emergent contact if: you have any medication questions . . "Provider Documentation" section prepared by Ramya Nino. . Signed: Signed: The status of this report is Draft * If report status is Draft, the document has not been finalized by the responsible provider. Additional Copies To Luz Torres M.D.
[2018-06-07] MEDS ORDERED: DILTIAZEM HCL 120 MG CAPCR PO SCH (09:00)
[2018-06-07] MEDS ORDERED: WARFARIN SOD 5 MG TAB PO SCH (16:00)
== END 2018-06-06 19:34 | disposition home health service (06) ==
LOC: EDBD 01:39 → C.EDB 01:41 → CANBEDREQ 04:25 → CANRESERV 04:25 → ENRESERV 04:25 → C.MED 04:36 → ENRESERV 04:48
PROVIDERS: ADMIT Internal Medicine; ATTEND Internal Medicine
DX: R07.9 Chest pain, unspecified (principal); I48.0 Paroxysmal atrial fibrillation; I10 Essential (primary) hypertension; N18.6 End stage renal disease; Z99.2 Dependence on renal dialysis; M25.511 Pain in right shoulder; G47.33 Obstructive sleep apnea (adult) (pediatric); S70.12XA Contusion of left thigh, initial encounter; X58.XXXA Exposure to other specified factors, initial encounter; J44.9 Chronic obstructive pulmonary disease, unspecified; G89.4 Chronic pain syndrome; Z91.19 Patient's noncompliance with other medical treatment and regimen; D64.9 Anemia, unspecified; Z79.02 Long term (current) use of antithrombotics/antiplatelets; Z79.01 Long term (current) use of anticoagulants; Z88.0 Allergy status to penicillin; Z88.5 Allergy status to narcotic agent; Z88.1 Allergy status to other antibiotic agents; Z91.010 Allergy to peanuts; Z91.018 Allergy to other foods; Z88.8 Allergy status to other drugs, medicaments and biological substances; Z66 Do not resuscitate; Z86.711 Personal history of pulmonary embolism

== ENCOUNTER 2018-11-06 09:19 | Inpatient (IN) ==
[2018-11-06 10:35] LABS: INR 1.1 (0.9-1.1); Partial Thromboplastin Time 25.4 Seconds (21.0-31.0); Prothrombin Time 10.8 Seconds (9.0-12.0)
[2018-11-06 10:48] LABS: Hematocrit (blood only) 32.7 % (37-47); Hemoglobin 9.5 g/dL (12.0-16.0); Mean Corpuscular Hgb Conc 29.1 g/dL (32-36); Mean Corpuscular Volume 110.8 fL (80-100); Mean Platelet Volume 11.4 fL (7.4-10.4); Platelet Count 160 K/uL (130-400); RDW Coefficient of Variation 20.4 % (11.5-14.5); Red Blood Count 2.95 M/uL (4.2-5.4); White Blood Count 8.08 K/uL (4.8-10.8)
[2018-11-06 10:56] LABS: Alanine Aminotransferase < 6 U/L (12-78); Albumin Globulin Ratio 0.7 (0.9-2); Albumin Level 2.9 gm/dl (3.4-5.0); Alkaline Phosphatase 99 U/L (45-117); Aspartate Aminotransferase 11 U/L (15-37); BUN Creatinine Ratio 3.3 (10-20); Bilirubin,Total 0.3 mg/dl (0.2-1); Blood Urea Nitrogen 16 mg/dl (7-18); Calcium 10.5 mg/dl (8.5-10.1); Carbon Dioxide 24 mmol/L (21-32); Chloride 103 mmol/L (98-107); Creatinine Clr Calc Pharmacy 9.2 ml/min; Est GFR (African American) 10.2; Est GFR (Non-African American) 8.8; Globulin 4.1 gm/dl (2.5-4.0); Glucose 115 mg/dl (70-99); Potassium 3.4 mmol/L (3.5-5.1); Sodium 138 mmol/L (136-145); Troponin I < 0.015 ng/ml (0-0.045)
[2018-11-06 11:03] LABS: Anisocytosis Present; Basophils # (auto) 0.02 K/uL (0-0.2); Basophils % (auto) 0.2 %; Eosinophils # (auto) 0.18 K/uL (0-0.5); Eosinophils % (auto) 2.2 %; Immature Granulocytes # (auto) 0.02 K/uL (0.00-0.02); Immature Granulocytes % (auto) 0.2 %; Lymphocytes # (auto) 0.62 K/uL (1.2-3.4); Lymphocytes % (auto) 7.7 %; Macrocytosis Present; Monocytes # (auto) 0.58 K/uL (0.11-0.59); Monocytes % (auto) 7.2 %; Neutrophils # (auto) 6.66 K/uL (1.4-6.5); Neutrophils % (auto) 82.5 %; Polychromasia 1+
[2018-11-07 08:32] LABS: Hematocrit (blood only) 27.5 % (37-47); Mean Corpuscular Hgb Conc 29.1 g/dL (32-36); Mean Corpuscular Volume 112.2 fL (80-100); Mean Platelet Volume 10.7 fL (7.4-10.4); Platelet Count 143 K/uL (130-400); RDW Coefficient of Variation 20.9 % (11.5-14.5); RDW Standard Deviation 84.8 fL (36.4-46.3); Red Blood Count 2.45 M/uL (4.2-5.4); White Blood Count 4.99 K/uL (4.8-10.8)
[2018-11-07 08:37] LABS: Anisocytosis Present; Basophils # (auto) 0.02 K/uL (0-0.2); Basophils % (auto) 0.4 %; Eosinophils # (auto) 0.38 K/uL (0-0.5); Eosinophils % (auto) 7.6 %; Hypochromasia Present; Immature Granulocytes # (auto) 0.01 K/uL (0.00-0.02); Immature Granulocytes % (auto) 0.2 %; Lymphocytes # (auto) 1.08 K/uL (1.2-3.4); Lymphocytes % (auto) 21.6 %; Macrocytosis Present; Monocytes # (auto) 0.36 K/uL (0.11-0.59); Monocytes % (auto) 7.2 %; Neutrophils # (auto) 3.14 K/uL (1.4-6.5); Polychromasia 1+
[2018-11-07 09:05] LABS: BUN Creatinine Ratio 3.3 (10-20); Calcium 10.2 mg/dl (8.5-10.1); Creatinine Clr Calc Pharmacy 7.2 ml/min; Est GFR (African American) 7.5; Est GFR (Non-African American) 6.5; Magnesium 2.2 mg/dl (1.8-2.4); Phosphorus 5.6 mg/dl (2.5-4.9); Potassium 4.4 mmol/L (3.5-5.1)
[2018-11-08 09:50] LABS: Alanine Aminotransferase < 6 U/L (12-78); Albumin Globulin Ratio 0.7 (0.9-2); Albumin Level 2.9 gm/dl (3.4-5.0); Alkaline Phosphatase 90 U/L (45-117); Aspartate Aminotransferase 16 U/L (15-37); BUN Creatinine Ratio 3.7 (10-20); Bilirubin,Total 0.4 mg/dl (0.2-1); Blood Urea Nitrogen 30 mg/dl (7-18); Calcium 9.8 mg/dl (8.5-10.1); Carbon Dioxide 22 mmol/L (21-32); Chloride 105 mmol/L (98-107); Creatinine Clr Calc Pharmacy 5.5 ml/min; Est GFR (African American) 5.5; Est GFR (Non-African American) 4.8; Globulin 3.9 gm/dl (2.5-4.0); Glucose 67 mg/dl (70-99); Phosphorus 6.4 mg/dl (2.5-4.9); Potassium 4.8 mmol/L (3.5-5.1); Sodium 137 mmol/L (136-145); Total Protein 6.8 gm/dl (6.4-8.2)
== END 2018-11-09 20:00 | disposition home health service (06) ==
LOC: 4E 09:19 → ED 09:19 → 4E 15:23

== ENCOUNTER 2018-12-12 20:43 | Inpatient (IN) ==
[2018-12-12] MEDS ORDERED: METOCLOPRAMIDE HCL INJ 5 MG/ML 2 ML VIAL IV STA (21:30)
[2018-12-12] MEDS ORDERED: SODIUM CHLORIDE 0.9% 250 ML IV ONE (21:31)
--- NOTE | 2018-12-12 22:05 | CT Scan Report ---
CT abd pelvis wo con CLINICAL HISTORY: 63 years-old Female presenting with n/v/constipation/pain. TECHNIQUE: Multidetector CT of the abdomen and pelvis was performed without the use of intravenous co ntrast. IV contrast: None. One or more dose lowering techniques were used consistent with the princip les of ALA (as low as reasonably achievable), including automatic exposure control, mA or kV adjust ment to individual patient size, and/or use of iterative reconstruction. COMPARISON: 12/05/2018. CT DOSE (mGy.cm): The estimated cumulative dose is 555.35 mGy.cm. 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 Residual ora l contrast in pancolonic diverticulosis. Cholecystectomy clips. Vascular stent projects over the left common femoral region. Lung bases: Normal heart size. Central venous catheter terminates in the right atrium. Coronary arter y calcification. Trace pericardial effusion. No pleural effusion. Atelectasis of the medial segment o f the right middle lobe. Minimal dependent changes likely also atelectasis. Mosaic attenuation noted. Minimal patchy opacities in the right lower lobe. Liver: Normal morphology. Normal density. Biliary: Mild biliary ductal prominence likely a reservoir effect in the post cholecystectomy state. Gallbladder surgically absent. Pancreas: Mild parenchymal atrophy. Parenchymal calcification noted in the uncinate process. Spleen: Normal noncontrast appearance. Adrenal glands: Normal noncontrast appearance. Kidneys and ureters: Severe atrophy of the [place] kidneys. Several simple cysts suggested. Nonobstruc ting lower pole right renal calculus. No hydronephrosis. Ureters nondistended. Bladder: Incompletely evaluated secondary to underdistention. Pelvic organs: Uterus surgically absent. Bowel: Pancolonic diverticulosis with dense residual barium contrast from prior barium swallow on 11/19. This results in slight image quality degradation. Pericolonic fat stranding at the hepatic fl exure new from prior. Associated surrounding fluid. No focal fluid collection. Mild wall thickening i n this region. No bowel obstruction. Trace hiatal hernia. Mild wall thickening of the gastric antrum may be secondary. Peritoneal cavity: Trace fluid in the right upper quadrant as mentioned. Associated peritoneal thicke sidney suggested in the right upper quadrant. No free intraperitoneal gas. Lymph nodes: No gross lymphadenopathy allowing for noncontrast technique. Vasculature: Atherosclerosis of the normal caliber abdominal aorta. A tunneled right femoral dialysis catheter terminates in the right atrium. Vascular stent noted within the left superficial femoral ve in. Abdominal wall: Anasarca extensive body wall edema. Fat containing ventral hernia in the periumbilica l region at the lower margin of a prosthetic mesh. Nodular infiltration in the anterior abdominal wal l may be related to medication injections. Several prominent collateral vessels in the abdominal wall . Musculoskeletal: Degenerative changes of the spine. Abnormal sclerosis evidence of renal osteodystrop hy erosive changes of the sacroiliac joints, left greater than right. IMPRESSION: 1. Pancolonic diverticulosis with acute uncomplicated diverticulitis in the hepatic flexure and asso ciated reactive fluid. The inflammatory change in this region appears to be pericolonic rather than a ssociated with the liver. Secondary reactive inflammatory changes of the gastric antrum. 2. Severe chronic renal atrophy with renal osteodystrophy and amyloid arthropathy of the sacroiliac joints. 3. Extensive body wall edema. 4. Fat-containing ventral hernias in the periumbilical region. Electronically signed by: Joshua Kendrick M.D. 12/12/2018 10:03 PM
[2018-12-12 22:13] LABS: Hemoglobin 10.8 g/dL (12.0-16.0); Mean Corpuscular Volume 100.8 fL (80-100); RDW Coefficient of Variation 17.8 % (11.5-14.5); RDW Standard Deviation 65.8 fL (36.4-46.3); Red Blood Count 3.57 M/uL (4.2-5.4); White Blood Count 11.16 K/uL (4.8-10.8)
[2018-12-12 22:34] LABS: Mean Platelet Volume 10.9 fL (7.4-10.4); Platelet Count 97 K/uL (130-400)
[2018-12-12 22:35] LABS: Basophils # (auto) 0.01 K/uL (0-0.2); Basophils % (auto) 0.1 %; Eosinophils # (auto) 0.03 K/uL (0-0.5); Eosinophils % (auto) 0.3 %; Immature Granulocytes # (auto) 0.07 K/uL (0.00-0.02); Immature Granulocytes % (auto) 0.6 %; Lymphocytes # (auto) 0.57 K/uL (1.2-3.4); Lymphocytes % (auto) 5.1 %; Monocytes # (auto) 0.51 K/uL (0.11-0.59); Monocytes % (auto) 4.6 %; Neutrophils # (auto) 9.97 K/uL (1.4-6.5); Neutrophils % (auto) 89.3 %; Platelet Estimate Decreased (Normal)
[2018-12-12 22:38] LABS: Alanine Aminotransferase 45 U/L (12-78); Albumin Level 3.2 gm/dl (3.4-5.0); Alkaline Phosphatase 143 U/L (45-117); Aspartate Aminotransferase 34 U/L (15-37); BUN Creatinine Ratio 9.7 (10-20); Bilirubin,Total 0.3 mg/dl (0.2-1); Blood Urea Nitrogen 65 mg/dl (7-18); Calcium 10.5 mg/dl (8.5-10.1); Carbon Dioxide 23 mmol/L (21-32); Chloride 105 mmol/L (98-107); Globulin 3.1 gm/dl (2.5-4.0); Glucose 98 mg/dl (70-99); Potassium 4.5 mmol/L (3.5-5.1); Sodium 140 mmol/L (136-145); Total Protein 6.3 gm/dl (6.4-8.2); Troponin I < 0.015 ng/ml (0-0.045)
[2018-12-12] MEDS ORDERED: ERTAPENEM SODIUM 500 MG in SODIUM CHLORIDE 0.9% 50 ML IV STA (23:07)
[2018-12-12] MEDS ORDERED: ONDANSETRON INJ 2 MG/ML 2 ML VIAL IV STA (23:07)
[2018-12-12] MEDS ORDERED: fentaNYL citrate 100 MCG/2 ML VIAL IV STA (23:08)
--- NOTE | 2018-12-12 23:33 | Emergency Department Note ---
Entered by Tavares Banegas acting as a scribe for Rivas Callahan M.D. History of Present Illness General Chief complaint: Abdominal Pain Stated complaint: AB PAIN Source: patient History of Present Illness Provider complaint: Abdominal pain Onset (ago): day(s) (Couple of days) Location: abdomen Radiation: non-radiation Severity: similar to prior episodes Pain Consistency: + constant Maximum Pain Intensity: 8 Relieved By: + none Exacerbated By: + eating Associated symptoms: + nausea/vomiting and + other (Constipation) The patient is a 63 year old female who presents to the Emergency Room with complaints of constant epigastric abdominal pain that has been persistent for the past couple of days. She states she has not moved her bowels in a week and has vomited every time she has eaten anything. She was here recently for the same symptoms and her Xray was unremarkable. She has tried taking stool softeners but it has not help relieve her symptoms. She has had this happen before and has an extensive medical history. She does not urinate due to being on dialysis. Her last dialysis appointment was 2 days ago. Home Medications Home Medications Medication Instructions Recorded Confirmed Type B complex-vitamin C-folic acid 1 tab PO DAILY 10/13/18 12/12/18 History [Nephro-Jamaal] albuterol sulfate [Ventolin HFA] 2 puff INHALATION Q4 PRN 10/13/18 12/12/18 History atorvastatin 40 mg PO DAILY 10/13/18 12/12/18 History benzonatate 100 mg PO TID PRN 10/13/18 12/12/18 History cinacalcet [Sensipar] 60 mg PO DAILY 10/13/18 12/12/18 History cyclobenzaprine 5 mg PO BID PRN 10/13/18 12/12/18 History diltiazem HCl 120 mg PO DAILY 10/13/18 12/12/18 History docusate sodium 100 mg PO BID PRN 10/13/18 12/12/18 History duloxetine 30 mg PO DAILY 10/13/18 12/12/18 History epinephrine [EpiPen] 0.3 mg IM Q3H PRN 10/13/18 12/12/18 History fluticasone [Flonase Allergy 2 spray INTRANASAL DAILY 10/13/18 12/12/18 History Relief] fluticasone-salmeterol [Advair 1 inh INHALATION BID 10/13/18 12/12/18 History Diskus] ipratropium-albuterol 3 ml INHALATION QID 10/13/18 12/12/18 History mirtazapine 7.5 mg PO HS 10/13/18 12/12/18 History montelukast [Singulair] 10 mg PO PM 10/13/18 12/12/18 History ondansetron HCl [Zofran] 4 mg PO Q8 PRN 10/13/18 12/12/18 History pantoprazole 40 mg PO DAILY 10/13/18 12/12/18 History ranitidine HCl 300 mg PO HS 10/13/18 12/12/18 History sennosides [Senokot] 8.6 mg PO BID 10/13/18 12/12/18 History sevelamer carbonate [Renvela] 2,400 mg PO TIDM 10/13/18 12/12/18 History sevelamer carbonate [Renvela] 800 mg PO UD 10/13/18 12/12/18 History tiotropium bromide [Spiriva with 1 cap INHALATION DAILY 10/13/18 12/12/18 History HandiHaler] albuterol sulfate 2.5 mg INHALATION QID PRN 12/03/18 12/12/18 History oxycodone 5 mg PO Q6H PRN 12/03/18 12/12/18 History prednisone 10 mg PO UD 9 Days #18 tab 12/07/18 12/12/18 Rx Allergies Allergy/AdvReac Type Severity Reaction Status Date / Time hydromorphone Allergy Intermediate SHORTNESS Verified 12/12/18 21:32 OF BREATH Cipro Allergy Mild HIVES Verified 06/06/18 03:09 ciprofloxacin Allergy Mild Rash Verified 12/12/18 21:32 metronidazole Allergy Mild HIVES Verified 12/12/18 21:32 Penicillins Allergy Mild HIVES Verified 12/12/18 21:32 chocolate flavor Allergy Unknown HIVES Verified 12/12/18 21:32 nickel Allergy Rash Verified 12/12/18 21:32 aspirin AdvReac Mild Hives Verified 12/12/18 21:32 ENVIRONMENTAL Allergy Severe RESP Uncoded 12/12/18 21:32 DISTRESS, AIRWAY SWELLS Peanut Butter Flavor Allergy Unknown HIVES Uncoded 12/12/18 21:32 TRIX CEREAL Allergy Unknown SHORTNESS Uncoded 12/12/18 21:32 OF BREATH, SWELLING OF THROAT Past Med/Surg History Medical History C. 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, s/p ERCP and biliary sphincterotomy" Obstructive sleep apnea on CPAP CPAP Pulmonary emboli Thrombophlebitis of right dorsalis pedis vein Surgical History S/P CRESCENCIO (total abdominal hysterectomy) (Chronic) History of cholecystectomy (Chronic) History of appendectomy (Chronic) History of appendectomy (Inactive) History of bronchoscopy (Inactive) History of cholecystectomy (Inactive) History of colonoscopy (Inactive) History of esophagogastroduodenoscopy (EGD) (Inactive) S/P CRESCENCIO (total abdominal hysterectomy) (Inactive) S/P dialysis catheter insertion (Inactive) DIALYSIS [id number] Hernia repair (03/11/12) UMBILICAL History of - section (03/11/12) S/P dialysis catheter insertion Family History Father Family history of diabetes mellitus Colon cancer Brother Family history of diabetes mellitus Son Family history of diabetes mellitus Social History marital status: Single Current Living Situation: Family Current Living Situation Comment: with son current occupational status: unemployed and disabled Feels Safe at Home: Yes Safety Concerns: Feels Safe At This Time Smoking Status: Never smoker Second Hand Exposure: No Hx Alcohol Use: No Hx Substance Use: No Beliefs That Will Affect Care: None Preferred Language: Vincentian Clinical Staff Pharmacist Required: No Review of Systems See HPI for pertinent positives & negatives. and A total of 10 systems reviewed and were otherwise negative Physical Exam Vital Signs Vital Signs - 24 hr 12/12/18 21:08 12/12/18 21:59 12/12/18 23:08 Temperature 36.8 C Temperature Source Oral Sepsis Recent Fever Within 48 Hours No Sepsis New/Unexplained Change in Mental Status No Sepsis Action Taken by Nursing No Action Required Pulse Rate 81 Pulse Rate [Right Finger] 85 80 Pulse Rhythm Regular Pulse Rhythm [Right Finger] Regular Pulse Strength Normal Pulse Strength [Right Finger] Normal Respiratory Rate 22 18 20 Respiratory Effort / Characteristics Non-Labored Spontaneous Non-Labored Respiratory Depth Normal Normal Respiratory Pattern Regular Regular Blood Pressure 151/66 H Blood Pressure [Left Arm] 188/100 H Blood Pressure Mean 94 Blood Pressure Mean [Left Arm] 129 Blood Pressure Position Sitting Blood Pressure Position [Left Arm] Sitting Sitting Pulse Oximetry 96 97 95 Oxygen Delivery Method Room Air Room Air Room Air 12/12/18 23:59 12/13/18 00:58 12/13/18 01:48 Temperature Temperature Source Sepsis Recent Fever Within 48 Hours Sepsis New/Unexplained Change in Mental Status Sepsis Action Taken by Nursing Pulse Rate 73 Pulse Rate [Right Finger] 96 H 69 Pulse Rhythm Pulse Rhythm [Right Finger] Regular Regular Pulse Strength Pulse Strength [Right Finger] Normal Normal Respiratory Rate 16 16 16 Respiratory Effort / Characteristics Non-Labored Non-Labored Respiratory Depth Normal Normal Respiratory Pattern Regular Blood Pressure 151/80 H Blood Pressure [Left Arm] 138/78 147/87 H Blood Pressure Mean Blood Pressure Mean [Left Arm] 98 107 Blood Pressure Position Blood Pressure Position [Left Arm] Lying Lying Pulse Oximetry 96 96 96 Oxygen Delivery Method Room Air Room Air Room Air GENERAL: Awake, alert, chronically ill appearing HENT: Normocephalic, atraumatic. EYES: Normal conjunctiva. Sclera non-icteric. NECK: Supple. No nuchal rigidity. RESPIRATORY: Clear to auscultation anterior. Normal respiratory effort. CARDIAC: Normal rate. Irregular rhythm. Extremities warm and well perfused. GI: Soft, non-distended. Diffuse abdominal tenderness. Guarding. RECTAL: Deferred. MUSCULOSKELETAL: Atraumatic. Chest examination reveals no tenderness. LOWER EXTREMITIES: Calves are equal size bilaterally and non-tender. NEURO: Normal sensorium. No sensory or motor deficits noted. No facial droop. SKIN: Warm and dry. No rash or jaundice noted. Healed incision scars to the upper extremities and inguinal area. Course 2124: Past medical records reviewed. The patient was evaluated in room B03, and a complete history and physical examination were performed. 2300: I updated the patient on her results and the plan of treatment. 2330: [facility] about the patient's case and he is going to accept her for further evaluation. Consultations Consultation #1: I [facility] about the patient' s case and he is going to accept her for further evaluation. Time: 23:30 Administered Medications Discontinued Medications Fentanyl Citrate (Fentanyl Citrate) 25 mcg IV NOW STA Stop: 12/12/18 23:09 Last Admin: 12/12/18 23:16 Dose: 25 mcg Sodium Chloride (Nss 250ml) 250 mls @ 999 mls/hr IV .Q16M ONE Stop: 12/12/18 21:46 Last Infusion: 12/12/18 22:44 Dose: 0 mls/hr Admin: 12/12/18 21:44 Dose: 999 mls/hr Ertapenem 500 mg/ Sodium (Chloride) 55 mls @ 100 mls/hr IV ONE STA Stop: 12/12/18 23:39 Last Infusion: 12/13/18 00:21 Dose: Admin: 12/12/18 23:47 Dose: 100 mls/hr Metoclopramide HCl (Reglan) 10 mg IV NOW STA Stop: 12/12/18 21:31 Last Admin: 12/12/18 21:38 Dose: 10 mg Ondansetron HCl (Zofran) 4 mg IV NOW STA Stop: 12/12/18 23:08 Last Admin: 12/12/18 23:16 Dose: 4 mg Medical Decision Making Differential Diagnosis Differential diagnoses includes but is not limited to gastritis, peptic ulcer disease, GERD, gallbladder disease, pancreatitis, small bowel obstruction, acute coronary syndrome, pericarditis, ischemic bowel, irritable bowel disease, irritable bowel syndrome, appendicitis, diverticulitis, malignancy, hernia, urinary tract infection, torsion, perforation, trauma, infectious. Medical Records Attestation: I reviewed the patient's medical records. Home Medications Current Medication List: was personally reviewed by me Laboratory Data Attestation: I reviewed the patient's lab results. Result diagrams: 12/12/18 21:50 12/12/18 21:50 Lab Results 12/12/18 12/12/18 Range/Units 21:50 21:50 WBC 11.16 H (4.8-10.8) K/uL RBC 3.57 L (4.2-5.4) M/uL Hgb 10.8 L (12.0-16.0) g/dL Hct 36.0 L (37-47) % MCV 100.8 H (80-100) fL MCH 30.3 (25-34) pg MCHC 30.0 L (32-36) g/dL RDW Std Deviation 65.8 H (36.4-46.3) fL RDW Coeff of Lashae 17.8 H (11.5-14.5) % Plt Count 97 L (130-400) K/uL MPV 10.9 H (7.4-10.4) fL Immature Gran % (Auto) 0.6 % Neut % (Auto) 89.3 % Lymph % (Auto) 5.1 % Kern % (Auto) 4.6 % Eos % (Auto) 0.3 % Baso % (Auto) 0.1 % Immature Gran # (Auto) 0.07 H (0.00-0.02) K/uL Neut # (Auto) 9.97 H (1.4-6.5) K/uL Lymph # (Auto) 0.57 L (1.2-3.4) K/uL Kern # (Auto) 0.51 (0.11-0.59) K/uL Eos # (Auto) 0.03 (0-0.5) K/uL Baso # (Auto) 0.01 (0-0.2) K/uL Platelet Estimate Decreased (Normal) Sodium 140 (136-145) mmol/L Potassium 4.5 (3.5-5.1) mmol/L Chloride 105 (98-107) mmol/L Carbon Dioxide 23 (21-32) mmol/L Anion Gap 12.0 H (3-11) BUN 65 H (7-18) mg/dl Creatinine 6.71 H* (0.6-1.2) mg/dl Est Cr Clr Drug Dosing 7.0 ml/min Est GFR ( Amer) 7.0 Est GFR (Non-Af Amer) 6.0 BUN/Creatinine Ratio 9.7 L (10-20) Glucose 98 (70-99) mg/dl Calcium 10.5 H (8.5-10.1) mg/dl Total Bilirubin 0.3 (0.2-1) mg/dl AST 34 (15-37) U/L ALT 45 (12-78) U/L Alkaline Phosphatase 143 H (45-117) U/L Troponin I < 0.015 (0-0.045) ng/ml Total Protein 6.3 L (6.4-8.2) gm/dl Albumin 3.2 L (3.4-5.0) gm/dl Globulin 3.1 (2.5-4.0) gm/dl Albumin/Globulin Ratio 1.0 (0.9-2) Lipase 258 (73-393) U/L Imaging Data Radiologist's Impression: Radiology results as stated below per my review and the radiologist's interpretation: CT abd pelvis wo con CLINICAL HISTORY: 63 years-old Female presenting with n/v/constipation/pain. TECHNIQUE: Multidetector CT of the abdomen and pelvis was performed without the use of intravenous contrast. IV contrast: None. One or more dose lowering techniques were used consistent with the principles of ALARA (as low as reasonably achievable), including automatic exposure control, mA or kV adjustment to individual patient size, and/or use of iterative reconstruction. COMPARISON: 12/05/2018. CT DOSE (mGy.cm): The estimated cumulative dose is 555.35 mGy.cm. FINDINGS: Kinesiology Professor topogram: Tunneled right femoral dialysis catheter terminates in the right atrium. Residual oral contrast in pancolonic diverticulosis. Cholecystectomy clips. Vascular stent projects over the left common femoral region. Lung bases: Normal heart size. Central venous catheter terminates in the right atrium. Coronary artery calcification. Trace pericardial effusion. No pleural effusion. Atelectasis of the medial segment of the right middle lobe. Minimal dependent changes likely also atelectasis. Mosaic attenuation noted. Minimal patchy opacities in the right lower lobe. Liver: Normal morphology. Normal density. Biliary: Mild biliary ductal prominence likely a reservoir effect in the post cholecystectomy state. Gallbladder surgically absent. Pancreas: Mild parenchymal atrophy. Parenchymal calcification noted in the uncinate process. Spleen: Normal noncontrast appearance. Adrenal glands: Normal noncontrast appearance. Kidneys and ureters: Severe atrophy of the [place] kidneys. Several simple cysts suggested. Nonobstructing lower pole right renal calculus. No hydronephrosis. Ureters nondistended. Bladder: Incompletely evaluated secondary to underdistention. Pelvic organs: Uterus surgically absent. Bowel: Pancolonic diverticulosis with dense residual barium contrast from prior barium swallow on 12/07/2018. This results in slight image quality degradation. Pericolonic fat stranding at the hepatic flexure new from prior. Associated surrounding fluid. No focal fluid collection. Mild wall thickening in this region. No bowel obstruction. Trace hiatal hernia. Mild wall thickening of the gastric antrum may be secondary. Peritoneal cavity: Trace fluid in the right upper quadrant as mentioned. Associated peritoneal thickening suggested in the right upper quadrant. No free intraperitoneal gas. Lymph nodes: No gross lymphadenopathy allowing for noncontrast technique. Vasculature: Atherosclerosis of the normal caliber abdominal aorta. A tunneled right femoral dialysis catheter terminates in the right atrium. Vascular stent noted within the left superficial femoral vein. Abdominal wall: Anasarca extensive body wall edema. Fat containing ventral hernia in the periumbilical region at the lower margin of a prosthetic mesh. Nodular infiltration in the anterior abdominal wall may be related to medication injections. Several prominent collateral vessels in the abdominal wall. Musculoskeletal: Degenerative changes of the spine. Abnormal sclerosis evidence of renal osteodystrophy erosive changes of the sacroiliac joints, left greater than right. IMPRESSION: 1. Pancolonic diverticulosis with acute uncomplicated diverticulitis in the hepatic flexure and associated reactive fluid. The inflammatory change in this region appears to be pericolonic rather than associated with the liver. Secondary reactive inflammatory changes of the gastric antrum. 2. Severe chronic renal atrophy with renal osteodystrophy and amyloid arthropathy of the sacroiliac joints. 3. Extensive body wall edema. 4. Fat-containing ventral hernias in the periumbilical region. Electronically signed by: Joshua Kendrick M.D. 12/12/2018 10:03 PM ECG Data Attestation: I personally reviewed and interpreted this ECG as follows: Indication: abdominal pain Rate (beats per minute): 99 Rhythm: normal sinus (With period of Afib) Findings: + nonspecific-ST abn; no ST depression and no ST elevation Blood Pressure Blood Pressure Findings: Elevated blood pressure Blood Pressure Disposition: further management by hospitalist MAG Narrative Patient is a 63-year-old female with a history of ESRD on dialysis, A. fib, GERD , chronic abdominal pain with history of gastritis hiatal hernia and esophageal stenosis presenting today complaining of diffuse abdominal pain in a week since bowel movement. States fever at home but took a Tylenol prior to arrival. Was recently admitted in the hospital 5 days ago and had a workup for this at that point. Diffuse abdominal pain is noted. Somewhat tender. CT scan was completed here without contrast given her history given some Reglan to try to help with symptoms as this is been recommended in the past. Has had multiple EGDs and barium swallows as well from review of the records. Does not appear septic. Basic labs are completed as well without evidence of acute hepatitis or pancreatitis. EKG and troponin complete without evidence of acute ACS. ESRD patient and kidney function appropriate for this. CT scan here does show evidence of kaba colonic diverticulosis with diverticulitis and hepatic flexure with reactive fluid. Slight leukocytosis is elevated compared to previous. Multiple allergies complicates treatment. Given her comorbidities she is high risk for complication is having poor pain control and difficulty tolerating any oral intake. Given this do believe she requires admission given a dose of ertapenem. Intermittently with palpitations here. Again difficulty getting her tolerating oral intake and given this feel that she requires admission discussed with hospitalist. Impression & Plan Diverticulitis Discharge Plan Visit Data *Final* Discharge Date/Time: 12/13/18 00:58 Chief Complaint: Abdominal Pain Stated Complaint: AB PAIN ED Provider: Rivas Callahan Discharge Problem: Diverticulitis Patient Disposition: Admitted As Inpatient Discharge Instructions Interventions: ED Discharge Assessment Last Done: 12/13/18 00:58 The scribe's documentation has been prepared under my direction and personally reviewed by me in its entirety. I confirm that the note above accurately reflects all work, treatment, procedures, and medical decision making performed by me.
[2018-12-13] MEDS ORDERED: NITROGLYCERIN SL 0.4 MG/TAB TAB SL PRN (02:16)
[2018-12-13] MEDS ORDERED: EPINEPHRINE ADULT AUTO-INJECT 0.3 MG SYR IM PRN (02:16)
[2018-12-13] MEDS ORDERED: ALBUTEROL HFA 8 GM INHALER INH PRN (02:16)
[2018-12-13] MEDS ORDERED: HYDROmorphone INJ 0.5 MG/0.5 ML SYR IV PRN (02:16)
[2018-12-13] MEDS ORDERED: ACETAMINOPHEN 325 MG TAB PO PRN (02:16)
[2018-12-13] MEDS ORDERED: ALBUTEROL 0.083% NEBU SOLN 3 ML VIAL INH PRN (02:16)
[2018-12-13] MEDS ORDERED: ONDANSETRON 4 MG TAB PO PRN (02:16)
[2018-12-13] MEDS ORDERED: ONDANSETRON INJ 2 MG/ML 2 ML VIAL IV PRN (02:16)
[2018-12-13] MEDS ORDERED: POLYETHYLENE (MIRALAX) 17 GM PACK PO PRN (02:16)
[2018-12-13] MEDS ORDERED: CYCLOBENZAPRINE HCL 5 MG TAB PO PRN (02:16)
[2018-12-13] MEDS ORDERED: BENZONATATE 100 MG CAPSULE PO PRN (02:16)
[2018-12-13] MEDS ORDERED: DOCUSATE SODIUM 100 MG CAP PO PRN (02:16)
--- NOTE | 2018-12-13 02:30 | History and Physical Report ---
DATE OF ADMISSION: 12/13/2018 CHIEF COMPLAINT: Abdominal pain. 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 The patient says abdominal pain started today afternoon and she is having diverticulitis for last 2 years. Pain is severe in nature, started from epigastric region and goes to all over the belly, associated with some nausea and vomiting. Constipated, does not whether there is blood in the stools or black stools because she cannot see. She lives with her son, ambulates with help of a walker.Not eating much. She has difficulty swallowing. She is only trying to eat liquid diet, like chicken noodle soups. Last admission she had barium swallow showing some small sliding hiatal hernia and was recommended for slipper diet. The patient says that she had a fever at home yesterday, still has cough bringing whitish phlegm. No headache. Has some blurred visions. Uses reading glasses. No earache. Always has some runny nose, no sore throat. She gets on and off chest pain when she is anxious but currently no chest pain. No shortness of breath. Received pain medication in the ER and somewhat drowsy but is easily arousable. ALLERGIES: ASPIRIN, CHOCOLATE FLAVOR, CIPRO, DILAUDID, ENVIRONMENTAL, FLAGYL, FOOD, PEANUT BUTTER, PENICILLINS. PAST MEDICAL HISTORY: As mentioned above. PAST SURGICAL HISTORY: AV shunt access multiple procedures, , colonoscopy, EGDs, EGD with endoscopic ultrasound, excision of the infected graft, incision and drainage of hematoma and seroma, hernia repair, tunnel catheter placement, AV fistulogram, and peripheral angioplasty, transcatheter placement, venous stent, appendectomy, cholecystectomy, status post thrombectomy of left upper arm AV graft, total abdominal hysterectomy with removal of tubes, venography superior vena cava. MEDICATIONS: The patient is on Tessalon Perles 100 mg p.o. t.i.d. p.r.n., albuterol 2 inhalations every 4 hours p.r.n., Flexeril 5 mg p.o. b.i.d. p.r.n. epinephrine for allergic reaction, Sensipar 60 mg p.o. daily with dinner, Remeron 7.5 mg p.o. at bedtime, Protonix 40 mg p.o. daily, oxycodone IR 5 mg p.o. q. 6 hours p.r.n., diltiazem CD 120 mg p.o. daily, Cymbalta 30 mg p.o. daily, albuterol 2 puffs every 4 hours p.r.n., Senokot 1 tablet b.i.d., B complex, C, and folic acid, vitamin 1 tablet daily, Advair Diskus 500/50 mcg 1 puff b.i.d., Singulair 10 mg p.o. daily, Spiriva 18 mcg one inhalation daily, Renvela 800 mg 3 tablets t.i.d. with meals 800 mg with snacks, Zofran 4 mg q. 8 hours p.r.n., Zantac 300 mg p.o. at bedtime, DuoNeb 4 times daily, atorvastatin 40 mg p.o. daily, Colace 100 mg p.o. b.i.d. as needed, Flonase 2 sprays into each nostril daily, oxygen 2 L as directed. FAMILY HISTORY: Significant for mother has breast cancer. Father has lung cancer, colon cancer, kidney failure. SOCIAL HISTORY: . Lives with her son. No smoking history. Alcohol occasional. No drug use. REVIEW OF SYMPTOMS: As per HPI. Rest of review of systems negative. PHYSICAL EXAMINATION: GENERAL: The patient is of moderate built, not in acute distress. VITAL SIGNS: Temperature 36.8, pulse 96, respiratory rate 16, blood pressure 138/78, oxygen 96% room air. HEENT: No pallor, no icterus. Pupils equal, round, and reactive to light. NECK: No JVD, no neck masses, no carotid bruits. CARDIOVASCULAR: S1, S2, regular rate and rhythm, no murmur, no gallop. RESPIRATORY SYSTEM: Clear to auscultate bilaterally. Mild occasional wheezing, no crackles. No accessory muscle use. ABDOMEN: Soft, bowel sounds present. Diffuse tenderness and guarding present. No distention seen. CENTRAL NERVOUS SYSTEM: Nonfocal. EXTREMITIES: No edema. LABS: WBC 11.11, hemoglobin 10.8, hematocrit 36, platelets 97. Sodium 140, potassium 4.5, chloride 105, bicarbonate 25, BUN 65, creatinine 6.7, serum glucose 98, calcium 10.5, total bilirubin 0.3, AST 34, ALT 45, alkaline phosphatase is 143, troponin I less than 0.015. Lipase 258. CT of the abdomen and pelvis shows pancolonic diverticulosis with acute uncomplicated diverticulitis in the hepatic flexure associated reactive fluid, extensive body wall edema, fat containing ventral hernias in the periumbilical region. ASSESSMENT AND PLAN: A 63-year-old female with multiple medical problems presents with abdominal pain and found to have acute diverticulitis. 1. Acute diverticulitis and pancolonic diverticulosis. THE PATIENT HAS MULTIPLE ALLERGIES. Will placed her on IV Invanz, n.p.o. for now, and IV gentle fluids. To stop fluids when started on clears as the patient is a dialysis patient. We will place on probiotics too and surgical consult. Closely monitor. 2. End-stage renal disease on hemodialysis. Consulting nephrology. The patient has dialysis tomorrow. The patient currently is dialyzing via a right femoral tunneled catheter. There is plan for left groin tunneled dialysis catheter in 12/30/2018 and right groin femoral loop graft on 01/06/2019 by vascular surgery. . 3. History of asthma and chronic obstructive pulmonary disease. Recently treated for pneumonia and chronic obstructive pulmonary disease exacerbations, still has mild wheezing and cough going on. Looks like she was recently started on doxycycline. We will continue doxycycline for now and getting Invanz. Continue home nebulizations and cough medications, on oxygen. 4. History of sleep apnea, supposed to be on CPAP but noncompliant. We will place CPAP she is in the hospital. 5. History of paroxysmal atrial fibrillation on diltiazem, not on any anticoagulation secondary to complication from bleeding dialysis catheter site. We will monitor. 6. Gastroesophageal reflux disease. On proton pump inhibitors and H2 blockers. 7. Hyperlipidemia, on statin. 8. Thrombocytopenia, seems to be chronic. We will monitor. 9. Anemia and chronic kidney disease. Today, hemoglobin is 10.8. We will follow. 10. Hypercalcemia. Calcium is 10.5. We will follow the repeat labs. 11. History of depression, on Remeron and Cymbalta. 12. History of Clostridium difficile. Currently getting antibiotics and probiotics. 13. Deep vein thrombosis prophylaxis. Heparin subcutaneous. DISPOSITION: Closely monitor in med/tele. Level 1 full code. The patient says she is a DNR. MTDD
[2018-12-13] MEDS ORDERED: ERTAPENEM CONSULT ACTIVE PRN (02:49)
[2018-12-13 06:00] LABS: INR 1.2 (0.9-1.1)
[2018-12-13] MEDS ORDERED: HEPARIN SOD 5,000 UNIT/0.5 ML VIAL SQ SCH (06:00)
[2018-12-13 06:12] LABS: Hematocrit (blood only) 33.3 % (37-47); Hemoglobin 9.8 g/dL (12.0-16.0); Mean Corpuscular Hgb Conc 29.4 g/dL (32-36); Mean Corpuscular Volume 100.9 fL (80-100); Mean Platelet Volume 10.7 fL (7.4-10.4); Platelet Count 95 K/uL (130-400); RDW Coefficient of Variation 17.9 % (11.5-14.5); RDW Standard Deviation 65.5 fL (36.4-46.3)
[2018-12-13] MEDS ORDERED: D5W AND NSS 1,000 ML IV SCH (06:15)
[2018-12-13 06:20] LABS: Eosinophils # (auto) 0.02 K/uL (0-0.5); Eosinophils % (auto) 0.2 %; Immature Granulocytes # (auto) 0.05 K/uL (0.00-0.02); Immature Granulocytes % (auto) 0.6 %; Lymphocytes # (auto) 0.57 K/uL (1.2-3.4); Lymphocytes % (auto) 6.9 %; Monocytes # (auto) 0.49 K/uL (0.11-0.59); Monocytes % (auto) 5.9 %; Neutrophils # (auto) 7.17 K/uL (1.4-6.5); Neutrophils % (auto) 86.4 %; Tear Drop Cells Occasional
[2018-12-13 06:36] LABS: BUN Creatinine Ratio 8.8 (10-20); Calcium 9.5 mg/dl (8.5-10.1); Creatinine Clr Calc Pharmacy 6.4 ml/min; Est GFR (African American) 6.2; Est GFR (Non-African American) 5.4; Potassium 5.2 mmol/L (3.5-5.1)
[2018-12-13] MEDS: ALBUT/IPRATROP 3MG/0.5MG NEB 3 ML VIAL INH SCH ×4 (07:10→20:01)
[2018-12-13] MEDS: SENSIPAR~ORDER AWAITING ACTION SCH ×2 (07:28→17:17)
[2018-12-13] MEDS: OXYCODONE HCL IR 5 MG TAB (IMMEDIATE RELEASE) PO PRN ×2 (07:39→18:37)
[2018-12-13] MEDS: FLUTICASONE/SALMETEROL (ADVAIR) 500/50 INH 14 PUFF INH SCH ×2 (07:41→20:04)
[2018-12-13] MEDS: ATORVASTATIN 40 MG TAB PO SCH (07:43)
[2018-12-13] MEDS: NEPHROCAPS PO SCH (07:44)
[2018-12-13] MEDS: DULOXETINE HCL 30 MG CAP PO SCH (07:44)
[2018-12-13] MEDS: TIOTROPIUM BROMIDE 5 PUFF/90 MCG INH INH SCH (07:45)
[2018-12-13] MEDS: SENNA 8.6 MG TAB PO SCH ×2 (07:46→20:05)
[2018-12-13] MEDS: PANTOprazole 40 MG TAB PO SCH (07:46)
[2018-12-13] MEDS: DOXYCYCLINE HYCLATE 100 MG CAP PO SCH ×2 (07:49→20:05)
[2018-12-13] MEDS: HEPARIN SOD 5,000 UNIT/0.5 ML VIAL SQ SCH ×2 (07:54→20:13)
[2018-12-13] MEDS: FLUTICASONE PROPIONATE NA SPR 16 GM BTL SCH (07:54)
[2018-12-13] MEDS: SEVELAMER HCL 800 MG TABLET PO SCH ×3 (07:54→17:18)
[2018-12-13] MEDS: LACTOBACILLUS ACIDOPHILUS 1 GM PACK PO SCH ×3 (07:54→17:17)
[2018-12-13] MEDS ORDERED: SEVELAMER HCL 800 MG TABLET PO PRN (08:00)
[2018-12-13] MEDS ORDERED: EPOETIN ALFA 10,000 UNITS/ML VIAL IV ONE (08:10)
[2018-12-13] MEDS ORDERED: SODIUM CHLORIDE 0.9% 1000ML 1,000 ML IV PRN (08:10)
--- NOTE | 2018-12-13 08:12 | Nephrology Consultation ---
Date of Consultation December 13, 2018 Assessment & Plan (1) ESRD on dialysis: plan routine HD today via TDC on 2K, low Ca bath w/ gentle UF up to 1.5L keeping sbp > 90. she is NPO and getting IVf at 50mL hourly; not floridly overloaded -fluid removal as above -chemistries acceptable; pt prone to hypercalcemia and will run on lower Ca bath -epo w/ HD 10K units -next HD for 12/15 or as clinical status dictates Present on Admission?: Yes History of Present Illness Reason for Consultation: ESRD on HD Requesting Physician: Dr Mackey Attending Physician: Tamara Latham MD History of Present Illness 63 y/o F w/ ESRD on MWF HD whom I'm asked to follow for renal care after she was admitted for diverticulitis overnight. Complex PMH includes ESRD on HD, COPD/asthma, MARY not adherent w/ CPAP, pAF, chronic abdominal pain and constipation, depression, chronic vascular access challenges currently dependent on groin tunnelled catheter, past C diff colitis, past GI bleeding, past pancreatitis, past PE no loner on coumadin. Recent admission here earlier this month for asthma exacerbation. Her abdominal pain developed yesterday afternoon; she has been restricting her diet to soup and liquids d/t challenges swallowing. Her last HD was 12/13 and was uneventful, though we have been having issues w/ her TDC which we have had to run reversed. She follows w/ [facility] > in mid December they plan to move her TDC to L groin and place R groin AVG. Allergies Allergy/AdvReac Type Severity Reaction Status Date / Time hydromorphone Allergy Intermediate SHORTNESS Verified 12/12/18 21:32 OF BREATH Cipro Allergy Mild HIVES Verified 06/06/18 03:09 ciprofloxacin Allergy Mild Rash Verified 12/12/18 21:32 metronidazole Allergy Mild HIVES Verified 12/12/18 21:32 Penicillins Allergy Mild HIVES Verified 12/12/18 21:32 chocolate flavor Allergy Unknown HIVES Verified 12/12/18 21:32 nickel Allergy Rash Verified 12/12/18 21:32 aspirin AdvReac Mild Hives Verified 12/12/18 21:32 ENVIRONMENTAL Allergy Severe RESP Uncoded 12/12/18 21:32 DISTRESS, AIRWAY SWELLS Peanut Butter Flavor Allergy Unknown HIVES Uncoded 12/12/18 21:32 TRIX CEREAL Allergy Unknown SHORTNESS Uncoded 12/12/18 21:32 OF BREATH, SWELLING OF THROAT Home Medications Home Medications Medication Instructions Recorded Confirmed Type B complex-vitamin C-folic acid 1 tab PO DAILY 10/13/18 12/12/18 History [Nephro-Jamaal] albuterol sulfate [Ventolin HFA] 2 puff INHALATION Q4 PRN 10/13/18 12/12/18 History atorvastatin 40 mg PO DAILY 10/13/18 12/12/18 History benzonatate 100 mg PO TID PRN 10/13/18 12/12/18 History cinacalcet [Sensipar] 60 mg PO DAILY 10/13/18 12/12/18 History cyclobenzaprine 5 mg PO BID PRN 10/13/18 12/12/18 History diltiazem HCl 120 mg PO DAILY 10/13/18 12/12/18 History docusate sodium 100 mg PO BID PRN 10/13/18 12/12/18 History duloxetine 30 mg PO DAILY 10/13/18 12/12/18 History epinephrine [EpiPen] 0.3 mg IM Q3H PRN 10/13/18 12/12/18 History fluticasone [Flonase Allergy 2 spray INTRANASAL DAILY 10/13/18 12/12/18 History Relief] fluticasone-salmeterol [Advair 1 inh INHALATION BID 10/13/18 12/12/18 History Diskus] ipratropium-albuterol 3 ml INHALATION QID 10/13/18 12/12/18 History mirtazapine 7.5 mg PO HS 10/13/18 12/12/18 History montelukast [Singulair] 10 mg PO PM 10/13/18 12/12/18 History ondansetron HCl [Zofran] 4 mg PO Q8 PRN 10/13/18 12/12/18 History pantoprazole 40 mg PO DAILY 10/13/18 12/12/18 History ranitidine HCl 300 mg PO HS 10/13/18 12/12/18 History sennosides [Senokot] 8.6 mg PO BID 10/13/18 12/12/18 History sevelamer carbonate [Renvela] 2,400 mg PO TIDM 10/13/18 12/12/18 History sevelamer carbonate [Renvela] 800 mg PO UD 10/13/18 12/12/18 History tiotropium bromide [Spiriva with 1 cap INHALATION DAILY 10/13/18 12/12/18 History HandiHaler] albuterol sulfate 2.5 mg INHALATION QID PRN 12/03/18 12/12/18 History oxycodone 5 mg PO Q6H PRN 12/03/18 12/12/18 History prednisone 10 mg PO UD 9 Days #18 tab 12/07/18 12/12/18 Rx Patient History Medical History C. 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, s/p ERCP and biliary sphincterotomy" Obstructive sleep apnea on CPAP CPAP Pulmonary emboli Thrombophlebitis of right dorsalis pedis vein Surgical History S/P CRESCENCIO (total abdominal hysterectomy) (Chronic) History of cholecystectomy (Chronic) History of appendectomy (Chronic) History of appendectomy (Inactive) History of bronchoscopy (Inactive) History of cholecystectomy (Inactive) History of colonoscopy (Inactive) History of esophagogastroduodenoscopy (EGD) (Inactive) S/P CRESCENCIO (total abdominal hysterectomy) (Inactive) S/P dialysis catheter insertion (Inactive) DIALYSIS [id number] Hernia repair (03/11/12) UMBILICAL History of - section (03/11/12) S/P dialysis catheter insertion Family History Father Family history of diabetes mellitus Colon cancer Brother Family history of diabetes mellitus Son Family history of diabetes mellitus Social History marital status: Single Current Living Situation: Family Current Living Situation Comment: with son current occupational status: unemployed and disabled Feels Safe at Home: Yes Safety Concerns: Feels Safe At This Time Smoking Status: Never smoker Second Hand Exposure: No Hx Alcohol Use: No Hx Substance Use: No Beliefs That Will Affect Care: None Preferred Language: Luxembourgish Pressure Welder Required: No Review of Systems Constitutional: + fever (reported BISQUE TILE BURNER), + fatigue, + weakness and + anorexia Eyes: no worsening vision Ear, Nose, Mouth, Throat: + dry mouth and + hoarseness Respiratory: + cough (left over from recent asthma; not productive) and + wheezing (left over from recent asthma issues) Cardiovascular: no chest pain, no palpitations and no edema Gastrointestinal: + abdominal pain, + belching, + early satiety, + heartburn, + nausea and + vomiting anuric Musculoskeletal: + back pain and + body aches; no swelling and no muscle weakness Integumentary: no non-healing lesions Neurologic: + generalized weakness; no localized weakness and no confusion Psychiatric: + depression and + anxiety Endocrine: + fatigue Hematologic / Lymphatic: no easy bleeding Physical Exam 2 Vital Signs (Past 24 Hours): Last Vital Signs Temp 36.4 C L 12/13/18 07:23 Pulse 62 12/13/18 07:23 Resp 20 12/13/18 07:23 BP 116/69 12/13/18 07:23 Pulse Ox 99 12/13/18 07:23 Constitutional: well developed, well nourished and + obese on 02NC, cooperative, A& 0 x 3 Eyes: EOM intact bilaterally ENMT: Ears: no external ear abnormality Nose: no external nose abnormality Mouth: + dry oral mucous membranes Neck: no nuchal rigidity Respiratory: normal respiratory effort Auscultation: + diminished lung sounds and + wheezes Cardiovascular: RRR, no murmur, no edema Gastrointestinal (Abdomen): Inspection/Auscultation: normal bowel sounds Percussion/Palpation: + abdomen tender (difficult to reproduce, more in upper abd), + guarding and abdomen soft; abdomen not rigid Musculoskeletal: Extremities: strength 5/5 throughout Skin: no rashes, warm and dry Neurologic: bowles, fluent speech, no tremor Psychiatric: Orientation: alert and oriented x 3 Affect: + anxious affect Results & Data Laboratory Results Abnormal lab results 12/12/18 12/12/18 12/13/18 Range/Units 21:50 21:50 05:31 WBC 11.16 H (4.8-10.8) K/uL RBC 3.57 L (4.2-5.4) M/uL Hgb 10.8 L (12.0-16.0) g/dL Hct 36.0 L (37-47) % MCV 100.8 H (80-100) fL MCHC 30.0 L (32-36) g/dL RDW Std Deviation 65.8 H (36.4-46.3) fL RDW Coeff of Lashae 17.8 H (11.5-14.5) % Plt Count 97 L (130-400) K/uL MPV 10.9 H (7.4-10.4) fL Immature Gran # (Auto) 0.07 H (0.00-0.02) K/uL Neut # (Auto) 9.97 H (1.4-6.5) K/uL Lymph # (Auto) 0.57 L (1.2-3.4) K/uL INR (0.9-1.1) Potassium 5.2 H D (3.5-5.1) mmol/L Anion Gap 12.0 H (3-11) BUN 65 H 65 H (7-18) mg/dl Creatinine 6.71 H* 7.34 H* D (0.6-1.2) mg/dl BUN/Creatinine Ratio 9.7 L 8.8 L (10-20) Calcium 10.5 H (8.5-10.1) mg/dl Alkaline Phosphatase 143 H (45-117) U/L Total Protein 6.3 L (6.4-8.2) gm/dl Albumin 3.2 L (3.4-5.0) gm/dl 12/13/18 12/13/18 Range/Units 05:31 05:31 WBC (4.8-10.8) K/uL RBC 3.30 L (4.2-5.4) M/uL Hgb 9.8 L (12.0-16.0) g/dL Hct 33.3 L (37-47) % MCV 100.9 H (80-100) fL MCHC 29.4 L (32-36) g/dL RDW Std Deviation 65.5 H (36.4-46.3) fL RDW Coeff of Lashae 17.9 H (11.5-14.5) % Plt Count 95 L (130-400) K/uL MPV 10.7 H (7.4-10.4) fL Immature Gran # (Auto) 0.05 H (0.00-0.02) K/uL Neut # (Auto) 7.17 H (1.4-6.5) K/uL Lymph # (Auto) 0.57 L (1.2-3.4) K/uL INR 1.2 H (0.9-1.1) Potassium (3.5-5.1) mmol/L Anion Gap (3-11) BUN (7-18) mg/dl Creatinine (0.6-1.2) mg/dl BUN/Creatinine Ratio (10-20) Calcium (8.5-10.1) mg/dl Alkaline Phosphatase (45-117) U/L Total Protein (6.4-8.2) gm/dl Albumin (3.4-5.0) gm/dl Diagnostic Findings CT of the abdomen and pelvis shows pancolonic diverticulosis with acute uncomplicated diverticulitis in the hepatic flexure associated reactive fluid, extensive body wall edema, fat containing ventral hernias in the periumbilical region.
[2018-12-13] MEDS ORDERED: dilTIAZem ER 120 MG CAPCR PO SCH (09:00)
--- NOTE | 2018-12-13 10:19 | Surgery Consultation ---
Date of Consultation December 13, 2018 Assessment & Plan (1) Diverticulitis: 63 yo female with reported history of prior diverticulitis and multiple comorbidities, who presents with uncomplicated diverticulitis. - NPO (despite decrease in WBC, abdomen remains quite tender and has not yet had a BM) - Continue Abx as prescribed - Hold bowel regimen in the setting of acute colonic inflammation - No acute surgical intervention at this time. Will continue to follow. - Will need a colonoscopy on an elective basis in approximately 6 weeks once acute process has resolved Present on Admission?: Yes History of Present Illness Reason for Consultation: Diverticulitis Requesting Physician: Internal Medicine Attending Physician: Tamara Latham MD History of Present Illness Patient is a 63 yo female with multiple comorbidities who presented last night with abdominal pain. She states she started with abdominal pain approximately 2 weeks ago with associated nausea and vomiting. She is unable to tolerate PO intake. She presented when pain began to worsen. She describes location of pain as starting in her chest and going down her midline all the way to her pelvis, but she also states she has pain "all over" her abdomen. She also reports constipation. Does not know if bowel movements are bloody. She reports being treated for diverticulitis several times in the past, and has required admissions in the past for such at [facility]. She denies chest pain and dyspnea. Was recently admitted with pneumonia. Allergies Allergy/AdvReac Type Severity Reaction Status Date / Time hydromorphone Allergy Intermediate SHORTNESS Verified 12/12/18 21:32 OF BREATH Cipro Allergy Mild HIVES Verified 06/06/18 03:09 ciprofloxacin Allergy Mild Rash Verified 12/12/18 21:32 metronidazole Allergy Mild HIVES Verified 12/12/18 21:32 Penicillins Allergy Mild HIVES Verified 12/12/18 21:32 chocolate flavor Allergy Unknown HIVES Verified 12/12/18 21:32 nickel Allergy Rash Verified 12/12/18 21:32 aspirin AdvReac Mild Hives Verified 12/12/18 21:32 ENVIRONMENTAL Allergy Severe RESP Uncoded 12/12/18 21:32 DISTRESS, AIRWAY SWELLS Peanut Butter Flavor Allergy Unknown HIVES Uncoded 12/12/18 21:32 TRIX CEREAL Allergy Unknown SHORTNESS Uncoded 12/12/18 21:32 OF BREATH, SWELLING OF THROAT Home Medications Home Medications Medication Instructions Recorded Confirmed Type B complex-vitamin C-folic acid 1 tab PO DAILY 10/13/18 12/12/18 History [Nephro-Jamaal] albuterol sulfate [Ventolin HFA] 2 puff INHALATION Q4 PRN 10/13/18 12/12/18 History atorvastatin 40 mg PO DAILY 10/13/18 12/12/18 History benzonatate 100 mg PO TID PRN 10/13/18 12/12/18 History cinacalcet [Sensipar] 60 mg PO DAILY 10/13/18 12/12/18 History cyclobenzaprine 5 mg PO BID PRN 10/13/18 12/12/18 History diltiazem HCl 120 mg PO DAILY 10/13/18 12/12/18 History docusate sodium 100 mg PO BID PRN 10/13/18 12/12/18 History duloxetine 30 mg PO DAILY 10/13/18 12/12/18 History epinephrine [EpiPen] 0.3 mg IM Q3H PRN 10/13/18 12/12/18 History fluticasone [Flonase Allergy 2 spray INTRANASAL DAILY 10/13/18 12/12/18 History Relief] fluticasone-salmeterol [Advair 1 inh INHALATION BID 10/13/18 12/12/18 History Diskus] ipratropium-albuterol 3 ml INHALATION QID 10/13/18 12/12/18 History mirtazapine 7.5 mg PO HS 10/13/18 12/12/18 History montelukast [Singulair] 10 mg PO PM 10/13/18 12/12/18 History ondansetron HCl [Zofran] 4 mg PO Q8 PRN 10/13/18 12/12/18 History pantoprazole 40 mg PO DAILY 10/13/18 12/12/18 History ranitidine HCl 300 mg PO HS 10/13/18 12/12/18 History sennosides [Senokot] 8.6 mg PO BID 10/13/18 12/12/18 History sevelamer carbonate [Renvela] 2,400 mg PO TIDM 10/13/18 12/12/18 History sevelamer carbonate [Renvela] 800 mg PO UD 10/13/18 12/12/18 History tiotropium bromide [Spiriva with 1 cap INHALATION DAILY 10/13/18 12/12/18 History HandiHaler] albuterol sulfate 2.5 mg INHALATION QID PRN 12/03/18 12/12/18 History oxycodone 5 mg PO Q6H PRN 12/03/18 12/12/18 History prednisone 10 mg PO UD 9 Days #18 tab 12/07/18 12/12/18 Rx Patient History Medical History C. 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, s/p ERCP and biliary sphincterotomy" Obstructive sleep apnea on CPAP CPAP Pulmonary emboli Thrombophlebitis of right dorsalis pedis vein Surgical History S/P CRESCENCIO (total abdominal hysterectomy) (Chronic) History of cholecystectomy (Chronic) History of appendectomy (Chronic) History of appendectomy (Inactive) History of bronchoscopy (Inactive) History of cholecystectomy (Inactive) History of colonoscopy (Inactive) History of esophagogastroduodenoscopy (EGD) (Inactive) S/P CRESCENCIO (total abdominal hysterectomy) (Inactive) S/P dialysis catheter insertion (Inactive) DIALYSIS [id number] Hernia repair (03/11/12) UMBILICAL History of - section (03/11/12) S/P dialysis catheter insertion Family History Father Family history of diabetes mellitus Colon cancer Brother Family history of diabetes mellitus Son Family history of diabetes mellitus Social History marital status: Single Current Living Situation: Family Current Living Situation Comment: with son current occupational status: unemployed and disabled Feels Safe at Home: Yes Safety Concerns: Feels Safe At This Time Smoking Status: Never smoker Second Hand Exposure: No Hx Alcohol Use: No Hx Substance Use: No Beliefs That Will Affect Care: None Preferred Language: Lao Residence Hall Director Required: No Review of Systems Negative except as stated in HPI. Physical Exam 2 Vital Signs (Past 24 Hours): Last Vital Signs Temp 36.4 C L 12/13/18 07:23 Pulse 66 12/13/18 08:00 Resp 20 12/13/18 07:23 BP 116/69 12/13/18 07:23 Pulse Ox 99 12/13/18 07:23 Constitutional: WD/WN, vitals as above not in distress Eyes: PERRL, conjunctivae normal, anicteric sclerae ENMT: external ear and nose normal, oropharynx normal Neck: normal visual inspection Respiratory: normal respiratory effort, lungs clear to auscultation does have a productive sounding cough during examination Cardiovascular: Rate/Rhythm: regular rate and regular rhythm Gastrointestinal (Abdomen): soft, protuberant, generalized abdominal tenderness, most significant in epigastrium and RUQ with voluntary guarding in these areas Results & Data Laboratory Results All labs reviewed. Pertinent findings include: WBC 8.30 (on admission 11.16) AST 34, ALT 45, Alk Phos 143, Lipase 258 Lactate unavailable Diagnostic Findings CT Abdomen/Pelvis Pancolonic diverticulosis with acute uncomplicated diverticulitis in the hepatic flexure and associated reactive fluid. The inflammatory change in this region appears to be pericolonic rather than associated with the liver. Secondary reactive inflammatory changes of the gastric antrum.
--- NOTE | 2018-12-13 10:28 | Dialysis Progress Note ---
Date of Service December 13, 2018 Assessment & Plan (1) ESRD on dialysis: dialysis stopped today after less than an hour d/t poor catheter flow/ can 't run catheter despite position changes/ etc; pt had alteplace on 12/10 which made no difference Present on Admission?: Yes (2) Complication of vascular access for dialysis: nearing exhaustion of vascular access sites; follows w/ [facility] vascular whose plan had been to move TDC to L groin from R and place R groin [facility] -consulted [facility] vascular to see about moving TDC to L groin now Present on Admission?: Yes Subjective seen on dialysis which she is tolerating. catheter running poorly at 230 ml/min max and later in tx cannot run at all. pt w/ unchanged abd pain, N, constipation, anxiety; no sob, no chest pain. Physical Exam 2 Vital Signs (Past 24 Hours): Last Vital Signs Temp 36.4 C L 12/13/18 07:23 Pulse 66 12/13/18 08:00 Resp 20 12/13/18 07:23 BP 116/69 12/13/18 07:23 Pulse Ox 99 12/13/18 07:23 Constitutional: well developed and well nourished on 02nc, no cough Eyes: EOM intact bilaterally ENMT: Ears: no external ear abnormality Nose: no external nose abnormality Mouth: + dry oral mucous membranes Neck: no nuchal rigidity Respiratory: normal respiratory effort Auscultation: + diminished lung sounds and + wheezes Gastrointestinal (Abdomen): Inspection/Auscultation: normal bowel sounds Percussion/Palpation: + abdomen tender, + guarding and abdomen soft Musculoskeletal: Extremities: strength 5/5 throughout Skin: no rashes, warm and dry Neurologic: bowles, fluent speech, no tremor Psychiatric: Affect: + anxious affect Results & Data Laboratory Results reviewed
[2018-12-13] MEDS: CARBOHYDRATES FOR HYPOGLYCEMIA PO PRN (10:51)
[2018-12-13] MEDS ORDERED: GLUCOSE 40% GEL 15 GM TUBE PO ONE (11:18)
[2018-12-13] MEDS ORDERED: GLUCOSE 40% GEL 15 GM TUBE PO PRN (11:51)
[2018-12-13] MEDS ORDERED: DEXTROSE 50% 50 ML SYRINGE IV PRN (11:51)
[2018-12-13] MEDS ORDERED: GLUCOSE 10 TABS/TUBE PO PRN (11:51)
[2018-12-13] MEDS ORDERED: GLUCAGON FOR INJ 1 MG VIAL SQ PRN (11:51)
[2018-12-13] MEDS ORDERED: CARBOHYDRATES FOR HYPOGLYCEMIA PO PRN (11:51)
--- NOTE | 2018-12-13 19:17 | Discharge Summary ---
Date of Service December 13, 2018 Admission HPI Per Admitting Provider DICTATED BY: Zhang Mackey MD DATE OF ADMISSION: 12/13/2018 CHIEF COMPLAINT: Abdominal pain. 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 The patient says abdominal pain started today afternoon and she is having diverticulitis for last 2 years. Pain is severe in nature, started from epigastric region and goes to all over the belly, associated with some nausea and vomiting. Constipated, does not whether there is blood in the stools or black stools because she cannot see. She lives with her son, ambulates with help of a walker.Not eating much. She has difficulty swallowing. She is only trying to eat liquid diet, like chicken noodle soups. Last admission she had barium swallow showing some small sliding hiatal hernia and was recommended for slipper diet. The patient says that she had a fever at home yesterday, still has cough bringing whitish phlegm. No headache. Has some blurred visions. Uses reading glasses. No earache. Always has some runny nose, no sore throat. She gets on and off chest pain when she is anxious but currently no chest pain. No shortness of breath. Received pain medication in the ER and somewhat drowsy but is easily arousable. Admission Exam Per Admitting Provider PHYSICAL EXAMINATION: GENERAL: The patient is of moderate built, not in acute distress. VITAL SIGNS: Temperature 36.8, pulse 96, respiratory rate 16, blood pressure 138/78, oxygen 96% room air. HEENT: No pallor, no icterus. Pupils equal, round, and reactive to light. NECK: No JVD, no neck masses, no carotid bruits. CARDIOVASCULAR: S1, S2, regular rate and rhythm, no murmur, no gallop. RESPIRATORY SYSTEM: Clear to auscultate bilaterally. Mild occasional wheezing, no crackles. No accessory muscle use. ABDOMEN: Soft, bowel sounds present. Diffuse tenderness and guarding present. No distention seen. CENTRAL NERVOUS SYSTEM: Nonfocal. EXTREMITIES: No edema. Principal Diagnosis ACUTE DIVERTICULITIS /ESRD ON DIALYSIS /NON FUNCTIONAL DIALYSIS CATHETER Discharge Exam GENERAL: No sign of distress, HEENT: Sclera nonicteric, pink-purple bilateral equal reactive to light extraocular muscle intact Normal oral mucosa, neck: No JVD, no thyromegaly, trachea midline Lungs: Clear to auscultate, no wheeze or rales Cardiovascular: Regular S1 and S2, no murmur or gallop, no JVD, no lower extremity edema Abdomen: Soft, nontender, bowel sounds active, no hepatosplenomegaly Extremities: No rash or deformity, normal joint, Neuro: No focal neurological deficit, no dysarthria, no facial droop Psych: Alert awake oriented x3: Euthymic Skin: No rash LYMPH NODES: No cervical lymphadenopathy Discharge Data Allergies Allergy/AdvReac Type Severity Reaction Status Date / Time hydromorphone Allergy Intermediate SHORTNESS Verified 12/12/18 21:32 OF BREATH Cipro Allergy Mild HIVES Verified 06/06/18 03:09 ciprofloxacin Allergy Mild Rash Verified 12/12/18 21:32 metronidazole Allergy Mild HIVES Verified 12/12/18 21:32 Penicillins Allergy Mild HIVES Verified 12/12/18 21:32 chocolate flavor Allergy Unknown HIVES Verified 12/12/18 21:32 nickel Allergy Rash Verified 12/12/18 21:32 aspirin AdvReac Mild Hives Verified 12/12/18 21:32 ENVIRONMENTAL Allergy Severe RESP Uncoded 12/12/18 21:32 DISTRESS, AIRWAY SWELLS Peanut Butter Flavor Allergy Unknown HIVES Uncoded 12/12/18 21:32 TRIX CEREAL Allergy Unknown SHORTNESS Uncoded 12/12/18 21:32 OF BREATH, SWELLING OF THROAT Consultations 12/12/18 23:32 ED Decision to Admit Stat 12/13/18 02:16 Consult Case Management - Discharge Planning Routine 12/13/18 08:00 Consult General Surgery Routine Consult Nephrology Routine 12/13/18 10:27 Consult Vascular Surgery Routine 12/13/18 19:10 Burn CD for patient Routine Procedures Performed Operation Date: 12/14/18 10:50 <No data on this case meets the specified criteria> Ordered Studies 12/12/18 21:30 CT abd pelvis wo con Stat Hospital Course (1) Complication of vascular access for dialysis: non fuctional dialysis catheter (2) ESRD on dialysis: (3) Diverticulitis: (4) Nausea & vomiting: (5) C. difficile colitis: (6) GERD (gastroesophageal reflux disease): (7) Paroxysmal A-fib: (8) CAD (coronary artery disease): Total Time Total Time Spent Total Time Spent (In Minutes): 30 MIN Total Time Includes: Discharge Planning, Medication Reconciliation and Communication With Other Providers Discharge Plan Discharge Items Patient Disposition: Transfer Acute Care Hospital Reason For Visit: AB PAIN Discharge Diagnosis: END STAGE RENAL DISEASE /NON FUNCTIONAL DIALYSIS CATHETER/ ACUTE DIALYSIS Discharge Goals: Decrease discomfort and Diagnostic testing Activity: Resume your previous activity Non-emergency contact: Primary Care Provider Call non-emergency contact if: you have any medication questions Diet: Nothing by mouth Addtl Provider Instructions: PATIENT IS BEING TRANSFERRED TO [facility] ACCEPTING PHYSICIAN DR NAM MENJIVAR [facility] HOSPITALIST KEEP PATIENT NPO TILL EVALUATED BY HOSPITALIST / VASCULAR SURGERY TEAM Prescriptions: New ertapenem [Invanz] 1 gram recon soln 500 mg IV DAILY 10 Days Qty: 10 RF: 0 Continue sennosides [Senokot] 8.6 mg Tablet 8.6 mg PO BID RF: 0 ipratropium-albuterol 0.5 mg-3 mg(2.5 mg base)/3 mL Solution For Nebulization 3 ml INHALATION QID RF: 0 ranitidine HCl 300 mg Tablet 300 mg PO HS RF: 0 ondansetron HCl [Zofran] 4 mg Tablet 4 mg PO Q8 PRN (Reason: Nausea) RF: 0 pantoprazole 40 mg Tablet,Delayed Release (Dr/Ec) 40 mg PO DAILY RF: 0 fluticasone-salmeterol [Advair Diskus] 500-50 mcg/dose Blister With Device 1 inh INHALATION BID RF: 0 docusate sodium 100 mg Capsule 100 mg PO BID PRN (Reason: Constipation) RF: 0 epinephrine [EpiPen] 0.3 mg/0.3 mL Auto-Injector 0.3 mg IM Q3H PRN (Reason: ALLERGIC REACCTION) RF: 0 albuterol sulfate [Ventolin HFA] 90 mcg/actuation Hfa Aerosol Inhaler 2 puff INHALATION Q4 PRN (Reason: Shortness Of Breath) RF: 0 fluticasone [Flonase Allergy Relief] 50 mcg/actuation [place],Suspension 2 spray INTRANASAL DAILY RF: 0 cinacalcet [Sensipar] 60 mg tablet 60 mg PO DAILY RF: 0 tiotropium bromide [Spiriva with HandiHaler] 18 mcg Capsule, W/Inhalation Device 1 cap INHALATION DAILY RF: 0 sevelamer carbonate [Renvela] 800 mg Tablet 2,400 mg PO TIDM RF: 0 sevelamer carbonate [Renvela] 800 mg Tablet 800 mg PO UD RF: 0 albuterol sulfate 2.5 mg /3 mL (0.083 %) Solution For Nebulization 2.5 mg INHALATION QID PRN (Reason: Shortness Of Breath) RF: 0 Discontinued atorvastatin 40 mg Tablet 40 mg PO DAILY RF: 0 diltiazem HCl 120 mg Capsule,Extended Release 24 Hr 120 mg PO DAILY RF: 0 benzonatate 100 mg Capsule 100 mg PO TID PRN (Reason: Cough) RF: 0 montelukast [Singulair] 10 mg Tablet 10 mg PO PM RF: 0 B complex-vitamin C-folic acid [Nephro-Jamaal] 0.8 mg Tablet 1 tab PO DAILY RF: 0 cyclobenzaprine 5 mg Tablet 5 mg PO BID PRN (Reason: Muscle Pain) RF: 0 mirtazapine 7.5 mg Tablet 7.5 mg PO HS RF: 0 duloxetine 30 mg Capsule,Delayed Release(Dr/Ec) 30 mg PO DAILY RF: 0 oxycodone 5 mg Tablet 5 mg PO Q6H PRN (Reason: Pain) RF: 0 prednisone 10 mg Tablet 10 mg PO UD 9 Days Qty: 18 RF: 0 Stand-Alone Forms: [facility] Discharge Orders: Discharge Order (Routine); Ordered 12/13/18 Ordered By: Tamara Latham Admission Data Admit Date/Time: 12/13/18 00:12 Attending Provider: Tamara Latham Admit Provider: Zhang Mackey Primary Care Provider: Mainali,Luz Other Providers: Zhang Mackey ; Yoni Jim ; Poppy Laughlin ; Aisha Hernandez ; Félix Camejo ; Maged Martel ; Aleshia Addison ; Se Delong ; Alfredo Quintero ; Lilian Page ; Buzz Padilla ; Janina Chan ; Pato Cuevas ; Tavares Nair Jr ; Rand Navarro ; Crystal Hair ; July Parikh ; Dima Torres ; Bryn Mccord I ; Kamille Casey ; Snow Winn ; Hoa Caballero ; Jesus Hernandez Service: Telemetry Medical
[2018-12-13] MEDS ORDERED: MONTELUKAST SODIUM 10 MG TABLET PO SCH (21:00)
[2018-12-13] MEDS ORDERED: MIRTAZAPINE TAB 15 MG TAB PO SCH (21:00)
[2018-12-13] MEDS ORDERED: ERTAPENEM SODIUM 500 MG in SODIUM CHLORIDE 0.9% 50 ML IV SCH (23:00)
--- NOTE | 2018-12-13 23:25 | Hospitalist Progress Note ---
Date of Service December 13, 2018 Assessment & Plan (1) Complication of vascular access for dialysis: non fuctional dialysis catheter 1) ESRD on dialysis: unable to have today for catheter malfunction after less than an hour d/t poor catheter flow/ can't run catheter despite position changes/ etc; pt had alteplace on 12/10/18 which made no difference updated by Nephrology pt refused to have dialysis catheter replaced done by Dr Hernandez scheduled to have left femoral dialysis catheter exchange on December [address] Escalona at [facility] due to complicated vascular access /multiple episodes of thrombosis /access failure /severe vascular disease pt will better served to transfer to [place] spoke with [facility] Hospitalist Dr Bowser pt is accepted in his service will be transferred to [place] later today (2) Complication of vascular access for dialysis: nearing exhaustion of vascular access sites; due to multiple complication post procedure, repeated catheter thrombosis will benefit with transfer to Tertiary care to follow up with Vascular surgery ( pt is already establish care with Dr Salinas ) (2) ESRD on dialysis: unable to have scheduled dialysis today due to catheter malfunction vol stable will be transferred to [place] for non funcitonal dialysis catheter follows with Vascular surgery Dr Salinas Present on Admission?: Yes (3) Diverticulitis: presented with abdominal pain , nausea /vomiting CT abdomen /pelvis shows rt hepatic flexure non complicated diverticulitis no evidence of sepsis NPO , bowel rest D/c IVF to prevent vol overload as pt was unable to get dialysis today IV abx with Invanz ( pt is allergic to Penicillin /Cipro /Flagyl) surgery consult appreciated conservative approach ' out pt follow up colonoscopy in 6-8 weeks Present on Admission?: Yes (4) Nausea & vomiting: (5) C. difficile colitis: (6) GERD (gastroesophageal reflux disease): (7) Paroxysmal A-fib: (8) CAD (coronary artery disease): Subjective abdominal pain improved no nausea/vomiting no fever or chills unable to have dialysis today /as dialysis catheter was found to be non functioning pr refused to have catheter replaced done by Dr hernandez scheduled to have femoral catheter exchange done at [place] by Vascular surgery Dr Salinas in few weeks prefers to be transferred to [place] and have dialysis catheter procedure done at [facility] pt is accepted to be transferred to [place] Physical Exam 2 Vital Signs (Past 24 Hours): Last Vital Signs Temp 36.6 C 12/13/18 15:50 Pulse 70 12/13/18 22:38 Resp 18 12/13/18 22:38 BP 120/70 12/13/18 15:50 Pulse Ox 97 12/13/18 22:38 Physical Exam: GENERAL: chronically ill appearing, no apparent distress HEENT: Sclera nonicteric, dry oral mucosa, neck: No JVD, no thyromegaly, trachea midline Lungs: diminished , no wheeze or rales Cardiovascular: Regular S1 and S2, no lower extremity edema Abdomen: Soft, + tenderness , no rebound E Neuro: No focal neurological deficit, no dysarthria, no facial droop Psych: Alert awake oriented x3: Euthymic
[2018-12-14] MEDS: SENSIPAR~ORDER AWAITING ACTION SCH ×2 (00:40→07:17)
[2018-12-14] MEDS ORDERED: CLINDAMYCIN 600 MG/54 ML BAG IV SCH (06:00)
[2018-12-14] MEDS ORDERED: dilTIAZem HCl 5 MG/ML 5 ML VIAL IV STA (06:26)
[2018-12-14] MEDS ORDERED: dilTIAZem HCl 125 MG in DEXTROSE 5% 100 ML IV PRN (06:30)
[2018-12-14] MEDS: ALBUT/IPRATROP 3MG/0.5MG NEB 3 ML VIAL INH SCH (07:02)
[2018-12-14] MEDS: FLUTICASONE/SALMETEROL (ADVAIR) 500/50 INH 14 PUFF INH SCH (07:14)
[2018-12-14] MEDS: SEVELAMER HCL 800 MG TABLET PO SCH ×2 (07:15→12:42)
[2018-12-14] MEDS: PANTOprazole 40 MG TAB PO SCH (07:16)
[2018-12-14] MEDS: NEPHROCAPS PO SCH (07:16)
[2018-12-14] MEDS: ATORVASTATIN 40 MG TAB PO SCH (07:16)
[2018-12-14] MEDS: DOXYCYCLINE HYCLATE 100 MG CAP PO SCH (07:16)
[2018-12-14] MEDS: LACTOBACILLUS ACIDOPHILUS 1 GM PACK PO SCH ×2 (07:16→12:42)
[2018-12-14] MEDS: DULOXETINE HCL 30 MG CAP PO SCH (07:17)
[2018-12-14] MEDS: SENNA 8.6 MG TAB PO SCH (07:17)
[2018-12-14] MEDS: FLUTICASONE PROPIONATE NA SPR 16 GM BTL SCH (07:17)
[2018-12-14] MEDS: HEPARIN SOD 5,000 UNIT/0.5 ML VIAL SQ SCH (07:18)
[2018-12-14 07:20] LABS: Hematocrit (blood only) 32.6 % (37-47); Hemoglobin 9.5 g/dL (12.0-16.0); Mean Corpuscular Hgb Conc 29.1 g/dL (32-36); Mean Corpuscular Volume 101.2 fL (80-100); Mean Platelet Volume 10.6 fL (7.4-10.4); Platelet Count 88 K/uL (130-400); RDW Coefficient of Variation 18.8 % (11.5-14.5); RDW Standard Deviation 70.7 fL (36.4-46.3); Red Blood Count 3.22 M/uL (4.2-5.4); White Blood Count 8.09 K/uL (4.8-10.8)
[2018-12-14] MEDS: TIOTROPIUM BROMIDE 5 PUFF/90 MCG INH INH SCH (07:22)
[2018-12-14 07:38] LABS: Albumin Level 2.7 gm/dl (3.4-5.0); BUN Creatinine Ratio 9.1 (10-20); Bilirubin,Total 0.3 mg/dl (0.2-1); Calcium 8.9 mg/dl (8.5-10.1); Creatinine Clr Calc Pharmacy 5.9 ml/min; Est GFR (African American) 5.7; Est GFR (Non-African American) 4.9; Globulin 2.7 gm/dl (2.5-4.0); Magnesium 1.9 mg/dl (1.8-2.4); Potassium 5.1 mmol/L (3.5-5.1); Total Protein 5.4 gm/dl (6.4-8.2)
[2018-12-14 07:43] LABS: Eosinophils # (auto) 0.11 K/uL (0-0.5); Eosinophils % (auto) 1.4 %; Immature Granulocytes # (auto) 0.04 K/uL (0.00-0.02); Immature Granulocytes % (auto) 0.5 %; Lymphocytes # (auto) 0.68 K/uL (1.2-3.4); Lymphocytes % (auto) 8.4 %; Macrocytosis Present; Monocytes # (auto) 0.61 K/uL (0.11-0.59); Monocytes % (auto) 7.5 %; Neutrophils # (auto) 6.65 K/uL (1.4-6.5); Neutrophils % (auto) 82.2 %; Polychromasia 1+
[2018-12-14] MEDS: CARBOHYDRATES FOR HYPOGLYCEMIA PO PRN (07:51)
[2018-12-14] MEDS ORDERED: VANCOMYCIN CONSULT ACTIVE PRN (08:44)
[2018-12-14] MEDS ORDERED: PHARMACY GLYCEMIC MGMT CONSULT PRN (08:45)
[2018-12-14] MEDS ORDERED: DEXTROSE 5% 1,000 ML IV SCH (08:45)
[2018-12-14] MEDS ORDERED: ERTAPENEM SODIUM 500 MG in SODIUM CHLORIDE 0.9% 50 ML IV SCH (09:15)
--- NOTE | 2018-12-14 10:13 | Pharmacy Report ---
Pharmacy Abx Dose Short Note - Date of Service December 14, 2018 - Assessment & Plan Assessment 63 year old F on day # 3 of ertapenem for diverticulitis * vancomycin IV added today (EMPIRIC indication), BC x 2 pending * ESRD on HD with complication of vascular access for dialysis. Patient refusing catheter placement with Dr. Hernandez. Last HD session was 12/13 (less than 1 hour due to loss of access) * possible transfer to tertiary care center Plan Vancomycin * 1250 mg (17 mg/kg) IV x 1 dose now * Random level ordered for 12/15 AM * Re-dosing will be dependent on random level result and HD plans Pharmacy will continue to follow and will adjust dose/frequency as necessary. Thank you.
[2018-12-14] MEDS ORDERED: VANCOMYCIN HCL 1,250 MG in SODIUM CHLORIDE 0.9% 250 ML IV ONE (10:30)
[2018-12-14] MEDS ORDERED: Nursing to Pharmacy Communication ONE (12:17)
--- NOTE | 2018-12-14 15:24 | Discharge Summary ---
Date of Service December 14, 2018 Admission HPI Per Admitting Provider DICTATED BY: Zhang Mackey MD DATE OF ADMISSION: 12/13/2018 CHIEF COMPLAINT: Abdominal pain. 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 The patient says abdominal pain started today afternoon and she is having diverticulitis for last 2 years. Pain is severe in nature, started from epigastric region and goes to all over the belly, associated with some nausea and vomiting. Constipated, does not whether there is blood in the stools or black stools because she cannot see. She lives with her son, ambulates with help of a walker.Not eating much. She has difficulty swallowing. She is only trying to eat liquid diet, like chicken noodle soups. Last admission she had barium swallow showing some small sliding hiatal hernia and was recommended for slipper diet. The patient says that she had a fever at home yesterday, still has cough bringing whitish phlegm. No headache. Has some blurred visions. Uses reading glasses. No earache. Always has some runny nose, no sore throat. She gets on and off chest pain when she is anxious but currently no chest pain. No shortness of breath. Received pain medication in the ER and somewhat drowsy but is easily arousable. Principal Diagnosis ESRD ON HD /NON FUNCTIONAL DIALYSIS CATHETER Discharge Exam Constitutional WD/WN, vitals as above well developed, well nourished and + obese; not in distress Eyes PERRL, conjunctivae normal, anicteric sclerae EOM intact bilaterally ENMT external ear and nose normal, oropharynx normal Ears: no external ear abnormality Nose: no external nose abnormality Mouth: + dry oral mucous membranes Neck normal visual inspection; no nuchal rigidity Respiratory normal respiratory effort, lungs clear to auscultation normal respiratory effort Auscultation: + diminished lung sounds and + wheezes Cardiovascular RRR, no murmur, no edema Rate/Rhythm: regular rate and regular rhythm Gastrointestinal (Abdomen) Inspection/Auscultation: normal bowel sounds Percussion/Palpation: + abdomen tender, + guarding and abdomen soft; abdomen not rigid Musculoskeletal Extremities: strength 5/5 throughout Skin no rashes, warm and dry Psychiatric Orientation: alert and oriented x 3 Affect: + anxious affect Discharge Data Allergies Allergy/AdvReac Type Severity Reaction Status Date / Time hydromorphone Allergy Intermediate SHORTNESS Verified 12/12/18 21:32 OF BREATH Cipro Allergy Mild HIVES Verified 06/06/18 03:09 ciprofloxacin Allergy Mild Rash Verified 12/12/18 21:32 metronidazole Allergy Mild HIVES Verified 12/12/18 21:32 Penicillins Allergy Mild HIVES Verified 12/12/18 21:32 chocolate flavor Allergy Unknown HIVES Verified 12/12/18 21:32 nickel Allergy Rash Verified 12/12/18 21:32 aspirin AdvReac Mild Hives Verified 12/12/18 21:32 ENVIRONMENTAL Allergy Severe RESP Uncoded 12/12/18 21:32 DISTRESS, AIRWAY SWELLS Peanut Butter Flavor Allergy Unknown HIVES Uncoded 12/12/18 21:32 TRIX CEREAL Allergy Unknown SHORTNESS Uncoded 12/12/18 21:32 OF BREATH, SWELLING OF THROAT Consultations 12/12/18 23:32 ED Decision to Admit Stat 12/13/18 02:16 Consult Case Management - Discharge Planning Routine 12/13/18 08:00 Consult General Surgery Routine Consult Nephrology Routine 12/13/18 10:27 Consult Vascular Surgery Routine 12/13/18 19:10 Burn CD for patient Routine 12/14/18 08:47 Consult Cardiology Routine Procedures Performed Operation Date: 12/14/18 10:50 <No data on this case meets the specified criteria> Ordered Studies 12/12/18 21:30 CT abd pelvis wo con Stat Hospital Course (1) Complication of vascular access for dialysis: non fuctional dialysis catheter 1) ESRD on dialysis: unable to have dialysis for catheter malfunction after less than an hour d/t poor catheter flow/ can't run catheter despite position changes/ etc; pt had alteplace on 12/10/18 which made no difference updated by Nephrology pt refused to have dialysis catheter replaced done by Dr Hernandez scheduled to have left femoral dialysis catheter exchange on December [address] Escalona at [facility] due to complicated vascular access /multiple episodes of thrombosis /access failure /severe vascular disease pt will better served to transfer to [place] spoke with [facility] Hospitalist Dr Menjivar pt is accepted in his service will be transferred to [place] later today (2) Complication of vascular access for dialysis: nearing exhaustion of vascular access sites; due to multiple complication post procedure, repeated catheter thrombosis will benefit with transfer to Tertiary care to follow up with Vascular surgery ( pt is already establish care with Dr Salinas ) (2) ESRD on dialysis: unable to have scheduled dialysis today due to catheter malfunction vol stable will be transferred to [place] for non funcitonal dialysis catheter follows with Vascular surgery Dr Salinas (3) Diverticulitis: presented with abdominal pain , nausea /vomiting CT abdomen /pelvis shows rt hepatic flexure non complicated diverticulitis no evidence of sepsis NPO , bowel rest D/c IVF to prevent vol overload as pt was unable to get dialysis today IV abx with Invanz ( pt is allergic to Penicillin /Cipro /Flagyl) surgery consult appreciated conservative approach ' out pt follow up colonoscopy in 6-8 weeks (4) Nausea & vomiting: (5) C. difficile colitis: (6) GERD (gastroesophageal reflux disease): (7) Paroxysmal A-fib: (8) CAD (coronary artery disease): Total Time Total Time Spent Total Time Spent (In Minutes): 35 M INS Discharge Plan Discharge Items Patient Disposition: Transfer Acute Care Hospital Reason For Visit: AB PAIN Discharge Diagnosis: END STAGE RENAL DISEASE /NON FUNCTIONAL DIALYSIS CATHETER/ACUTE DIALYSIS Discharge Goals: Decrease discomfort and Diagnostic testing Activity: Resume your previous activity Non-emergency contact: Primary Care Provider Call non-emergency contact if: you have any medication questions Diet: Nothing by mouth Addtl Provider Instructions: PATIENT IS BEING TRANSFERRED TO [facility] ACCEPTING PHYSICIAN DR NAM MENJIVAR [facility] KEEP PATIENT NPO TILL EVALUATED BY HOSPITALIST / VASCULAR SURGERY TEAM Prescriptions: New ertapenem [Invanz] 1 gram recon soln 500 mg IV DAILY 10 Days Qty: 10 RF: 0 Continued sennosides [Senokot] 8.6 mg Tablet 8.6 mg PO BID RF: 0 ipratropium-albuterol 0.5 mg-3 mg(2.5 mg base)/3 mL Solution For Nebulization 3 ml INHALATION QID RF: 0 ranitidine HCl 300 mg Tablet 300 mg PO HS RF: 0 ondansetron HCl [Zofran] 4 mg Tablet 4 mg PO Q8 PRN (Reason: Nausea) RF: 0 pantoprazole 40 mg Tablet,Delayed Release (Dr/Ec) 40 mg PO DAILY RF: 0 fluticasone-salmeterol [Advair Diskus] 500-50 mcg/dose Blister With Device 1 inh INHALATION BID RF: 0 docusate sodium 100 mg Capsule 100 mg PO BID PRN (Reason: Constipation) RF: 0 epinephrine [EpiPen] 0.3 mg/0.3 mL Auto-Injector 0.3 mg IM Q3H PRN (Reason: ALLERGIC REACCTION) RF: 0 albuterol sulfate [Ventolin HFA] 90 mcg/actuation Hfa Aerosol Inhaler 2 puff INHALATION Q4 PRN (Reason: Shortness Of Breath) RF: 0 fluticasone [Flonase Allergy Relief] 50 mcg/actuation Dix,Suspension 2 spray INTRANASAL DAILY RF: 0 cinacalcet [Sensipar] 60 mg tablet 60 mg PO DAILY RF: 0 tiotropium bromide [Spiriva with HandiHaler] 18 mcg Capsule, W/Inhalation Device 1 cap INHALATION DAILY RF: 0 sevelamer carbonate [Renvela] 800 mg Tablet 2,400 mg PO TIDM RF: 0 sevelamer carbonate [Renvela] 800 mg Tablet 800 mg PO UD RF: 0 albuterol sulfate 2.5 mg /3 mL (0.083 %) Solution For Nebulization 2.5 mg INHALATION QID PRN (Reason: Shortness Of Breath) RF: 0 Discontinued atorvastatin 40 mg Tablet 40 mg PO DAILY RF: 0 diltiazem HCl 120 mg Capsule,Extended Release 24 Hr 120 mg PO DAILY RF: 0 benzonatate 100 mg Capsule 100 mg PO TID PRN (Reason: Cough) RF: 0 montelukast [Singulair] 10 mg Tablet 10 mg PO PM RF: 0 B complex-vitamin C-folic acid [Nephro-Jamaal] 0.8 mg Tablet 1 tab PO DAILY RF: 0 cyclobenzaprine 5 mg Tablet 5 mg PO BID PRN (Reason: Muscle Pain) RF: 0 mirtazapine 7.5 mg Tablet 7.5 mg PO HS RF: 0 duloxetine 30 mg Capsule,Delayed Release(Dr/Ec) 30 mg PO DAILY RF: 0 oxycodone 5 mg Tablet 5 mg PO Q6H PRN (Reason: Pain) RF: 0 prednisone 10 mg Tablet 10 mg PO UD 9 Days Qty: 18 RF: 0 Stand-Alone Forms: [facility] Discharge Orders: Discharge Order (Routine); Ordered 12/13/18 Ordered By: Tamara Latham Admission Data Admit Date/Time: 12/13/18 00:12 Attending Provider: Tamara Latham Admit Provider: Zhang Mackey Primary Care Provider: Luz Torres Other Providers: Crystal Hair ; July Parikh ; Eddie Thompson ; Jesus Hernandez Service: Telemetry Medical Other Interventions: Discharge Summary Assessment (RN) Last Done: 12/14/18 10:24 DC Date/Time DO NOT enter until pt leaves facility: 12/14/18 14:30
--- NOTE | 2018-12-14 17:48 | Progress Note ---
Date of Service December 14, 2018 Assessment & Plan (1) Diverticulitis: Given improvement in exam and WBC, okay to advance to clear liquids, however given plans for transfer to [facility] and possible need for surgical intervention would keep NPO until final OR plan is made for AV fistula. Subjective Abdominal pain slightly improved. Pt states plan is transfer to [facility] [place] as AV fistula was unable to be used. Denies nausea. Physical Exam 2 Vital Signs (Past 24 Hours): Last Vital Signs Temp 37.4 C 12/14/18 12:29 Pulse 71 12/14/18 12:29 Resp 18 12/14/18 12:29 BP 110/48 L 12/14/18 12:29 Pulse Ox 98 12/14/18 12:29 Constitutional: no acute distress Respiratory: normal respiratory effort Cardiovascular: Rate/Rhythm: regular rate Gastrointestinal (Abdomen): soft, nondistended, lower abdominal tenderness
--- NOTE | 2018-12-14 20:29 | Cardiology Consultation ---
Date of Consultation December 14, 2018 Note, late consult entry: patient seen and examined 12/14/18 at 9:24 am. Was back in SR at that time and tolerated diltiazem infusion at 5 mg /hr. Consult documented 12/14/18, 8:29 pm. Assessment & Plan (1) Paroxysmal A-fib: PAF Sepis Need for HD access revision EKG performed 12/14/18 at 6:16 AM revealed atrial fibrillation with rapid ventricular response at 147 bpm, cannot exclude an age-indeterminate anterior infarction based on poor R wave progression in the anterior and lateral precordial leads. Compared to the prior tracing dated 12/12/18 atrial fibrillation replaced sinus rhythm. Echocardiogram has been performed on 06/06/[address] [facility] with findings of normal LV chamber size and mild concentric left ventricular hypertrophy per the report, normal LVEF 60-65%, no segmental wall motion abnormalities were noted at that time . No significant valvular pathology noted at that time. -Case discussed with previsit bedside. Agree with IV diltiazem treatment for now. Pending acute transfer to [facility]. Patient previously been anticoagulated with Coumadin for stroke prophylaxis. Per review of her outpatient record it appears this was discontinued in September 2018. At present , given concerns of infection and need for vascular procedure, we will hold off on systemic anticoagulation. History of Present Illness Attending Physician: Tamara Latham MD History of Present Illness Sabina Davila is a 63 year old female seen in cardiology consultation per the request of Dr Latham to the evaluaiton of atrial fibrillaiton. The patient does not follow routinely with [facility] cardiology . Last visit had been in [place] in 2014 at which time a h/o paroxysmal atrial fibrillation was noted. She was on oral diltiazem at that time and coumadin. Patient with multiple recent hospital stays both at this institution recently as well as at [facility]. She had been admitted to [facility] on 12/13/18 due to concerns of abdominal discomfort and diverticulitis. She has history of end- stage renal disease and is on hemodialysis and has had difficulty with dialysis access with past issues with fistula infection and access thrombosis. She has been dialyzed recently via a right groin tunneled catheter, and there have been difficulties with access in her vision had been planned. The patient was tentatively awaiting transfer to [facility] when she was noted on telemetry to go into atrial fibrillation with rapid ventricular response from 6:04 AM on 12/14/18 until 7:31 AM. At the time during my assessment at 9:24 AM on 12/14/18 she is back in sinus rhythm at 75 bpm, with IV diltiazem infusion having already been initiated by Dr. Latham. Patient is tolerating this well. Patient was febrile on the time of the atrial fibrillation episode with T-max of 38.2 C per Allergies Allergy/AdvReac Type Severity Reaction Status Date / Time hydromorphone Allergy Intermediate SHORTNESS Verified 12/12/18 21:32 OF BREATH Cipro Allergy Mild HIVES Verified 06/06/18 03:09 ciprofloxacin Allergy Mild Rash Verified 12/12/18 21:32 metronidazole Allergy Mild HIVES Verified 12/12/18 21:32 Penicillins Allergy Mild HIVES Verified 12/12/18 21:32 chocolate flavor Allergy Unknown HIVES Verified 12/12/18 21:32 nickel Allergy Rash Verified 12/12/18 21:32 aspirin AdvReac Mild Hives Verified 12/12/18 21:32 ENVIRONMENTAL Allergy Severe RESP Uncoded 12/12/18 21:32 DISTRESS, AIRWAY SWELLS Peanut Butter Flavor Allergy Unknown HIVES Uncoded 12/12/18 21:32 TRIX CEREAL Allergy Unknown SHORTNESS Uncoded 12/12/18 21:32 OF BREATH, SWELLING OF THROAT Home Medications Home Medications Medication Instructions Recorded Confirmed Type albuterol sulfate [Ventolin HFA] 2 puff INHALATION Q4 PRN 10/13/18 12/12/18 History cinacalcet [Sensipar] 60 mg PO DAILY 10/13/18 12/12/18 History docusate sodium 100 mg PO BID PRN 10/13/18 12/12/18 History epinephrine [EpiPen] 0.3 mg IM Q3H PRN 10/13/18 12/12/18 History fluticasone [Flonase Allergy 2 spray INTRANASAL DAILY 10/13/18 12/12/18 History Relief] fluticasone-salmeterol [Advair 1 inh INHALATION BID 10/13/18 12/12/18 History Diskus] ipratropium-albuterol 3 ml INHALATION QID 10/13/18 12/12/18 History ondansetron HCl [Zofran] 4 mg PO Q8 PRN 10/13/18 12/12/18 History pantoprazole 40 mg PO DAILY 10/13/18 12/12/18 History ranitidine HCl 300 mg PO HS 10/13/18 12/12/18 History sennosides [Senokot] 8.6 mg PO BID 10/13/18 12/12/18 History sevelamer carbonate [Renvela] 2,400 mg PO TIDM 10/13/18 12/12/18 History sevelamer carbonate [Renvela] 800 mg PO UD 10/13/18 12/12/18 History tiotropium bromide [Spiriva with 1 cap INHALATION DAILY 10/13/18 12/12/18 History HandiHaler] albuterol sulfate 2.5 mg INHALATION QID PRN 12/03/18 12/12/18 History ertapenem [Invanz] 500 mg IV DAILY 10 Days #10 ea 12/13/18 Rx Patient History Medical History C. 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, s/p ERCP and biliary sphincterotomy" Obstructive sleep apnea on CPAP CPAP Pulmonary emboli Thrombophlebitis of right dorsalis pedis vein Surgical History S/P CRESCENCIO (total abdominal hysterectomy) (Chronic) History of cholecystectomy (Chronic) History of appendectomy (Chronic) History of appendectomy (Inactive) History of bronchoscopy (Inactive) History of cholecystectomy (Inactive) History of colonoscopy (Inactive) History of esophagogastroduodenoscopy (EGD) (Inactive) S/P CRESCENCIO (total abdominal hysterectomy) (Inactive) S/P dialysis catheter insertion (Inactive) DIALYSIS 3XWK Hernia repair (03/11/12) UMBILICAL History of - section (03/11/12) S/P dialysis catheter insertion Family History Father Family history of diabetes mellitus Colon cancer Brother Family history of diabetes mellitus Son Family history of diabetes mellitus Social History marital status: Current Living Situation: Family Current Living Situation Comment: with son current occupational status: unemployed and disabled Feels Safe at Home: Yes Safety Concerns: Feels Safe At This Time Smoking Status: Never smoker Second Hand Exposure: No Hx Alcohol Use: No Hx Substance Use: No Beliefs That Will Affect Care: None Preferred Language: Citizen Of [place] Physical Exam 2 Vital Signs (Past 24 Hours): Last Vital Signs Temp 37.4 C 12/14/18 12:29 Pulse 71 12/14/18 12:29 Resp 18 12/14/18 12:29 BP 110/48 L 12/14/18 12:29 Pulse Ox 98 12/14/18 12:29 Constitutional: + ill appearing (Chronically ill in appearance) Respiratory: Auscultation: + diminished lung sounds; no crackles and no rales Mildly decreased breath sounds at bases Cardiovascular: Rate/Rhythm: regular rate and regular rhythm Heart Sounds: + murmur (I/ systolic murmur) Extremities: no edema
--- NOTE | 2018-12-15 11:59 | Consultation ---
Date of Consultation December 25, 2018 History of Present Illness Attending Physician: Tamara Latham MD History of Present Illness transferred to [facility] being being seen Allergies Allergy/AdvReac Type Severity Reaction Status Date / Time hydromorphone Allergy Intermediate SHORTNESS Verified 12/12/18 21:32 OF BREATH Cipro Allergy Mild HIVES Verified 06/06/18 03:09 ciprofloxacin Allergy Mild Rash Verified 12/12/18 21:32 metronidazole Allergy Mild HIVES Verified 12/12/18 21:32 Penicillins Allergy Mild HIVES Verified 12/12/18 21:32 chocolate flavor Allergy Unknown HIVES Verified 12/12/18 21:32 nickel Allergy Rash Verified 12/12/18 21:32 aspirin AdvReac Mild Hives Verified 12/12/18 21:32 ENVIRONMENTAL Allergy Severe RESP Uncoded 12/12/18 21:32 DISTRESS, AIRWAY SWELLS Peanut Butter Flavor Allergy Unknown HIVES Uncoded 12/12/18 21:32 TRIX CEREAL Allergy Unknown SHORTNESS Uncoded 12/12/18 21:32 OF BREATH, SWELLING OF THROAT Home Medications Home Medications Medication Instructions Recorded Confirmed Type albuterol sulfate [Ventolin HFA] 2 puff INHALATION Q4 PRN 10/13/18 12/12/18 History cinacalcet [Sensipar] 60 mg PO DAILY 10/13/18 12/12/18 History docusate sodium 100 mg PO BID PRN 10/13/18 12/12/18 History epinephrine [EpiPen] 0.3 mg IM Q3H PRN 10/13/18 12/12/18 History fluticasone [Flonase Allergy 2 spray INTRANASAL DAILY 10/13/18 12/12/18 History Relief] fluticasone-salmeterol [Advair 1 inh INHALATION BID 10/13/18 12/12/18 History Diskus] ipratropium-albuterol 3 ml INHALATION QID 10/13/18 12/12/18 History ondansetron HCl [Zofran] 4 mg PO Q8 PRN 10/13/18 12/12/18 History pantoprazole 40 mg PO DAILY 10/13/18 12/12/18 History ranitidine HCl 300 mg PO HS 10/13/18 12/12/18 History sennosides [Senokot] 8.6 mg PO BID 10/13/18 12/12/18 History sevelamer carbonate [Renvela] 2,400 mg PO TIDM 10/13/18 12/12/18 History sevelamer carbonate [Renvela] 800 mg PO UD 10/13/18 12/12/18 History tiotropium bromide [Spiriva with 1 cap INHALATION DAILY 10/13/18 12/12/18 History HandiHaler] albuterol sulfate 2.5 mg INHALATION QID PRN 12/03/18 12/12/18 History Patient History Medical History C. 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, s/p ERCP and biliary sphincterotomy" Obstructive sleep apnea on CPAP CPAP Pulmonary emboli Thrombophlebitis of right dorsalis pedis vein Surgical History S/P CRESCENCIO (total abdominal hysterectomy) (Chronic) History of cholecystectomy (Chronic) History of appendectomy (Chronic) History of appendectomy (Inactive) History of bronchoscopy (Inactive) History of cholecystectomy (Inactive) History of colonoscopy (Inactive) History of esophagogastroduodenoscopy (EGD) (Inactive) S/P CRESCENCIO (total abdominal hysterectomy) (Inactive) S/P dialysis catheter insertion (Inactive) DIALYSIS 3XWK Hernia repair (03/11/12) UMBILICAL History of - section (03/11/12) S/P dialysis catheter insertion Family History Father Family history of diabetes mellitus Colon cancer Brother Family history of diabetes mellitus Son Family history of diabetes mellitus Social History Preferred Language: Arabic Beliefs That Will Affect Care: None marital status: Current Living Situation: Family Current Living Situation Comment: with son current occupational status: unemployed and disabled Feels Safe at Home: Yes Safety Concerns: Feels Safe At This Time Smoking Status: Never smoker Hx Alcohol Use: No Hx Substance Use: No Physical Exam Vital Signs (Past 24 Hours): Last Vital Signs Temp 37.4 C 12/14/18 12:29 Pulse 71 12/14/18 12:29 Resp 18 12/14/18 12:29 BP 110/48 L 12/14/18 12:29 Pulse Ox 98 12/14/18 12:29
== END 2018-12-14 14:30 | disposition short-term general hospital (02) | DRG 391 ==
LOC: ED 20:43 → 2W 12-13 00:12 → 2S 12-14 12:07

== ENCOUNTER 2018-12-28 10:05 | Inpatient (IN) ==
[2018-12-28 11:16] LABS: Basophils # (auto) 0.03 K/uL (0-0.2); Basophils % (auto) 0.5 %; Eosinophils # (auto) 0.78 K/uL (0-0.5); Eosinophils % (auto) 12.5 %; Hematocrit (blood only) 34.8 % (37-47); Hemoglobin 10.1 g/dL (12.0-16.0); Immature Granulocytes # (auto) 0.02 K/uL (0.00-0.02); Immature Granulocytes % (auto) 0.3 %; Lymphocytes # (auto) 1.15 K/uL (1.2-3.4); Lymphocytes % (auto) 18.5 %; Mean Corpuscular Volume 101.2 fL (80-100); Mean Platelet Volume 10.8 fL (7.4-10.4); Monocytes # (auto) 0.45 K/uL (0.11-0.59); Monocytes % (auto) 7.2 %; Neutrophils # (auto) 3.79 K/uL (1.4-6.5); Platelet Count 155 K/uL (130-400); RDW Coefficient of Variation 18.9 % (11.5-14.5); RDW Standard Deviation 69.1 fL (36.4-46.3); Red Blood Count 3.44 M/uL (4.2-5.4); White Blood Count 6.22 K/uL (4.8-10.8)
[2018-12-28 11:19] LABS: INR 1.2 (0.9-1.1); Prothrombin Time 12.1 Seconds (9.0-12.0)
[2018-12-28 11:30] LABS: Alanine Aminotransferase 12 U/L (12-78); Albumin Level 2.6 gm/dl (3.4-5.0); Aspartate Aminotransferase 15 U/L (15-37); BUN Creatinine Ratio 4.8 (10-20); Blood Urea Nitrogen 21 mg/dl (7-18); Calcium 8.3 mg/dl (8.5-10.1); Carbon Dioxide 31 mmol/L (21-32); Chloride 105 mmol/L (98-107); Est GFR (African American) 11.9; Est GFR (Non-African American) 10.2; Glucose 80 mg/dl (70-99); Potassium 3.9 mmol/L (3.5-5.1); Sodium 140 mmol/L (136-145)
[2018-12-28 11:35] LABS: Albumin Globulin Ratio 0.7 (0.9-2); Alkaline Phosphatase 135 U/L (45-117); Bilirubin,Total 0.4 mg/dl (0.2-1); Globulin 3.6 gm/dl (2.5-4.0); Total Protein 6.2 gm/dl (6.4-8.2); Troponin I 0.015 ng/ml (0-0.045)
--- NOTE | 2018-12-28 11:44 | XRay Report ---
XR chest 1V portable CLINICAL HISTORY: Chest Pain COMPARISON STUDY: Chest radiograph December 03, 2018. FINDINGS: Several vascular stents are noted. There is no pneumothorax. Cardiac mediastinal silhouette is stable. Pulmonary vascular congestion has increased. There is minimal left basilar opacity. IMPRESSION: 1. Interval development of pulmonary vascular congestion. 2. Minimal left basilar opacity. Electronically signed by: Rory Pacheco M.D. 12/28/2018 11:42 AM
[2018-12-28] MEDS ORDERED: HEPARIN 25000 UNIT/500 ML D5W IV ONE (12:59)
[2018-12-28] MEDS ORDERED: HEPARIN SOD 5,000 UNIT/0.5 ML VIAL ONE (12:59)
[2018-12-28] MEDS ORDERED: WARFARIN SOD 5 MG TAB PO ONE ×2 (13:17→13:26)
--- NOTE | 2018-12-28 16:47 | Emergency Department Note ---
Entered by Erica Davenport acting as a scribe for Andre Porras DO History of Present Illness General Chief complaint: Chest Pain Stated complaint: WATER RETENTION, HEAVINESS IN CHEST Source: patient, family and old records reviewed History of Present Illness Provider complaint: heaviness in chest Onset (ago): hour(s) (this morning at 0800 ) Location: chest Maximum Pain Intensity: 6 Quality: + other (heaviness) Associated symptoms: + denies other symptoms (denies arm and jaw pain) and + other (swelling in legs); no shortness of breath The patient is a 63 year old female who presents to the Emergency Room with complaints of heaviness in her chest beginning this morning at 0800. Per family, the patient has been on dialysis for 18 years. The patient states that she feels like she is filling up with fluid. The patient states that she was discharged from [facility] 3 days ago. She states that she last had a full dialysis course yesterday. The patient states that prior to yesterday she last had a full course of dialysis 4 days ago and states that she had been getting a full course when she was at [facility]. The patient denies having arm or jaw pain. She also denies having any shortness of breath. The patient states that she has had chest heaviness like this before and states that she gets it about twice per month but states that she does not come into the ED every time she has this heaviness. The patient reports that she came to the ED today as she also has swelling in her legs. The patient states that she is on Coumadin and Lovenox. Review of EMR shows that the patient was transferred to [facility] on 12/10/18 for a dialysis catheter revision. Review of [facility] records shows a large IVC clot and highly likely PEs. Home Medications Home Medications Medication Instructions Recorded Confirmed Type Spiriva with HandiHaler 1 cap INHALATION DAILY 10/13/18 12/28/18 History albuterol sulfate [Ventolin HFA] 2 puff INHALATION Q4 PRN 10/13/18 12/28/18 History cinacalcet [Sensipar] 60 mg PO DAILY 10/13/18 12/28/18 History docusate sodium 100 mg PO BID PRN 10/13/18 12/28/18 History epinephrine [EpiPen] 0.3 mg IM Q3H PRN 10/13/18 12/28/18 History fluticasone [Flonase Allergy 2 spray INTRANASAL DAILY 10/13/18 12/28/18 History Relief] fluticasone-salmeterol [Advair 1 inh INHALATION BID 10/13/18 12/28/18 History Diskus] ipratropium-albuterol 3 ml INHALATION QID 10/13/18 12/28/18 History ondansetron HCl [Zofran] 4 mg PO Q8 PRN 10/13/18 12/28/18 History pantoprazole 40 mg PO DAILY 10/13/18 12/28/18 History ranitidine HCl 300 mg PO HS 10/13/18 12/28/18 History sennosides [Senokot] 8.6 mg PO BID 10/13/18 12/28/18 History sevelamer carbonate [Renvela] 2,400 mg PO TIDM 10/13/18 12/28/18 History sevelamer carbonate [Renvela] 800 mg PO UD 10/13/18 12/28/18 History albuterol sulfate 2.5 mg INHALATION QID PRN 12/03/18 12/28/18 History Med For Afib 1 tab PO DAILY 12/28/18 12/28/18 History warfarin 5 mg PO DAILY 12/28/18 12/28/18 History Allergies Allergy/AdvReac Type Severity Reaction Status Date / Time hydromorphone Allergy Intermediate SHORTNESS Verified 12/28/18 11:36 OF BREATH Cipro Allergy Mild HIVES Verified 06/06/18 03:09 ciprofloxacin Allergy Mild Rash Verified 12/28/18 11:36 metronidazole Allergy Mild HIVES Verified 12/28/18 11:36 Penicillins Allergy Mild HIVES Verified 12/28/18 11:36 chocolate flavor Allergy Unknown HIVES Verified 12/28/18 11:36 nickel Allergy Rash Verified 12/28/18 11:36 aspirin AdvReac Mild Hives Verified 12/28/18 11:36 ENVIRONMENTAL Allergy Severe RESP Uncoded 12/28/18 11:36 DISTRESS, AIRWAY SWELLS Peanut Butter Flavor Allergy Unknown HIVES Uncoded 12/28/18 11:36 TRIX CEREAL Allergy Unknown SHORTNESS Uncoded 12/28/18 11:36 OF BREATH, SWELLING OF THROAT Past Med/Surg History Medical History C. 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, s/p ERCP and biliary sphincterotomy" Obstructive sleep apnea on CPAP CPAP Pulmonary emboli Thrombophlebitis of right dorsalis pedis vein Surgical History S/P CRESCENCIO (total abdominal hysterectomy) (Chronic) History of cholecystectomy (Chronic) History of appendectomy (Chronic) History of appendectomy (Inactive) History of bronchoscopy (Inactive) History of cholecystectomy (Inactive) History of colonoscopy (Inactive) History of esophagogastroduodenoscopy (EGD) (Inactive) S/P CRESCENCIO (total abdominal hysterectomy) (Inactive) S/P dialysis catheter insertion (Inactive) DIALYSIS [id number] Hernia repair (03/11/12) UMBILICAL History of - section (03/11/12) S/P dialysis catheter insertion Family History Father Family history of diabetes mellitus Colon cancer Brother Family history of diabetes mellitus Son Family history of diabetes mellitus Social History Preferred Language: Macedonian Communication Ability: Effective 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 and A total of 10 systems reviewed and were otherwise negative Physical Exam Vital Signs Vital Signs - 24 hr 12/28/18 10:10 12/28/18 10:26 12/28/18 11:11 Temperature 37.0 C Temperature Source Oral Sepsis Recent Fever Within 48 Hours No Sepsis New/Unexplained Change in Mental Status No Sepsis Action Taken by Nursing No Action Required Pulse Rate 86 Pulse Rate [Apical] 90 Pulse Strength Normal Respiratory Rate 22 20 Respiratory Effort / Characteristics Tripoding Respiratory Depth Normal Normal Respiratory Pattern Blood Pressure 175/106 H Blood Pressure [Left Arm] 152/74 H Blood Pressure Mean 129 Blood Pressure Mean [Left Arm] 100 Blood Pressure Position Sitting Pulse Oximetry 96 95 97 Oxygen Delivery Method Room Air Room Air Room Air 12/28/18 12:11 12/28/18 12:18 12/28/18 13:38 Temperature Temperature Source Sepsis Recent Fever Within 48 Hours Sepsis New/Unexplained Change in Mental Status Sepsis Action Taken by Nursing Pulse Rate Pulse Rate [Apical] 92 H 93 H Pulse Strength Respiratory Rate 20 14 Respiratory Effort / Characteristics Spontaneous Respiratory Depth Normal Respiratory Pattern Regular Blood Pressure Blood Pressure [Left Arm] 158/94 H 151/80 H Blood Pressure Mean Blood Pressure Mean [Left Arm] 115 103 Blood Pressure Position Pulse Oximetry 99 98 Oxygen Delivery Method Room Air Room Air Room Air 12/28/18 15:01 12/28/18 16:33 Temperature Temperature Source Sepsis Recent Fever Within 48 Hours Sepsis New/Unexplained Change in Mental Status Sepsis Action Taken by Nursing Pulse Rate Pulse Rate [Apical] 89 86 Pulse Strength Respiratory Rate 22 20 Respiratory Effort / Characteristics Non-Labored Respiratory Depth Normal Respiratory Pattern Blood Pressure Blood Pressure [Left Arm] 133/70 137/82 Blood Pressure Mean Blood Pressure Mean [Left Arm] 91 100 Blood Pressure Position Pulse Oximetry 96 94 Oxygen Delivery Method Room Air Room Air GENERAL: Sitting up in bed, chronically-ill appearing, disheveled, non-toxic. EYE EXAM: normal conjunctiva. OROPHARYNX: no exudate, no erythema, lips, buccal mucosa, and tongue normal and mucous membranes are moist NECK: supple, no nuchal rigidity, no adenopathy, non-tender LUNGS: Coarse breath sounds at the bases bilaterally. Normal chest wall mechanics HEART: distant, no murmurs, S1 normal and S2 normal ABDOMEN: abdomen soft, non-tender, normo-active bowel, sounds, no masses, no rebound or guarding. BACK: Back is symmetrical on inspection and there is no deformity, no midline tenderness, no CVA tenderness. SKIN: no rashes and no bruising UPPER EXTREMITIES: upper extremities are grossly normal. LOWER EXTREMITIES: Pitting edema bilaterally. Right groin central access in place. No surrounding erythema. NEURO EXAM: Normal sensorium, cranial nerves II-XII grossly intact, normal speech, no gross weakness of arms, no gross weakness of legs. Course ED COURSE: Vital signs were reviewed and showed hypertension. The patients medical record was reviewed The above diagnostic studies were performed and reviewed. ED treatments and interventions as stated above. 1021: The patient was evaluated in room C8. A complete history and physical examination was performed. 1104: IV team got a line in the patient. 1151: I updated the patient who verbalized agreement and understanding of the treatment plan. 1158: I discussed the patient's case with Landy Swanson who will evaluate the patient for further management. Consultations Consultation #1: Landy Swanson Time: 11:58 Administered Medications Discontinued Medications Heparin Sodium (Porcine) (Heparin Sodium (Porcine)) Confirm Administered Dose 10,000 units .ROUTE .STK-MED ONE Stop: 12/28/18 13:00 Last Admin: 12/28/18 13:33 Dose: 4,000 units Documented by: [id number] Cosigned by: [id number] Heparin Sodium/Dextrose () 1 ea IV NOW STA; Protocol Stop: 12/28/18 12:34 Last Admin: 12/28/18 13:34 Dose: Not Given Documented by: [id number] Heparin Sodium/Dextrose (Heparin Sodium/Dextrose) Confirm Administered Dose 25,000 units IV .STK-MED ONE Stop: 12/28/18 13:00 Last Admin: 12/28/18 13:34 Dose: 950 units Documented by: [id number] Cosigned by: [id number] Warfarin Sodium (Coumadin) 5 mg PO NOW ONE Stop: 12/28/18 13:18 Last Admin: 12/28/18 13:48 Dose: Not Given Documented by: [id number] Warfarin Sodium (Coumadin) Confirm Administered Dose 5 mg PO .Omniox ONE Stop: 12/28/18 13:27 Last Admin: 12/28/18 13:33 Dose: 5 mg Documented by: [id number] Cosigned by: [id number] Medical Decision Making Differential Diagnosis Differential diagnoses includes but is not limited to acute coronary syndrome, myocardial infarction, pericarditis, pulmonary embolus, aortic dissection, pneumonia, pneumothorax, musculoskeletal, shingles, esophageal. Medical Records Attestation: I reviewed the patient's medical records. Home Medications Current Medication List: was personally reviewed by id Laboratory Data Attestation: I reviewed the patient's lab results. Result diagrams: 12/28/18 11:00 12/28/18 11:00 Lab Results 12/28/18 12/28/18 12/28/18 Range/Units 11:00 11:00 11:00 WBC 6.22 (4.8-10.8) K/uL RBC 3.44 L (4.2-5.4) M/uL Hgb 10.1 L (12.0-16.0) g/dL Hct 34.8 L (37-47) % MCV 101.2 H (80-100) fL MCH 29.4 (25-34) pg MCHC 29.0 L (32-36) g/dL RDW Std Deviation 69.1 H (36.4-46.3) fL RDW Coeff of Lashae 18.9 H (11.5-14.5) % Plt Count 155 (130-400) K/uL MPV 10.8 H (7.4-10.4) fL Immature Gran % (Auto) 0.3 % Neut % (Auto) 61.0 % Lymph % (Auto) 18.5 % [place] % (Auto) 7.2 % Eos % (Auto) 12.5 % Baso % (Auto) 0.5 % Immature Gran # (Auto) 0.02 (0.00-0.02) K/uL Neut # (Auto) 3.79 (1.4-6.5) K/uL Lymph # (Auto) 1.15 L (1.2-3.4) K/uL [place] # (Auto) 0.45 (0.11-0.59) K/uL Eos # (Auto) 0.78 H (0-0.5) K/uL Baso # (Auto) 0.03 (0-0.2) K/uL PT 12.1 H (9.0-12.0) Seconds INR 1.2 H (0.9-1.1) Sodium 140 (136-145) mmol/L Potassium 3.9 (3.5-5.1) mmol/L Chloride 105 (98-107) mmol/L Carbon Dioxide 31 (21-32) mmol/L Anion Gap 4.0 (3-11) BUN 21 H (7-18) mg/dl Creatinine 4.31 H (0.6-1.2) mg/dl Est Cr Clr Drug Dosing Not Reportable Est GFR ( Amer) 11.9 Est GFR (Non-Af Amer) 10.2 BUN/Creatinine Ratio 4.8 L (10-20) Glucose 80 (70-99) mg/dl Calcium 8.3 L (8.5-10.1) mg/dl Total Bilirubin 0.4 (0.2-1) mg/dl AST 15 (15-37) U/L ALT 12 (12-78) U/L Alkaline Phosphatase 135 H (45-117) U/L Troponin I 0.015 (0-0.045) ng/ml Total Protein 6.2 L (6.4-8.2) gm/dl Albumin 2.6 L (3.4-5.0) gm/dl Globulin 3.6 (2.5-4.0) gm/dl Albumin/Globulin Ratio 0.7 L (0.9-2) Lipase 120 (73-393) U/L Nasal Screen MRSA (PCR) (Negative) 12/28/18 Range/Units 15:04 WBC (4.8-10.8) K/uL RBC (4.2-5.4) M/uL Hgb (12.0-16.0) g/dL Hct (37-47) % MCV (80-100) fL MCH (25-34) pg MCHC (32-36) g/dL RDW Std Deviation (36.4-46.3) fL RDW Coeff of Lashae (11.5-14.5) % Plt Count (130-400) K/uL MPV (7.4-10.4) fL Immature Gran % (Auto) % Neut % (Auto) % Lymph % (Auto) % [place] % (Auto) % Eos % (Auto) % Baso % (Auto) % Immature Gran # (Auto) (0.00-0.02) K/uL Neut # (Auto) (1.4-6.5) K/uL Lymph # (Auto) (1.2-3.4) K/uL [place] # (Auto) (0.11-0.59) K/uL Eos # (Auto) (0-0.5) K/uL Baso # (Auto) (0-0.2) K/uL PT (9.0-12.0) Seconds INR (0.9-1.1) Sodium (136-145) mmol/L Potassium (3.5-5.1) mmol/L Chloride (98-107) mmol/L Carbon Dioxide (21-32) mmol/L Anion Gap (3-11) BUN (7-18) mg/dl Creatinine (0.6-1.2) mg/dl Est Cr Clr Drug Dosing Est GFR ( Amer) Est GFR (Non-Af Amer) BUN/Creatinine Ratio (10-20) Glucose (70-99) mg/dl Calcium (8.5-10.1) mg/dl Total Bilirubin (0.2-1) mg/dl AST (15-37) U/L ALT (12-78) U/L Alkaline Phosphatase (45-117) U/L Troponin I (0-0.045) ng/ml Total Protein (6.4-8.2) gm/dl Albumin (3.4-5.0) gm/dl Globulin (2.5-4.0) gm/dl Albumin/Globulin Ratio (0.9-2) Lipase (73-393) U/L Nasal Screen MRSA (PCR) Negative (Negative) Imaging Data Radiologist's Impression: Radiology results as stated below per my review and the radiologist's interpretation: XR chest 1V portable CLINICAL HISTORY: Chest Pain COMPARISON STUDY: Chest radiograph December 03, 2018. FINDINGS: Several vascular stents are noted. There is no pneumothorax. Cardiac mediastinal silhouette is stable. Pulmonary vascular congestion has increased. There is minimal left basilar opacity. IMPRESSION: 1. Interval development of pulmonary vascular congestion. 2. Minimal left basilar opacity. Electronically signed by: Rory Pacheco M.D. 12/28/2018 11:42 AM ECG Data Attestation: I personally reviewed and interpreted this ECG as follows: Indication: chest pain Rate (beats per minute): 88 Rhythm: sinus rhythm Findings: + other (normal axis); no PVC Blood Pressure Blood Pressure Findings: Elevated blood pressure Blood Pressure Disposition: further management by hospitalist MAG Narrative Patient is a 63-year-old female dialysis dependent, vasculopath with PEs and DVTs who presents the ER for swelling in her lower extremities associated with precordial chest pain. Patient last received dialysis on Thursday. Patient was recently admitted and transferred down to [facility] for vascular access in the right lower extremity. At that time patient was found to have large clot in the IVC along with likely PEs. Patient was placed on Coumadin. Labs today showed no significant leukocytosis or anemia. INR was subtherapeutic at 1.2. Patient was placed on a heparin drip and given IV heparin bolus. BMP was remarkable for creatinine of 4.3 consistent with her dialysis. LFTs were normal. Troponin was negative. Lipase was unremarkable. EKG was fairly unchanged from previous. Discussed case with the hospitalist as her chest pain did resolve with her subtherapeutic INR and multitude of other complaints for observation. Patient was admitted following IV heparin bolus and heparin drip for subtherapeutic INR with PEs and IVC clot per report from [facility]. Impression & Plan Chest pain, precordial, Pulmonary edema, Pulmonary emboli Discharge Plan Visit Data Chief Complaint: Chest Pain Stated Complaint: WATER RETENTION, HEAVINESS IN CHEST ED Provider: Andre Porras Discharge Problem: Chest pain, precordial, Pulmonary edema, Pulmonary emboli Patient Disposition: Being Evaluated by Hospitalist Forms Stand Alone Forms: Call Back Authorization, My [facility] Prescriptions Prescriptions: No Action sennosides [Senokot] 8.6 mg Tablet 8.6 mg PO BID RF: 0 ipratropium-albuterol 0.5 mg-3 mg(2.5 mg base)/3 mL Solution For Nebulization 3 ml INHALATION QID RF: 0 ranitidine HCl 300 mg Tablet 300 mg PO HS RF: 0 ondansetron HCl [Zofran] 4 mg Tablet 4 mg PO Q8 PRN (Reason: Nausea) RF: 0 pantoprazole 40 mg Tablet,Delayed Release (Dr/Ec) 40 mg PO DAILY RF: 0 fluticasone-salmeterol [Advair Diskus] 500-50 mcg/dose Blister With Device 1 inh INHALATION BID RF: 0 docusate sodium 100 mg Capsule 100 mg PO BID PRN (Reason: Constipation) RF: 0 epinephrine [EpiPen] 0.3 mg/0.3 mL Auto-Injector 0.3 mg IM Q3H PRN (Reason: ALLERGIC REACCTION) RF: 0 albuterol sulfate [Ventolin HFA] 90 mcg/actuation Hfa Aerosol Inhaler 2 puff INHALATION Q4 PRN (Reason: Shortness Of Breath) RF: 0 fluticasone [Flonase Allergy Relief] 50 mcg/actuation Tucker,Suspension 2 spray INTRANASAL DAILY RF: 0 cinacalcet [Sensipar] 60 mg tablet 60 mg PO DAILY RF: 0 Spiriva with HandiHaler 18 mcg Capsule, W/Inhalation Device 1 cap INHALATION DAILY RF: 0 sevelamer carbonate [Renvela] 800 mg Tablet 2,400 mg PO TIDM RF: 0 sevelamer carbonate [Renvela] 800 mg Tablet 800 mg PO UD RF: 0 warfarin 5 mg Tablet 5 mg PO DAILY RF: 0 Med For Afib 1 tab PO DAILY RF: 0 albuterol sulfate 2.5 mg /3 mL (0.083 %) Solution For Nebulization 2.5 mg INHALATION QID PRN (Reason: Shortness Of Breath) RF: 0 Referrals Referrals: Luz Torres MD [Primary Care Provider] - Discharge Problem: Pulmonary edema Qualifiers: Chronicity: acute Qualified Code(s): J81.0 - Acute pulmonary edema Pulmonary emboli Qualifiers: Pulmonary embolism type: unspecified Chronicity: unspecified Acute cor pulmonale presence: without acute cor pulmonale Qualified Code(s): I26.99 - Other pulmonary embolism without acute cor pulmonale The scribe's documentation has been prepared under my direction and personally reviewed by me in its entirety. I confirm that the note above accurately reflects all work, treatment, procedures, and medical decision making performed by me.
[2018-12-28 18:45] LABS: Partial Thromboplastin Time 26.5 Seconds (21.0-31.0)
--- NOTE | 2018-12-28 19:07 | History & Physical Report ---
Date of Service December 28, 2018 Assessment & Plan (1) ESRD on dialysis: ESRD on dialysis -This is a 63 year old patient recently discharged from [facility] on 12/25/18 because of problems with dialysis access. Patient subsequently reports being discharged from [facility]. According to [facility] discharge summary, patient had right groin femoral access and there was difficulty with placement over left groin site. -have consulted nephrology for dialysis Thursday, Thursday, Thursday -has vascular access issues and patient prefers to go to [facility] in [place] if any recurrent dialysis catheter access issues continue sevelamer; sensipar 60 mg daily is nonformulary Enterococcal Bacteremia -to continue antibiotics as vancomycin and gentamicin 10mg/kg after every dialysis session which as per [facility] discharge summary should have until last day of 01/31/19 -obtain random vancomycin and gentamicin levels on admission day -pharmacy antibiotic consult Thromboembolism -Patient also found to have thrombolism at [facility] which was described as a large IVC clot and was bridged to warfarin to maintain the dialysis catheter access; also a 12/20/09 CT abdomen/pelvis test concerning for pulmonary emboli within the right lower lobe -was subtherapeutic with INR 1.2 while suppose to be on warfarin -started on heparin drip in the ED on presentation, start warfarin as 5 mg daily Chest pressure -Patient arrived to [facility] emergency room on 12/28/18 for what she described as chest pressure that she experienced earlier. also found to have INRto be subtherapeutic of 1.2. Was started on heparin drip with bolus in the emergency room. also given warfarin 5 mg x 1 -chest pressure may be from thromboembolism -continue anticoagulation, trend troponins, monitor on telemetry, obtain echo cardiogram -would not do CTA chest at this time given renal impairments maintainance respiratory medications contineu advair,spiriva, singulair History of paroxysmal atrial fibrillation -monitor on telemetry -anticoagulation -diltiazem 180 mg daily as per [facility] discharge summary History of right sided diverticulitis -patient had antibiotics at [facility] -no current abdominal complaints Code Status: DNR/DNI Family son Ferny [phone]; Lawanda [phone] History of Present Illness Primary Care Provider: Luz Torres MD This is a 63 year old patient recently discharged from [facility] on 12/25/18 because of problems with dialysis access. Patient subsequently reports being discharged from [facility]. According to [facility] discharge summary, patient had right groin femoral access and there was difficulty with placement over left groin site. Patient also was managed for acute right sided diverticulitis for which she completed a 10 day course of antibiotics which included ampicillin gentamicin and flagyl Treatment also for enterococcal bacteremia and patient was discharged with instructions to continue antibiotics as vancomycin and gentamicin which as per [facility] discharge summary should have last day of 01/31/19 Patient also found to have thrombolism at [facility] which was described as a large IVC clot and was bridged to warfarin to maintain the dialysis catheter access; also a 12/20/09 CT abdomen/pelvis test concerning for pulmonary emboli within the right lower lobe Patient was dicharged from [facility] on 12/25/18 then received on Thursday12/27/18 a full dialysis session for which she also received vancomycin and gentamicin. Patient reports having full dialysis session but that the right femoral access required multiple attempts in the dialysis to be manipulated so that she can get the full dialysis session Patient arrived to [facility] emergency room on 12/28/18 for what she described as chest pressure that she experienced earlier. also found to have INRto be subtherapeutic of 1.2. Was started on heparin drip with bolus in the emergency room. also given warfarin 5 mg x 1 On review of systems: the patient does not associate the chest pressure with other symptoms. and that when examined in emergency room there was no chest pressure. no problems with breathing. her lungs sounded clear with recent dialysis session. she reports more leg swelling. denies fevers. no vomiting. no neurological symptoms, no other symptoms Patient rtur Patient reports family history of father and brother with heart catheterizations Allergies Allergy/AdvReac Type Severity Reaction Status Date / Time hydromorphone Allergy Intermediate SHORTNESS Verified 12/28/18 11:36 OF BREATH Cipro Allergy Mild HIVES Verified 06/06/18 03:09 ciprofloxacin Allergy Mild Rash Verified 12/28/18 11:36 metronidazole Allergy Mild HIVES Verified 12/28/18 11:36 Penicillins Allergy Mild HIVES Verified 12/28/18 11:36 chocolate flavor Allergy Unknown HIVES Verified 12/28/18 11:36 nickel Allergy Rash Verified 12/28/18 11:36 aspirin AdvReac Mild Hives Verified 12/28/18 11:36 ENVIRONMENTAL Allergy Severe RESP Uncoded 12/28/18 11:36 DISTRESS, AIRWAY SWELLS Peanut Butter Flavor Allergy Unknown HIVES Uncoded 12/28/18 11:36 TRIX CEREAL Allergy Unknown SHORTNESS Uncoded 12/28/18 11:36 OF BREATH, SWELLING OF THROAT Home Medications Home Medications Medication Instructions Recorded Confirmed Type Spiriva with HandiHaler 1 cap INHALATION DAILY 10/13/18 12/28/18 History albuterol sulfate [Ventolin HFA] 2 puff INHALATION Q4 PRN 10/13/18 12/28/18 History cinacalcet [Sensipar] 60 mg PO DAILY 10/13/18 12/28/18 History docusate sodium 100 mg PO BID PRN 10/13/18 12/28/18 History epinephrine [EpiPen] 0.3 mg IM Q3H PRN 10/13/18 12/28/18 History fluticasone [Flonase Allergy 2 spray INTRANASAL DAILY 10/13/18 12/28/18 History Relief] fluticasone-salmeterol [Advair 1 inh INHALATION BID 10/13/18 12/28/18 History Diskus] ipratropium-albuterol 3 ml INHALATION QID 10/13/18 12/28/18 History ondansetron HCl [Zofran] 4 mg PO Q8 PRN 10/13/18 12/28/18 History pantoprazole 40 mg PO DAILY 10/13/18 12/28/18 History ranitidine HCl 300 mg PO HS 10/13/18 12/28/18 History sennosides [Senokot] 8.6 mg PO BID 10/13/18 12/28/18 History sevelamer carbonate [Renvela] 2,400 mg PO TIDM 10/13/18 12/28/18 History sevelamer carbonate [Renvela] 800 mg PO UD 10/13/18 12/28/18 History albuterol sulfate 2.5 mg INHALATION QID PRN 12/03/18 12/28/18 History Med For Afib 1 tab PO DAILY 12/28/18 12/28/18 History warfarin 5 mg PO DAILY 12/28/18 12/28/18 History Past Med/Surg History Medical History C. 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, s/p ERCP and biliary sphincterotomy" Obstructive sleep apnea on CPAP CPAP Pulmonary emboli Thrombophlebitis of right dorsalis pedis vein Surgical History S/P CRESCENCIO (total abdominal hysterectomy) (Chronic) History of cholecystectomy (Chronic) History of appendectomy (Chronic) History of appendectomy (Inactive) History of bronchoscopy (Inactive) History of cholecystectomy (Inactive) History of colonoscopy (Inactive) History of esophagogastroduodenoscopy (EGD) (Inactive) S/P CRESCENCIO (total abdominal hysterectomy) (Inactive) S/P dialysis catheter insertion (Inactive) DIALYSIS 3XWK Hernia repair (03/11/12) UMBILICAL History of - section (03/11/12) S/P dialysis catheter insertion Family History Father Family history of diabetes mellitus Colon cancer Brother Family history of diabetes mellitus Son Family history of diabetes mellitus Social History Preferred Language: Singaporean 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 Beliefs That Will Affect Care: None marital status: Current Living Situation: Family Current Living Situation Comment: with son current occupational status: unemployed and disabled Other Information That Helps Us Care for You: No Feels Safe at Home: Yes Safety Concerns: Feels Safe At This Time Smoking Status: Never smoker Hx Alcohol Use: No Hx Substance Use: No Review of Systems All systems reviewed & are unremarkable except as noted in HPI & below Physical Exam Vital Signs (Past 24 Hours): Last Vital Signs Temp 37.7 C H 12/28/18 18:00 Pulse 86 12/28/18 18:00 Resp 20 12/28/18 18:00 BP 142/84 H 12/28/18 18:00 Pulse Ox 97 12/28/18 18:00 Constitutional: WD/WN, vitals as above Eyes: PERRL, conjunctivae normal, anicteric sclerae EOM intact bilaterally ENMT: external ear and nose normal, oropharynx normal Neck: trachea midline, no thyromegaly Respiratory: normal respiratory effort, lungs clear to auscultation Cardiovascular: Rate/Rhythm: regular rate and regular rhythm Gastrointestinal (Abdomen): normal bowel sounds, soft, nontender, no hepatosplenomegaly Musculoskeletal: presence of dialysis catheter to the right groin, mild bilate ral lower extremity edema Neurologic: PERRL, EOMI, accommodation nl, no face palsy, no dysarthria CN's II-XI intact bilaterally Psychiatric: A+Ox3, euthymic affect
[2018-12-28] MEDS ORDERED: VANCOMYCIN CONSULT ACTIVE PRN (19:09)
[2018-12-28] MEDS ORDERED: DOCUSATE SODIUM 100 MG CAP PO PRN (19:09)
[2018-12-28] MEDS ORDERED: GENTAMICIN CONSULT ACTIVE PRN (19:11)
[2018-12-28] MEDS ORDERED: GENTAMICIN SULFATE 600 MG in DEXTROSE 5% 100 ML IV SCH (19:15)
[2018-12-28] MEDS ORDERED: Heparin IV Standard *NO* Bolus IV ONE (19:34)
[2018-12-28 20:26] LABS: Partial Thromboplastin Ratio 1.4; Partial Thromboplastin Time 38.2 Seconds (21.0-31.0)
[2018-12-28 20:39] LABS: Gentamicin Random 1.6 mcg/ml; Vancomycin Random 23.6 mcg/ml
[2018-12-28] MEDS: SEVELAMER HCL 800 MG TABLET PO SCH (21:01)
[2018-12-28] MEDS: FLUTICASONE/SALMETEROL (ADVAIR) 500/50 INH 14 PUFF INH SCH (21:02)
[2018-12-28] MEDS: SENNA 8.6 MG TAB PO SCH (21:03)
[2018-12-28] MEDS: HEPARIN STANDARD DEXTROSE 25,000 UNITS/500 ML IV SCH (21:25)
[2018-12-28] MEDS ORDERED: HEPARIN IV BOLUS 4,000 UNITS in SYRINGE 0 ML IV ONE (21:45)
[2018-12-28] MEDS ORDERED: TRAMADOL HCL 50 MG TABLET PO PRN (23:37)
[2018-12-29] MEDS ORDERED: SODIUM CHLORIDE 0.9% 1000ML 1,000 ML IV PRN (07:55)
[2018-12-29] MEDS ORDERED: EPOETIN ALFA 10,000 UNITS/ML VIAL IV ONE (08:05)
[2018-12-29 08:22] LABS: Basophils # (auto) 0.03 K/uL (0-0.2); Basophils % (auto) 0.6 %; Eosinophils # (auto) 0.64 K/uL (0-0.5); Eosinophils % (auto) 13.5 %; Hemoglobin 8.7 g/dL (12.0-16.0); Immature Granulocytes # (auto) 0.02 K/uL (0.00-0.02); Immature Granulocytes % (auto) 0.4 %; Lymphocytes # (auto) 1.01 K/uL (1.2-3.4); Lymphocytes % (auto) 21.3 %; Mean Corpuscular Volume 99.3 fL (80-100); Mean Platelet Volume 9.6 fL (7.4-10.4); Monocytes # (auto) 0.35 K/uL (0.11-0.59); Monocytes % (auto) 7.4 %; Neutrophils # (auto) 2.69 K/uL (1.4-6.5); Neutrophils % (auto) 56.8 %; Platelet Count 143 K/uL (130-400); RDW Coefficient of Variation 19.1 % (11.5-14.5); RDW Standard Deviation 69.3 fL (36.4-46.3); Red Blood Count 3.02 M/uL (4.2-5.4); White Blood Count 4.74 K/uL (4.8-10.8)
[2018-12-29] MEDS ORDERED: EPOETIN ALFA 14,000 UNITS in SYRINGE 0 ML IV ONE (08:30)
[2018-12-29 08:41] LABS: INR 1.3 (0.9-1.1); Partial Thromboplastin Ratio 2.2; Prothrombin Time 13.1 Seconds (9.0-12.0)
[2018-12-29 08:58] LABS: Anisocytosis Present; Poikilocytosis Present
[2018-12-29] MEDS ORDERED: ATORVASTATIN 40 MG TAB PO SCH (09:00)
[2018-12-29] MEDS ORDERED: dilTIAZem HCL 180 MG CAPCR PO SCH (09:00)
[2018-12-29] MEDS ORDERED: TIOTROPIUM BROMIDE 5 PUFF/90 MCG INH INH SCH (09:00)
[2018-12-29] MEDS ORDERED: PANTOprazole 40 MG TAB PO SCH (09:00)
[2018-12-29 09:10] LABS: BUN Creatinine Ratio 5.2 (10-20); Calcium 8.3 mg/dl (8.5-10.1); Creatinine Clr Calc Pharmacy 7.8 ml/min; Est GFR (African American) 8.4; Est GFR (Non-African American) 7.2
--- NOTE | 2018-12-29 10:31 | Nephrology Consultation ---
Date of Consultation December 29, 2018 Assessment & Plan (1) ESRD on dialysis: for routine HD today using TDC femoral no heparin since on gtt for 4hrs -she gets her OP dialysis at [facility], not [facility], under my care -see below re abtx and re possible modality switch> my PD nurse will reach out to pt family to see if we can do home visit before arranging PD cath placement hopefully this admission in [facility] Present on Admission?: Yes (2) Complication of vascular access for dialysis: challenging vascular access w/ sites essentially exhausted after this catheter; may need to switch to peritoneal dialysis in upcoming weeks/ months -home visit/ PD discussion underway as outpt -- d/t her chronic abd pain issues she is a poor candidate but this is a do or situation clinically -other option would be transhepatic catheter; vascular team reluctant to try this however; do not believe it would last long -her vascular care is in [facility] >>>strong consideration for palliative consult to talk about goals of care /for identifying emotional and daily life support as she navigates severe health problems Present on Admission?: Yes (3) Enterococcal bacteremia: admission [facility] earlier this month (just d/c on 12/25 approx) for enterococcal bacteremia w/ challenging to clear cxs >>>needs vanco (dosed "per pharmacy" per [facility] d/c summary- this is [facility] pharmacy Bryan Luo[facility]) and gentamicin 70 mg after every HD session through 01/31; I spent over 30 minutes clarifying approriate and recent antibi otic dosing for this pt >>>NOTE that d/c summary from [facility] states she is to get 10 mg/ kg or 700 mg gent post tx which is INCORRECT; I clarified 70 mg post tx dose w/ inf s and have requested that d/c summary be corrected; also have asked for clarification what pharmacy; will give 1.5 gm vanco today post tx and follow levels Present on Admission?: No (4) Thrombus in heart chamber: noted on TTE extensive VTE from IVC into R [facility] >coumadin as above -heparin gtt while getting coumadin therapeutic -further per primary service Present on Admission?: Yes (5) Pulmonary emboli: as above Present on Admission?: Yes (6) Anemia due to end stage renal disease: note that coumadin has been stopped on her in past d/t gi bleeding; however w/ atrial thrombus coumadin obligate currently -aggressive epo w/ HD -will check iron stores if not done Present on Admission?: Yes (7) Hypertension: will be more aggressive w/ UF today >> goal an aggressive 4.5L UF given vascular congestion on XR and higher BP -may also have anxiety component -cont dilt -started cozaar 25 mg hs w/ hold parameters if sbp <110; avoiding ACEI d/t coughing/resp hx Present on Admission?: Yes History of Present Illness Attending Physician: Richardson Villagomez MD History of Present Illness 63 y/o F whom I'm asked to see for dialysis care after she presented to ER yesterday w/ subtherapeutic INR and chest pressure in setting of recently dx'd large IVC clot recently started on coumadin. PMH includes ESRD on HD via TDC, COPD/asthma, HTN, chronic diverticulosis, GERD, anxiety/ depression, MARY not adeherent w/ CPAP, past GI bleeding, past pancreatitis, chronic abdominal pain and constipation, PE in past w/ coumadin stopped (and now resumed), past C diff colitis, chronic vascular access challenges. Frequent hospital admissions for abdominal pain and for asthma exacerbation. She was recently admitted to [facility] from 12/14-12/25/18 for mgt of dialysis access issues (transferred from here actually) and underwent groin R TDC exchange w/ change to PD contemplated since she has essentially exhausted her [facility]. Not a great PD candidate but eval/ disucssion in process. During that admission also had challenging to clear enterococcal bacteremia and was d/c on abtx as below, though some clarifications are in process. On 12/27 at routine OP HD, her catheter ran well, she tolerated 4.5 L off (a lot for her); and had 80 mg of gentamicin and 1 gm of vancomycin. She was started in heparin gtt and had TTE today w/ IVC clot findings as above. Troponins normal so far. Allergies Allergy/AdvReac Type Severity Reaction Status Date / Time hydromorphone Allergy Intermediate SHORTNESS Verified 12/28/18 11:36 OF BREATH Cipro Allergy Mild HIVES Verified 06/06/18 03:09 ciprofloxacin Allergy Mild Rash Verified 12/28/18 11:36 metronidazole Allergy Mild HIVES Verified 12/28/18 11:36 Penicillins Allergy Mild HIVES Verified 12/28/18 11:36 chocolate flavor Allergy Unknown HIVES Verified 12/28/18 11:36 nickel Allergy Rash Verified 12/28/18 11:36 aspirin AdvReac Mild Hives Verified 12/28/18 11:36 ENVIRONMENTAL Allergy Severe RESP Uncoded 12/28/18 11:36 DISTRESS, AIRWAY SWELLS Peanut Butter Flavor Allergy Unknown HIVES Uncoded 12/28/18 11:36 TRIX CEREAL Allergy Unknown SHORTNESS Uncoded 12/28/18 11:36 OF BREATH, SWELLING OF THROAT Home Medications Home Medications Medication Instructions Recorded Confirmed Type Spiriva with HandiHaler 1 cap INHALATION DAILY 10/13/18 12/28/18 History albuterol sulfate [Ventolin HFA] 2 puff INHALATION Q4 PRN 10/13/18 12/28/18 History cinacalcet [Sensipar] 60 mg PO DAILY 10/13/18 12/28/18 History docusate sodium 100 mg PO BID PRN 10/13/18 12/28/18 History epinephrine [EpiPen] 0.3 mg IM Q3H PRN 10/13/18 12/28/18 History fluticasone [Flonase Allergy 2 spray INTRANASAL DAILY 10/13/18 12/28/18 History Relief] fluticasone-salmeterol [Advair 1 inh INHALATION BID 10/13/18 12/28/18 History Diskus] ipratropium-albuterol 3 ml INHALATION QID 10/13/18 12/28/18 History ondansetron HCl [Zofran] 4 mg PO Q8 PRN 10/13/18 12/28/18 History pantoprazole 40 mg PO DAILY 10/13/18 12/28/18 History ranitidine HCl 300 mg PO HS 10/13/18 12/28/18 History sennosides [Senokot] 8.6 mg PO BID 10/13/18 12/28/18 History sevelamer carbonate [Renvela] 2,400 mg PO TIDM 10/13/18 12/28/18 History sevelamer carbonate [Renvela] 800 mg PO UD 10/13/18 12/28/18 History albuterol sulfate 2.5 mg INHALATION QID PRN 12/03/18 12/28/18 History Med For Afib 1 tab PO DAILY 12/28/18 12/28/18 History warfarin 5 mg PO DAILY 12/28/18 12/28/18 History Patient History Medical History C. 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, s/p ERCP and biliary sphincterotomy" Obstructive sleep apnea on CPAP CPAP Pulmonary emboli Thrombophlebitis of right dorsalis pedis vein Surgical History S/P CRESCENCIO (total abdominal hysterectomy) (Chronic) History of cholecystectomy (Chronic) History of appendectomy (Chronic) History of appendectomy (Inactive) History of bronchoscopy (Inactive) History of cholecystectomy (Inactive) History of colonoscopy (Inactive) History of esophagogastroduodenoscopy (EGD) (Inactive) S/P CRESCENCIO (total abdominal hysterectomy) (Inactive) S/P dialysis catheter insertion (Inactive) DIALYSIS 3XWK Hernia repair (03/11/12) UMBILICAL History of - section (03/11/12) S/P dialysis catheter insertion Family History Father Family history of diabetes mellitus Colon cancer Brother Family history of diabetes mellitus Son Family history of diabetes mellitus Social History Preferred Language: Macedonian Communication Ability: Effective Head Of History Required: No Beliefs That Will Affect Care: None marital status: Current Living Situation: Family Current Living Situation Comment: with son current occupational status: unemployed and disabled Other Information That Helps Us Care for You: No Feels Safe at Home: Yes Safety Concerns: Feels Safe At This Time Smoking Status: Never smoker Hx Alcohol Use: No Hx Substance Use: No Review of Systems Constitutional: + fatigue and + weakness Eyes: no worsening vision Ear, Nose, Mouth, Throat: + dry mouth Respiratory: + dyspnea on exertion and + pain on inspiration; no dyspnea Cardiovascular: + chest pain (resolved now) and + chest pain at rest; no dyspnea on exertion Gastrointestinal: + abdominal pain; no vomiting, no cramping and no change in bowel habits anuric Musculoskeletal: + swelling; no myalgia and no muscle weakness Integumentary: no rash Neurologic: + generalized weakness; no abnormal speech and no memory loss Psychiatric: + anxiety Endocrine: + fatigue Hematologic / Lymphatic: + easy bleeding Physical Exam Vital Signs (Past 24 Hours): Last Vital Signs Temp 37 C 12/29/18 04:22 Pulse 76 12/29/18 04:22 Resp 20 12/29/18 04:22 BP 144/80 H 12/29/18 04:22 Pulse Ox 98 12/29/18 04:22 Constitutional: well developed, well nourished and + obese on RA, appears chronically ill; a& o x 3 Eyes: EOM intact bilaterally; no EOM movement deficit ENMT: Ears: no external ear abnormality Nose: no external nose abnormality Mouth: + dry oral mucous membranes Neck: no nuchal rigidity Respiratory: normal respiratory effort; no labored breathing Auscultation: + diminished lung sounds Cardiovascular: Rate/Rhythm: regular rate and regular rhythm Extremities: + edema (trace - 1+ BLe) Gastrointestinal (Abdomen): Inspection/Auscultation: normal bowel sounds Percussion/Palpation: + abdomen tender (diffuse low abd) and abdomen soft; no guarding and abdomen not rigid Musculoskeletal: Extremities: strength 5/5 throughout Skin: no rashes, warm and dry Neurologic: bowles, fluent speech, no tremor Psychiatric: Orientation: alert and oriented x 3 Affect: + anxious affect and + tearful affect Genitourinary: no jones Results & Data Laboratory Results Abnormal lab results 12/28/18 12/28/18 12/28/18 Range/Units 11:00 11:00 11:00 WBC (4.8-10.8) K/uL RBC 3.44 L (4.2-5.4) M/uL Hgb 10.1 L (12.0-16.0) g/dL Hct 34.8 L (37-47) % MCV 101.2 H (80-100) fL MCHC 29.0 L (32-36) g/dL RDW Std Deviation 69.1 H (36.4-46.3) fL RDW Coeff of Lashae 18.9 H (11.5-14.5) % MPV 10.8 H (7.4-10.4) fL Lymph # (Auto) 1.15 L (1.2-3.4) K/uL Eos # (Auto) 0.78 H (0-0.5) K/uL PT 12.1 H (9.0-12.0) Seconds INR 1.2 H (0.9-1.1) APTT (21.0-31.0) Seconds Chloride (98-107) mmol/L BUN 21 H (7-18) mg/dl Creatinine 4.31 H (0.6-1.2) mg/dl BUN/Creatinine Ratio 4.8 L (10-20) Calcium 8.3 L (8.5-10.1) mg/dl Alkaline Phosphatase 135 H (45-117) U/L Total Protein 6.2 L (6.4-8.2) gm/dl Albumin 2.6 L (3.4-5.0) gm/dl Albumin/Globulin Ratio 0.7 L (0.9-2) 12/28/18 12/29/18 12/29/18 Range/Units 19:44 08:11 08:11 WBC 4.74 L (4.8-10.8) K/uL RBC 3.02 L (4.2-5.4) M/uL Hgb 8.7 L (12.0-16.0) g/dL Hct 30.0 L (37-47) % MCV (80-100) fL MCHC 29.0 L (32-36) g/dL RDW Std Deviation 69.3 H (36.4-46.3) fL RDW Coeff of Lashae 19.1 H (11.5-14.5) % MPV (7.4-10.4) fL Lymph # (Auto) 1.01 L (1.2-3.4) K/uL Eos # (Auto) 0.64 H (0-0.5) K/uL PT 13.1 H (9.0-12.0) Seconds INR 1.3 H (0.9-1.1) APTT 38.2 H 59.0 H* (21.0-31.0) Seconds Chloride (98-107) mmol/L BUN (7-18) mg/dl Creatinine (0.6-1.2) mg/dl BUN/Creatinine Ratio (10-20) Calcium (8.5-10.1) mg/dl Alkaline Phosphatase (45-117) U/L Total Protein (6.4-8.2) gm/dl Albumin (3.4-5.0) gm/dl Albumin/Globulin Ratio (0.9-2) 12/29/18 Range/Units 08:11 WBC (4.8-10.8) K/uL RBC (4.2-5.4) M/uL Hgb (12.0-16.0) g/dL Hct (37-47) % MCV (80-100) fL MCHC (32-36) g/dL RDW Std Deviation (36.4-46.3) fL RDW Coeff of Lashae (11.5-14.5) % MPV (7.4-10.4) fL Lymph # (Auto) (1.2-3.4) K/uL Eos # (Auto) (0-0.5) K/uL PT (9.0-12.0) Seconds INR (0.9-1.1) APTT (21.0-31.0) Seconds Chloride 108 H (98-107) mmol/L BUN 30 H (7-18) mg/dl Creatinine 5.76 H* D (0.6-1.2) mg/dl BUN/Creatinine Ratio 5.2 L (10-20) Calcium 8.3 L (8.5-10.1) mg/dl Alkaline Phosphatase (45-117) U/L Total Protein (6.4-8.2) gm/dl Albumin (3.4-5.0) gm/dl Albumin/Globulin Ratio (0.9-2) Diagnostic Findings TTE moderate [facility] EF 55% no plm htn LARGE MASS EXTENDING ivc TO r ATRIUM, appearing like thrombus; correlate clinically cxr 1. Interval development of pulmonary vascular congestion. 2. Minimal left basilar opacity. (1) Pulmonary emboli Acute cor pulmonale presence: without acute cor pulmonale Chronicity: unspecified Pulmonary embolism type: unspecified Qualified Code(s): I26.99 - Other pulmonary embolism without acute cor pulmonale (2) Complication of vascular access for dialysis Encounter type: subsequent encounter Qualified Code(s): T82.9XXD - Unspecified complication of cardiac and vascular prosthetic device, implant and graft, subsequent encounter
--- NOTE | 2018-12-29 10:53 | Palliative Care Consultation ---
Date of Consultation December 29, 2018 Assessment & Plan (1) Goals of care, counseling/discussion: -63 year old female with complicated and extensive PMH including congenital solitary kidney now with end-stage renal disease on dialysis, paroxysmal afib, severe vasculopathy, failed AV fistulas, advanced COPD on home oxygen, MARY on CPAP, and many others, presented to the hospital with chest pain. She was just discharged from [facility] in [place] three days prior after a hospitalization related to difficult dialysis access, enterococcal bacteremia, PE, and IVC clot. Dr. Villagomez's H&P note lists the details of her complicated hospitalization, but essentially she has two failed AV fistuals. They finally were able to establish access via a temporary dialysis catheter in the right groin. She was being treated for bacteremia with abx. She also was found to have PEs and an incidental finding of possible IVC clot. She was bridged from IV heparin to Coumadin and discharged home with plans to follow up with outpatient nephrology for possible peritoneal dialysis. She underwent her normal dialysis treatment on Wednesday 12/27 where they had difficulty with her temporary catheter. She then developed chest pain and decided to come to the hospital yesterday. Here, her INR was found to be low she was started back on IV heparin. She is receiving her normal dialysis treatment today. We obtained an echocardiogram which shows this IVC clot possibly extending in the right atrium. Obviously with patient's complicated medical conditions, any intervention at this point, either for the clot or dialysis catheter, is risky. Palliative care is consulted to establish goals of care with the patient. -Met with the patient along with Dr. Villagomez in dialysis suite on 4th floor. Patient is pleasant, awake, alert and oriented x4. We discussed the findings listed above, as well as the difficult situation that any further intervention would probably warrant a transfer to tertiary care. Even at that, considering these issues were mostly known when patient was in [facility] and there was no procedure, they may not even be able to offer further treatment at this point. We asked patient how aggressive she wanted us to be. -patient states that her goal is to live until next year when her daughter (who is a granddaughter that she has raised since ) graduates from high school. She states, "I"m not afraid to . I know where I'm going." However, she does still feel that she wants to fight as hard as she can for now. She wants Dr. Villagomez to speak with [facility] to see if there is any way she could be transferred for further care and possible intervention. If they are not willing to accept patient, then we will be having further conversation about where to go from here. -Of note, patient states that if she was unable to make medical decisions, her son Anupam would be primary decision maker. She has talked with him about her wishes. She has made it clear that she is a DNR and would not want her life prolonged if there was little hope of meaningful recovery. -For now, continue current care and Dr. Villagomez will contact [facility]. (2) Anemia due to end stage renal disease: (3) Thrombus in heart chamber: (4) Enterococcal bacteremia: (5) Pulmonary emboli: Acute cor pulmonale presence: without acute cor pulmonale Chronicity: unspecified Pulmonary embolism type: unspecified Qualified Code(s): I26.99 - Other pulmonary embolism without acute cor pulmonale (6) Paroxysmal atrial fibrillation with RVR: (7) Complication of vascular access for dialysis: Encounter type: subsequent encounter Qualified Code(s): T82.9XXD - Unspecified complication of cardiac and vascular prosthetic device, implant and graft, subsequent encounter (8) ESRD on dialysis: (9) Vasculopathy: Supervising Physician Co-Signing Physician Notes Chart reviewed, patient seen and examined-no family or friends at bedside. Collaborated with ROD Ruth PE: NAD HEENT: EOMI, normal hearing Respirations: Unlabored CV: Regular rate, no edema Abdomen: Soft, nontender Neuro: Alert and oriented x4 Agree with above note, assessment and plan as per ROD Ruth. Provided active listening as patient voiced concerns regarding not being able to continue dialysis due to access issues. Patient stated she is not afraid to -she is being transferred to [place], she has asked her son to meet her there and review her final wishes. History of Present Illness Reason for Consultation: Goals of care Requesting Physician: Dr. Villagomez Attending Physician: Richardson Villagomez MD History of Present Illness This 63 year old female with complicated and extensive PMH including congenital solitary kidney now with end-stage renal disease on dialysis, paroxysmal afib, severe vasculopathy, failed AV fistulas, advanced COPD on home oxygen, MARY on CPAP, and many others, presented to the hospital with chest pain. She was just discharged from [facility] in [place] three days prior after a hospitalization related to difficult dialysis access, enterococcal bacteremia, PE, and IVC clot. Dr. Villagomez's H&P note lists the details of her complicated hospitalization, but essentially she has two failed AV fistuals. They finally were able to establish access via a temporary dialysis catheter in the right groin. She was being treated for bacteremia with abx. She also was found to have PEs and an incidental finding of possible IVC clot. She was bridged from IV heparin to Coumadin and discharged home with plans to follow up with outpatient nephrology for possible peritoneal dialysis. She underwent her normal dialysis treatment on Wednesday 12/27 where they had difficulty with her temporary catheter. She then developed chest pain and decided to come to the hospital yesterday. Here, her INR was found to be low she was started back on IV heparin. She is receiving her normal dialysis treatment today. We obtained an echocardiogram which shows this IVC clot possibly extending in the right atrium. Obviously with patient's complicated medical conditions, any intervention at this point, either for the clot or dialysis catheter, is risky. Palliative care is consulted to e stablish goals of care with the patient. Thank you kindly for this consult. I will follow. Allergies Allergy/AdvReac Type Severity Reaction Status Date / Time hydromorphone Allergy Intermediate SHORTNESS Verified 12/28/18 11:36 OF BREATH Cipro Allergy Mild HIVES Verified 06/06/18 03:09 ciprofloxacin Allergy Mild Rash Verified 12/28/18 11:36 metronidazole Allergy Mild HIVES Verified 12/28/18 11:36 Penicillins Allergy Mild HIVES Verified 12/28/18 11:36 chocolate flavor Allergy Unknown HIVES Verified 12/28/18 11:36 nickel Allergy Rash Verified 12/28/18 11:36 aspirin AdvReac Mild Hives Verified 12/28/18 11:36 ENVIRONMENTAL Allergy Severe RESP Uncoded 12/28/18 11:36 DISTRESS, AIRWAY SWELLS Peanut Butter Flavor Allergy Unknown HIVES Uncoded 12/28/18 11:36 TRIX CEREAL Allergy Unknown SHORTNESS Uncoded 12/28/18 11:36 OF BREATH, SWELLING OF THROAT Home Medications Home Medications Medication Instructions Recorded Confirmed Type Spiriva with HandiHaler 1 cap INHALATION DAILY 10/13/18 12/28/18 History albuterol sulfate [Ventolin HFA] 2 puff INHALATION Q4 PRN 10/13/18 12/28/18 History cinacalcet [Sensipar] 60 mg PO DAILY 10/13/18 12/28/18 History docusate sodium 100 mg PO BID PRN 10/13/18 12/28/18 History epinephrine [EpiPen] 0.3 mg IM Q3H PRN 10/13/18 12/28/18 History fluticasone [Flonase Allergy 2 spray INTRANASAL DAILY 10/13/18 12/28/18 History Relief] fluticasone-salmeterol [Advair 1 inh INHALATION BID 10/13/18 12/28/18 History Diskus] ipratropium-albuterol 3 ml INHALATION QID 10/13/18 12/28/18 History pantoprazole 40 mg PO DAILY 10/13/18 12/28/18 History ranitidine HCl 300 mg PO HS 10/13/18 12/28/18 History sennosides [Senokot] 8.6 mg PO BID 10/13/18 12/28/18 History sevelamer carbonate [Renvela] 2,400 mg PO TIDM 10/13/18 12/28/18 History albuterol sulfate 2.5 mg INHALATION QID PRN 12/03/18 12/28/18 History warfarin 5 mg PO DAILY 12/28/18 12/28/18 History atorvastatin 40 mg PO QAM 30 Days #30 tab 12/29/18 Rx diltiazem HCl 180 mg PO QAM 30 Days #30 cap 12/29/18 Rx losartan 25 mg PO HS 30 Days #30 tab 12/29/18 Rx montelukast 10 mg PO HS 30 Days #30 tab 12/29/18 Rx Patient History Medical History C. 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, s/p ERCP and biliary sphincterotomy" Obstructive sleep apnea on CPAP CPAP Pulmonary emboli Thrombophlebitis of right dorsalis pedis vein Surgical History S/P CRESCENCIO (total abdominal hysterectomy) (Chronic) History of cholecystectomy (Chronic) History of appendectomy (Chronic) History of appendectomy (Inactive) History of bronchoscopy (Inactive) History of cholecystectomy (Inactive) History of colonoscopy (Inactive) History of esophagogastroduodenoscopy (EGD) (Inactive) S/P CRESCENCIO (total abdominal hysterectomy) (Inactive) S/P dialysis catheter insertion (Inactive) DIALYSIS [id number] Hernia repair (03/11/12) UMBILICAL History of - section (03/11/12) S/P dialysis catheter insertion Family History Father Family history of diabetes mellitus Colon cancer Brother Family history of diabetes mellitus Son Family history of diabetes mellitus Social History Communication Ability: Effective Beliefs That Will Affect Care: None marital status: Current Living Situation: Family Current Living Situation Comment: with son current occupational status: unemployed and disabled Other Information That Helps Us Care for You: No Feels Safe at Home: Yes Safety Concerns: Feels Safe At This Time Smoking Status: Never smoker Hx Alcohol Use: No Hx Substance Use: No Review of Systems Constitutional: no fever and no chills Ear, Nose, Mouth, Throat: no dysphagia Respiratory: + cough and + dyspnea on exertion; no dyspnea Cardiovascular: no chest pain and no edema Gastrointestinal: no abdominal pain, no nausea and no vomiting no pain reported Neurologic: no confusion Psychiatric: no depression and no anxiety Physical Exam Vital Signs (Past 24 Hours): Last Vital Signs Temp 37 C 12/29/18 08:52 Pulse 82 12/29/18 09:40 Resp 20 12/29/18 04:22 BP 205/86 H 12/29/18 09:40 Pulse Ox 98 12/29/18 04:22 Constitutional: + ill appearing (chronically), comfortable and + overweight; no acute distress Eyes: PERRL ENMT: external ear and nose normal, oropharynx normal Ears: no hearing impairment Neck: normal visual inspection and trachea midline Respiratory: normal respiratory effort, lungs clear to auscultation Auscultation: + diminished lung sounds Cardiovascular: RRR, no murmur, no edema weak peripheral pulses Gastrointestinal (Abdomen): Inspection/Auscultation: abdomen normal to inspection and normal bowel sounds; abdomen not distended Percussion/Palpation: abdomen soft; abdomen nontender Neurologic: awake; not confused Psychiatric: A+Ox3, euthymic affect Insight: good insight (was appropriately tearful throughout difficult conversation) Time Spent Midlevel 70 minutes with >50% of time spent at bedside with patient and Dr. Villagomez discussed medical conditions and goals of care.
[2018-12-29] MEDS ORDERED: VANCOMYCIN HCL 1,500 MG in SODIUM CHLORIDE 0.9% 500 ML IV ONE (12:00)
[2018-12-29] MEDS ORDERED: GENTAMICIN SULFATE IV SCH (14:00)
[2018-12-29] MEDS ORDERED: DEXTROSE 5% IV SCH (14:00)
--- NOTE | 2018-12-29 14:04 | Dialysis Progress Note ---
Date of Service December 29, 2018 Assessment & Plan (1) ESRD on dialysis: for routine HD today using TDC femoral no heparin since on gtt; for 4hrs w/ goal 4.5L UF -she gets her OP dialysis at [facility] under my care -see below re abtx and re possible modality switch> my PD nurse will reach out to pt family to see if we can do home visit before arranging PD cath placement hopefully this admission in [facility] (2) Complication of vascular access for dialysis: challenging vascular access w/ sites essentially exhausted after this catheter; may need to switch to peritoneal dialysis in upcoming weeks/ months -home visit/ PD discussion underway as outpt -- d/t her chronic abd pain issues she is a poor candidate but this is a do or situation clinically for this pt who has been on HD 18 years -other option would be transhepatic catheter; vascular team reluctant to try this however; do not believe it would last long -her vascular care is in [facility] >>>appreciate palliative consult to talk about goals of care /for identifying emotional and daily life support as she navigates severe health problems (3) Enterococcal bacteremia: admission [facility] earlier this month (just d/c on 12/25 approx) for enterococcal bacteremia w/ challenging to clear cxs >>>needs vanco (dosed per [facility] pharmacy Bryan Luo/ inf [facility]) and gentamicin 70 mg after every HD session through 01/31; I spent over 30 minutes clarifying appropriate and recent antibiotic dosing for this pt today >will give 1.5 gm vanco today post tx and follow levels as well as gent dose 70 mg (4) Thrombus in heart chamber: noted on TTE extensive VTE from IVC into R atrium >coumadin as above -heparin gtt while getting coumadin therapeutic -further per primary service (5) Pulmonary emboli: as above (6) Anemia due to end stage renal disease: note that coumadin has been stopped on her in past d/t gi bleeding; how ever w/ atrial thrombus coumadin obligate currently -aggressive epo w/ HD -will check iron stores if not done (7) Hypertension: will be more aggressive w/ UF today >> goal an aggressive 4.5L UF given vascular congestion on XR and higher BP -may also have anxiety component -cont dilt -started cozaar 25 mg hs w/ hold parameters if sbp <110; avoiding ACEI d/t coughing/resp hx Subjective seen on dialysis. we talked about PD; we talked about her difficult situation clinically. no sob currently some abd pain but tolerable; no current chest pain. + edema; no n/v. she is willing to try PD. desires C transfer and this is in process; states she wants to see her granddaughter graduate from high school next spring -- today is 18th anniversary of dialysis for this pt Physical Exam Vital Signs (Past 24 Hours): Last Vital Signs Temp 37.0 C 12/29/18 13:49 Pulse 78 12/29/18 13:49 Resp 20 12/29/18 04:22 BP 185/66 H 12/29/18 13:49 Pulse Ox 98 12/29/18 04:22 Constitutional: well developed, well nourished and + obese on RA tearful at times Eyes: EOM intact bilaterally; no EOM movement deficit ENMT: Ears: no external ear abnormality Nose: no external nose abnormality Mouth: + dry oral mucous membranes Neck: no nuchal rigidity Respiratory: normal respiratory effort; no labored breathing Auscultation: + diminished lung sounds Cardiovascular: Rate/Rhythm: regular rate and regular rhythm Extremities: + edema (trace - 1+ BLe) Gastrointestinal (Abdomen): Inspection/Auscultation: normal bowel sounds Percussion/Palpation: + abdomen tender (diffuse low abd) and abdomen soft; no guarding and abdomen not rigid Musculoskeletal: Extremities: strength 5/5 throughout Skin: no rashes, warm and dry R groin catheter Psychiatric: Orientation: alert and oriented x 3 Affect: + anxious affect and + tearful affect Results & Data Laboratory Results reviewed (1) Complication of vascular access for dialysis Encounter type: subsequent encounter Qualified Code(s): T82.9XXD - Unspecified complication of cardiac and vascular prosthetic device, implant and graft, subsequent encounter (2) Pulmonary emboli Acute cor pulmonale presence: without acute cor pulmonale Chronicity: unspecified Pulmonary embolism type: unspecified Qualified Code(s): I26.99 - Other pulmonary embolism without acute cor pulmonale
[2018-12-29] MEDS: HEPARIN STANDARD DEXTROSE 25,000 UNITS/500 ML IV SCH (14:13)
[2018-12-29] MEDS: FLUTICASONE/SALMETEROL (ADVAIR) 500/50 INH 14 PUFF INH SCH (14:14)
[2018-12-29] MEDS: SENNA 8.6 MG TAB PO SCH (14:14)
[2018-12-29] MEDS: SEVELAMER HCL 800 MG TABLET PO SCH ×3 (14:14→14:19)
--- NOTE | 2018-12-29 14:38 | Hospitalist Progress Note ---
Date of Service December 29, 2018 Assessment & Plan (1) ESRD on dialysis: ESRD on dialysis -This is a 63 year old patient recently discharged from [facility] on 12/25/18 because of problems with dialysis access. Patient subsequently reports being discharged from [facility]. According to [facility] discharge summary, patient had right groin femoral access and there was difficulty with placement over left groin site. -have consulted nephrology for dialysis Thursday, Thursday, Thursday -has vascular access issues and patient prefers to go to [facility] in [place] if any recurrent dialysis catheter access issues continue sevelamer; sensipar 60 mg daily is nonformulary -12/29/18 Patient received dialysis. Patient was informed today that she had on echocardiogram thrombus that extends from IVC to right atrium Had discussion with [facility] in [place] whether there are any advanced procedures such as thrombolytics or thrombectomy in regards to the thrombus in the right atrium. Spoke with Dr. Escalona, patient's vascular surgeon at [facility] and he reports that are no other interventions besides anticoagulation. Patient was told that [facility] where she is currently at can provide this anticogaulation which she is currently getting and also palliative care evaluation. Patient reports that she would prefer to continue her care at [facility]. Patient accepted by hospitalist, Dr. Canada Enterococcal Bacteremia -to continue antibiotics as vancomycin and gentamicin 10mg/kg after every dialysis session which as per [facility] discharge summary should have until last day of 01/31/19 -obtain random vancomycin level as 23 and gentamicin as 1.6 levels on admission day of 12/29/18 -pharmacy antibiotic consult Thromboembolism -Patient also found to have thrombolism at [facility] which was described as a large IVC clot and was bridged to warfarin to maintain the dialysis catheter access; also a 12/20/09 CT abdomen/pelvis test concerning for pulmonary emboli within the right lower lobe -was subtherapeutic with INR 1.2 while suppose to be on warfarin -started on heparin drip in the ED on presentation, warfarin as 5 mg daily -echocardiogram thrombus that extends from IVC to right atrium ; further management at [facility] in [place] as above Chest pressure -Patient arrived to [facility] emergency room on 12/28/18 for what she described as chest pressure that she experienced earlier. also found to have INRto be subtherapeutic of 1.2. Was started on heparin drip with bolus in the emergency room. also given warfarin 5 mg x 1 -chest pressure may be from thromboembolism maintainance respiratory medications contineu advair,spiriva, singulair History of paroxysmal atrial fibrillation -monitor on telemetry -anticoagulation with heparin and coumadin 5 mg daily -diltiazem 180 mg daily as per [facility] discharge summary History of right sided diverticulitis -patient had antibiotics at [facility] -no current abdominal complaints Code Status: DNR/DNI Family son Ferny [phone]; Lawanda [phone] Diagnosis: ESRD on dialysis, Enterococcal Bacteremia, Chest pressure. Thro mboembolism (IVC, right atrium of heart, possible of the lung), History of paroxysmal atrial fibrillation Disposition: Patient requested to be transferred to [facility] and Dr. Canada is the hospitalist accepting physician Subjective Patient was informed today that she had on echocardiogram thrombus that extends from IVC to right atrium while in dialysis session Had discussion with [facility] in [place] whether there are any advanced procedures such as thrombolytics or thrombectomy in regards to the thrombus in the right atrium. Spoke with Dr. Escalona, patient's vascular surgeon at [facility] and he reports that are no other interventions besides anticoagulation. Patient was told that [facility] where she is currently at can provide this anticogaulation which she is currently getting and also palliative care evaluation. Patient reports that she would prefer to continue her care at [facility]. Patient accepted by hospitalist, Dr. Canada Physical Exam Vital Signs (Past 24 Hours): Last Vital Signs Temp 36.6 C 12/29/18 14:29 Pulse 57 L 12/29/18 14:29 Resp 16 12/29/18 14:29 BP 159/81 H 12/29/18 14:29 Pulse Ox 92 12/29/18 14:29 Constitutional: WD/WN, vitals as above Eyes: PERRL, conjunctivae normal, anicteric sclerae EOM intact bilaterally ENMT: external ear and nose normal, oropharynx normal Neck: trachea midline, no thyromegaly Respiratory: normal respiratory effort, lungs clear to auscultation Cardiovascular: Rate/Rhythm: regular rate and regular rhythm Gastrointestinal (Abdomen): normal bowel sounds, soft, nontender, no hepatosplenomegaly Neurologic: PERRL, EOMI, accommodation nl, no face palsy, no dysarthria CN's II-XI intact bilaterally Psychiatric: A+Ox3, euthymic affect
--- NOTE | 2018-12-29 14:57 | Discharge Summary ---
Date of Service December 29, 2018 Admission HPI Per Admitting Provider This is a 63 year old patient recently discharged from [facility] on 12/25/18 because of problems with dialysis access. Patient subsequently reports being discharged from [facility]. According to [facility] discharge summary, patient had right groin femoral access and there was difficulty with placement over left groin site. Patient also was managed for acute right sided diverticulitis for which she completed a 10 day course of antibiotics which included ampicillin gentamicin and flagyl Treatment also for enterococcal bacteremia and patient was discharged with instructions to continue antibiotics as vancomycin and gentamicin which as per [facility] discharge summary should have last day of 01/31/19 Patient also found to have thrombolism at [facility] which was described as a large IVC clot and was bridged to warfarin to maintain the dialysis catheter access; also a 12/20/09 CT abdomen/pelvis test concerning for pulmonary emboli within the right lower lobe Patient was dicharged from [facility] on 12/25/18 then received on Thursday12/27/18 a full dialysis session for which she also received vancomycin and gentamicin. Patient reports having full dialysis session but that the right femoral access required multiple attempts in the dialysis to be manipulated so that she can get the full dialysis session Patient arrived to [facility] emergency room on 12/28/18 for what she described as chest pressure that she experienced earlier. also found to have INRto be subtherapeutic of 1.2. Was started on heparin drip with bolus in the emergency room. also given warfarin 5 mg x 1 On review of systems: the patient does not associate the chest pressure with other symptoms. and that when examined in emergency room there was no chest pressure. no problems with breathing. her lungs sounded clear with recent dialysis session. she reports more leg swelling. denies fevers. no vomiting. no neurological symptoms, no other symptoms Patient rtur Patient reports family history of father and brother with heart catheterizations Admission Exam Per Admitting Provider Constitutional: WD/WN, vitals as above Eyes: PERRL, conjunctivae normal, anicteric sclerae EOM intact bilaterally ENMT: external ear and nose normal, oropharynx normal Neck: trachea midline, no thyromegaly Respiratory: normal respiratory effort, lungs clear to auscultation Cardiovascular: Rate/Rhythm: regular rate and regular rhythm Gastrointestinal (Abdomen): normal bowel sounds, soft, nontender, no hepatosplenomegaly Musculoskeletal: presence of dialysis catheter to the right groin, mild bilateral lower extremity edema Neurologic: PERRL, EOMI, accommodation nl, no face palsy, no dysarthria CN's II-XI intact bilaterally Psychiatric: A+Ox3, euthymic affect Principal Diagnosis ESRD on dialysis, Enterococcal Bacteremia, Chest pressure. Thromboembolism (IVC, right atrium of heart, possible of the lung), History of paroxysmal atrial fibrillation Discharge Exam Constitutional WD/WN, vitals as above Eyes PERRL, conjunctivae normal, anicteric sclerae EOM intact bilaterally ENMT external ear and nose normal, oropharynx normal Neck trachea midline, no thyromegaly Respiratory normal respiratory effort, lungs clear to auscultation Cardiovascular Rate/Rhythm: regular rate and regular rhythm Gastrointestinal (Abdomen) normal bowel sounds, soft, nontender, no hepatosplenomegaly Neurologic PERRL, EOMI, accommodation nl, no face palsy, no dysarthria CN's II-XI intact bilaterally Psychiatric A+Ox3, euthymic affect Discharge Data Allergies Allergy/AdvReac Type Severity Reaction Status Date / Time hydromorphone Allergy Intermediate SHORTNESS Verified 12/28/18 11:36 OF BREATH Cipro Allergy Mild HIVES Verified 06/06/18 03:09 ciprofloxacin Allergy Mild Rash Verified 12/28/18 11:36 metronidazole Allergy Mild HIVES Verified 12/28/18 11:36 Penicillins Allergy Mild HIVES Verified 12/28/18 11:36 chocolate flavor Allergy Unknown HIVES Verified 12/28/18 11:36 nickel Allergy Rash Verified 12/28/18 11:36 aspirin AdvReac Mild Hives Verified 12/28/18 11:36 ENVIRONMENTAL Allergy Severe RESP Uncoded 12/28/18 11:36 DISTRESS, AIRWAY SWELLS Peanut Butter Flavor Allergy Unknown HIVES Uncoded 12/28/18 11:36 TRIX CEREAL Allergy Unknown SHORTNESS Uncoded 12/28/18 11:36 OF BREATH, SWELLING OF THROAT Consultations 12/28/18 11:59 ED Decision to Admit Stat 12/28/18 13:15 Consult Nephrology Routine 12/28/18 19:58 Consult Case Management - Discharge Planning Routine 12/29/18 10:10 Consult Palliative Care Routine Hospital Course (1) ESRD on dialysis: ESRD on dialysis -This is a 63 year old patient recently discharged from [facility] on 12/25/18 because of problems with dialysis access. Patient subsequently reports being discharged from [facility]. According to [facility] discharge summary, patient had right groin femoral access and there was difficulty with placement over left groin site. -have consulted nephrology for dialysis Thursday, Thursday, Thursday -has vascular access issues and patient prefers to go to [facility] in [place] if any recurrent dialysis catheter access issues continue sevelamer; sensipar 60 mg daily is nonformulary -12/29/18 Patient received dialysis. Patient was informed today that she had on echocardiogram thrombus that extends from IVC to right atrium Had discussion with [facility] [place] whether there are any advanced procedures such as thrombolytics or thrombectomy in regards to the thrombus in the right atrium. Spoke with Dr. Escalona, patient's vascular surgeon at [facility] and he reports that are no other interventions besides anticoagulation. Patient was told that [facility] where she is currently at can provide this anticogaulation which she is currently getting and also palliative care evaluation. Patient reports that she would prefer to continue her care at [facility]. Patient accepted by hospitalist, Dr. Canada Enterococcal Bacteremia -to continue antibiotics as vancomycin and gentamicin 10mg/kg after every dialysis session which as per [facility] discharge summary should have until last day of 01/31/19 -obtain random vancomycin level as 23 and gentamicin as 1.6 levels on admission day of 12/29/18 -pharmacy antibiotic consult Thromboembolism -Patient also found to have thrombolism at [facility] which was described as a large IVC clot and was bridged to warfarin to maintain the dialysis catheter access; also a 12/20/09 CT abdomen/pelvis test concerning for pulmonary emboli within the right lower lobe -was subtherapeutic with INR 1.2 while suppose to be on warfarin -started on heparin drip in the ED on presentation, warfarin as 5 mg daily -echocardiogram thrombus that extends from IVC to right atrium ; further management at [facility] in [place] as above Chest pressure -Patient arrived to [facility] emergency room on 12/28/18 for what she described as chest pressure that she experienced earlier. also found to have INRto be subtherapeutic of 1.2. Was started on heparin drip with bolus in the emergency room. also given warfarin 5 mg x 1 -chest pressure may be from thromboembolism maintainance respiratory medications contineu advair,spiriva, singulair History of paroxysmal atrial fibrillation -monitor on telemetry -anticoagulation with heparin and coumadin 5 mg daily -diltiazem 180 mg daily as per [facility] discharge summary History of right sided diverticulitis -patient had antibiotics at [facility] -no current abdominal complaints Code Status: DNR/DNI Family son Ferny [phone]; Lawanda [phone] Diagnosis: ESRD on dialysis, Enterococcal Bacteremia, Chest pressure. Thromboembolism (IVC, right atrium of heart, possible of the lung), History of paroxysmal atrial fibrillation Disposition: Patient requested to be transferred to [facility] and Dr. Canada is the hospitalist accepting physician Total Time Total Time Spent Total Time Spent (In Minutes): 40 minutes Total Time Includes: Examination of the Patient, Discharge Planning and Medication Reconciliation Discharge Plan Discharge Items Patient Disposition: Transfer Acute Care Hospital Reason For Visit: PLEURITIC CHEST PAIN Discharge Diagnosis: ESRD on dialysis, Enterococcal Bacteremia, Chest pressure. Thromboembolism (IVC, right atrium of heart, possible of the lung), History of paroxysmal atrial fibrillation Condition: Fair Discharge Goals: Improve disease control Activity: Per 'Additional Instructions' section Non-emergency contact: Primary Care Provider, Specialist and Special Events Fundraiser Call non-emergency contact if: you have any medication questions Follow-up/Referrals: Luz Torres MD [Primary Care Provider] - Diet: Dialysis Renal Addtl Provider Instructions: Disposition: Patient requested to be transferred to [facility] and Dr. Canada is the hospitalist accepting physician Patient is to continue with vancomycin and gentamin with dialysis sessions up to last day of 01/31/19 as per previous [facility] discharge summary Prescriptions: New atorvastatin 40 mg Tablet 40 mg PO QAM 30 Days Qty: 30 RF: 0 diltiazem HCl 180 mg Capsule,Extended Release 24hr 180 mg PO QAM 30 Days Qty: 30 RF: 0 losartan 25 mg Tablet 25 mg PO HS 30 Days Qty: 30 RF: 0 montelukast 10 mg Tablet 10 mg PO HS 30 Days Qty: 30 RF: 0 Continued sennosides [Senokot] 8.6 mg Tablet 8.6 mg PO BID RF: 0 ipratropium-albuterol 0.5 mg-3 mg(2.5 mg base)/3 mL Solution For Nebulization 3 ml INHALATION QID RF: 0 ranitidine HCl 300 mg Tablet 300 mg PO HS RF: 0 pantoprazole 40 mg Tablet,Delayed Release (Dr/Ec) 40 mg PO DAILY RF: 0 fluticasone-salmeterol [Advair Diskus] 500-50 mcg/dose Blister With Device 1 inh INHALATION BID RF: 0 docusate sodium 100 mg Capsule 100 mg PO BID PRN (Reason: Constipation) RF: 0 epinephrine [EpiPen] 0.3 mg/0.3 mL Auto-Injector 0.3 mg IM Q3H PRN (Reason: ALLERGIC REACCTION) RF: 0 albuterol sulfate [Ventolin HFA] 90 mcg/actuation Hfa Aerosol Inhaler 2 puff INHALATION Q4 PRN (Reason: Shortness Of Breath) RF: 0 fluticasone [Flonase Allergy Relief] 50 mcg/actuation Walls,Suspension 2 spray INTRANASAL DAILY RF: 0 cinacalcet [Sensipar] 60 mg tablet 60 mg PO DAILY RF: 0 Spiriva with HandiHaler 18 mcg Capsule, W/Inhalation Device 1 cap INHALATION DAILY RF: 0 sevelamer carbonate [Renvela] 800 mg Tablet 2,400 mg PO TIDM RF: 0 warfarin 5 mg Tablet 5 mg PO DAILY RF: 0 albuterol sulfate 2.5 mg /3 mL (0.083 %) Solution For Nebulization 2.5 mg INHALATION QID PRN (Reason: Shortness Of Breath) RF: 0 Discontinued ondansetron HCl [Zofran] 4 mg Tablet 4 mg PO Q8 PRN (Reason: Nausea) RF: 0 sevelamer carbonate [Renvela] 800 mg Tablet 800 mg PO UD RF: 0 Med For Afib 1 tab PO DAILY RF: 0 Stand-Alone Forms: Call Back Authorization, [facility] Discharge Orders: Discharge Order (Routine); Ordered 12/29/18 Ordered By: Richardson Villagomez Admission Data Admit Date/Time: 12/28/18 18:29 Attending Provider: Richardson Villagomez Admit Provider: Richardson Villagomez Primary Care Provider: Luz Torres Other Providers: Richardson Villagomez ; July Parikh ; Alejandra Prajapati Service: Telemetry
--- NOTE | 2018-12-29 15:05 | Pharmacy Report ---
Pharmacy Abx Dose Short Note - Date of Service December 29, 2018 - Assessment & Plan Assessment * Ms Davila is a 63 year old F receiving Vancomycin/Gentamicin for treatment of Enterococcal bacteremia. * Patient was recently admitted [place] [facility] where she was receiving vanc/gent after dialysis sessions. * Dr Parikh spent a great deal of time today speaking with their ID service to clarify antibiotic dosing regimens. Patient was receiving: * Gentamicin 1mg/kg after each HD session * Vancomycin 2000mg after each HD session Plan Vancomycin * Pre-HD level obtained on admission last evenin.6 mcg/mL, which is slightly supratherapeutic * Vancomycin 1500mg given today while patient on dialysis * Dose reduced d/t high mg/kg and supratherapeutic level on admission * dosing per provider, based on information from [facility] * Goal trough level for bacteremia: 15 to 20 mcg/mL * Will order another vanc level prior to next HD session Gentamicin * Pre-HD level obtained on admission last evenin.6 mcg/mL, which is slightly supratherapeutic * Gentamicin 55mg given today while patient on dialysis * dosed at 1mg/kg AdjBW, based on aminoglycoside dosing recommendations * dosing per provider, based on information from [facility] * Will order another gent level prior to next HD session Pharmacy will continue to follow and will adjust dose/frequency as necessary. Thank you.
[2018-12-29] MEDS ORDERED: WARFARIN SOD 5 MG TAB PO SCH ×2 (16:00)
[2018-12-29] MEDS ORDERED: LOSARTAN POTASSIUM 25 MG TAB PO SCH (21:00)
[2018-12-29] MEDS ORDERED: MONTELUKAST SODIUM 10 MG TABLET PO SCH (21:00)
== END 2018-12-29 15:50 | disposition short-term general hospital (02) | DRG 175 ==
LOC: ED 10:05 → 2S 16:58